=== PATIENT | male | born 1945 | race Caucasian/White ===

== ENCOUNTER 2016-04-08 11:45 | Outpatient (CLI) | payer MEDICARE ==
[~2016-04-08 11:45] MED LIST: ASCO500C14; ATEN-158 PO; CETI10CA PO; CETI10TA17; CPR500T PO; HYDR-3454 PO; HYDR1TAB PO; HYOS0.1217 PO; LISI1TAB PO; LISI1TAB10 PO; LISI20TA; MULT-608; PHEN200T27 PO; POTA8CAP9; SAWP1CAP; VITA1CAP59; VITA600C3
== END 2016-04-08 12:06 | disposition home or self-care (01) ==
LOC: SLEEP 11:45
PROVIDERS: ATTEND Nurse Practitioner
DX: G47.33 Obstructive sleep apnea (adult) (pediatric) (principal)

== ENCOUNTER → 2016-07-06 | Outpatient (CLI) | payer MEDICARE | LOC: LAB 07:20 | PROVIDERS: ATTEND Urology | DX: C67.9 Malignant neoplasm of bladder, unspecified (principal) ==

== ENCOUNTER → 2017-05-13 | Outpatient (CLI) | payer MEDICARE ==
--- NOTE | 2017-05-13 09:15 | Diagnostic Imaging Report ---
INDICATION: Nonalcoholic steatohepatitis and alcohol abuse. FINDINGS: The liver is normal in size at 16.8 cm. The liver has poor acoustic through transmission consistent with fatty infiltration. No discrete liver mass is identified. The portal vein is patent and demonstrates normal direction of flow. The gallbladder is without stones or sludge. No gallbladder wall thickening is seen. There is no pericholecystic fluid or biliary duct dilatation. The right kidney is unremarkable. The pancreas is somewhat obscured by bowel gas. There is no ascites. IMPRESSION: 1. Hepatic steatosis. No discrete liver mass is identified. 2. No evidence of cholelithiasis or acute cholecystitis. Dictated by: Dictated on workstation # [id number]
== END ==
LOC: RAD 07:06
PROVIDERS: ATTEND Family Medicine
DX: K76.0 Fatty (change of) liver, not elsewhere classified (principal); R10.10 Upper abdominal pain, unspecified
CPT/HCPCS: 76705

== ENCOUNTER → 2018-05-18 | Outpatient (CLI) | payer MEDICARE ==
--- NOTE | 2018-05-18 12:10 | Diagnostic Imaging Report ---
PROCEDURE: US Hepatic (Liver). TECHNIQUE: Multiple real-time grayscale images were obtained over the right upper quadrant in various projections. INDICATION: GARCIA versus cirrhosis. FINDINGS: Liver is enlarged at 19.1 cm. Liver does show increased echogenicity consistent with hepatic steatosis. No discrete liver mass is identified. Portal vein appears to be patent and shows normal direction of flow. Gallbladder is without stones or sludge. No definite wall thickening or biliary ductal dilatation is seen. Pancreas is obscured by bowel gas. The right kidney is unremarkable. There is no ascites. IMPRESSION: 1. Hepatomegaly and hepatic steatosis. No discrete liver mass is detected. 2. No evidence of cholelithiasis or acute cholecystitis. Dictated by: Dictated on workstation # [id number]
== END ==
LOC: RAD 07:30
PROVIDERS: ATTEND Family Medicine
DX: K76.0 Fatty (change of) liver, not elsewhere classified (principal)
CPT/HCPCS: 76705

== ENCOUNTER → 2018-07-15 | Outpatient (CLI) | payer MEDICARE ==
--- NOTE | 2018-07-15 10:53 | Diagnostic Imaging Report ---
PROCEDURE: US Renal Bilateral. TECHNIQUE: Multiple real-time grayscale images were obtained over the kidneys in various projections bilaterally. INDICATION: Renal failure Right kidney measures 9.8 x 6.0 x 5.7 cm, left kidney measures 10.5 x 5.9 x 4.5 cm. There is no mass, calculus or hydronephrosis in either kidney. Urinary bladder appears grossly normal. Left ureteral jet was seen but the right ureteral jet was never demonstrated. IMPRESSION: Mild thinning of the renal cortex with increased renal cortical echogenicity suggesting medical renal disease. There is no evidence for obstructive uropathy. Dictated by: Dictated on workstation # [id number]
== END ==
LOC: RAD 08:49
PROVIDERS: ATTEND Internal Medicine Nephrology
DX: N19 Unspecified kidney failure (principal)
CPT/HCPCS: 76770

== ENCOUNTER → 2020-12-31 | Outpatient (CLI) | payer MEDICARE, OTHER ==
--- NOTE | 2020-12-31 09:00 | Diagnostic Imaging Report ---
EXAM: CT abdomen and pelvis without intravenous contrast. All CT scans use one or more of the following dose optimizing techniques: automated exposure control, MA and/or KvP adjustment based on patient size and exam type or iterative reconstruction. INDICATION: Microscopic hematuria. History of bladder cancer COMPARISON: 07/05/2013. FINDINGS: There is a dense infiltrate or mass in the right lung base noted along the very uppermost cut of the images. This needs to be further evaluated. Left lung base is clear. The kidneys show no evidence of calculi. There is no hydronephrosis. Renal outlines are smooth. There does appear to be a round hypodense area in the upper pole left kidney with a mean Hounsfield unit of 4 measuring approximately 2 cm. The ureters are not dilated. Bladder shows a mild thickening of the wall in a rather uniform fashion. There is a very small amount of air in the bladder. There is hepatic steatosis. The gallbladder and bile duct are normal. The pancreas and spleen are normal. The adrenal glands are not enlarged. Bowel gas pattern is normal. The appendix is not dilated. No evidence of diverticulitis. There is no free air or free fluid. No intra-abdominal adenopathy of pathologic size. There is an old Schmorl's node along superior endplate of L4 which is unchanged. No free air or free fluid. Dense atherosclerosis of the aorta without aneurysm. IMPRESSION: 1. No evidence of renal calculi or hydronephrosis. There is a cystic lesion in the upper pole left kidney measuring approximately 2 cm. 2. There is thickening of the bladder with a small amount of free air within the bladder. This is unchanged in appearance from previous exam. Dictated by: Dictated on workstation # [id number]
== END ==
LOC: RAD 08:45
PROVIDERS: ATTEND Urology
DX: N28.1 Cyst of kidney, acquired (principal); N32.89 Other specified disorders of bladder
CPT/HCPCS: 74176

== ENCOUNTER → 2021-02-20 | Outpatient (CLI) | payer MEDICARE, OTHER ==
--- NOTE | 2021-02-20 09:33 | Diagnostic Imaging Report ---
PROCEDURE: US Renal Bilateral. TECHNIQUE: Multiple real-time grayscale images were obtained over the kidneys in various projections bilaterally. INDICATION: Chronic kidney disease and left kidney lesion noted on CT. Correlation is made with CT study from 12/31/2020. Right kidney measures 9.1 x 6.1 x 4.8 cm and left kidney measures 11.3 x 5.7 x 4.4 cm. The cortical thickness and echogenicity is normal. No calculi are seen. There does appear to be a cyst in the upper pole of the left kidney measuring 19 mm x 21 mm x 18 mm, corresponding with the CT abnormality. No other renal masses are identified. Bladder volume is 137 mL. Postvoid volume is 48 mL. The right ureteral jet was not visualized. Left ureteral jet was visualized. There does appear to be some bladder wall thickening. IMPRESSION: 1. A left renal cyst. 2. No evidence of calculi or hydronephrosis. 3. Mild bladder wall thickening. Dictated by: Dictated on workstation # [id number]
== END ==
LOC: RAD 09:00
PROVIDERS: ATTEND Internal Medicine
DX: N28.1 Cyst of kidney, acquired (principal); N18.31 Chronic kidney disease, stage 3a; D63.1 Anemia in chronic kidney disease
CPT/HCPCS: 76770

== ENCOUNTER 2021-02-25 16:54 | Inpatient (IN) | payer MEDICARE, OTHER ==
[~2021-02-25] VITALS: Ht 175.3 cm; Wt 83.8 kg
[2021-02-25] VITALS (10 sets, daily range): BP systolic 180–230; BP diastolic 72–91
[2021-02-25] MEDS ORDERED: FOLIC ACID 1 MG TAB PO ONE (17:45)
[2021-02-25] MEDS ORDERED: THIAMINE 100 MG (VITAMIN B-1) TAB PO ONE (17:45)
[2021-02-25] MEDS ORDERED: NS IV 1000 ML 1,000 ML IV SCH (17:45)
--- NOTE | 2021-02-25 17:50 | ED Neurological Problem ---
General Chief Complaint: Altered Mental Status Stated Complaint: AMS Nursing Triage Note: PT TO RM 6 BY WHEELCHAIR WITH COMPLAINT OF ALTERED MENTAL STATUS. PER , STATES PT IS HAVING INCREASED WEAKENSS AND CONFUSION. STATES PT IS A DAILY DRINKER Source: patient, spouse Exam Limitations: no limitations (CARTER LINDSAY) History of Present Illness Date Seen by Provider: Feb 25, 2021 Time Seen by Provider: 17:24 Initial Comments Patient to the ER by private conveyance with and chief complaint of acute altered mental status over the past 3 days. Normally he drives around goes to the [employer] [facility] [employer] and the [employer] and has a couple beers at each. He drinks whiskey at home. He is typically conversational, ambulatory and highly functioning at home. His says she works all day and she has noticed in the past 3 days has been very confused, 1 day she came home from work early and he was sitting on the back porch with their brand-new puppy off the leash running around and said he was waiting to go to work with her. She had the keys 3 days ago because she was concerned about his safety. She took him to his doctor at [facility] and saw nurse practitioner who did some labs and urinalysis but she does not have the results yet. She was told to take him home and not let him drive. He does not have a history of stroke. He does take a lot of herbal supplements and a lot of medications but she does not have a list. Allopurinol, Lasix, hydralazine, atenolol. (CARTER LINDSAY) Allergies and Home Medications Allergies Coded Allergies: Sulfa (Sulfonamide Antibiotics) (Verified Allergy, Mild, 07/22/09) Patient Home Medication List Home Medication List Reviewed: Yes (CARTER LINDSAY) Home Medication List Reviewed: Yes (IRMA WALL DO) Atenolol (Tenormin Tablet) 50 Mg Tab, 50 MG PO DAILY, (Reported) Entered as Reported by: SHERYL FOSTER on 09/20/13 1313 Hctz/Lisinopril (Lisinopril-Hctz 20-25MG Tab) 1 Tab Tablet, 1 EACH PO DAILY, (Reported) Entered as Reported by: SHERYL FOSTER on 09/20/13 1313 Hydrocodone Bit/Acetaminophen (Vicodin 5-300 Mg Tablet) 1 Each Tablet, 1-2 TAB PO PRN PRN for PAIN Prescribed by: MERT MARTE on 09/27/13 0928 Review of Systems Review of Systems Constitutional: No chills, No diaphoresis Eyes: Denies Blindness, Denies Drainage Ears, Nose, Mouth, Throat: denies ear pain, denies ear discharge Respiratory: cough; No short of breath Cardiovascular: No chest pain, No palpitations, No syncope Gastrointestinal: No abdominal pain, No constipation, No diarrhea, No nausea Genitourinary: No discharge, No dysuria, No frequency, No hematuria Musculoskeletal: No back pain, No joint pain Psychiatric/Neurological: Denies Anxiety, Denies Depressed (CARTER LINDSAY) All Other Systems Reviewed Negative Unless Noted: Yes (CARTER LINDSAY) Past Vbcknwc-Kzzhsx-Rececy Hx Patient Social History Tobacco Use?: No Smoking Status: Former Smoker Use of E-Cig and/or Vaping dev: No Substance use?: No Alcohol Use?: Yes Alcohol type: Beer, Hard Liquor Alcohol Frequency: Daily Pt feels they are or have been: No (CARTER LINDSAY) Immunizations Up To Date Influenza Vaccine Up-to-Date: Yes; Up-to-Date (CARTER LINDSAY) Past Medical History Reproductive Disorders: No (CARTER LINDSAY) Physical Exam Vital Signs Vital Signs - First Documented 02/25/21 17:11 Pulse 61 Resp 17 B/P (MAP) 180/79 (112) Pulse Ox 94 O2 Delivery Room Air (BELINDA,IRMA K DO) Vital Signs Capillary Refill : Less Than 3 Seconds (CARTER LINDSAY) Height, Weight, BMI Height: 5'8.00" Weight: 189lbs. oz. 85.097339rt; 28.00 BMI Method: General Appearance: WD/WN, no apparent distress HEENT: PERRL/EOMI (3 mm reactive bilateral, symmetric), normal ENT inspection, TMs normal, pharynx normal Neck: full range of motion, supple, normal inspection Respiratory: lungs clear, normal breath sounds, no respiratory distress, no accessory muscle use Cardiovascular: normal peripheral pulses, regular rate, rhythm, no edema Peripheral Pulses: 2+ Dorsalis Pedis (R), 2+ Left Dors-Pedis (L) Gastrointestinal: normal bowel sounds, non tender, soft Extremities: normal range of motion, non-tender, normal capillary refill Neurologic/Psychiatric: 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 He is oriented to month.) Coordination/Gait: other (Slow, shuffling gait) Motor/Sensory: no motor deficit, no sensory deficit, no pronator drift, other (NIH 1 for disorientation) Skin: normal color, warm/dry (ANGÉLICA,CARTER J) Progress/Results/Core Measures Results/Orders Lab Results Laboratory Tests Test 02/25/21 17:58 02/25/21 18:00 02/25/21 18:08 Range/Units Urine Color YELLOW Urine Clarity CLEAR Urine pH 6.0 5-9 Urine Specific [place] 1.020 1.016-1.022 Urine Protein TRACE H NEGATIVE Urine Glucose (UA) NEGATIVE NEGATIVE Urine Ketones NEGATIVE NEGATIVE Urine Nitrite NEGATIVE NEGATIVE Urine Bilirubin NEGATIVE NEGATIVE Urine Urobilinogen 0.2 < = 1.0 MG/DL Urine Leukocyte Esterase NEGATIVE NEGATIVE Urine RBC (Auto) 3+ H NEGATIVE Urine RBC 25-50 H /HPF Urine WBC 0-2 /HPF Urine Squamous Epithelial Cells 0-2 /HPF Urine Crystals NONE /LPF Urine Bacteria TRACE /HPF Urine Casts PRESENT /LPF Urine Hyaline Casts 5-10 H /LPF Urine Mucus SMALL H /LPF Urine Culture Indicated NO Urine Opiates Screen NEGATIVE NEGATIVE Urine Oxycodone Screen NEGATIVE NEGATIVE Urine Methadone Screen NEGATIVE NEGATIVE Urine Propoxyphene Screen NEGATIVE NEGATIVE Urine Barbiturates Screen NEGATIVE NEGATIVE Ur Tricyclic Antidepressants Screen NEGATIVE NEGATIVE Urine Phencyclidine Screen NEGATIVE NEGATIVE Urine Amphetamines Screen NEGATIVE NEGATIVE Urine Methamphetamines Screen NEGATIVE NEGATIVE Urine Benzodiazepines Screen NEGATIVE NEGATIVE Urine Cocaine Screen NEGATIVE NEGATIVE Urine Cannabinoids Screen NEGATIVE NEGATIVE Influenza Type A (RT-PCR) Not Detected Not Detecte Influenza Type B (RT-PCR) Not Detected Not Detecte SARS-CoV-2 RNA (RT-PCR) Not Detected Not Detecte White Blood Count 8.6 4.3-11.0 10^3/uL Red Blood Count 3.55 L 4.30-5.52 10^6/uL Hemoglobin 12.9 L 13.3-17.7 g/dL Hematocrit 38 L 40-54 % Mean Corpuscular Volume 107 H 80-99 fL Mean Corpuscular Hemoglobin 36 H 25-34 pg Mean Corpuscular Hemoglobin Concent 34 32-36 g/dL Red Cell Distribution Width 13.2 10.0-14.5 % Platelet Count 159 130-400 10^3/uL Mean Platelet Volume 11.3 9.0-12.2 fL Immature Granulocyte % (Auto) 0 % Neutrophils (%) (Auto) 73 42-75 % Lymphocytes (%) (Auto) 13 12-44 % Monocytes (%) (Auto) 10 0-12 % Eosinophils (%) (Auto) 3 0-10 % Basophils (%) (Auto) 1 0-10 % Neutrophils # (Auto) 6.3 1.8-7.8 10^3/uL Lymphocytes # (Auto) 1.1 1.0-4.0 10^3/uL Monocytes # (Auto) 0.9 0.0-1.0 10^3/uL Eosinophils # (Auto) 0.2 0.0-0.3 10^3/uL Basophils # (Auto) 0.1 0.0-0.1 10^3/uL Immature Granulocyte # (Auto) 0.0 0.0-0.1 10^3/uL Sodium Level 145 135-145 MMOL/L Potassium Level 4.0 3.6-5.0 MMOL/L Chloride Level 110 H 98-107 MMOL/L Carbon Dioxide Level 21 21-32 MMOL/L Anion Gap 14 5-14 MMOL/L Blood Urea Nitrogen 35 H 7-18 MG/DL Creatinine 3.15 H 0.60-1.30 MG/DL Estimat Glomerular Filtration Rate 19 BUN/Creatinine Ratio 11 Glucose Level 113 H 70-105 MG/DL Calcium Level 10.7 H 8.5-10.1 MG/DL Corrected Calcium 11.2 H 8.5-10.1 MG/DL Total Bilirubin 2.2 H 0.1-1.0 MG/DL Aspartate Amino Transf (AST/SGOT) 32 5-34 U/L Alanine Aminotransferase (ALT/SGPT) 22 0-55 U/L Alkaline Phosphatase 73 40-136 U/L Ammonia 58 H 11-32 UMOL/L C-Reactive Protein High Sensitivity 0.93 H 0.00-0.50 MG/DL Total Protein 8.8 H 6.4-8.2 GM/DL Albumin 3.4 3.2-4.5 GM/DL Amylase Level 60 25-125 U/L Lipase 19 8-78 U/L Serum Alcohol < 10 <10 MG/DL (IRMA WALL DO) My Orders (IRMA WALL DO) Medications Given in ED Current Medications Medications Dose Ordered Sig/Nolan Route Start Time Stop Time Status Last Admin Dose Admin Folic Acid 1 mg ONCE ONCE PO 02/25/21 17:45 02/25/21 17:46 DC 02/25/21 17:59 1 MG Thiamine HCl 100 mg ONCE ONCE PO 02/25/21 17:45 02/25/21 17:46 DC 02/25/21 18:09 100 MG (BELINDADOMINIQUEA Perla DO) Vital Signs/I&O 02/25/21 17:11 Pulse 61 Resp 17 B/P (MAP) 180/79 (112) Pulse Ox 94 O2 Delivery Room Air (IRMA WALL DO) Blood Pressure Mean: 112 Progress Progress Note : Time: 17:51 Progress Note Last known well time of 3 days ago with what seems to be a waxing and waning appearance of delirium and NIH of only one-point for disorientation. EKG is unrevealing. Plan to get Covid and influenza swabs, chest x-ray, labs, CT of the head and urinalysis. The medications he is on are probably not contributory however his history of drinking and withdrawal from alcohol over the past couple days could be contributory. (CARTER LINDSAY) Progress Note : Progress Note 1800-ASSUMED CARE FROM DR. LINDSAY, LAB AND CT PENDING. HAS LEFT THE ROOM 1845--PT HAS RIPPED OUT IV AND ALL MONITORING DEVICES. PT CONTINUES TO TRY TO REMOVE IV, ETC. PT CONTINUES TO HAVE VERY FLAT AFFECT, AND APPEARS CONFUSED, ALTHOUGH HE DOES NOT TALK AT ANY TIME FOR ME, BUT HE DOES FOLLOW SIMPLE COMMANDS. 2014-- IS NOW BACK IN ROOM, UPDATED HER ON ALL TEST RESULTS, AND NEED FOR ADMIT. DOES STATE THAT SHE HAS A HOME VIDEO MONITOR, SO SHE CAN WATCH HIM WHILE SHE IS AT WORK. NO DETERIORATION IN PT'S CONDITION DURING ER STAY (IRMA WALL ) Initial ECG Impression Date: Feb 25, 2021 (CARTER LINDSAY) Diagnostic Imaging Diagonstic Imaging: Xray Plain Films/CT/US/NM/MRI: chest Reviewed: Reviewed by Me Diagonstic Imaging: CT Plain Films/CT/US/NM/MRI: head Reviewed: Reviewed by Me (CARTER LINDSAY) Comments PER RADIOLOGIST REPORTS AT 1915 CXR-- FINDINGS: The heart size is normal. The pulmonary vascularity is unremarkable. The lungs are clear. No infiltrate, effusion or pneumothorax is detected. IMPRESSION: No acute cardiopulmonary process is detected. CT HEAD- -There are mild atrophic changes. There are minimal low-density changes in the deep white matter compatible with chronic ischemic change. There is no acute hemorrhage or mass effect or midline shift. The ventricles are normal in size and position. There are no acute appearing parenchymal abnormalities in the brain. Calvarial windows show no overt bony abnormality. Note is made of complete opacification of the left maxillary sinus and left sphenoid sinus. There is opacification of mastoid air cells on the right side. IMPRESSION: Mild atrophic changes and mild chronic changes in deep white matter with no acute intracranial abnormality. Opacification of the left maxillary sinus and left sphenoid sinus is incidentally noted. There is also opacification of the right mastoid air cells. Reviewed: Reviewed by Me (IRMA WALL DO) Transfer of Care Time: 18:01 Care transferred to: Dr. Wall (CARTER LINDSAY) Departure Communication (Admissions) 1916--SPOKE WITH DR. JOHN, ACCEPTS PT FOR ADMIT. SHE WILL DO ADMIT ORDERS (IRMA WALL DO) Impression Primary Impression: Altered mental status Additional Impressions: Alcoholism Acute renal failure ELEVATED AMMONIA LEVEL Disposition: ADMITTED INPATIENT Condition: Stable Admissions Decision to Admit Reason: Admit from ER (General) Decision to Admit/Date: Feb 25, 2021 Time/Decision to Admit Time: 19:20 (IRMA WALL DO) Departure-Patient Inst. Referrals: DOREEN MERA MD (PCP/Family) Primary Care Physician CARTER LINDSAY Feb 25, 2021 17:50 IRMA WALL DO Feb 25, 2021 18:59
[2021-02-25 18:08] LABS: BILIRUBIN,URINE NEGATIVE (NEGATIVE); CLARITY,URINE CLEAR; COLOR,URINE YELLOW; GLUCOSE, URINE (UA) NEGATIVE (NEGATIVE); KETONES,URINE NEGATIVE (NEGATIVE); LEUKOCYTE ESTERASE ,URINE NEGATIVE (NEGATIVE); NITRITE,URINE NEGATIVE (NEGATIVE); PROTEIN,URINE TRACE (NEGATIVE)
[2021-02-25 18:16] LABS: BASOPHILS # (AUTO) 0.1 10^3/uL (0.0-0.1); BASOPHILS % (AUTO) 1 % (0-10); EOSINOPHILS # (AUTO) 0.2 10^3/uL (0.0-0.3); EOSINOPHILS % (AUTO) 3 % (0-10); HEMATOCRIT 38 % (40-54); HEMOGLOBIN 12.9 g/dL (13.3-17.7); LYMPHOCYTES # (AUTO) 1.1 10^3/uL (1.0-4.0); LYMPHOCYTES % (AUTO) 13 % (12-44); MEAN CORPUSCULAR HEMOGLOBIN 36 pg (25-34); MEAN CORPUSCULAR HGB CONC 34 g/dL (32-36); MEAN CORPUSCULAR VOLUME 107 fL (80-99); MEAN PLATELET VOLUME 11.3 fL (9.0-12.2); MONOCYTES # (AUTO) 0.9 10^3/uL (0.0-1.0); MONOCYTES % (AUTO) 10 % (0-12); NEUTROPHILS # (AUTO) 6.3 10^3/uL (1.8-7.8); NEUTROPHILS % (AUTO) 73 % (42-75); PLATELET COUNT 159 10^3/uL (130-400); WHITE BLOOD COUNT 8.6 10^3/uL (4.3-11.0)
[2021-02-25 18:18] LABS: RBC,URINE 25-50 /HPF; WBC,URINE 0-2 /HPF
[2021-02-25 18:19] LABS: BACTERIA,URINE TRACE /HPF; SQUAMOUS EPITHELIAL CELL,UR 0-2 /HPF
[2021-02-25 18:22] LABS: AMPHETAMINE SCREEN, URINE NEGATIVE (NEGATIVE); BARBITURATE SCREEN URINE NEGATIVE (NEGATIVE); BENZODIAZEPINES SCREEN URINE NEGATIVE (NEGATIVE); CANNABINOID SCREEN, URINE NEGATIVE (NEGATIVE); COCAINE SCREEN URINE NEGATIVE (NEGATIVE); METHADONE STAT NEGATIVE (NEGATIVE); METHAMPHETAMINE SCREEN URINE S NEGATIVE (NEGATIVE); OPIATE SCREEN URINE NEGATIVE (NEGATIVE); OXYCODONE STAT NEGATIVE (NEGATIVE); PROPOXYPHENE STAT NEGATIVE (NEGATIVE); TRICYCLIC ANTIDEPRESSANTS SCRE NEGATIVE (NEGATIVE)
[2021-02-25 18:28] LABS: ALBUMIN 3.4 GM/DL (3.2-4.5); CHLORIDE 110 MMOL/L (98-107); SODIUM 145 MMOL/L (135-145)
[2021-02-25 18:29] LABS: CALCIUM 10.7 MG/DL (8.5-10.1)
[2021-02-25 18:30] LABS: GLUCOSE 113 MG/DL (70-105)
[2021-02-25 18:31] LABS: TOTAL PROTEIN 8.8 GM/DL (6.4-8.2)
[2021-02-25 18:32] LABS: BILIRUBIN,TOTAL 2.2 MG/DL (0.1-1.0); CARBON DIOXIDE 21 MMOL/L (21-32)
[2021-02-25 18:34] LABS: ALKALINE PHOSPHATASE 73 U/L (40-136); CREATININE SERUM 3.15 MG/DL (0.60-1.30); GFR ESTIMATED 19
[2021-02-25 18:35] LABS: BUN/CREATININE RATIO 11
[2021-02-25 18:37] LABS: ALANINE AMINOTRANSFERASE 22 U/L (0-55)
[2021-02-25 18:41] LABS: AMYLASE 60 U/L (25-125)
[2021-02-25 18:42] LABS: AMMONIA 58 UMOL/L (11-32)
[2021-02-25 18:50] LABS: LIPASE 19 U/L (8-78)
[2021-02-25] MEDS ORDERED: LACTATED RINGERS 1,000 ML IV ONE (19:00)
--- NOTE | 2021-02-25 19:09 | Diagnostic Imaging Report ---
INDICATION: Altered mental status and weakness. TIME OF EXAM: 6:52 PM COMPARISON is made with prior chest 10/03/2010. FINDINGS: The heart size is normal. The pulmonary vascularity is unremarkable. The lungs are clear. No infiltrate, effusion or pneumothorax is detected. IMPRESSION: No acute cardiopulmonary process is detected. Dictated by: Dictated on workstation # [id number]
--- NOTE | 2021-02-25 19:12 | Diagnostic Imaging Report ---
INDICATION: Altered mental status. TECHNIQUE: Multiple contiguous axial images were obtained through the brain without the use of intravenous contrast. Auto Exposure Controls were utilized during the CT exam to meet ALARA standards for radiation dose reduction. There is no prior study for comparison. There are mild atrophic changes. There are minimal low-density changes in the deep white matter compatible with chronic ischemic change. There is no acute hemorrhage or mass effect or midline shift. The ventricles are normal in size and position. There are no acute appearing parenchymal abnormalities in the brain. Calvarial windows show no overt bony abnormality. Note is made of complete opacification of the left maxillary sinus and left sphenoid sinus. There is opacification of mastoid air cells on the right side. IMPRESSION: Mild atrophic changes and mild chronic changes in deep white matter with no acute intracranial abnormality. Opacification of the left maxillary sinus and left sphenoid sinus is incidentally noted. There is also opacification of the right mastoid air cells. Dictated by: Dictated on workstation # [id number]
[2021-02-25] MEDS ORDERED: ONDANSETRON 4 MG (ZOFRAN) ORAL DISSOLVE TAB SL PRN (20:45)
[2021-02-25] MEDS ORDERED: DOCUSATE SODIUM 100 MG (COLACE) CAP PO PRN (20:45)
[2021-02-25] MEDS ORDERED: SENNA W/DOCUSATE (SENOKOT S) TABLET PO PRN (20:45)
[2021-02-25] MEDS ORDERED: D5 1/2 NS 1000 ML IV SOLUTION 1,000 ML IV PRN (20:45)
[2021-02-25] MEDS ORDERED: CALCIUM CARBONATE 500 MG (TUMS) TAB.CHEW PO PRN (20:45)
[2021-02-25] MEDS ORDERED: diphenhydrAMINE 25 MG TAB (BENADRYL) PO PRN (20:45)
[2021-02-25] MEDS ORDERED: LORazepam INJ 2 MG/ML (ATIVAN) VIAL IM/IV PRN (20:45)
[2021-02-25] MEDS ORDERED: LOPERAMIDE 2 MG (IMODIUM) TABLET PO PRN (20:45)
[2021-02-25] MEDS ORDERED: ONDANSETRON 4 MG/2 ML (SDV) Z0FRAN IV PRN (20:45)
[2021-02-25] MEDS ORDERED: HYDROcodone/APAP 5 MG/325 MG (LORTAB) TAB PO PRN (20:45)
[2021-02-25] MEDS ORDERED: ANTACID SUSP 30 ML UDC (MYLANTA) PO PRN (20:45)
[2021-02-25] MEDS ORDERED: RT-ALBUTEROL SULF 2.5 MG/3 ML PRE-MIX VIAL INH PRN (21:45)
[2021-02-25] MEDS: cloNIDine 0.1 MG (CATAPRES) TAB PO PRN (22:04)
[2021-02-25] MEDS: SENNA W/DOCUSATE (SENOKOT S) TABLET PO SCH (22:04)
[2021-02-25] MEDS: polyethylene glycoL POWDER 17 GM (MIRALAX) PACK PO SCH (22:05)
[2021-02-25] MEDS: ENOXAPARIN 30 MG/0.3 ML (LOVENOX) SYR SC SCH (22:05)
[2021-02-25] MEDS: LACTULOSE SYRUP 10GM/15ML (ENULOSE) 30ML UDC PO SCH (22:05)
[2021-02-25] MEDS: NS IV 1000 ML 1,000 ML IV SCH (22:06)
[2021-02-26] VITALS (8 sets, daily range): BP systolic 133–216; BP diastolic 63–88
[2021-02-26] MEDS: cloNIDine 0.1 MG (CATAPRES) TAB PO PRN ×2 (01:47→11:39)
[2021-02-26] MEDS ORDERED: cloNIDine 0.1 MG (CATAPRES) TAB PO ONE (04:00)
[2021-02-26] MEDS ORDERED: amLODIPine 10 MG (NORVASC) TAB PO ONE ×2 (04:00→21:15)
[2021-02-26] MEDS: MULTIVIT W/MINERALS TAB (THERAGRAN M) PO SCH (05:23)
[2021-02-26] MEDS: THIAMINE 100 MG (VITAMIN B-1) TAB PO SCH (05:23)
[2021-02-26 06:11] LABS: BASOPHILS # (AUTO) 0.1 10^3/uL (0.0-0.1); BASOPHILS % (AUTO) 1 % (0-10); LYMPHOCYTES # (AUTO) 1.3 10^3/uL (1.0-4.0); MEAN CORPUSCULAR VOLUME 105 fL (80-99); NEUTROPHILS % (AUTO) 58 % (42-75)
[2021-02-26 06:13] LABS: EOSINOPHILS # (AUTO) 0.2 10^3/uL (0.0-0.3); EOSINOPHILS % (AUTO) 5 % (0-10); HEMATOCRIT 33 % (40-54); HEMOGLOBIN 11.5 g/dL (13.3-17.7); LYMPHOCYTES % (AUTO) 24 % (12-44); MEAN CORPUSCULAR HEMOGLOBIN 37 pg (25-34); MEAN CORPUSCULAR HGB CONC 35 g/dL (32-36); MEAN PLATELET VOLUME 10.7 fL (9.0-12.2); MONOCYTES # (AUTO) 0.6 10^3/uL (0.0-1.0); MONOCYTES % (AUTO) 12 % (0-12); PLATELET COUNT 118 10^3/uL (130-400); WHITE BLOOD COUNT 5.2 10^3/uL (4.3-11.0)
[2021-02-26 06:21] LABS: ALBUMIN 2.9 GM/DL (3.2-4.5); POTASSIUM 3.6 MMOL/L (3.6-5.0)
[2021-02-26 06:22] LABS: CALCIUM 9.5 MG/DL (8.5-10.1)
[2021-02-26 06:23] LABS: INR 1.3 (0.8-1.4)
[2021-02-26 06:24] LABS: TOTAL PROTEIN 7.5 GM/DL (6.4-8.2)
[2021-02-26 06:25] LABS: BILIRUBIN,TOTAL 2.4 MG/DL (0.1-1.0)
[2021-02-26 06:27] LABS: CREATININE SERUM 2.49 MG/DL (0.60-1.30)
[2021-02-26 06:39] LABS: SMEAR SCAN COMMENT YES
[2021-02-26] MEDS ORDERED: CETI10TA17 PO (09:40)
[2021-02-26] MEDS ORDERED: CIME200T14 PO (09:40)
[2021-02-26] MEDS ORDERED: ASPI-1238 PO (09:40)
[2021-02-26] MEDS ORDERED: TRAM50TA3 PO (09:40)
[2021-02-26] MEDS ORDERED: ASCO100024 PO (09:40)
[2021-02-26] MEDS ORDERED: DIPH25TA65 PO (09:40)
[2021-02-26] MEDS ORDERED: VITA100033 PO (09:40)
[2021-02-26] MEDS ORDERED: ATEN100T PO (09:40)
[2021-02-26] MEDS ORDERED: GABA300C PO (09:40)
[2021-02-26] MEDS ORDERED: FURO20TA4 PO (09:40)
[2021-02-26] MEDS ORDERED: ALLO100T PO (09:40)
[2021-02-26] MEDS ORDERED: SAW450CA7 PO (09:40)
[2021-02-26] MEDS ORDERED: KRIL1CAP4 PO (09:40)
[2021-02-26] MEDS ORDERED: VITA-189 PO (09:40)
[2021-02-26] MEDS: LORazepam INJ 2 MG/ML (ATIVAN) VIAL IV PRN (10:37)
[2021-02-26] MEDS: FOLIC ACID 1 MG TAB PO SCH (10:41)
[2021-02-26] MEDS: LACTULOSE SYRUP 10GM/15ML (ENULOSE) 30ML UDC PO SCH ×2 (10:41→19:36)
[2021-02-26] MEDS: SENNA W/DOCUSATE (SENOKOT S) TABLET PO SCH ×2 (10:41→19:36)
[2021-02-26] MEDS: polyethylene glycoL POWDER 17 GM (MIRALAX) PACK PO SCH ×2 (10:42→19:36)
[2021-02-26] MEDS: 1/2 NS IV SOLUTION 1,000 ML IV PRN (10:43)
[2021-02-26] MEDS: NS IV 1000 ML 1,000 ML IV SCH ×2 (11:43→21:00)
--- NOTE | 2021-02-26 12:03 | History & Physical-Hospitalist ---
MELANIE DURBIN 02/26/21 1203: History of Present Illness HPI/Chief Complaint Patient is a 76 year old male who presented to [facility] ER by private vehicle. Pattie ent was brought in by his for altered mental status. Patient has a history of alcohol dependence and has not had a drink in 3-4 days. states that he began acting confused yesterday morning, and she was concerned, so she took his keys away before going to work. When she got home her was outside, confused, and thinking he was going with her to work. She called the [facility] and they told her to come in to the ER. In the ER, patient was also found to have elevated ammonia levels and acute kidney injury. Patient is hard to get information from due to his altered mental status and his hearing impairment. His is worried about him breaking his hearing aids, which is why she hasn't brought them in yet. Source: RN/MD, spouse Exam Limitations: physical impairment (Uses hearing aids and does not have with him) Date Seen 02/26/21 Time Seen by a Provider: 10:00 Attending Physician Maria Elena John DO PCP Latanya Rothman MD Referring Physician Date of Admission Feb 25, 2021 at 18:26 Home Medications & Allergies Home Medications Reviewed patient Home Medication Reconciliation performed by pharmacy medication reconciliations security technician and/or nursing. Patients Allergies have been reviewed. Allergies Allergies Coded Allergies Sulfa (Sulfonamide Antibiotics) (Verified Allergy, Mild, 07/22/09) Past Erconhx-Bauzyn-Eqfuqo Hx Patient Social History Marrital Status: Tobacco Use?: No Smoking Status: Former Smoker Use of E-Cig and/or Vaping dev: No Substance use?: No Alcohol Use?: Yes Alcohol type: Beer, Hard Liquor Alcohol Frequency: Daily Pt feels they are or have been: No Immunizations Up To Date Date of Influenza Vaccine: Jan 26, 2021 Tetanus Booster (TDap): Unknown Current Status Advance Directives: Unable to obtain Communicates: Verbally Primary Language: Grenadian Preferred Spoken Language: Grenadian Is interpretation needed?: No Sensory deficits: Hearing impairment Implanted or Applied Medical D: CPAP Review of Systems ROS-Unable to Obtain: Patient unable to hear, still confused, unable to answer ROS questions. Physical Exam Physical Exam Vital Signs Vital Signs - First Documented 02/25/21 02/25/21 02/25/21 17:11 21:27 21:28 Temp 36.1 Pulse 61 Resp 17 B/P (MAP) 180/79 (112) Pulse Ox 94 O2 Delivery Room Air FiO2 21 Capillary Refill : Less Than 3 Seconds Height, Weight, BMI Height: 5'8.00" Weight: 189lbs. oz. 85.146323hz; 28.53 BMI Method: General Appearance: WD/WN, Anxious Respiratory: Lungs Clear, Normal Breath Sounds, No Accessory Muscle Use, No Respiratory Distress Cardiovascular: Regular Rate, Rhythm, Normal Peripheral Pulses Rectal: Deferred Neurologic/Psychiatric: Alert, Disoriented Skin: Pallor Results Results/Procedures Labs Laboratory Tests 02/25/21 18:08 02/26/21 06:03 Patient resulted labs reviewed. Imaging: Reviewed Imaging Films, Reviewed Imaging Report Imaging [facility], [place], [place] NAME: MINGO NAIR [facility] REC#: [id number] PT STATUS: REG ER : 1945 PHYSICIAN: CARTER LINDSAY MD ADMIT DATE: 02/25/21/ER Signed Date of Exam:02/25/21 CHEST 1 VIEW, AP/PA ONLY [place], [place] NAME: MINGO NAIR [facility] REC#: [id number] PT STATUS: ADM IN : 1945 PHYSICIAN: CARTER LINDSAY MD ADMIT DATE: 02/25/21/[facility] Signed Date of Exam:02/25/21 CT HEAD WO INDICATION: Altered mental status. TECHNIQUE: Multiple contiguous axial images were obtained through the brain without the use of intravenous contrast. Auto Exposure Controls were utilized during the CT exam to meet ALARA standards for radiation dose reduction. There is no prior study for comparison. There are mild atrophic changes. There are minimal low-density changes in the deep white matter compatible with chronic ischemic change. There is no acute hemorrhage or mass effect or midline shift. The ventricles are normal in size and position. There are no acute appearing parenchymal abnormalities in the brain. Calvarial windows show no overt bony abnormality. Note is made of complete opacification of the left maxillary sinus and left sphenoid sinus. There is opacification of mastoid air cells on the right side. IMPRESSION: Mild atrophic changes and mild chronic changes in deep white matter with no acute intracranial abnormality. Opacification of the left maxillary sinus and left sphenoid sinus is incidentally noted. There is also opacification of the right mastoid air cells. Dictated by: Dictated on workstation # [id number] Dict: 02/25/211904 Trans: 02/25/212319 [facility] [id number] Interpreted by: MINGO WALDEN MD Electronically signed by: MINGO WALDEN MD 02/25/212319 INDICATION: Altered mental status and weakness. TIME OF EXAM: 6:52 PM COMPARISON is made with prior chest 10/03/2010. FINDINGS: The heart size is normal. The pulmonary vascularity is unremarkable. The lungs are clear. No infiltrate, effusion or pneumothorax is detected. IMPRESSION: No acute cardiopulmonary process is detected. Dictated by: Dictated on workstation # [id number] Dict: 02/25/211906 Trans: 02/25/211912 [facility] [id number] Interpreted by: ISAMAR JOSHI MD Electronically signed by: ISAMAR JOSHI MD 02/25/211912 Meds Current Medications Medications Dose Ordered Sig/Nolan Route Start Time Stop Time Status Last Admin Dose Admin Amlodipine Besylate 10 mg ONCE ONCE PO 02/26/21 04:00 02/26/21 04:14 DC 02/26/21 04:21 10 MG Clonidine HCl 0.1 mg ONCE ONCE PO 02/26/21 04:00 02/26/21 04:14 DC 02/26/21 04:22 0.1 MG Assessment/Plan Admission Diagnosis Acute alcohol withdrawal, EDWARD Admission Status: Inpatient Order (span 2 midnights) Reason for Inpatient Admission: Acute alcohol withdrawal with chronic alcohol dependence, EDWARD Assessment and Plan Assessment Acute alcohol withdrawal Alcohol dependence EDWARD HTN Hematuria Macrocytosis Plan IV Fluids Ativan Thiamine Folate MV Lovenox Clonidine Pain management PRN GERD prophylaxis MARIA ELENA JOHN DO 02/27/21 0526: History of Present Illness HPI/Chief Complaint CC: Altered mental status with alcohol withdrawal HPI: This is a 76yoWM who has a hx of alcoholism who presented to the [facility] ER found to have altered mental status and findings consistent with alcohol withdrawal. His creatinine was 3.1 consistent with dehydration so he was admitted for IV fluids and alcohol withdrawal treatment and today his creatinine is much better at 2.49. Elevated BP requiring aggressive BP medications. He does not have his hearing aids so it is very difficult to communicate. His is at the bedside and speaks broken Grenadian since she is apparently Slovak. I tried to update her with everything that she needs to know and she needs him to stay here as long as possible because she has to work. Source: patient, family, RN/MD, old records, spouse Exam Limitations: physical impairment (Uses hearing aids and does not have with him) Past Ayhrnwk-Noyuqp-Blraoi Hx Patient Social History Marrital Status: Employed/Student: retired Tobacco Use?: Yes Alcohol Use?: Yes Past Medical History High Cholesterol, Hypertension Review of Systems Constitutional: see HPI Physical Exam Physical Exam General Appearance: No Apparent Distress, Anxious, Chronically ill Eyes: Right Eye Normal Inspection, Right Eye PERRL HEENT: PERRL/EOMI, Normal ENT Inspection, Pharynx Normal, Moist Mucous Membranes Neck: Full Range of Motion, Normal Inspection, Non Tender Respiratory: Chest Non Tender, Lungs Clear, Normal Breath Sounds, No Accessory Muscle Use, No Respiratory Distress Cardiovascular: Regular Rate, Rhythm, No Edema, No Gallop, No JVD, No Murmur, Normal Peripheral Pulses Gastrointestinal: Normal Bowel Sounds, No Organomegaly, No Pulsatile Mass, Non Tender, Soft Back: Normal Inspection, No CVA Tenderness, No Vertebral Tenderness Extremity: Normal Capillary Refill, Normal Inspection, Normal Range of Motion, Non Tender, No Calf Tenderness, No Pedal Edema Neurologic/Psychiatric: Alert, No Motor/Sensory Deficits, Normal Mood/Affect, Disoriented Skin: Normal Color, Warm/Dry Lymphatic: No Adenopathy Assessment/Plan Admission Diagnosis Assessment: Acute alcohol withdrawal Acute kidney injury Alcoholism Malignant hypertension Plan: Alcohol withdrawal protocol IV fluids Hypertension management Diagnosis/Problems Diagnosis/Problems (1) Altered mental status Status: Acute (2) Alcoholism Status: Acute (3) Acute renal failure Status: Acute Supervisory-Addendum Brief Verification & Attestation Participated in pt care: history, MDM, physical Personally performed: exam, history, MDM, supervision of care Care discussed with: Medical Student Procedures: n/a Results interpretation: Verified all documentation Verification and Attestation of Medical Student E/M Service A medical student performed and documented this service in my presence. I reviewed and verified all information documented by the medical student and made modifications to such information, when appropriate. I personally performed the physical exam and medical decision making. Maria Elena John, Feb 27, 2021,05:26 MELANIE DURBIN Feb 26, 2021 12:03 MARIA ELENA JOHN DO Feb 27, 2021 05:26
--- NOTE | 2021-02-26 16:09 | Consultation-Cardiology ---
HPI-Cardiology Cardiology Consultation: Date of Consultation 02/26/21 Time Seen by a Provider: 15:45 Date of Admission 02-25-21 Attending Physician Maria Elena Landry DO Admitting Physician Latanya Rothman MD Consulting Physician Ludwin Joel MD HPI: Chief Complaint: Uncontrolled HTN Mr. Marin is a 76 yr old male who has been admitted to [facility] from the ED by his with c/o increasing weakness and confusion over the course of the last several days. He is currently confused and very [place]ALIS[place]L. His spouse is at the bedside. She reports he is a long standing heavy ETOH drinker. She reports he drinks 5 or more beers a night along with 2-3 whiskey drinks. She reports he has been driving himself to the bar up until this week. She does not report that he has c/o any CP or SOB. She reports he has never seen a crankshaft grinder before. She states he has CKD 4 for which he was previously following with Dr. Mejia of [place] [facility]. She reports he has high blood pressure and sleep apnea. She states he has had confusion with taking his medications at home over the last week. She states he takes gabapentin and tramadol at home for chronic leg pain for which he follows at [facility]. She reports he has gout. He is unable to answer any questions on his own. I have written questions on a piece of paper, but he just sets the paper down and does not answer. Review of Systems-Cardiology Review of Systems Other comments HPI to the extent it could be obtained from his is as per the HPI All Other Systems Reviewed Negative Unless Noted: Yes BIV-Vuboxh-Fskqjn Hx Patient Social History Marrital Status: Smoking Status: Former Smoker Have you traveled recently?: Unable to obtain Alcohol Use?: Yes Pt feels they are or have been: No Immunizations Up To Date Date of Influenza Vaccine: Jan 26, 2021 Past Medical History PMH As described under Assessment. Family Medical History Family Medical History: Unalble to provide any information Allergies and Home Medications Allergies Coded Allergies: Sulfa (Sulfonamide Antibiotics) (Verified Allergy, Mild, 07/22/09) Patient Home Medication List Allopurinol (Allopurinol) 100 Mg Tablet, 100 MG PO DAILY, (Reported) Entered as Reported by: TIM VALLADARES on 02/26/21 0903 Last Action: Reviewed Ascorbic Acid (Vitamin C) 1,000 Mg Tablet, 1,000 MG PO DAILY, (Reported) Entered as Reported by: TIM VALLADARES on 02/26/21939 Last Action: Reviewed Aspirin (Aspirin EC) 81 Mg Tablet.dr, 81 MG PO DAILY, (Reported) Entered as Reported by: TIM VALLADARES on 02/26/21939 Last Action: Reviewed Atenolol (Atenolol) 100 Mg Tablet, 100 MG PO DAILY, (Reported) Entered as Reported by: TIM VALLADARES on 02/26/21939 Last Action: Reviewed Cetirizine HCl (Cetirizine HCl) 10 Mg Tablet, 10 MG PO DAILY, (Reported) Entered as Reported by: TIM VALLADARES on 02/26/21939 Last Action: Reviewed Cimetidine (Acid Nut Tapper (CIMETIDINE)) 200 Mg Tablet, 200 MG PO DAILY, (Reported) Entered as Reported by: TIM VALLADARES on 02/26/21939 Last Action: Reviewed Diphenhydramine HCl (Benadryl Allergy) 25 Mg Tablet, 25 MG PO DAILY, (Reported) Entered as Reported by: TIM VALLADARES on 02/26/21939 Last Action: Reviewed Furosemide (Furosemide) 20 Mg Tablet, 20 MG PO DAILY, (Reported) Entered as Reported by: TIM VALLADARES on 02/26/21939 Last Action: Reviewed Gabapentin (Neurontin) 300 Mg Capsule, 600 MG PO DAILY, (Reported) Entered as Reported by: TIM VALLADARES on 02/26/21939 Last Action: Reviewed Krill Oil/[place]-3/Dha/Epa ([place]-3 Krill Oil Softgel) 1 Each Capsule, 1 EACH PO DAILY, (Reported) Entered as Reported by: TIM VALLADARES on 02/26/21939 Last Action: Reviewed Saw [place] Fruit (Saw [place]) 450 Mg Capsule, 450 MG PO DAILY, (Reported) Entered as Reported by: TIM VALLADARES on 02/26/21939 Last Action: Reviewed Tramadol HCl (Tramadol HCl) 50 Mg Tablet, 50 MG PO DAILY, (Reported) Entered as Reported by: TIM VALLADARES on 02/26/21939 Last Action: Reviewed Vitamin B Complex (B Complex) 1 Each Tablet, 1 EACH PO DAILY, (Reported) Entered as Reported by: TIM VALLADARES on 02/26/21939 Last Action: Reviewed Vitamin E Mixed (Vitamin E) 1,000 Unit Capsule, 1,000 UNIT PO DAILY, (Reported) Entered as Reported by: TIM VALLADARES on 02/26/21939 Last Action: Reviewed Discontinued Medications Atenolol (Tenormin Tablet) 50 Mg Tab, 50 MG PO DAILY, (Reported) Discontinued Reason: No Longer Taking Entered as Reported by: SHERYL FOSTER on 09/20/131312 Last Action: Discontinued Hctz/Lisinopril (Lisinopril-Hctz 20-25MG Tab) 1 Tab Tablet, 1 EACH PO DAILY, (Reported) Discontinued Reason: No Longer Taking Entered as Reported by: SHERYL FOSTER on 09/20/131312 Last Action: Discontinued Hydrocodone Bit/Acetaminophen (Vicodin 5-300 Mg Tablet) 1 Each Tablet, 1-2 TAB PO PRN PRN for PAIN Discontinued Reason: No Longer Taking Prescribed by: MERT MARTE on 09/27/13927 Last Action: Discontinued Physical Exam-Cardiology Physical Exam Vital Signs/I&O 02/26/21 02/26/21 02/26/21 02/27/21 20:50 21:58 23:10 00:23 Temp 36.5 Pulse 71 75 Resp 20 B/P (MAP) 210/80 (123) 180/79 (112) 187/86 (119) Pulse Ox 95 96 O2 Delivery Room Air Room Air 02/27/21 02/27/21 02/27/21 02/27/21 00:50 01:04 03:43 07:00 Temp 36.5 Pulse 76 96 70 Resp 20 B/P (MAP) 146/82 (103) 139/82 (101) Pulse Ox 94 O2 Delivery NIV CPAP 02/27/21 08:00 Temp 36.8 Pulse 75 Resp 16 B/P (MAP) 150/98 (115) Pulse Ox 96 O2 Delivery NIV CPAP 02/27/21 00:00 Intake Total 1145 ml Output Total 1550 ml Balance -405 ml Capillary Refill : Less Than 3 Seconds Constitutional: other (Very [place]; awake, alert; oriented to self) HEENT: hard of hearing, oral hygience is good Neck: No carotid bruit; carotid pulses are 2 + bilaterally Respiratory: No accessory muscle use, No respiratory distress; chest expansion is symmetric, chest is bilaterally symmetric Cardiovascular: regular rate-rhythm; No JVD; S1 and S2 Gastrointestinal: No tender; soft, round, audible bowel sounds Extremities: no lower extremity edema bilateral Neurologic/Psychiatric: other (moves all extremities) Skin: No rash on exposed areas, No ulcerations on exposed areas Data Review Labs Laboratory Tests 02/26/21 11:31: Glucometer 115H 02/26/21 17:43: Glucometer 143H 02/26/21 23:43: Glucometer 95 02/27/21 05:12: Glucometer 98 02/27/21 06:24: White Blood Count 5.9, Red Blood Count 3.23L, Hemoglobin 11.9L, Hematocrit 34L, Mean Corpuscular Volume 105H, Mean Corpuscular Hemoglobin 37H, Mean Corpuscular Hemoglobin Concent 35, Red Cell Distribution Width 12.7, Platelet Count 117L, Mean Platelet Volume 11.0, Immature Granulocyte % (Auto) 0, Neutrophils (%) (Auto) 68, Lymphocytes (%) (Auto) 14, Monocytes (%) (Auto) 15H, Eosinophils (%) (Auto) 3, Basophils (%) (Auto) 1, Neutrophils # (Auto) 4.0, Lymphocytes # (Auto) 0.8L, Monocytes # (Auto) 0.9, Eosinophils # (Auto) 0.2, Basophils # (Auto) 0.0, Immature Granulocyte # (Auto) 0.0, Percent Immature Platelet Fraction 4.0, Prothrombin Time 16.4H, INR Comment 1.3, Sodium Level 143, Potassium Level 3.8, Chloride Level 111H, Carbon Dioxide Level 20L, Anion Gap 12, Blood Urea Nitrogen 29H, Creatinine 2.04H, Estimat Glomerular Filtration Rate 32, BUN/Creatinine Ratio 14, Glucose Level 102, Calcium Level 9.3, Magnesium Level 1.5L, Total Bilirubin 2.8H, Direct Bilirubin 1.1H, Indirect Bilirubin 1.7, Aspartate Amino Transf (AST/SGOT) 29, Alanine Aminotransferase (ALT/SGPT) 17, Alkaline Phosphat ase 67, Total Protein 7.8, Albumin 3.1L, Thyroid Stimulating Hormone (TSH) 1.70 Radiology NAME: MINGO MARIN [facility] REC#: [id number] PT STATUS: ADM IN : 1945 PHYSICIAN: CARTER LINDSAY MD ADMIT DATE: 02/25/21 Signed Date of Exam:02/25/21 CT HEAD WO INDICATION: Altered mental status. TECHNIQUE: Multiple contiguous axial images were obtained through the brain without the use of intravenous contrast. Auto Exposure Controls were utilized during the CT exam to meet ALARA standards for radiation dose reduction. There is no prior study for comparison. There are mild atrophic changes. There are minimal low-density changes in the deep white matter compatible with chronic ischemic change. There is no acute hemorrhage or mass effect or midline shift. The ventricles are normal in size and position. There are no acute appearing parenchymal abnormalities in the brain. Calvarial windows show no overt bony abnormality. Note is made of complete opacification of the left maxillary sinus and left sphenoid sinus. There is opacification of mastoid air cells on the right side. IMPRESSION: Mild atrophic changes and mild chronic changes in deep white matter with no acute intracranial abnormality. Opacification of the left maxillary sinus and left sphenoid sinus is incidentally noted. There is also opacification of the right mastoid air cells. Dictated by: Dictated on workstation # [id number] Dict: 02/25/211904 Trans: 02/25/[address] [place] [address] [id number] Interpreted by: MINGO WALDEN MD Electronically signed by: MINGO WALDEN MD 02/25/212319 NAME: MINGO MARIN [facility] REC#: [id number] PT STATUS: REG ER : 1945 PHYSICIAN: CARTER LINDSAY MD ADMIT DATE: 02/25/21/ER Signed Date of Exam:02/25/21 CHEST 1 VIEW, AP/PA ONLY INDICATION: Altered mental status and weakness. TIME OF EXAM: 6:52 PM COMPARISON is made with prior chest 10/03/2010. FINDINGS: The heart size is normal. The pulmonary vascularity is unremarkable. The lungs are clear. No infiltrate, effusion or pneumothorax is detected. IMPRESSION: No acute cardiopulmonary process is detected. Dictated by: Dictated on workstation # [id number] Dict: 02/25/211906 Trans: 02/25/211912 [facility] [id number] Interpreted by: ISAMAR JOSHI MD Electronically signed by: ISAMAR JOSHI MD 02/25/211912 A/P-Cardiology Assessment/Admission Diagnosis Uncontrolled HTN - h/o HTN (previously taking atenolol at home) Reported sinus bradycardia Confusion of undetermined etiology - management per medical services Heavy ETOH abuse with withdrawal - management per medical services CKD 4 (per spouse report) - follows with [facility] Sleep apnea - CPAP tx H/O bladder cancer - followed by Dr. Young Gout Chronic leg pain - undetermined etiology Mild thrombocytopenia - undetermined etiology Discussion and Recomendations Uncontrolled HTN with reported episodes of bradycardia - stop Atenolol - stop clonidine - start Cardura Start Norvasc EKG Echocardiogram to eval structure and function CKD 4 - this prevents us from adding STAN or ARB Monitor lab closely Replace electrolytes as indicated Mild thrombocytopenia of undetermined etiology - management per medical services We would like to thank medical services for this consult Further recs will be based on his hospital course MORIS BYNUM Feb 26, 2021 16:09
[2021-02-26] MEDS ORDERED: doxAzosin 4 MG (CARDURA) TAB PO ONE (16:15)
--- NOTE | 2021-02-26 17:24 | Consultation-Cardiology ---
HPI-Cardiology Cardiology Consultation: Date of Consultation 02/26/21 Time Seen by a Provider: 17:00 Date of Admission Attending Physician Maria Elena Landry DO Admitting Physician Latanya Rothman MD Consulting Physician TOSHIA CRUZ MD, MA, FACP, FACC, FSCAI, CCDS HPI: Chief Complaint: Uncontrolled HTN Mr. Marin is a 76 yr old male who has been admitted to [facility] from the ED by his with c/o increasing weakness and confusion over the course of the last several days. He is currently confused and very [place]. His spouse is at the bedside. She reports he is a long standing heavy ETOH drinker. She reports he drinks 5 or more beers a night along with 2-3 whiskey drinks. She reports he has been driving himself to the bar up until this week. She does not report that he has c/o any CP or SOB. She reports he has never seen a conservation coordinator before. She states he has CKD 4 for which he was previously following with Dr. Mejia of [facility]. She reports he has high blood pressure and sleep apnea. She states he has had confusion with taking his medications at home over the last week. She states he takes gabapentin and tramadol at home for chronic leg pain for which he follows at [facility]. She reports he has gout. He is unable to answer any questions on his own. I have written questions on a piece of paper, but he just sets the paper down and does not answer. Review of Systems-Cardiology Review of Systems Constitutional: other (Pt unable to provide a review of systems) All Other Systems Reviewed Negative Unless Noted: Yes [id number] Hx Patient Social History Marrital Status: Smoking Status: Former Smoker Have you traveled recently?: Unable to obtain Alcohol Use?: Yes Pt feels they are or have been: No Immunizations Up To Date Date of Influenza Vaccine: Jan 26, 2021 Past Medical History PMH As described under Assessment. Family Medical History Family Medical History: Unable to provide any information Allergies and Home Medications Allergies Coded Allergies: Sulfa (Sulfonamide Antibiotics) (Verified Allergy, Mild, 07/22/09) Patient Home Medication List Home Medication List Reviewed: Yes Allopurinol (Allopurinol) 100 Mg Tablet, 100 MG PO DAILY, (Reported) Entered as Reported by: TIM VALLADARES on 12/15/21 0940 Last Action: Reviewed Ascorbic Acid (Vitamin C) 1,000 Mg Tablet, 1,000 MG PO DAILY, (Reported) Entered as Reported by: TIM VALLADARES on 02/26/21939 Last Action: Reviewed Aspirin (Aspirin EC) 81 Mg Tablet.dr, 81 MG PO DAILY, (Reported) Entered as Reported by: TIM VALLADARES on 02/26/21939 Last Action: Reviewed Atenolol (Atenolol) 100 Mg Tablet, 100 MG PO DAILY, (Reported) Entered as Reported by: TIM VALLADARES on 02/26/21939 Last Action: Reviewed Cetirizine HCl (Cetirizine HCl) 10 Mg Tablet, 10 MG PO DAILY, (Reported) Entered as Reported by: TIM VALLADARES on 02/26/21939 Last Action: Reviewed Cimetidine (Acid Dist[place] (CIMETIDINE)) 200 Mg Tablet, 200 MG PO DAILY, (Reported) Entered as Reported by: TIM VALLADARES on 02/26/21939 Last Action: Reviewed Diphenhydramine HCl (Benadryl Allergy) 25 Mg Tablet, 25 MG PO DAILY, (Reported) Entered as Reported by: TIM VALLADARES on 02/26/21939 Last Action: Reviewed Furosemide (Furosemide) 20 Mg Tablet, 20 MG PO DAILY, (Reported) Entered as Reported by: TIM VALLADARES on 02/26/21939 Last Action: Reviewed Gabapentin (Neurontin) 300 Mg Capsule, 600 MG PO DAILY, (Reported) Entered as Reported by: TIM VALLADARES on 02/26/21939 Last Action: Reviewed Krill Oil/Fajardo-3/Dha/Epa (Fajardo-3 Krill Oil Softgel) 1 Each Capsule, 1 EACH PO DAILY, (Reported) Entered as Reported by: TIM VALLADARES on 02/26/21939 Last Action: Reviewed Saw [place] Fruit (Saw [place]) 450 Mg Capsule, 450 MG PO DAILY, (Reported) Entered as Reported by: TIM VALLADARES on 02/26/21939 Last Action: Reviewed Tramadol HCl (Tramadol HCl) 50 Mg Tablet, 50 MG PO DAILY, (Reported) Entered as Reported by: TIM VALLADARES on 02/26/21939 Last Action: Reviewed Vitamin B Complex (B Complex) 1 Each Tablet, 1 EACH PO DAILY, (Reported) Entered as Reported by: TIM VALLADARES on 02/26/21939 Last Action: Reviewed Vitamin E Mixed (Vitamin E) 1,000 Unit Capsule, 1,000 UNIT PO DAILY, (Reported) Entered as Reported by: TIM VALLADARES on 02/26/21939 Last Action: Reviewed Discontinued Medications Atenolol (Tenormin Tablet) 50 Mg Tab, 50 MG PO DAILY, (Reported) Discontinued Reason: No Longer Taking Entered as Reported by: SHERYL FOSTER on 09/20/131312 Last Action: Discontinued Hctz/Lisinopril (Lisinopril-Hctz 20-25MG Tab) 1 Tab Tablet, 1 EACH PO DAILY, (Reported) Discontinued Reason: No Longer Taking Entered as Reported by: SHERYL FOSTER on 09/20/131312 Last Action: Discontinued Hydrocodone Bit/Acetaminophen (Vicodin 5-300 Mg Tablet) 1 Each Tablet, 1-2 TAB PO PRN PRN for PAIN Discontinued Reason: No Longer Taking Prescribed by: MERT MARTE on 09/27/13927 Last Action: Discontinued Physical Exam-Cardiology Physical Exam Vital Signs/I&O 02/26/21 02/26/21 02/26/21 02/26/21 07:00 08:00 08:00 11:00 Temp 35.7 Pulse 60 60 Resp 20 B/P (MAP) 160/74 (102) 177/79 (111) Pulse Ox 94 O2 Delivery Room Air Room Air 02/26/21 02/26/21 14:41 16:14 Temp 35.8 Pulse 54 Resp 22 B/P (MAP) 197/72 (113) Pulse Ox 95 95 O2 Delivery Room Air Room Air 02/26/21 00:00 Intake Total 1200 ml Balance 1200 ml Capillary Refill : Less Than 3 Seconds Constitutional: other (Very [place]; awake, alert; oriented to self) HEENT: hard of hearing, oral hygience is good Neck: No carotid bruit; carotid pulses are 2 + bilaterally Respiratory: No accessory muscle use, No respiratory distress; chest expansion is symmetric, chest is bilaterally symmetric Cardiovascular: regular rate-rhythm; No JVD; S1 and S2 Gastrointestinal: No tender; soft, round, audible bowel sounds Extremities: no lower extremity edema bilateral Neurologic/Psychiatric: other (moves all extremities) Skin: No rash on exposed areas, No ulcerations on exposed areas Data Review Labs Laboratory Tests 02/25/21 17:58: Urine Color YELLOW, Urine Clarity CLEAR, Urine pH 6.0, Urine Specific Allen 1.020, Urine Protein TRACEH, Urine Glucose (UA) NEGATIVE, Urine Ketones NEGATIVE, Urine Nitrite NEGATIVE, Urine Bilirubin NEGATIVE, Urine Urobilinogen 0.2, Urine Leukocyte Esterase NEGATIVE, Urine RBC (Auto) 3+H, Urine RBC 25-50H, Urine WBC 0-2, Urine Squamous Epithelial Cells 0-2, Urine Crystals NONE, Urine Bacteria TRACE, Urine Casts PRESENT, Urine Hyaline Casts 5-10H, Urine Mucus SMALLH, Urine Culture Indicated NO, Urine Opiates Screen NEGATIVE, Urine Oxycodone Screen NEGATIVE, Urine Methadone Screen NEGATIVE, Urine Propoxyphene Screen NEGATIVE, Urine Barbiturates Screen NEGATIVE, Ur Tricyclic Antidepressants Screen NEGATIVE, Urine Phencyclidine Screen NEGATIVE, Urine Amp hetamines Screen NEGATIVE, Urine Methamphetamines Screen NEGATIVE, Urine Benzodiazepines Screen NEGATIVE, Urine Cocaine Screen NEGATIVE, Urine Cannabinoids Screen NEGATIVE 02/25/21 18:00: Influenza Type A (RT-PCR) Not Detected, Influenza Type B (RT-PCR) Not Detected, SARS-CoV-2 RNA (RT-PCR) Not Detected 02/25/21 18:08: White Blood Count 8.6, Red Blood Count 3.55L, Hemoglobin 12.9L, Hematocrit 38L, Mean Corpuscular Volume 107H, Mean Corpuscular Hemoglobin 36H, Mean Corpuscular Hemoglobin Concent 34, Red Cell Distribution Width 13.2, Platelet Count 159, Mean Platelet Volume 11.3, Immature Granulocyte % (Auto) 0, Neutrophils (%) (Auto) 73, Lymphocytes (%) (Auto) 13, Monocytes (%) (Auto) 10, Eosinophils (%) (Auto) 3, Basophils (%) (Auto) 1, Neutrophils # (Auto) 6.3, Lymphocytes # (Auto) 1.1, Monocytes # (Auto) 0.9, Eosinophils # (Auto) 0.2, Basophils # (Auto) 0.1, Immature Granulocyte # (Auto) 0.0, Sodium Level 145, Potassium Level 4.0, Chloride Level 110H, Carbon Dioxide Level 21, Anion Gap 14, Blood Urea Nitrogen 35H, Creatinine 3.15H, Estimat Glomerular Filtration Rate 19, BUN/Creatinine Ratio 11, Glucose Level 113H, Calcium Level 10.7H, Corrected Calcium 11.2H, Total Bilirubin 2.2H, Aspartate Amino Transf (AST/SGOT) 32, Alanine Aminotransferase (ALT/SGPT) 22, Alkaline Phosphatase 73, Ammonia 58H, C-Reactive Protein High Sensitivity 0.93H, Total Protein 8.8H, Albumin 3.4, Amylase Level 60, Lipase 19, Serum Alcohol < 10 02/25/21 19:19: Ammonia 44H 02/26/21 05:22: Glucometer 83 02/26/21 06:03: White Blood Count 5.2, Red Blood Count 3.15L, Hemoglobin 11.5L, Hematocrit 33L, Mean Corpuscular Volume 105H, Mean Corpuscular Hemoglobin 37H, Mean Corpuscular Hemoglobin Concent 35, Red Cell Distribution Width 12.9, Platelet Count 118L, Mean Platelet Volume 10.7, Immature Granulocyte % (Auto) 0, Neutrophils (%) (Auto) 58, Lymphocytes (%) (Auto) 24, Monocytes (%) (Auto) 12, Eosinophils (%) (Auto) 5, Basophils (%) (Auto) 1, Neutrophils # (Auto) 3.0, Lymphocytes # (Auto) 1.3, Monocytes # (Auto) 0.6, Eosinophils # (Auto) 0.2, Basophils # (Auto) 0.1, Immature Granulocyte # (Auto) 0.0, Percent Immature Platelet Fraction 3.7, Proth rombin Time 17.0H, INR Comment 1.3, Sodium Level 143, Potassium Level 3.6, Chloride Level 111H, Carbon Dioxide Level 22, Anion Gap 10, Blood Urea Nitrogen 33H, Creatinine 2.49H, Estimat Glomerular Filtration Rate 25, BUN/Creatinine Ratio 13, Glucose Level 89, Calcium Level 9.5, Corrected Calcium 10.4H, Total Bilirubin 2.4H, Aspartate Amino Transf (AST/SGOT) 28, Alanine Aminotransferase (ALT/SGPT) 16, Alkaline Phosphatase 69, Total Protein 7.5, Albumin 2.9L, Smear Scan YES 02/26/21 11:31: Glucometer 115H A/P-Cardiology Assessment/Admission Diagnosis Uncontrolled HTN - h/o HTN (previously taking atenolol at home) Reported sinus bradycardia Confusion of undetermined etiology - management per medical services Heavy ETOH abuse with withdrawal - management per medical services CKD 4 (per spouse report) - follows with [facility] Sleep apnea - CPAP tx H/O bladder cancer - followed by Dr. Young Gout Chronic leg pain - undetermined etiology Mild thrombocytopenia - undetermined etiology Discussion and Recomendations Uncontrolled HTN with reported episodes of bradycardia - stop Atenolol - stop clonidine - start Cardura Start Norvasc EKG Echocardiogram to eval structure and function CKD 4 - this prevents us from adding STAN or ARB Monitor lab closely Replace electrolytes as indicated Mild thrombocytopenia of undetermined etiology - management per medical services We would like to thank medical services for this consult Further recs will be based on his hospital course TOSHIA CRUZ MD FACP FACC CCDS Feb 26, 2021 17:24
[2021-02-26] MEDS: ENOXAPARIN 30 MG/0.3 ML (LOVENOX) SYR SC SCH (19:35)
[2021-02-26] MEDS: HALOPERIDOL 5 MG/ML (HALDOL) VIAL IM PRN (19:35)
[2021-02-26] MEDS: doxAzosin 4 MG (CARDURA) TAB PO SCH (21:00)
[2021-02-26] MEDS ORDERED: NITROGLYCERIN 2% OINT 1 GM UNIT DOSE PACKET TOP PRN (21:45)
[2021-02-26] MEDS: hydrALAZINE (APESOLINE) 20 MG/ML VIAL IV PRN (23:53)
[2021-02-27] VITALS (8 sets, daily range): BP systolic 139–187; BP diastolic 64–98
[2021-02-27] MEDS: NS IV 1000 ML 1,000 ML IV SCH ×2 (04:22→10:22)
[2021-02-27] MEDS: MULTIVIT W/MINERALS TAB (THERAGRAN M) PO SCH (05:26)
[2021-02-27] MEDS: THIAMINE 100 MG (VITAMIN B-1) TAB PO SCH (05:26)
[2021-02-27] MEDS: doxAzosin 4 MG (CARDURA) TAB PO SCH ×3 (05:26→22:05)
[2021-02-27 06:39] LABS: BASOPHILS % (AUTO) 1 % (0-10)
[2021-02-27 06:41] LABS: EOSINOPHILS # (AUTO) 0.2 10^3/uL (0.0-0.3); EOSINOPHILS % (AUTO) 3 % (0-10); HEMATOCRIT 34 % (40-54); HEMOGLOBIN 11.9 g/dL (13.3-17.7); LYMPHOCYTES # (AUTO) 0.8 10^3/uL (1.0-4.0); LYMPHOCYTES % (AUTO) 14 % (12-44); MEAN CORPUSCULAR HEMOGLOBIN 37 pg (25-34); MEAN CORPUSCULAR HGB CONC 35 g/dL (32-36); MEAN CORPUSCULAR VOLUME 105 fL (80-99); MONOCYTES # (AUTO) 0.9 10^3/uL (0.0-1.0); MONOCYTES % (AUTO) 15 % (0-12); NEUTROPHILS % (AUTO) 68 % (42-75); PLATELET COUNT 117 10^3/uL (130-400); WHITE BLOOD COUNT 5.9 10^3/uL (4.3-11.0)
[2021-02-27 06:51] LABS: INR 1.3 (0.8-1.4); PROTHROMBIN TIME PATIENT 16.4 SEC (12.2-14.7)
[2021-02-27 07:18] LABS: ALBUMIN 3.1 GM/DL (3.2-4.5); BILIRUBIN,DIRECT 1.1 MG/DL (0.0-0.3); BILIRUBIN,INDIRECT 1.7 MG/DL; BILIRUBIN,TOTAL 2.8 MG/DL (0.1-1.0); CALCIUM 9.3 MG/DL (8.5-10.1); CREATININE SERUM 2.04 MG/DL (0.60-1.30); MAGNESIUM 1.5 MG/DL (1.6-2.4); POTASSIUM 3.8 MMOL/L (3.6-5.0); TOTAL PROTEIN 7.8 GM/DL (6.4-8.2)
[2021-02-27] MEDS: amLODIPine 5 MG (NORVASC) TAB PO SCH (08:22)
[2021-02-27] MEDS: FOLIC ACID 1 MG TAB PO SCH (08:22)
[2021-02-27] MEDS: LACTULOSE SYRUP 10GM/15ML (ENULOSE) 30ML UDC PO SCH ×2 (08:22→19:47)
[2021-02-27] MEDS: polyethylene glycoL POWDER 17 GM (MIRALAX) PACK PO SCH ×2 (08:22→19:47)
[2021-02-27] MEDS: SENNA W/DOCUSATE (SENOKOT S) TABLET PO SCH ×2 (08:22→19:48)
--- NOTE | 2021-02-27 09:08 | Progress Note - Cardiology ---
Cardiology SOAP Progress Note Subjective: Lethargic this morning - difficult to arouse Objective: I&O/Vital Signs 02/27/21 02/28/21 02/28/21 02/28/21 23:40 01:00 04:50 07:00 Temp 37.0 36.9 Pulse 86 83 88 87 Resp 22 22 B/P (MAP) 169/79 (109) 173/80 (111) Pulse Ox 96 95 O2 Delivery Room Air Room Air 02/28/21 02/28/21 07:55 08:53 Temp 37.1 Pulse 89 Resp 22 B/P (MAP) 180/71 (107) Pulse Ox 95 96 O2 Delivery Room Air Room Air 02/27/21 23:59 Intake Total 2750 ml Output Total 800 ml Balance 1950 ml Weight (Pounds): 189 Weight (Calculated Kilograms): 85.824458 Constitutional: other (somonlent) Respiratory: No accessory muscle use, No respiratory distress; chest expansion is symmetric, chest is bilaterally symmetric Cardiovascular: regular rate-rhythm; No JVD; S1 and S2 Gastrointestional: No tender; soft, round, audible bowel sounds Extremities: no lower extremity edema bilateral Neurologic/Psychiatric: other (moves all extremities) Skin: jaundice; No rash on exposed areas, No ulcerations on exposed areas Results/Procedures: Labs Laboratory Tests 02/27/21 12:33: Glucometer 186H 02/27/21 17:21: Glucometer 146H 02/27/21 23:34: Glucometer 100 02/28/21 04:44: Glucometer 102 A/P: Assessment: Somnolence - possible secondary to hyperammonia levels Uncontrolled HTN - h/o HTN (previously taking atenolol at home) Reported sinus bradycardia - during sleep - no documentation Confusion of undetermined etiology - management per medical services Hyperammonia - likely secondary to liver and renal dz - management per medical services Heavy ETOH abuse with withdrawal - management per medical services CKD 4 (per spouse report) - follows with [facility] Sleep apnea - CPAP tx H/O bladder cancer - followed by Dr. Young Gout Chronic leg pain - undetermined etiology Mild thrombocytopenia - undetermined etiology Plan: Somnolence this morning - possibly secondary to hyperammonemia levels - management per medical services Uncontrolled HTN with reported episodes of bradycardia (no documentation of bradycardia) - continue doxazosin and amlodipine along with PRN Hydralazine ETOH WD - management per medical services Echocardiogram to eval structure and function - pending CKD 4 - this prevents us from adding STAN or ARB - gradually improving Monitor lab closely Replace electrolytes as indicated - replace Mag today Mild thrombocytopenia of undetermined etiology - management per medical services MORIS BYNUM Feb 27, 2021 09:08
--- NOTE | 2021-02-27 09:57 | Progress Note - Cardiology ---
Cardiology SOAP Progress Note Subjective: Not able to provide any history. Noncommunicative Objective: I&O/Vital Signs 02/26/21 02/26/21 02/27/21 02/27/21 21:58 23:10 00:23 00:50 Temp 36.5 Pulse 71 75 Resp 20 B/P (MAP) 180/79 (112) 187/86 (119) 146/82 (103) Pulse Ox 95 96 O2 Delivery Room Air Room Air 02/27/21 02/27/21 02/27/21 02/27/21 01:04 03:43 07:00 08:00 Temp 36.5 36.8 Pulse 76 96 70 75 Resp 20 16 B/P (MAP) 139/82 (101) 150/98 (115) Pulse Ox 94 96 O2 Delivery NIV CPAP NIV CPAP 02/27/21 00:00 Intake Total 1145 ml Output Total 1550 ml Balance -405 ml Weight (Pounds): 189 Weight (Calculated Kilograms): 85.603291 Constitutional: other (somonlent) Respiratory: No accessory muscle use, No respiratory distress; chest expansion is symmetric, chest is bilaterally symmetric Cardiovascular: regular rate-rhythm; No JVD; S1 and S2 Gastrointestional: No tender; soft, round, audible bowel sounds Extremities: no lower extremity edema bilateral Neurologic/Psychiatric: other (moves all extremities) Skin: jaundice; No rash on exposed areas, No ulcerations on exposed areas Results/Procedures: Labs Laboratory Tests 02/26/21 11:31: Glucometer 115H 02/26/21 17:43: Glucometer 143H 02/26/21 23:43: Glucometer 95 02/27/21 05:12: Glucometer 98 02/27/21 06:24: White Blood Count 5.9, Red Blood Count 3.23L, Hemoglobin 11.9L, Hematocrit 34L, Mean Corpuscular Volume 105H, Mean Corpuscular Hemoglobin 37H, Mean Corpuscular Hemoglobin Concent 35, Red Cell Distribution Width 12.7, Platelet Count 117L, Mean Platelet Volume 11.0, Immature Granulocyte % (Auto) 0, Neutrophils (%) (Auto) 68, Lymphocytes (%) (Auto) 14, Monocytes (%) (Auto) 15H, Eosinophils (%) (Auto) 3, Basophils (%) (Auto) 1, Neutrophils # (Auto) 4.0, Lymphocytes # (Auto) 0.8L, Monocytes # (Auto) 0.9, Eosinophils # (Auto) 0.2, Basophils # (Auto) 0.0, Immature Granulocyte # (Auto) 0.0, Percent Immature Platelet Fraction 4.0, Prothrombin Time 16.4H, INR Comment 1.3, Sodium Level 143, Potassium Level 3.8, Chloride Level 111H, Carbon Dioxide Level 20L, Anion Gap 12, Blood Urea Nitrogen 29H, Creatinine 2.04H, Estimat Glomerular Filtration Rate 32, BUN/Creatinine Ratio 14, Glucose Level 102, Calcium Level 9.3, Magnesium Level 1.5L, Total Bilirubin 2.8H, Direct Bilirubin 1.1H, Indirect Bilirubin 1.7, Aspartate Amino Transf (AST/SGOT) 29, Alanine Aminotransferase (ALT/SGPT) 17, Alkaline Phosphatase 67, Total Protein 7.8, Albumin 3.1L, Thyroid Stimulating Hormone (TSH) 1.70 A/P: Assessment: Mental status change, acute renal failure, and hyperbilirubinemia of undetermined etiology - Dr Landry managing Uncontrolled HTN - h/o HTN (previously taking atenolol at home) Reported sinus bradycardia - during sleep - no documentation Confusion of undetermined etiology - management per medical services Hyperammonia - likely secondary to liver and renal dz - management per medical services Heavy ETOH abuse with withdrawal - management per medical services CKD 4 (per spouse report) - follows with [facility] Sleep apnea - CPAP tx H/O bladder cancer - followed by Dr. Young Gout Chronic leg pain - undetermined etiology Mild thrombocytopenia - undetermined etiology Plan: Somnolence this morning - possibly secondary to hyperammonemia levels, management per medical services Uncontrolled HTN with reported episodes of bradycardia (no documentation of bradycardia) - continue doxazosin and amlodipine along with PRN Hydralazine ETOH WD - management per medical services Echocardiogram to eval structure and function - pending Renal failure of unknown chronicity - this prevents us from adding STAN- inhib or ARB Monitor lab closely Replace electrolytes as indicated - replace Mag today Mild thrombocytopenia of undetermined etiology - management per Medical services TOSHIA CRUZ MD FACP [facility] CCDS Feb 27, 2021 09:57
[2021-02-27] MEDS: MAGNESIUM 1 GM/100 ML IVPB 100 ML IV SCH ×2 (10:23→11:44)
--- NOTE | 2021-02-27 12:39 | Progress Note - Hospitalist ---
MELANIE DURBIN 02/27/21 1238: Subjective HPI/CC On Admission Date Seen by Provider: Feb 27, 2021 Time Seen by Provider: 08:20 CC: Altered mental status with alcohol withdrawal HPI: This is a 76yoWM who has a hx of alcoholism who presented to the [facility] found to have altered mental status and findings consistent with alcohol withdrawal. His creatinine was 3.1 consistent with dehydration so he was adm itted for IV fluids and alcohol withdrawal treatment and today his creatinine is much better at 2.49. Elevated BP requiring aggressive BP medications. He does not have his hearing aids so it is very difficult to communicate. His is at the bedside and speaks broken K[place]z since she is apparently [place]. I tried to update her with everything that she needs to know and she needs him to stay here as long as possible because she has to work. Subjective/Events-last exam Patient was having episodes of treatment resistant hypertension last night. Able to get it under control with doxazosin, amlodipine, nitroglycerin ointment, and hydrazaline. [place] that patient has CKD, will D/C fluids and encourage oral intake. Patient was sleeping when I went to see him. Creatinine is down from yesterday. Son states his mental status seems to be doing better. Patient does still have some intention tremors. Patient still does not have hearing aids and is unable to provide a ROS. Patient may be good candidate for inpatient rehab, will put in a consult. Objective Exam Vital Signs Vital Signs Date Time Temp Pulse Resp B/P (MAP) Pulse Ox O2 Delivery O2 Flow Rate FiO2 02/27/21 08:00 36.8 75 16 150/98 (115) 96 NIV CPAP 02/25/21 21:27 21 Capillary Refill : Less Than 3 Seconds General Appearance: No Apparent Distress, WD/WN Respiratory: Normal Breath Sounds, No Accessory Muscle Use, No Respiratory Distress Cardiovascular: Regular Rate, Rhythm, Normal Peripheral Pulses Rectal: Deferred Results/Procedures Lab Laboratory Tests 02/27/21 06:24 Patient resulted labs reviewed. Imaging: Reviewed Imaging Films, Reviewed Imaging Report Assessment/Plan Assessment and Plan Assess & Plan/Chief Complaint Assessment Acute alcohol withdrawal Alcohol dependence EDWARD on CKD HTN Hematuria Macrocytosis Plan CIWA protocol D/C fluids, encourage oral intake Doxazosin Amlodipine Hydrazaline Nitro ointment PRN SBP >170 Pain management PRN GERD prophylaxis Monitor labs MARIA ELENA JOHN DO 02/28/21 0513: Subjective Subjective/Events-last exam Pt doing pretty well Gong chronic kidney disease stage IV and bladder cancer managed by Dr. Young He also has gout Cardera, Hydralazine, Nitroglycerin ointment and Clonidine required along with Norvasc of 10 for his BP Creatinine 2.0 Inpatient rehab PT and OT put in Review of Systems General: Fatigue, Malaise Objective Exam General Appearance: No Apparent Distress, WD/WN, Chronically ill Respiratory: Lungs Clear, Normal Breath Sounds Cardiovascular: Regular Rate, Rhythm Neurologic/Psychiatric: Alert, No Motor/Sensory Deficits, Normal Mood/Affect, Disoriented Assessment/Plan Assessment and Plan Assess & Plan/Chief Complaint Blood pressure management Presbycusis makes it difficult to communicate Supervisory-Addendum Brief Verification & Attestation Participated in pt care: history, MDM, physical Personally performed: exam, history, MDM, supervision of care Care discussed with: Medical Student Procedures: n/a Results interpretation: Verified all documentation Verification and Attestation of Medical Student E/M Service A medical student performed and documented this service in my presence. I reviewed and verified all information documented by the medical student and made modifications to such information, when appropriate. I personally performed the physical exam and medical decision making. Maria Elena John, Feb 28, 2021,05:12 MELANIE DURBIN Feb 27, 2021 12:38 MARIA ELENA JOHN DO Feb 28, 2021 05:13
--- NOTE | 2021-02-27 14:32 | Occupational Therapy Eval ---
OT Evaluation-General/PLF Medical Diagnosis Admission Date Feb 25, 2021 at 18:26 Medical Diagnosis: AMS due to ETOH withdraw Onset Date: Feb 25, 2021 Therapy Diagnosis Therapy Diagnosis: decreased ADL Status. Impaired Cognition Height/Weight Height (Feet): 5 Height (Inches): 8.00 Weight (Pounds): 189 Precautions Precautions/Isolations: Fall Prevention, Standard Precautions Referral Physician: Frantz Referral Reason: Evaluation/Treatment Medical History Pertinent Medical History: Renal Insufficiency Additional Medical History Alcohol dependence (5 or more beers a night and 2-3 Whiskey drinks), CKD 4, gout Current History Pt brought to ED by due to AMS Social History Current Living Status: Spouse ADL-Prior Level of Function SCALE: Activities may be completed with or without assistive devices. 7-Fmoqkcemry-tnhtblx completes the activity by him/herself with no assistance from a helper. 5-Set-up or Clean-up Assistance-helper sets up or cleans up; patient completes activity. [place] assists only prior to or following the activity. 4-Supervision or Touching Assistance-helper provides verbal cues and/or touching/steadying and/or contact guard assistance as patient completes activity. Assistance may be provided throughout the activity or intermittently. 3-Partial/Moderate Assistance-helper does LESS THAN HALF the effort. [place] lifts, holds or supports trunk or limbs, but provides less than half the effort. 2-Substantial/Maximal Assistance-helper does MORE THAN HALF the effort. [place] lifts or holds trunk or limbs and provides more than half the effort. 1-Scrfedadz-jrtgak does ALL the effort. Patient does none of the effort to complete the activity. Or, the assistance of 2 or more helpers is required for the patient to complete the activity. If activity was not attempted, code reason: 7-Patient Refused. 9-Not Applicable-not attempted and the patient did not perform the activity before the current illness, exacerbation or injury. 10-Not Attempted due to Environmental Limitations-(lack of equipment, weather restraints, etc.). 88-Not Attempted due to Medical Conditions or Safety Concerns. ADL PLOF Comments Pt unable to provide information about PLOF. Per chart review, pt was still dr caputo. Based on clinical judgment, pt was most likely independent with ADLs or needed little assistance. Self Care: Unknown Functional Cognition: Unknown Drive Self: Yes OT Current Status Subjective Pt laying in bed, visitor at bedside. Pt mainly nonverbal throughout the session, speaking very few words. He is very [place] Mental Status/Objective Patient Orientation: Person, Confused, Non-Verbal/Aphasic Attachments: IV, Oxygen (CPAP) Current Upper Extremity ROM BUE shoulder flexion to approx 90 degrees AAROM. Pt unable to follow instructions for active ROM testing. Upper Extremity Coordination unable to assess, pt unable to follow instruction. Upper Extremity Strength unable to assess due to difficulty following instruction. ADL-Treatment Eating (QC): 2 (Per visitor report, pt required assistance bringing food to mouth.) Other Treatments Pt laying in bed, very [place] making communication difficult, thus PLOF and home set up unknown at this time. Pt transferred supine to sit EOB, CGA for guiding pt with instruction. UE ROM assessed, pt did not follow instruction/demonstration for AROM, thus AAROM performed. AAROM performed in order to increase BUE strength and activity tolerance, BUE shoulder flexion x10 reps, front punch x10 reps, and elbow flexion/extension x5 reps. Pt then began to lay himself back in bed without warning or instruction. Transfer sit to supine with SBA. OT assisted pt with positioning to comfort. Post tx, pt laying in bed, call light in reach and all needs met, bed alarm activated. Education OT Patient Education: Correct positioning, Modified ADL techniques, Progress toward Goal/Update tx plan, Purpose of tx/functional activities, Rehab process Teaching Recipient: Patient Teaching Methods: Discussion Response to Teaching: Unable to Comprehend OT Retail Beauty Specialist Goals Retail Beauty Specialist Goals Time Frame: Mar 14, 2021 Eating (QC): 5 Oral Hygiene (QC): 5 Toileting Hygiene (QC): 4 Shower/Bathe Self (QC): 4 Upper Body Dressing (QC): 5 Lower Body Dressing (QC): 4 On/Off Footwear (QC): 4 Additional Goals: 1-Demonstrate ADL Tasks, 2-Verbalize Understanding, 3- ImproveStrength/Anthony 1=Demonstrate adherence to instructed precautions during ADL tasks. 2=Patient will verbalize/demonstrate understanding of assistive devices/modifications for ADL. 3=Patient will improve strength/tolerance for activity to enable patient to perform ADL's. OT Education/Plan Problem List/Assessment Assessment: Decreased Activ Tolerance, Decreased Safety Aware, Decreased UE Strength, Impaired Cognition, Impaired Coordination, Impaired Funct Balance, Impaired I ADL's, Impaired Self-Care Skills, Restricted Funct UE ROM Pt would benefit from OT services in order to increase safety and independence with ADLs and functional mobility in order to maximize LOF for return home with spouse. Discharge Recommendations Plan/Recommendations: Continue POC Therapy Discharge Recommendati: 24 Hour Supervision, Home & Family, Post Acute OT Barriers to Progress difficulty following instruction Treatment Plan/Plan of Care Patient would benefit from OT for education, treatment and training to promote independence in ADL's, mobility, safety and/or upper extremity function for ADL's. Plan of Care: ADL Retraining, Functional Mobility, UE Funct Exercise/Act Treatment Duration: Mar 14, 2021 Frequency: 3 times per week (3-5 times per week.) Estimated Hrs Per Day: .25 hour per day Rehab Potential: Guarded Time/GCodes Start Time: 13:30 Stop Time: 13:40 Total Time Billed (hr/min): 10 Billed Treatment Time 1, IRIS GUARDADO OT Feb 27, 2021 14:31
--- NOTE | 2021-02-27 15:42 | Physical Therapy Evaluation ---
PT Evaluation-General Medical Diagnosis Admission Date Feb 25, 2021 at 18:26 Medical Diagnosis: AMS due to ETOH withdraw Onset Date: Feb 25, 2021 Therapy Diagnosis Therapy Diagnosis: Gait Deficit, strength deficit Height/Weight Height (Feet): 5 Height (Inches): 8.00 Weight (Pounds): 189 Precautions Precautions/Isolations: Fall Prevention, Standard Precautions Referral Physician: Frantz Reason for Referral: Evaluation/Treatment Medical History Pertinent Medical History: Alcoholism, Renal Insufficiency Social History Home: Single Level Current Living Status: Spouse Entry Into Home: Stairs With Railing PT Steps Into Home: 6 Prior Prior Level of Function SCALE: Activities may be completed with or without assistive devices. 7-Uezmelqbxc-fwdfisj completes the activity by him/herself with no assistance from a helper. 5-Set-up or Clean-up Assistance-helper sets up or cleans up; patient completes activity. [place] assists only prior to or following the activity. 4-Supervision or Touching Assistance-helper provides verbal cues and/or touching/steadying and/or contact guard assistance as patient completes activity. Assistance may be provided throughout the activity or intermittently. 3-Partial/Moderate Assistance-helper does LESS THAN HALF the effort. [place] lifts, holds or supports trunk or limbs, but provides less than half the effort. 2-Substantial/Maximal Assistance-helper does MORE THAN HALF the effort. [place] lifts or holds trunk or limbs and provides more than half the effort. 8-Smpiybnns-yktsxu does ALL the effort. Patient does none of the effort to complete the activity. Or, the assistance of 2 or more helpers is required for the patient to complete the activity. If activity was not attempted, code reason: 7-Patient Refused. 9-Not Applicable-not attempted and the patient did not perform the activity before the current illness, exacerbation or injury. 10-Not Attempted due to Environmental Limitations-(lack of equipment, weather restraints, etc.). 88-Not Attempted due to Medical Conditions or Safety Concerns. Bed Mobility: 6 Transfers (B,C,W/C): 6 Gait: 6 Stairs: 6 Indoor Mobility (Ambulation): Independent Stairs: Independent Prior Devices Use: None PT Evaluation-Current Subjective Patient very [place], however reports his neck is sore but does not give a rating. Patient reports he feels tired and sore all over and has been laying in bed for 3-4 days. Patients and son are present as well. Objective Patient Orientation: Person ROM/Strength ROM Lower Extremities WFLs bilaterally all planes with AROM Strength Lower Extremities 4/5 bilaterally all hip, knee and ankle Planes Sensory Vision: Functional Hearing: Impaired Sensation Right Lower Extremit: Impaired Sensation Left Lower Extremity: Impaired Sensation Lower Extremities Patient closed eyes and could not identify any dermatomes from L3-S2, however this may also be due to patients current cognitive levels. Transfers Roll Left to Right (QC): 5 Sit to Lying (QC): 5 Lying to Sitting/Side of Bed(Q: 5 Sit to Stand (QC): 4 Chair/Wmx-hs-Fxinn Xfer(QC): 4 Gait Does the Patient Walk?: Yes Mode of Locomotion: Walk Anticipated Mode of Locomotion: Walk Walk 10 feet (QC): 4 Walk 50 ft with 2 Turns(QC): 4 Walk 150 ft (QC): 4 Distance: 150 feet Gait Assistive Device: FWW Assessment/Needs Patient tolerated treatment well. he is very [place] and therapist must yell so that he can respond, but appears to respond appropriately. Patient performs all observed bed mobility with Setup and all transfers with CGA. Patient ambulates 150 feet with FWW, with CGA and verbal cues for safety, progression, posture and turning. When he gets to a point where he has to turn around, he stops for a few seconds, then is able to maneuver the turns with minimal verbal cues. Patients balance during gait is fair, however his reports he does not use a FWW at home. Patient in bed post treatment with all needs met, nursing notified, call light in reach. Rehab Potential: Good Equipment Needs Unsure at this time but may benefit from FWW PT Half-Way Goals Jitney Driver Goals PT Jitney Driver Goals Time Frame: Mar 13, 2021 Roll Left & Right (QC): 6 Sit to Lying (QC): 6 Lying-Sitting on Side/Bed(QC): 6 Sit to Stand (QC): 6 Chair/Jfy-lo-Cvokt Xfer(QC): 6 Toilet Transfer (QC): 6 Car Transfer (QC): 6 Does the Patient Walk: Yes Walk 10 feet (QC): 6 Walk 50ft with 2 Turns (QC): 6 Walk 150 ft (QC): 6 1 Step (curb) (QC): 5 4 Steps (QC): 5 12 Steps (QC): 5 PT Plan Problem List Problem List: Activity Tolerance, Functional Strength, Safety, Balance, Gait, Transfer, Bed Mobility, ROM Treatment/Plan Treatment Plan: Continue Plan of Care Treatment Plan: Bed Mobility, Education, Functional Activity Anthony, Functional Strength, Group Therapy, Gait, Safety, Therapeutic Exercise, Transfers Treatment Duration: Apr 12, 2021 Frequency: 6 times per week Estimated Hrs Per Day: .25 hour per day Safety Risks/Education Patient Education: Gait Training, Transfer Techniques, Safety Issues Teaching Recipient: Patient, Family Teaching Methods: Demonstration, Discussion Response to Teaching: Verbalize Understanding, Reinforcement Needed Discharge Recommendations Target Placement Home with assistance prn Time/GCodes Time In: 1449 Time Out: 1515 Total Billed Treatment Time: 26 Total Billed Treatment Visit, Geremias Fontaine JOHN A PT Feb 27, 2021 15:42
[2021-02-27] MEDS: LORazepam 1 MG (ATIVAN) TAB PO PRN (16:28)
[2021-02-27] MEDS: LORazepam INJ 2 MG/ML (ATIVAN) VIAL IV PRN (19:48)
[2021-02-27] MEDS: ENOXAPARIN 30 MG/0.3 ML (LOVENOX) SYR SC SCH (19:48)
[2021-02-27] MEDS ORDERED: cloNIDine 0.1 MG (CATAPRES) TAB PO PRN (21:00)
[2021-02-28 04:50] VITALS: BP 173/80
[2021-02-28] MEDS: doxAzosin 4 MG (CARDURA) TAB PO SCH ×3 (05:34→21:47)
[2021-02-28] MEDS: MULTIVIT W/MINERALS TAB (THERAGRAN M) PO SCH ×2 (05:34→10:17)
[2021-02-28] MEDS: THIAMINE 100 MG (VITAMIN B-1) TAB PO SCH (05:35)
[2021-02-28] MEDS: HALOPERIDOL 5 MG/ML (HALDOL) VIAL IM PRN (05:45)
[2021-02-28] MEDS: LORazepam INJ 2 MG/ML (ATIVAN) VIAL IV PRN ×4 (06:11→21:54)
[2021-02-28 07:55] VITALS: BP 180/71
--- NOTE | 2021-02-28 10:07 | Progress Note - Cardiology ---
Cardiology SOAP Progress Note Objective: I&O/Vital Signs 02/28/21 02/28/21 02/28/21 02/28/21 04:50 07:00 07:55 08:00 Temp 36.9 37.1 Pulse 88 87 89 Resp 22 22 B/P (MAP) 173/80 (111) 180/71 (107) Pulse Ox 95 95 O2 Delivery Room Air Room Air Room Air 02/28/21 02/28/21 02/28/21 08:53 11:38 12:38 Temp 36.8 Pulse 96 90 Resp 20 B/P (MAP) 158/93 (114) Pulse Ox 96 96 O2 Delivery Room Air Room Air 02/28/21 00:00 Intake Total 2750 ml Output Total 800 ml Balance 1950 ml Weight (Pounds): 189 Weight (Calculated Kilograms): 85.365362 Constitutional: other (somonlent) Respiratory: No accessory muscle use, No respiratory distress; chest expansion is symmetric, chest is bilaterally symmetric Cardiovascular: regular rate-rhythm; No JVD; S1 and S2 Gastrointestional: No tender; soft, round, audible bowel sounds Extremities: no lower extremity edema bilateral Neurologic/Psychiatric: other (moves all extremities) Skin: jaundice; No rash on exposed areas, No ulcerations on exposed areas Results/Procedures: Labs Laboratory Tests 02/27/21 17:21: Glucometer 146H 02/27/21 23:34: Glucometer 100 02/28/21 04:44: Glucometer 102 02/28/21 10:30: White Blood Count 6.1, Red Blood Count 3.17L, Hemoglobin 11.6L, Hematocrit 33L, Mean Corpuscular Volume 104H, Mean Corpuscular Hemoglobin 37H, Mean Corpuscular Hemoglobin Concent 35, Red Cell Distribution Width 12.7, Platelet Count 104L, Mean Platelet Volume 11.4, Immature Granulocyte % (Auto) 1, Neutrophils (%) (Auto) 70, Lymphocytes (%) (Auto) 14, Monocytes (%) (Auto) 13H, Eosinophils (%) (Auto) 1, Basophils (%) (Auto) 1, Neutrophils # (Auto) 4.3, Lymphocytes # (Auto) 0.9L, Monocytes # (Auto) 0.8, Eosinophils # (Auto) 0.1, Basophils # (Auto) 0.0, Immature Granulocyte # (Auto) 0.0, Percent Immature Platelet Fraction 5.2, Prothrombin Time 16.1H, INR Comment 1.2, Sodium Level 142, Potassium Level 3.7, Chloride Level 111H, Carbon Dioxide Level 19L, Anion Gap 12, Blood Urea Nitrogen 24H, Creatinine 1.79H, Estimat Glomerular Filtration Rate 37, BUN/Creatinine Ratio 13, Glucose Level 109H, Calcium Level 8.9, Corrected Calcium 9.7, Magnesium Level 1.8, Total Bilirubin 3.1H, Aspartate Amino Transf (AST/SGOT) 29, Alanine Aminotransferase (ALT/SGPT) 18, Alkaline Phosphatase 67, Total Protein 7.8, Albumin 3.0L 02/28/21 11:37: Glucometer 102 02/28/21 12:15: Ammonia 24 A/P: Assessment: Mental status change, acute renal failure, and hyperbilirubinemia of undetermined etiology - Dr Landry managing Uncontrolled HTN - h/o HTN (previously taking atenolol at home) Reported sinus bradycardia - during sleep - no documentation Confusion of undetermined etiology - management per medical services Hyperammonia - likely secondary to liver and renal dz - management per medical services Heavy ETOH abuse with withdrawal - management per medical services CKD 4 (per spouse report) - follows with [facility] neph[facility] Sleep apnea - CPAP tx H/O bladder cancer - followed by Dr. Young Gout Chronic leg pain - undetermined etiology Mild thrombocytopenia - undetermined etiology Plan: Somnolence this morning - possibly secondary to hyperammonemia levels, management per medical services Uncontrolled HTN with reported episodes of bradycardia (no documentation of bradycardia) - continue doxazosin and amlodipine along with PRN Hydralazine ETOH WD - management per medical services Echocardiogram to eval structure and function - pending Renal failure of unknown chronicity - this prevents us from adding STAN- inhib or ARB Monitor lab closely Replace electrolytes as indicated - replace Mag today Mild thrombocytopenia of undetermined etiology - management per Medical services MORIS BYNUM Feb 28, 2021 10:07
[2021-02-28] MEDS: hydrALAZINE (APESOLINE) 20 MG/ML VIAL IV PRN (10:11)
[2021-02-28] MEDS: amLODIPine 5 MG (NORVASC) TAB PO SCH (10:17)
[2021-02-28] MEDS: SENNA W/DOCUSATE (SENOKOT S) TABLET PO SCH ×2 (10:18→20:54)
[2021-02-28] MEDS: polyethylene glycoL POWDER 17 GM (MIRALAX) PACK PO SCH ×2 (10:18→20:54)
[2021-02-28] MEDS: FOLIC ACID 1 MG TAB PO SCH (10:18)
[2021-02-28] MEDS: LACTULOSE SYRUP 10GM/15ML (ENULOSE) 30ML UDC PO SCH ×2 (10:18→20:54)
[2021-02-28 10:52] LABS: HEMOGLOBIN 11.6 g/dL (13.3-17.7)
[2021-02-28 10:54] LABS: BASOPHILS % (AUTO) 1 % (0-10); EOSINOPHILS # (AUTO) 0.1 10^3/uL (0.0-0.3); EOSINOPHILS % (AUTO) 1 % (0-10); HEMATOCRIT 33 % (40-54); LYMPHOCYTES # (AUTO) 0.9 10^3/uL (1.0-4.0); LYMPHOCYTES % (AUTO) 14 % (12-44); MEAN CORPUSCULAR HEMOGLOBIN 37 pg (25-34); MEAN CORPUSCULAR HGB CONC 35 g/dL (32-36); MEAN CORPUSCULAR VOLUME 104 fL (80-99); MEAN PLATELET VOLUME 11.4 fL (9.0-12.2); MONOCYTES # (AUTO) 0.8 10^3/uL (0.0-1.0); MONOCYTES % (AUTO) 13 % (0-12); NEUTROPHILS # (AUTO) 4.3 10^3/uL (1.8-7.8); NEUTROPHILS % (AUTO) 70 % (42-75); PLATELET COUNT 104 10^3/uL (130-400); WHITE BLOOD COUNT 6.1 10^3/uL (4.3-11.0)
[2021-02-28 10:58] LABS: INR 1.2 (0.8-1.4); PROTHROMBIN TIME PATIENT 16.1 SEC (12.2-14.7)
[2021-02-28 11:08] LABS: BILIRUBIN,TOTAL 3.1 MG/DL (0.1-1.0); CALCIUM 8.9 MG/DL (8.5-10.1); CREATININE SERUM 1.81 MG/DL (0.60-1.30); POTASSIUM 3.7 MMOL/L (3.6-5.0); TOTAL PROTEIN 7.8 GM/DL (6.4-8.2)
[2021-02-28 11:09] LABS: CALCIUM 8.9 MG/DL (8.5-10.1); CREATININE SERUM 1.79 MG/DL (0.60-1.30); MAGNESIUM 1.8 MG/DL (1.6-2.4); POTASSIUM 3.7 MMOL/L (3.6-5.0)
--- NOTE | 2021-02-28 11:11 | Occupational Ther Daily Note ---
OT Current Status-Daily Note Subjective Pt in bed, very [place]. Pt communicated minimally with therapist throughout session. Mental Status/Objective Patient Orientation: Confused, Non-Verbal/Aphasic ADL-Treatment Therapy Code Descriptions/Definitions Functional [place] Measure: 0=Not Assessed/NA 4=Minimal Assistance 1=Total Assistance 5=Supervision or Setup 2=Maximal Assistance 6=Modified [place] 3=Moderate Assistance 7=Complete IndependenceSCALE: Activities may be completed with or without assistive devices. 1-Jjnxtmrzej-iyudzyw completes the activity by him/herself with no assistance from a helper. 5-Set-up or Clean-up Assistance-helper sets up or cleans up; patient completes activity. [place] assists only prior to or following the activity. 4-Supervision or Touching Assistance-helper provides verbal cues and/or touchin g/steadying and/or contact guard assistance as patient completes activity. Assistance may be provided throughout the activity or intermittently. 3-Partial/Moderate Assistance-helper does LESS THAN HALF the effort. [place] lifts, holds or supports trunk or limbs, but provides less than half the effort. 2-Substantial/Maximal Assistance-helper does MORE THAN HALF the effort. [place] lifts or holds trunk or limbs and provides more than half the effort. 7-Ibojtvlww-cydbws does ALL the effort. Patient does none of the effort to complete the activity. Or, the assistance of 2 or more helpers is required for the patient to complete the activity. If activity was not attempted, code reason: 7-Patient Refused. 9-Not Applicable-not attempted and the patient did not perform the activity before the current illness, exacerbation or injury. 10-Not Attempted due to Environmental Limitations-(lack of equipment, weather restraints, etc.). 88-Not Attempted due to Medical Conditions or Safety Concerns. Shower/Bathe Self (QC): 1 On/Off Footwear: 1 Other Treatment Pt in bed, agreeable to OT Tx. Partial sponge bath performed, OT handed pt washcloth, instructing him to wash his hands. Pt held washcloth, but didn't make a scrubbing motion. OT provided hand over hand assistance in order to wash pt's hands. OT removed washcloth, pt attempted to hold on, requiring several cues to let go. OT placed clean wash cloth in pt's hands, instructing him to wash his face, pt did not initiate movement. OT attempted hand over hand guidance, pt resistive to movement. OT took washcloth from pt's hand, again required several cues to let go. OT dependently washed pt's face, BUEs, armpits, BLEs, and feet. Post tx, pt in bed, call light in reach and all needs met, bed alarm activated. Education OT Patient Education: Correct positioning, Energy conservation, Modified ADL techniques, Progress toward Goal/Update tx plan, Purpose of tx/functional activities, Rehab process Teaching Recipient: Patient Teaching Methods: Discussion Response to Teaching: Unable to Comprehend OT Care Home Goals Telecommunications Line Mechanic Goals Time Frame: Mar 14, 2021 Eating (QC): 5 Oral Hygiene (QC): 5 Toileting Hygiene (QC): 4 Shower/Bathe Self (QC): 4 Upper Body Dressing (QC): 5 Lower Body Dressing (QC): 4 On/Off Footwear (QC): 4 Additional Goals: 1-Demonstrate ADL Tasks, 2-Verbalize Understanding, 3- ImproveStrength/Anthony 1=Demonstrate adherence to instructed precautions during ADL tasks. 2=Patient will verbalize/demonstrate understanding of assistive devices/modifications for ADL. 3=Patient will improve strength/tolerance for activity to enable patient to perform ADL's. OT Education/Plan Problem List/Assessment Assessment: Decreased Activ Tolerance, Decreased Safety Aware, Decreased UE Strength, Impaired Cognition, Impaired Coordination, Impaired Funct Balance, Impaired I ADL's, Impaired Self-Care Skills Pt would benefit from OT services in order to increase safety and independence with ADLs and functional mobility in order to maximize LOF for return home with spouse. Discharge Recommendations Plan/Recommendations: Continue POC Treatment Plan/Plan of Care Patient would benefit from OT for education, treatment and training to promote independence in ADL's, mobility, safety and/or upper extremity function for ADL's. Plan of Care: ADL Retraining, Functional Mobility, UE Funct Exercise/Act Treatment Duration: Mar 14, 2021 Frequency: 3 times per week (3-5 times per week.) Estimated Hrs Per Day: .25 hour per day Rehab Potential: Guarded Time/GCodes Start Time: 10:29 Stop Time: 10:38 Total Time Billed (hr/min): 9 Billed Treatment Time 1, ADL IRIS MCCARTY OT Feb 28, 2021 11:11
--- NOTE | 2021-02-28 11:19 | Progress Note - Cardiology ---
Cardiology SOAP Progress Note Subjective: Unresponsive Objective: I&O/Vital Signs 02/27/21 02/28/21 02/28/21 02/28/21 23:40 01:00 04:50 07:00 Temp 37.0 36.9 Pulse 86 83 88 87 Resp 22 22 B/P (MAP) 169/79 (109) 173/80 (111) Pulse Ox 96 95 O2 Delivery Room Air Room Air 02/28/21 02/28/21 07:55 08:53 Temp 37.1 Pulse 89 Resp 22 B/P (MAP) 180/71 (107) Pulse Ox 95 96 O2 Delivery Room Air Room Air 02/28/21 00:00 Intake Total 2750 ml Output Total 800 ml Balance 1950 ml Weight (Pounds): 189 Weight (Calculated Kilograms): 85.987641 Constitutional: other (somonlent) Respiratory: No accessory muscle use, No respiratory distress; chest expansion is symmetric, chest is bilaterally symmetric Cardiovascular: regular rate-rhythm; No JVD; S1 and S2 Gastrointestional: No tender; soft, round, audible bowel sounds Extremities: no lower extremity edema bilateral Neurologic/Psychiatric: other (moves all extremities) Skin: jaundice; No rash on exposed areas, No ulcerations on exposed areas Results/Procedures: Labs Laboratory Tests 02/27/21 12:33: Glucometer 186H 02/27/21 17:21: Glucometer 146H 02/27/21 23:34: Glucometer 100 02/28/21 04:44: Glucometer 102 02/28/21 10:30: White Blood Count 6.1, Red Blood Count 3.17L, Hemoglobin 11.6L, Hematocrit 33L, Mean Corpuscular Volume 104H, Mean Corpuscular Hemoglobin 37H, Mean Corpuscular Hemoglobin Concent 35, Red Cell Distribution Width 12.7, Platelet Count 104L, Mean Platelet Volume 11.4, Immature Granulocyte % (Auto) 1, Neutrophils (%) (Auto) 70, Lymphocytes (%) (Auto) 14, Monocytes (%) (Auto) 13H, Eosinophils (%) (Auto) 1, Basophils (%) (Auto) 1, Neutrophils # (Auto) 4.3, Lymphocytes # (Auto) 0.9L, Monocytes # (Auto) 0.8, Eosinophils # (Auto) 0.1, Basophils # (Auto) 0.0, Immature Granulocyte # (Auto) 0.0, Percent Immature Platelet Fraction 5.2, Pr othrombin Time 16.1H, INR Comment 1.2, Sodium Level 142, Potassium Level 3.7, C hloride Level 111H, Carbon Dioxide Level 19L, Anion Gap 12, Blood Urea Nitrogen 24H, Creatinine 1.79H, Estimat Glomerular Filtration Rate 37, BUN/Creatinine Ratio 13, Glucose Level 109H, Calcium Level 8.9, Corrected Calcium 9.7, Magnesium Level 1.8, Total Bilirubin 3.1H, Aspartate Amino Transf (AST/SGOT) 29, Alanine Aminotransferase (ALT/SGPT) 18, Alkaline Phosphatase 67, Total Protein 7.8, Albumin 3.0L Laboratory Tests 02/27/21 06:24 02/28/21 10:30 A/P: Assessment: Mental status change, acute renal failure, and hyperbilirubinemia and elevated ammonia of undetermined etiology - Dr Landry managing Uncontrolled HTN - h/o HTN (previously taking atenolol at home) Reported sinus bradycardia - during sleep - no documentation Confusion of undetermined etiology - management per medical services Heavy ETOH abuse with withdrawal - management per medical services CKD 4 (per spouse report) - follows with [facility] Sleep apnea - CPAP tx H/O bladder cancer - followed by Dr. Young Gout Chronic leg pain - undetermined etiology Mild thrombocytopenia - undetermined etiology Plan: Multiple medical issues (noted above), management per Medical services Continue anti-htn therapy Renal failure of unknown prevents us from adding STAN- inhib or ARB Monitor lab closely TOSHIA CRUZ MD FACP FAC CCDS Feb 28, 2021 11:19
--- NOTE | 2021-02-28 11:27 | Physical Therapy Daily Note ---
PT Daily Note-Current Subjective Nursing reports that pt has declined over night and will not be able to walk today or hardly do anything. Pt is on video monitoring. Nursing says he was trying to pull his gown off last night and climb out of bed. Pt unable to understand white board today. Pt also unable to comprehend verbal and tactile cues to perform bed exercises. Mental Status Patient Orientation: Confused, Non-Verbal/Aphasic Transfers SCALE: Activities may be completed with or without assistive devices. 1-Bjykcgplpo-uyupofs completes the activity by him/herself with no assistance from a helper. 5-Set-up or Clean-up Assistance-helper sets up or cleans up; patient completes activity. [place] assists only prior to or following the activity. 4-Supervision or Touching Assistance-helper provides verbal cues and/or touching/steadying and/or contact guard assistance as patient completes activity. Assistance may be provided throughout the activity or intermittently. 3-Partial/Moderate Assistance-helper does LESS THAN HALF the effort. [place] lifts, holds or supports trunk or limbs, but provides less than half the effort. 2-Substantial/Maximal Assistance-helper does MORE THAN HALF the effort. [place] lifts or holds trunk or limbs and provides more than half the effort. 9-Mbfqupvmd-cqxfhf does ALL the effort. Patient does none of the effort to complete the activity. Or, the assistance of 2 or more helpers is required for the patient to complete the activity. If activity was not attempted, code reason: 7-Patient Refused. 9-Not Applicable-not attempted and the patient did not perform the activity before the current illness, exacerbation or injury. 10-Not Attempted due to Environmental Limitations-(lack of equipment, weather restraints, etc.). 88-Not Attempted due to Medical Conditions or Safety Concerns. Gait Training Does the Patient Walk?: No and Walking Goal IS indicated Assessment Current Status: No Treatment/Other Tests Attempted to perform supine exercises but unable to comprehend. Attempted to help pt w/ PROM so pt could follow but still unable to understand and follow commands. Will attempt at therapy again tomorrow. 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 Prison Goals PT Prison Goals Time Frame: Mar 13, 2021 Roll Left & Right (QC): 6 Sit to Lying (QC): 6 Lying-Sitting on Side/Bed(QC): 6 Sit to Stand (QC): 6 Chair/Blb-jp-Ietku Xfer(QC): 6 Toilet Transfer (QC): 6 Car Transfer (QC): 6 Does the Patient Walk: Yes Walk 10 feet (QC): 6 Walk 50ft with 2 Turns (QC): 6 Walk 150 ft (QC): 6 1 Step (curb) (QC): 5 4 Steps (QC): 5 12 Steps (QC): 5 PT Plan Problem List Problem List: Activity Tolerance, Functional Strength, Safety, Bed Mobility, ROM Treatment/Plan Treatment Plan: Continue Plan of Care Treatment Plan: Bed Mobility, Education, Functional Activity Anthony, Functional Strength, Group Therapy, Gait, Safety, Therapeutic Exercise, Transfers Treatment Duration: Apr 12, 2021 Frequency: 6 times per week Estimated Hrs Per Day: .25 hour per day Time/GCodes Time In: 1104 Time Out: 1110 Total Billed Treatment Time: 6 Total Billed Treatment 1 visit no treatment MURPHY TONG SOIL TESTER Feb 28, 2021 11:27
[2021-02-28 11:38] VITALS: BP 158/93
--- NOTE | 2021-02-28 13:20 | Progress Note - Hospitalist ---
MELANIE DURBIN 02/28/21 1320: Subjective HPI/CC On Admission Date Seen by Provider: Feb 28, 2021 Time Seen by Provider: 08:20 CC: Altered mental status with alcohol withdrawal HPI: This is a 76yoWM who has a hx of alcoholism who presented to the [facility] found to have altered mental status and findings consistent with alcohol withdrawal. His creatinine was 3.1 consistent with dehydration so he was adm itted for IV fluids and alcohol withdrawal treatment and today his creatinine is much better at 2.49. Elevated BP requiring aggressive BP medications. He does not have his hearing aids so it is very difficult to communicate. His is at the bedside and speaks broken Macedonian since she is apparently Japanese. I tried to update her with everything that she needs to know and she needs him to stay here as long as possible because she has to work. Subjective/Events-last exam Patient has declined overnight. Patient now has incontinence, agitation, worsening tremors, and slight perspiration on his brow. Patient seems to be in more acute withdraw again. BP still resistant to treatment 173/80. Patient unable to give ROS. Objective Exam Vital Signs Vital Signs Date Time Temp Pulse Resp B/P (MAP) Pulse Ox O2 Delivery O2 Flow Rate FiO2 02/28/21 12:38 90 02/28/21 11:38 36.8 20 158/93 (114) 96 Room Air 02/25/21 21:27 21 Capillary Refill : Less Than 3 Seconds General Appearance: Moderate Distress Respiratory: Normal Breath Sounds, No Accessory Muscle Use, No Respiratory Distress Cardiovascular: Regular Rate, Rhythm, Normal Peripheral Pulses Rectal: Deferred Neurologic/Psychiatric: Disoriented, Other (Delirum tremens ) Results/Procedures Lab Laboratory Tests 02/28/21 10:30 Patient resulted labs reviewed. Imaging: Reviewed Imaging Films, Reviewed Imaging Report Assessment/Plan Assessment and Plan Assess & Plan/Chief Complaint Assessment Acute alcohol withdrawal Alcohol dependence EDWARD on CKD HTN Hematuria Macrocytosis Plan [facility] protocol - consider upping ativan dose - Will check ammonia levels 2/2 withdraw and CKD Restart IV Fluids Doxazosin Amlodipine Hydrazaline Nitro ointment PRN SBP >170 Pain management PRN GERD prophylaxis Monitor labs MARIA ELENA JOHN DO 03/01/21 0622: Subjective Subjective/Events-last exam Pt still in florid alcohol withdrawal Pt receiving vitamin supplementation to prevent Wernicke's encephalopathy and Korsakoff's Very restless given Ativan Will continue supportive care Review of Systems General: Fatigue, Malaise Objective Exam General Appearance: WD/WN, Anxious, Chronically ill, Mild Distress Respiratory: Lungs Clear, Normal Breath Sounds Cardiovascular: Regular Rate, Rhythm Assessment/Plan Assessment and Plan Assess & Plan/Chief Complaint Complex alcohol withdrawal Supervisory-Addendum Brief Verification & Attestation Participated in pt care: history, MDM, physical Personally performed: exam, history, MDM, supervision of care Care discussed with: Medical Student Procedures: n/a Results interpretation: Verified all documentation Verification and Attestation of Medical Student E/M Service A medical student performed and documented this service in my presence. I reviewed and verified all information documented by the medical student and made modifications to such information, when appropriate. I personally performed the physical exam and medical decision making. Maria Elena John, Mar 01, 2021,06:21 MELANIE DURBIN Feb 28, 2021 13:20 MARAI ELENA JOHN DO Mar 01, 2021 06:22
[2021-02-28 16:00] VITALS: BP 150/67
[2021-02-28 16:07] VITALS: BP 158/93
[2021-02-28 19:35] VITALS: BP 151/81
[2021-02-28] MEDS: ENOXAPARIN 30 MG/0.3 ML (LOVENOX) SYR SC SCH (21:49)
[2021-03-01] VITALS (7 sets, daily range): BP systolic 126–173; BP diastolic 63–89
[2021-03-01] MEDS: LORazepam INJ 2 MG/ML (ATIVAN) VIAL IV PRN ×6 (00:53→20:09)
[2021-03-01] MEDS: doxAzosin 4 MG (CARDURA) TAB PO SCH ×3 (05:01→22:49)
[2021-03-01] MEDS: HALOPERIDOL 5 MG/ML (HALDOL) VIAL IM PRN ×2 (05:44→16:30)
[2021-03-01 06:45] LABS: EOSINOPHILS # (AUTO) 0.1 10^3/uL (0.0-0.3); EOSINOPHILS % (AUTO) 3 % (0-10); HEMOGLOBIN 11.3 g/dL (13.3-17.7)
[2021-03-01 06:47] LABS: BASOPHILS # (AUTO) 0.1 10^3/uL (0.0-0.1); BASOPHILS % (AUTO) 1 % (0-10); HEMATOCRIT 33 % (40-54); LYMPHOCYTES # (AUTO) 0.9 10^3/uL (1.0-4.0); LYMPHOCYTES % (AUTO) 16 % (12-44); MEAN CORPUSCULAR HEMOGLOBIN 36 pg (25-34); MEAN CORPUSCULAR HGB CONC 35 g/dL (32-36); MEAN CORPUSCULAR VOLUME 105 fL (80-99); MEAN PLATELET VOLUME 11.6 fL (9.0-12.2); MONOCYTES # (AUTO) 0.7 10^3/uL (0.0-1.0); MONOCYTES % (AUTO) 12 % (0-12); NEUTROPHILS # (AUTO) 3.7 10^3/uL (1.8-7.8); NEUTROPHILS % (AUTO) 68 % (42-75); PLATELET COUNT 101 10^3/uL (130-400); WHITE BLOOD COUNT 5.5 10^3/uL (4.3-11.0)
[2021-03-01 07:00] LABS: INR 1.2 (0.8-1.4); PROTHROMBIN TIME PATIENT 15.9 SEC (12.2-14.7)
[2021-03-01 07:10] LABS: BILIRUBIN,TOTAL 2.6 MG/DL (0.1-1.0); CALCIUM 9.2 MG/DL (8.5-10.1); CREATININE SERUM 2.11 MG/DL (0.60-1.30); POTASSIUM 3.6 MMOL/L (3.6-5.0); TOTAL PROTEIN 7.9 GM/DL (6.4-8.2)
[2021-03-01] MEDS: LACTULOSE SYRUP 10GM/15ML (ENULOSE) 30ML UDC PO SCH ×2 (08:27→22:07)
[2021-03-01] MEDS: FOLIC ACID 1 MG TAB PO SCH (08:27)
[2021-03-01] MEDS: polyethylene glycoL POWDER 17 GM (MIRALAX) PACK PO SCH ×2 (08:27→22:08)
[2021-03-01] MEDS: amLODIPine 5 MG (NORVASC) TAB PO SCH (08:28)
[2021-03-01] MEDS: SENNA W/DOCUSATE (SENOKOT S) TABLET PO SCH ×2 (08:28→22:08)
--- NOTE | 2021-03-01 12:04 | Physical Therapy Daily Note ---
PT Daily Note-Current Subjective Pt. in bed position on side. at bedside and expresses concern. States she wishes her could participate in therapies but he seems to have gotten worse. shares his long history of alchoholism etc. Pt. does not open eyes or communicate when touched gently and spoken to several trial. Pt. appears to be halucinating , occasionally muttering and moving quickly Pain Location: No Pain Reported Mental Status Patient Orientation: Unresponsive, Mumbles Transfers SCALE: Activities may be completed with or without assistive devices. 6-Pygrcneegl-elevdox completes the activity by him/herself with no assistance from a helper. 5-Set-up or Clean-up Assistance-helper sets up or cleans up; patient completes activity. [place] assists only prior to or following the activity. 4-Supervision or Touching Assistance-helper provides verbal cues and/or touching/steadying and/or contact guard assistance as patient completes activity. Assistance may be provided throughout the activity or intermittently. 3-Partial/Moderate Assistance-helper does LESS THAN HALF the effort. [place] lifts, holds or supports trunk or limbs, but provides less than half the effort. 2-Substantial/Maximal Assistance-helper does MORE THAN HALF the effort. [place] lifts or holds trunk or limbs and provides more than half the effort. 1-Sxgglcclh-fzqsdy does ALL the effort. Patient does none of the effort to complete the activity. Or, the assistance of 2 or more helpers is required for the patient to complete the activity. If activity was not attempted, code reason: 7-Patient Refused. 9-Not Applicable-not attempted and the patient did not perform the activity before the current illness, exacerbation or injury. 10-Not Attempted due to Environmental Limitations-(lack of equipment, weather restraints, etc.). 88-Not Attempted due to Medical Conditions or Safety Concerns. Assessment Current Status: No Treatment/Other Tests unable to arouse pt. or communicate PT Viticulturist Goals Intermediate Goals PT Intermediate Goals Time Frame: Mar 13, 2021 Roll Left & Right (QC): 6 Sit to Lying (QC): 6 Lying-Sitting on Side/Bed(QC): 6 Sit to Stand (QC): 6 Chair/Qed-kf-Rrlpb Xfer(QC): 6 Toilet Transfer (QC): 6 Car Transfer (QC): 6 Does the Patient Walk: Yes Walk 10 feet (QC): 6 Walk 50ft with 2 Turns (QC): 6 Walk 150 ft (QC): 6 1 Step (curb) (QC): 5 4 Steps (QC): 5 12 Steps (QC): 5 PT Plan Treatment/Plan Treatment Plan: Continue Plan of Care (if tolerated) Treatment Plan: Bed Mobility, Education, Functional Activity Anthony, Functional Strength, Group Therapy, Gait, Safety, Therapeutic Exercise, Transfers Treatment Duration: Apr 12, 2021 Frequency: 6 times per week Estimated Hrs Per Day: .25 hour per day Time/GCodes Time In: 1120 Time Out: 1130 Total Billed Treatment Time: 0 Total Billed Treatment 1, no Rx, no chg CAR NEELY PTA Mar 01, 2021 12:04
--- NOTE | 2021-03-01 13:00 | Progress Note - Hospitalist ---
Subjective HPI/CC On Admission Date Seen by Provider: Mar 01, 2021 Time Seen by Provider: 12:00 CC: Altered mental status with alcohol withdrawal HPI: This is a 76yoWM who has a hx of alcoholism who presented to the [facility] ER found to have altered mental status and findings consistent with alcohol withdrawal. His creatinine was 3.1 consistent with dehydration so he was admitted for IV fluids and alcohol withdrawal treatment and today his creatinine is much better at 2.49. Elevated BP requiring aggressive BP medications. He does not have his hearing aids so it is very difficult to communicate. His is at the bedside and speaks broken Bulgarian since she is apparently [place]. I tried to update her with everything that she needs to know and she needs him to stay here as long as possible because she has to work. Subjective/Events-last exam Patient continues to be very agitated and confused is choking on his food somewhat. Does have a cough. No seizure activity. Objective Exam Vital Signs Vital Signs Date Time Temp Pulse Resp B/P (MAP) Pulse Ox O2 Delivery O2 Flow Rate FiO2 03/01/21 12:54 99 03/01/21 12:00 35.7 22 149/89 (109) 96 Room Air 02/28/21 16:07 21 Capillary Refill : Less Than 3 Seconds General Appearance: Chronically ill Neck: Normal Inspection, Non Tender Respiratory: Lungs Clear, Normal Breath Sounds, No Accessory Muscle Use, No Respiratory Distress Cardiovascular: Regular Rate, Rhythm, No Gallop, No Murmur Gastrointestinal: Normal Bowel Sounds, Non Tender, Soft Neurologic/Psychiatric: Disoriented, Other (Diffuse tremors and cogwheeling) Results/Procedures Lab Laboratory Tests 03/01/21 06:17 Patient resulted labs reviewed. Imaging: Reviewed Imaging Films, Reviewed Imaging Report Assessment/Plan Assessment and Plan Assess & Plan/Chief Complaint Alcohol withdrawal-no need to change diet and will check an ABG and chest x- ray. Change thiamine to IV since he has not been able to take things p.o. We will change his diet to dysphagia diet We will restart IV fluids since he is taking inadequate oral intake and his BUN and creatinine are increasing. was at bedside during my visit and all questions were answered BRYCE KESSLER MD Mar 01, 2021 13:00
[2021-03-01] MEDS: 1/2 NS IV SOLUTION 1,000 ML IV SCH ×2 (13:51→23:37)
[2021-03-01 14:17] LABS: ABG BASE EXCESS -4.1 MMOL/L (-2.5-2.5); ABG OXYGEN SATURATION 97 % (94-100); ABG PCO2 30 MMHG (35-45); ABG PH 7.43 (7.37-7.43); ABG PO2 88 MMHG (79-93); ABG TCO2 20.8 MMOL/L (21.0-31.0)
[2021-03-01 14:20] LABS: ALLENS TEST POSITIVE
[2021-03-01 14:21] LABS: PATIENT TEMP 35.5; VENTILATOR NO
--- NOTE | 2021-03-01 14:27 | Diagnostic Imaging Report ---
Indication: Cough and dyspnea. Comparison: 02/25/2021. Discussion: Single portable upright view of the chest was obtained. Stable normal heart size. Mild patchy infiltrates noted within the right midlung, atelectasis versus early pneumonia. No pleural fluid or pneumothorax. No osseous abnormality. Impression: 1. Patchy infiltrates within the right midlung, likely atelectasis or pneumonia. Dictated by: Dictated on workstation # [id number]
[2021-03-01] MEDS: THIAMINE INJECTION 100 MG in NS (IVPB) 50 ML IV SCH (15:11)
--- NOTE | 2021-03-01 15:21 | Progress Note - Cardiology ---
Cardiology SOAP Progress Note Subjective: Mildly agitated, disoriented, unable to communicate Objective: I&O/Vital Signs 03/01/21 03/01/21 03/01/21 03/01/21 04:00 07:00 08:00 08:00 Temp 36.0 Pulse 101 90 99 Resp 22 21 B/P (MAP) 147/63 (91) 167/82 (110) Pulse Ox 94 97 O2 Delivery Room Air Room Air Room Air 03/01/21 03/01/21 03/01/21 10:28 12:00 12:54 Temp 35.7 Pulse 99 99 Resp 22 B/P (MAP) 149/89 (109) Pulse Ox 96 O2 Delivery Room Air Room Air 03/01/21 00:00 Intake Total 200 ml Output Total 0 ml Balance 200 ml Weight (Pounds): 189 Weight (Calculated Kilograms): 85.782063 Constitutional: other (somonlent) Respiratory: No accessory muscle use, No respiratory distress; chest expansion is symmetric, chest is bilaterally symmetric Cardiovascular: regular rate-rhythm; No JVD; S1 and S2 Gastrointestional: No tender; soft, round, audible bowel sounds Extremities: no lower extremity edema bilateral Neurologic/Psychiatric: other (moves all extremities) Skin: jaundice; No rash on exposed areas, No ulcerations on exposed areas Results/Procedures: Labs Laboratory Tests 02/28/21 18:15: Glucometer 96 02/28/21 23:45: Glucometer 88 03/01/21 04:56: Glucometer 92 03/01/21 06:17: White Blood Count 5.5, Red Blood Count 3.11L, Hemoglobin 11.3L, Hematocrit 33L, Mean Corpuscular Volume 105H, Mean Corpuscular Hemoglobin 36H, Mean Corpuscular Hemoglobin Concent 35, Red Cell Distribution Width 12.8, Platelet Count 101L, Mean Platelet Volume 11.6, Immature Granulocyte % (Auto) 0, Neutrophils (%) (Auto) 68, Lymphocytes (%) (Auto) 16, Monocytes (%) (Auto) 12, Eosinophils (%) (Auto) 3, Basophils (%) (Auto) 1, Neutrophils # (Auto) 3.7, Lymphocytes # (Auto) 0.9L, Monocytes # (Auto) 0.7, Eosinophils # (Auto) 0.1, Basophils # (Auto) 0.1, Immature Granulocyte # (Auto) 0.0, Percent Immature Platelet Fraction 5.6, Prothrombin Time 15.9H, INR Comment 1.2, Sodium Level 146H, Potassium Level 3.6, Chloride Level 114H, Carbon Dioxide Level 20L, Anion Gap 12, Blood Urea Nitrogen 31H, Creatinine 2.11H, Estimat Glomerular Filtration Rate 31, BUN/Creatinine Ratio 15, Glucose Level 112H, Calcium Level 9.2, Corrected Calcium 10.0, Total Bilirubin 2.6H, Aspartate Amino Transf (AST/SGOT) 29, Alanine Aminotransferase (ALT/SGPT) 18, Alkaline Phosphatase 70, Total Protein 7.9, Albumin 3.0L 03/01/21 11:15: Glucometer 108 03/01/21 14:10: Blood Gas Puncture Site LEFT BRACHIAL, Blood Gas Patient Temperature 35.5, Arterial Blood pH 7.43, Arterial Blood Partial Pressure CO2 30L, Arterial Blood Partial Pressure O2 88, Arterial Blood HCO3 20L, Arterial Blood Total CO2 20.8L, Arterial Blood Oxygen Saturation 97, Arterial Blood Base Excess -4.1L, Natalio Test POSITIVE, Blood Gas Ventilator Setting NO, Blood Gas Inspired Oxygen N/A Laboratory Tests 02/28/21 10:30 03/01/21 06:17 A/P: Assessment: Mental status change, acute renal failure, and hyperbilirubinemia and elevated ammonia of undetermined etiology - Hosp service managing Uncontrolled HTN - better Reported sinus bradycardia - during sleep - no documentation - beta-blockers d/c'd Heavy ETOH abuse - withdrawal management per Hosp Svce CKD 4 (per spouse report) - follows with [facility] Sleep apnea - CPAP tx H/O bladder cancer - followed by Dr. Young Gout Chronic leg pain - undetermined etiology Mild thrombocytopenia - undetermined etiology Plan: Multiple medical issues (noted above), management per Medical services Continue anti-htn therapy Renal failure of unknown prevents us from adding STAN- inhib or ARB Monitor lab closely I spoke with his today and answered CV-related questions TOSHIA CRUZ MD FACP [facility] Mar 01, 2021 15:21
[2021-03-01] MEDS ORDERED: RT-ALBUTEROL SULF 2.5 MG/3 ML PRE-MIX VIAL INH PRN (15:45)
[2021-03-01] MEDS: cefTRIAXone 1 GM PRE-MIX 50 ML IV SCH (16:30)
[2021-03-01] MEDS: ENOXAPARIN 30 MG/0.3 ML (LOVENOX) SYR SC SCH (22:12)
[2021-03-02] VITALS (44 sets, daily range): BP systolic 83–184; BP diastolic 44–91
[2021-03-02] MEDS: LORazepam INJ 2 MG/ML (ATIVAN) VIAL IV PRN ×3 (00:18→06:16)
[2021-03-02 05:56] LABS: ABG BASE EXCESS -3.5 MMOL/L (-2.5-2.5); ABG OXYGEN SATURATION 99 % (94-100); ABG PCO2 36 MMHG (35-45); ABG PH 7.38 (7.37-7.43); ABG PO2 120 MMHG (79-93); ABG TCO2 21.9 MMOL/L (21.0-31.0)
[2021-03-02 06:02] LABS: ALLENS TEST YES-POS; INSPIRED O2 5L; PATIENT TEMP 36.9; VENTILATOR YES
[2021-03-02] MEDS: HALOPERIDOL 5 MG/ML (HALDOL) VIAL IM PRN (06:30)
[2021-03-02 06:45] LABS: BASOPHILS # (AUTO) 0.1 10^3/uL (0.0-0.1); BASOPHILS % (AUTO) 1 % (0-10); EOSINOPHILS # (AUTO) 0.2 10^3/uL (0.0-0.3); EOSINOPHILS % (AUTO) 3 % (0-10); MEAN CORPUSCULAR HEMOGLOBIN 36 pg (25-34); MEAN PLATELET VOLUME 11.5 fL (9.0-12.2); MONOCYTES # (AUTO) 0.7 10^3/uL (0.0-1.0)
[2021-03-02 06:47] LABS: HEMATOCRIT 32 % (40-54); HEMOGLOBIN 10.9 g/dL (13.3-17.7); LYMPHOCYTES # (AUTO) 0.9 10^3/uL (1.0-4.0); LYMPHOCYTES % (AUTO) 14 % (12-44); MEAN CORPUSCULAR HGB CONC 34 g/dL (32-36); MEAN CORPUSCULAR VOLUME 107 fL (80-99); MONOCYTES % (AUTO) 11 % (0-12); NEUTROPHILS # (AUTO) 4.9 10^3/uL (1.8-7.8); NEUTROPHILS % (AUTO) 72 % (42-75); PLATELET COUNT 110 10^3/uL (130-400); WHITE BLOOD COUNT 6.8 10^3/uL (4.3-11.0)
--- NOTE | 2021-03-02 06:50 | Tele-ICU Consult ---
History of Present Illness History of Present Illness Date Seen by Provider: Mar 02, 2021 Time Seen by Provider: 06:47 Date of Admission per HPI Patient is a 76 year old male who presented to [facility] ER by private cipriano greenberg. Patient was brought in by his for altered mental status. Patient has a history of alcohol dependence and has not had a drink in 3-4 days. states that he began acting confused yesterday morning, and she was concerned, so she took his keys away before going to work. When she got home her was outside, confused, and thinking he was going with her to work. She called the [facility] and they told her to come in to the ER. In the ER, patient was also found to have elevated ammonia levels and acute kidney injury. Patient is hard to get information from due to his altered mental status and his hearing impairment. His is worried about him breaking his hearing aids, which is why she hasn't brought them in yet. pt was brought to ICU for Currently he is on bipap and appears hypodermically stable Allergies and Home Medications Allergies Coded Allergies: Sulfa (Sulfonamide Antibiotics) (Verified Allergy, Mild, 07/22/09) Home Medications Allopurinol 100 Mg Tablet, 100 MG PO DAILY, (Reported) Ascorbic Acid 1,000 Mg Tablet, 1,000 MG PO DAILY, (Reported) Aspirin 81 Mg Tablet.dr, 81 MG PO DAILY, (Reported) Atenolol 100 Mg Tablet, 100 MG PO DAILY, (Reported) Cetirizine HCl 10 Mg Tablet, 10 MG PO DAILY, (Reported) Cimetidine 200 Mg Tablet, 200 MG PO DAILY, (Reported) Diphenhydramine HCl 25 Mg Tablet, 25 MG PO DAILY, (Reported) Furosemide 20 Mg Tablet, 20 MG PO DAILY, (Reported) Gabapentin 300 Mg Capsule, 600 MG PO DAILY, (Reported) TAKES 2 (300MG) CAPS Krill Oil/Thousandsticks-3/Dha/Epa 1 Each Capsule, 1 EACH PO DAILY, (Reported) Saw Mangum Fruit 450 Mg Capsule, 450 MG PO DAILY, (Reported) Tramadol HCl 50 Mg Tablet, 50 MG PO DAILY, (Reported) Vitamin B Complex 1 Each Tablet, 1 EACH PO DAILY, (Reported) Vitamin E Mixed 1,000 Unit Capsule, 1,000 UNIT PO DAILY, (Reported) Past Medical/Social/Family Hx Patient Social History Marrital Status: Employed/Student: retired Tobacco Use?: Yes Smoking Status: Former Smoker Use of E-Cig and/or Vaping dev: No Substance use?: No Alcohol Use?: Yes Alcohol type: Beer, Hard Liquor Alcohol Frequency: Daily Pt stated abuse/neglect: No Immunizations Up To Date Influenza Vaccine Up-to-Date: Yes; Up-to-Date Tetanus Booster (TDap): Unknown Current Status Advance Directives: Unable to obtain Communicates: Verbally Primary Language: Belarusian Preferred Spoken Language: Belarusian Is interpretation needed?: No Sensory deficits: Hearing impairment Implanted or Applied Medical D: CPAP Past Medical History ETOH abuse Review of Systems Constitutional: see HPI Focused Exam Height, Weight, BMI Height: 5'8.00" Weight: 189lbs. oz. 85.084045fn; 28.53 BMI Method: Exam Exam Patient acknowledged, consented, and participated in this virtual visit which was conducted using real time audio/video Vital Signs Date Time Temp Pulse Resp B/P (MAP) Pulse Ox O2 Delivery O2 Flow Rate FiO2 03/02/21 06:36 NIV Bilevel 40.00 03/02/21 06:05 NIV Bilevel 60.00 03/02/21 04:40 37.1 107 24 140/69 (92) 94 NIV CPAP 03/02/21 01:00 100 03/02/21 00:58 36.4 112 24 184/68 (106) 95 NIV CPAP 03/01/21 20:00 Room Air 03/01/21 19:20 36.5 105 24 126/76 (93) 96 Room Air 03/01/21 19:00 100 03/01/21 15:26 36.8 99 22 173/79 (110) 96 Room Air 03/01/21 15:21 35.5 100 96 21 03/01/21 12:54 99 03/01/21 12:00 35.7 99 22 149/89 (109) 96 Room Air 03/01/21 10:28 Room Air 03/01/21 08:00 36.0 99 21 167/82 (110) 97 Room Air 03/01/21 08:00 Room Air 03/01/21 07:00 90 I & O 03/02/21 07:00 Intake Total 605 ml Output Total 200 ml Balance 405 ml Height & Weight Height: 5'8.00" Weight: 189lbs. oz. 85.203339an; 28.53 BMI Method: General Appearance: No Apparent Distress, Chronically ill HEENT: PERRL/EOMI, Normal ENT Inspection, Pharynx Normal, Moist Mucous Membranes Neck: Normal Inspection, Non Tender Respiratory: Lungs Clear, Normal Breath Sounds, No Accessory Muscle Use, No Respiratory Distress Cardiovascular: Regular Rate, Rhythm, No Gallop, No Murmur Capillary Refill: Less Than 3 Seconds Peripheral Pulses: 2+ Dorsalis Pedis (R), 2+ Left Dors-Pedis (L) Gastrointestinal: normal bowel sounds, non tender, soft Extremity: Normal Capillary Refill, Normal Inspection, Normal Range of Motion, Non Tender, No Calf Tenderness, No Pedal Edema Neurologic/Psychiatric: Disoriented, Other (Diffuse tremors and cogwheeling) Skin: Normal Color, Warm/Dry Lymphatic: No Adenopathy Results Lab Laboratory Tests 02/28/21 10:30 03/01/21 06:17 Assessment/Plan Assessment/Plan AMS -in the contet xof etoh abise -on bipap -may need neuro work up -labs are pending ddx cva/ etoh abuse/ sepsis -tsh/ folic aicd/ b12 levels we will continue to asses the patient once the rn is available basic work up initiated. TUAN STOVALL MD Mar 02, 2021 06:50
[2021-03-02 06:52] LABS: ALBUMIN 3.1 GM/DL (3.2-4.5)
[2021-03-02 06:53] LABS: POTASSIUM 3.7 MMOL/L (3.6-5.0)
[2021-03-02 06:54] LABS: CALCIUM 8.7 MG/DL (8.5-10.1)
[2021-03-02 06:55] LABS: INR 1.2 (0.8-1.4); TOTAL PROTEIN 7.9 GM/DL (6.4-8.2)
[2021-03-02 06:57] LABS: BILIRUBIN,TOTAL 1.7 MG/DL (0.1-1.0)
--- NOTE | 2021-03-02 06:57 | Diagnostic Imaging Report ---
Indication: Shortness of air and cough. TIME OF EXAM: 6:08 AM Correlation is made with prior chest from one day earlier. FINDINGS: The heart size is normal. The pulmonary vascularity is unremarkable. The lungs are clear. No infiltrate, effusion or pneumothorax is detected. IMPRESSION: No acute cardiopulmonary process is detected. Dictated by: Dictated on workstation # [id number]
[2021-03-02 06:59] LABS: CREATININE SERUM 1.99 MG/DL (0.60-1.30)
[2021-03-02 07:26] LABS: BILIRUBIN,URINE NEGATIVE (NEGATIVE); CLARITY,URINE CLEAR; COLOR,URINE YELLOW; GLUCOSE, URINE (UA) NEGATIVE (NEGATIVE); KETONES,URINE NEGATIVE (NEGATIVE); LEUKOCYTE ESTERASE ,URINE NEGATIVE (NEGATIVE); NITRITE,URINE NEGATIVE (NEGATIVE); PROTEIN,URINE TRACE (NEGATIVE)
[2021-03-02] MEDS: polyethylene glycoL POWDER 17 GM (MIRALAX) PACK PO SCH ×2 (07:42→21:38)
[2021-03-02] MEDS: FOLIC ACID 1 MG TAB PO SCH (07:42)
[2021-03-02] MEDS: amLODIPine 5 MG (NORVASC) TAB PO SCH (07:42)
[2021-03-02] MEDS: MULTIVIT W/MINERALS TAB (THERAGRAN M) PO SCH (07:42)
[2021-03-02] MEDS: doxAzosin 4 MG (CARDURA) TAB PO SCH ×3 (07:42→21:40)
[2021-03-02] MEDS: LACTULOSE SYRUP 10GM/15ML (ENULOSE) 30ML UDC PO SCH ×2 (07:42→21:38)
[2021-03-02] MEDS: SENNA W/DOCUSATE (SENOKOT S) TABLET PO SCH ×2 (07:43→21:38)
[2021-03-02 07:46] LABS: BACTERIA,URINE FEW /HPF; RBC,URINE 50-100 /HPF; WBC,URINE 0-2 /HPF
[2021-03-02] MEDS ORDERED: DexMEDEtomidine 250 ML DRIP 250 ML IV ONE (08:34)
[2021-03-02] MEDS ORDERED: PROPOFOL DRIP (ICU) 100 ML IV ONE (08:34)
--- NOTE | 2021-03-02 08:41 | Progress Note - Hospitalist ---
Subjective HPI/CC On Admission Date Seen by Provider: Mar 02, 2021 Time Seen by Provider: 08:00 CC: Altered mental status with alcohol withdrawal HPI: This is a 76yoWM who has a hx of alcoholism who presented to the [facility] ER found to have altered mental status and findings consistent with alcohol withdrawal. His creatinine was 3.1 consistent with dehydration so he was admitted for IV fluids and alcohol withdrawal treatment and today his creatinine is much better at 2.49. Elevated BP requiring aggressive BP medications. He does not have his hearing aids so it is very difficult to communicate. His is at the bedside and speaks broken Ukrainian since she is apparently [place]. I tried to update her with everything that she needs to know and she needs him to stay here as long as possible because she has to work. Subjective/Events-last exam Pt has decompensated overnight with increased agitation requiring increased sedation, and was transferred to the ICU this am when I was called. Condition is c/w refractory DT's but will need to obtain CT head again to r/o acute process. Respiratory rate has been up to 40 to maintain saturations - CXR yesterday had shown increased infiltrates and as such was started on Rocephin. Labs this am show kidney function at baseline and elevated TB but normal ammonia. Condition is discussed with at bedside - if CT head is not revealing will likely proceed with intubation to protect airway. Focused Exam Lactate Level 03/02/21 07:10: Lactic Acid Level 0.64 Lactic Acid Level Laboratory Tests Test 03/02/21 07:10 Lactic Acid Level 0.64 MMOL/L (0.50-2.00) Objective Exam Vital Signs Vital Signs Date Time Temp Pulse Resp B/P (MAP) Pulse Ox O2 Delivery O2 Flow Rate FiO2 03/02/21 11:00 80 16 99/56 (70) 100 Mechanical Ventilator 40.00 03/02/21 04:40 37.1 03/01/21 15:21 21 Capillary Refill : Less Than 3 Seconds General Appearance: Moderate Distress HEENT: Other (pupils constricted but reactive) Neck: Limited Range of Motion Respiratory: Accessory Muscle Use, Rhonci Cardiovascular: Tachycardia Gastrointestinal: Normal Bowel Sounds, Soft Extremity: No Pedal Edema Neurologic/Psychiatric: Disoriented, Other (babinski not revealing ) Results/Procedures Lab Laboratory Tests 03/02/21 06:23 Patient resulted labs reviewed. Imaging: Reviewed Imaging Films, Reviewed Imaging Report Assessment/Plan Assessment and Plan Assess & Plan/Chief Complaint Alcohol withdrawal-refractory DT's- r/o acute process- CT head w/o Change thiamine to IV since he has not been able to take things p.o. respiratory distress- impending failure was at bedside during my visit and all questions were answered 1000: Ct head unchanged - will proceed with intubation for airway protection 1100: Patient was intubated without difficulty. Large amount of thickened mucus was removed from the posterior pharynx. Patient's heart rate and vital signs are much more stable now. He remains sedated and comfortable. I discussed the patient's status with the at length and reviewed again his past history. It does have a longstanding history of very very heavy alcohol use and probably underlying dementia with increased forgetfulness. I discussed with her that most likely he will be intubated for at least 48 hours his prognosis remains guarded but indeed the amount of time on a ventilator may be longer than that. All of her questions were answered and she understands the severity of his disease Critical Care Critically Ill Patient CC TIME : Critical Care Start Date: Mar 02, 2021 Critical Care Start Time: 08:00 Stop date: Mar 02, 2021 Stop Time: 09:00 BRYCE KESSLER MD Mar 02, 2021 08:41
[2021-03-02 09:17] LABS: AMYLASE 52 U/L (25-125)
[2021-03-02 09:25] LABS: CREATINE KINASE 172 U/L (30-200)
[2021-03-02] MEDS: cefTRIAXone 1 GM PRE-MIX 50 ML IV SCH (09:33)
[2021-03-02] MEDS: 1/2 NS IV SOLUTION 1,000 ML IV SCH ×2 (09:33→19:24)
[2021-03-02] MEDS: THIAMINE INJECTION 100 MG in NS (IVPB) 50 ML IV SCH (09:34)
--- NOTE | 2021-03-02 09:43 | Diagnostic Imaging Report ---
PROCEDURE: CT head without contrast. TECHNIQUE: Multiple contiguous axial images were obtained through the brain without the use of intravenous contrast. Auto Exposure Controls were utilized during the CT exam to meet ALARA standards for radiation dose reduction. Indication: Altered mental status. Comparison: 02/25/2021. Discussion: No adverse interval change. No acute intracranial hemorrhage, mass, midline shift, or hydrocephalus. The ventricles and sulci are normal size configuration for age. Mild white matter hypoattenuation is nonspecific, greater than expected for age related chronic small vessel ischemic disease, stable. Opacification of the left maxillary sinus and a few ethmoid air cells is stable. The orbits and calvarium are unremarkable. Opacification of the right mastoid air cells is stable. Impression: 1. Stable negative head CT. Dictated by: Dictated on workstation # [id number]
--- NOTE | 2021-03-02 10:24 | Progress Note - Cardiology ---
Cardiology SOAP Progress Note Subjective: Marked agitation and intermittently low oxygen sat led to transfer to ICU Unable to communicate by bedside Objective: I&O/Vital Signs 03/02/21 03/02/21 03/02/21 03/02/21 00:58 01:00 04:40 06:00 Temp 36.4 37.1 Pulse 112 100 107 121 Resp 24 24 25 B/P (MAP) 184/68 (106) 140/69 (92) Pulse Ox 95 94 95 O2 Delivery NIV CPAP NIV CPAP O2 Flow Rate 60.00 03/02/21 03/02/21 03/02/21 03/02/21 06:05 06:36 07:00 07:00 Pulse 117 115 Resp 38 B/P (MAP) 161/66 (97) Pulse Ox 99 O2 Delivery NIV Bilevel NIV Bilevel NIV Bilevel O2 Flow Rate 60.00 40.00 40.00 03/02/21 03/02/21 03/02/21 03/02/21 07:50 08:00 09:30 09:45 Pulse 114 105 113 Resp 31 25 B/P (MAP) 155/73 (100) 171/75 (107) 169/69 (93) Pulse Ox 100 100 89 O2 Delivery Room Air NIV Bilevel NIV Bilevel NIV Bilevel O2 Flow Rate 40.00 30.00 30.00 03/02/21 10:00 Pulse 113 Resp 32 B/P (MAP) 155/91 (117) Pulse Ox 88 O2 Delivery NIV Bilevel O2 Flow Rate 30.00 03/02/21 00:00 Intake Total 605 ml Output Total 100 ml Balance 505 ml Weight (Pounds): 189 Weight (Calculated Kilograms): 85.216844 Constitutional: No AAO x 3; other (agitated) Respiratory: No accessory muscle use, No respiratory distress; chest expansion is symmetric, chest is bilaterally symmetric Cardiovascular: regular rate-rhythm; No JVD; S1 and S2 Gastrointestional: No tender; soft, round, audible bowel sounds Extremities: no lower extremity edema bilateral Neurologic/Psychiatric: other (moves all extremities) Skin: jaundice; No rash on exposed areas, No ulcerations on exposed areas Results/Procedures: Labs Laboratory Tests 03/01/21 11:15: Glucometer 108 03/01/21 14:10: Blood Gas Puncture Site LEFT BRACHIAL, Blood Gas Patient Temperature 35.5, Arterial Blood pH 7.43, Arterial Blood Partial Pressure CO2 30L, Arterial Blood Partial Pressure O2 88, Arterial Blood HCO3 20L, Arterial Blood Total CO2 20.8L, Arterial Blood Oxygen Saturation 97, Arterial Blood Base Excess -4.1L, Natalio Test POSITIVE, Blood Gas Ventilator Setting NO, Blood Gas Inspired Oxygen N/A 03/01/21 17:46: Glucometer 102 03/02/21 00:19: Glucometer 83 03/02/21 05:50: Blood Gas Puncture Site LR, Blood Gas Patient Temperature 36.9, Arterial Blood pH 7.38, Arterial Blood Partial Pressure CO2 36, Arterial Blood Partial Pressure O2 120H, Arterial Blood HCO3 21L, Arterial Blood Total CO2 21.9, Arterial Blood Oxygen Saturation 99, Arterial Blood Base Excess -3.5L, Natalio Test YES-POS, Blood Gas Ventilator Setting YES, Blood Gas Inspired Oxygen 5L 03/02/21 06:23: White Blood Count 6.8, Red Blood Count 3.01L, Hemoglobin 10.9L, Hematocrit 32L, Mean Corpuscular Volume 107H, Mean Corpuscular Hemoglobin 36H, Mean Corpuscular Hemoglobin Concent 34, Red Cell Distribution Width 12.8, Platelet Count 110L, Mean Platelet Volume 11.5, Immature Granulocyte % (Auto) 0, Neutrophils (%) (Auto) 72, Lymphocytes (%) (Auto) 14, Monocytes (%) (Auto) 11, Eosinophils (%) (Auto) 3, Basophils (%) (Auto) 1, Neutrophils # (Auto) 4.9, Lymphocytes # (Auto) 0.9L, Monocytes # (Auto) 0.7, Eosinophils # (Auto) 0.2, Basophils # (Auto) 0.1, Immature Granulocyte # (Auto) 0.0, Percent Immature Platelet Fraction 5.9, Prothrombin Time 16.0H, INR Comment 1.2, Sodium Level 143, Potassium Level 3.7, Chloride Level 112H, Carbon Dioxide Level 19L, Anion Gap 12, Blood Urea Nitrogen 31H, Creatinine 1.99H, Estimat Glomerular Filtration Rate 33, BUN/Creatinine Ratio 16, Glucose Level 111H, Calcium Level 8.7, Corrected Calcium 9.4, Total Bilirubin 1.7H, Aspartate Amino Transf (AST/SGOT) 31, Alanine Aminotransferase (ALT/SGPT) 14, Alkaline Phosphatase 69, Total Protein 7.9, Albumin 3.1L 03/02/21 06:35: Urine Color YELLOW, Urine Clarity CLEAR, Urine pH 6.0, Urine Specific [place] 1.020, Urine Protein TRACEH, Urine Glucose (UA) NEGATIVE, Urine Ketones NEGATIVE, Urine Nitrite NEGATIVE, Urine Bilirubin NEGATIVE, Urine Urobilinogen 0.2, Urine Leukocyte Esterase NEGATIVE, Urine RBC (Auto) 3+H, Urine RBC 50-100H, Urine WBC 0-2, Urine Squamous Epithelial Cells 5-10, Urine Crystals NONE, Urine Bacteria FEWH, Urine Casts NONE, Urine Mucus NEGATIVE, Urine Culture Indicated YES 03/02/21 07:10: Lactic Acid Level 0.64, Magnesium Level 1.8, Ammonia 29, Total Creatine Kinase 172, Triglycerides Level 75, Amylase Level 52 Laboratory Tests 02/28/21 10:30 03/01/21 06:17 03/02/21 06:23 A/P: Assessment: Mental status change, acute renal failure, and hyperbilirubinemia and elevated ammonia of undetermined etiology - Hosp service managing Uncontrolled HTN - better Reported sinus bradycardia - during sleep - no documentation - beta-blockers d/c'd Heavy ETOH abuse - withdrawal management per Hosp Svce CKD 4 (per spouse report) - follows with [facility] Sleep apnea - CPAP tx H/O bladder cancer - followed by Dr. Young Gout Chronic leg pain - undetermined etiology Mild thrombocytopenia - undetermined etiology Plan: Multiple medical issues (noted above), management per Medical services Progressively downhill clinical course. Prognosis guared Continue anti-htn therapy Renal failure of unknown prevents us from adding STAN- inhib or ARB Monitor lab closely I again spoke with his today and answered CV-related questions TOSHIA CRUZ MD FACP FAC CCDS Mar 02, 2021 10:24
[2021-03-02] MEDS: PROPOFOL DRIP (ICU) 100 ML IV SCH ×2 (10:35→18:48)
--- NOTE | 2021-03-02 10:56 | Anesthesia-Procedure Note ---
Procedures/Interventions Procedure Start/Stop/Diagnosis Date of Procedure: Mar 02, 2021 Start Time: 10:18 Preprocedural Diagnosis: Respiratory Failure Brief History Called to ICU to intubate. Patient not alert or oriented, but thrashing about in bed with BiPap mask in place. Report received from RN, RT @ bedside. Propofol 100mg & Succinylcholine 80mg IV given to facilitate intubation. DLx1 with Garg 2. Pts oral cavity extremely dry, with thick, dried secretions. Tongue completely adhered to hard palate. Difficult view due to this state. Glidescope x 1 attempt, with grade 1 view and easy pass of ETT. Atraumatic with Sp02 remaining 100% throughout. Stop Time: 10:28 Intubation RSI: Yes 100% pre-Ox, [id number]: Yes Intubation Method: orotracheal (8.0) Videoscope used: Yes Grade View: 1 Medications: Propofol, Succinylcholine Mask Ventilation: positive Positive End Tide CO2: Yes Breath Sounds after Intubation: bilateral-equal ETT Securred @ (cm): 21 Intubated with ease: Yes Intubation Complications: no complications Post Intubation Xray-done: Yes (ordered) SAHARA QUINN CRNA Mar 02, 2021 10:56
--- NOTE | 2021-03-02 10:57 | Diagnostic Imaging Report ---
Indication: ET tube placement. TIME OF EXAM: 10:38 AM Correlation is made with prior chest earlier same day. ET tube has been placed with tip at level of clavicular heads, well above the emerald. NG tube passes below the diaphragm with tip in region of gastric body. Heart size is stable. Lungs are clear. No effusion or pneumothorax. IMPRESSION: ET tube and nasogastric tube placement, as described. Dictated by: Dictated on workstation # [id number]
[2021-03-02 11:55] LABS: ABG OXYGEN SATURATION 97 % (94-100); ABG PCO2 36 MMHG (35-45); ABG PH 7.36 (7.37-7.43); ABG PO2 97 MMHG (79-93); ABG TCO2 22.1 MMOL/L (21.0-31.0); ALLENS TEST YES-POS; INSPIRED O2 40%; PATIENT TEMP 34.9; VENTILATOR YES
--- NOTE | 2021-03-02 12:09 | Diagnostic Imaging Report ---
Indication: Dyspnea, follow-up endotracheal tube placement. Comparison: Earlier same day. Discussion: Single view of the chest was obtained. Endotracheal tube in good position within the mid trachea. Normal heart size. Low lung volumes. No consolidation, pleural fluid, or pneumothorax. No osseous abnormality. Enteric tube tip in the gastric body. Impression: 1. Endotracheal tube in good position. Dictated by: Dictated on workstation # [id number]
[2021-03-02] MEDS: DexMEDEtomidine 250 ML DRIP 250 ML IV SCH (15:38)
[2021-03-02] MEDS ORDERED: SUCCINYLCHOLINE INJ 100 MG/5 ML SYR/VIAL INJ ONE (15:42)
[2021-03-02] MEDS: ENOXAPARIN 30 MG/0.3 ML (LOVENOX) SYR SC SCH (21:38)
[2021-03-02] MEDS: PANTOPRAZOLE 40 MG (PROTONIX) VIAL IV SCH (21:40)
[2021-03-03] VITALS (65 sets, daily range): BP systolic 89–158; BP diastolic 50–77
[2021-03-03] MEDS: LORazepam INJ 2 MG/ML (ATIVAN) VIAL IV PRN ×2 (00:43→18:00)
[2021-03-03] MEDS: PROPOFOL DRIP (ICU) 100 ML IV SCH ×3 (00:43→20:27)
[2021-03-03] MEDS: 1/2 NS IV SOLUTION 1,000 ML IV SCH ×2 (04:21→15:20)
[2021-03-03 04:55] LABS: BASOPHILS # (AUTO) 0.1 10^3/uL (0.0-0.1); BASOPHILS % (AUTO) 1 % (0-10); EOSINOPHILS # (AUTO) 0.3 10^3/uL (0.0-0.3); EOSINOPHILS % (AUTO) 4 % (0-10); HEMATOCRIT 31 % (40-54); HEMOGLOBIN 10.6 g/dL (13.3-17.7); LYMPHOCYTES % (AUTO) 15 % (12-44); MEAN CORPUSCULAR HEMOGLOBIN 36 pg (25-34); MEAN CORPUSCULAR HGB CONC 34 g/dL (32-36); MEAN CORPUSCULAR VOLUME 106 fL (80-99); MEAN PLATELET VOLUME 11.7 fL (9.0-12.2); MONOCYTES # (AUTO) 0.8 10^3/uL (0.0-1.0); MONOCYTES % (AUTO) 11 % (0-12); NEUTROPHILS # (AUTO) 4.6 10^3/uL (1.8-7.8); NEUTROPHILS % (AUTO) 68 % (42-75); PLATELET COUNT 103 10^3/uL (130-400); WHITE BLOOD COUNT 6.8 10^3/uL (4.3-11.0)
[2021-03-03 05:08] LABS: ALBUMIN 2.8 GM/DL (3.2-4.5)
[2021-03-03 05:09] LABS: POTASSIUM 3.5 MMOL/L (3.6-5.0)
[2021-03-03 05:10] LABS: CALCIUM 8.5 MG/DL (8.5-10.1); INR 1.2 (0.8-1.4); PROTHROMBIN TIME PATIENT 16.1 SEC (12.2-14.7)
[2021-03-03 05:11] LABS: TOTAL PROTEIN 7.3 GM/DL (6.4-8.2)
[2021-03-03 05:13] LABS: BILIRUBIN,TOTAL 1.1 MG/DL (0.1-1.0)
[2021-03-03 05:14] LABS: PHOSPHORUS 3.1 MG/DL (2.3-4.7)
[2021-03-03 05:15] LABS: CREATININE SERUM 1.91 MG/DL (0.60-1.30)
[2021-03-03 05:17] LABS: MAGNESIUM 1.9 MG/DL (1.6-2.4)
[2021-03-03] MEDS: doxAzosin 4 MG (CARDURA) TAB PO SCH ×3 (05:45→20:26)
[2021-03-03] MEDS: MULTIVIT W/MINERALS TAB (THERAGRAN M) PO SCH (05:45)
[2021-03-03] MEDS ORDERED: POTASSIUM CL 10MEQ/50ML IVPB 100 ML IV ONE (06:15)
[2021-03-03] MEDS: POTASSIUM CL 10MEQ/50ML IVPB 50 ML IV SCH ×2 (06:17→07:33)
[2021-03-03 06:29] LABS: ABG BASE EXCESS -3.6 MMOL/L (-2.5-2.5); ABG OXYGEN SATURATION 97 % (94-100); ABG PCO2 33 MMHG (35-45); ABG PO2 93 MMHG (79-93); ABG TCO2 21.5 MMOL/L (21.0-31.0)
[2021-03-03 06:31] LABS: ALLENS TEST YES-POS; INSPIRED O2 30%; PATIENT TEMP 36.6; VENTILATOR YES
--- NOTE | 2021-03-03 06:46 | Occ Therapy Progress Note ---
Therapy Progress Note Due to change in medical status, pt is discharged from OT services. New orders will be needed to initiate treatment when pt is medically stable to actively participate in skilled therapy. JACKIE LEWIS Mar 03, 2021 06:46
--- NOTE | 2021-03-03 08:36 | Progress Note - Cardiology ---
Cardiology SOAP Progress Note Subjective: Intubated and sedated Objective: I&O/Vital Signs 03/03/21 03/03/21 03/04/21 03/04/21 23:20 23:25 00:00 00:26 Temp 36.9 Pulse 49 55 58 Resp 16 16 B/P (MAP) 138/58 (84) 146/62 (102) 146/62 Pulse Ox 97 97 97 O2 Delivery Mechanical Ventilator Mechanical Ventilator Mechanical Ventilator O2 Flow Rate 30.00 30.00 FiO2 30 03/04/21 03/04/21 03/04/21 03/04/21 01:00 01:00 02:00 02:08 Pulse 52 53 50 58 Resp 16 16 19 B/P (MAP) 135/53 (78) 139/59 (97) Pulse Ox 96 97 97 O2 Delivery Mechanical Ventilator Mechanical Ventilator O2 Flow Rate 30.00 30.00 FiO2 30 03/04/21 03/04/21 03/04/21 03/04/21 03:00 03:00 04:00 04:00 Temp 37.2 Pulse 58 53 Resp 17 16 B/P (MAP) 137/59 (95) 128/57 (80) Pulse Ox 97 97 97 O2 Delivery Mechanical Ventilator Mechanical Ventilator Mechanical Ventilator O2 Flow Rate 30.00 30.00 FiO2 30 30 03/04/21 03/04/21 03/04/21 03/04/21 04:36 05:00 05:05 06:00 Pulse 59 63 77 77 Resp 16 25 24 B/P (MAP) 138/58 141/58 (93) 148/60 (89) Pulse Ox 97 97 97 O2 Delivery Mechanical Ventilator Mechanical Ventilator O2 Flow Rate 30.00 30.00 03/04/21 03/04/21 03/04/21 03/04/21 06:36 06:41 07:00 07:49 Pulse 63 61 Resp 16 Pulse Ox 98 96 O2 Delivery Mechanical Ventilator FiO2 30 30 30 03/04/21 03/04/21 08:00 10:33 Temp 37.5 Pulse 92 Resp 25 Pulse Ox 95 FiO2 30 03/03/21 23:59 Intake Total 565 ml Output Total 900 ml Balance -335 ml Weight (Pounds): 189 Weight (Calculated Kilograms): 85.025333 Constitutional: No AAO x 3; other (intubated and sedated) Respiratory: No accessory muscle use, No respiratory distress; chest expansion is symmetric, chest is bilaterally symmetric Cardiovascular: regular rate-rhythm; No JVD; bradycardia, S1 and S2 Gastrointestional: No tender; soft, round, audible bowel sounds Extremities: no lower extremity edema bilateral Neurologic/Psychiatric: other (sedated; unable to cooperate with neuro exam) Skin: jaundice; No rash on exposed areas, No ulcerations on exposed areas Results/Procedures: Labs Laboratory Tests 03/03/21 11:31: Glucometer 93 03/03/21 17:31: Glucometer 82 03/03/21 23:30: Glucometer 82 03/04/21 03:50: White Blood Count 6.3, Red Blood Count 2.99L, Hemoglobin 10.8L, Hematocrit 31L, Mean Corpuscular Volume 104H, Mean Corpuscular Hemoglobin 36H, Mean Corpuscular Hemoglobin Concent 35, Red Cell Distribution Width 12.2, Platelet Count 105L, Mean Platelet Volume 11.9, Immature Granulocyte % (Auto) 0, Neutrophils (%) (Auto) 67, Lymphocytes (%) (Auto) 16, Monocytes (%) (Auto) 12, Eosinophils (%) (Auto) 4, Basophils (%) (Auto) 1, Neutrophils # (Auto) 4.2, Lymphocytes # (Auto) 1.0, Monocytes # (Auto) 0.7, Eosinophils # (Auto) 0.3, Basophils # (Auto) 0.1, Immature Granulocyte # (Auto) 0.0, Percent Immature Platelet Fraction 6.6, Prothrombin Time 16.7H, INR Comment 1.3, Sodium Level 141, Potassium Level 3.6, Chloride Level 113H, Carbon Dioxide Level 17L, Anion Gap 11, Blood Urea Nitrogen 29H, Creatinine 1.95H, Estimat Glomerular Filtration Rate 34, BUN/Creatinine Ratio 15, Glucose Level 88, Calcium Level 8.6, Corrected Calcium 9.6, Phosphorus Level 3.5, Magnesium Level 1.9, Total Bilirubin 1.0, Aspartate Amino Transf (AST/SGOT) 24, Alanine Aminotransferase (ALT/SGPT) 12, Alkaline Phosphatase 72, Total Protein 7.2, Albumin 2.7L, Triglycerides Level 81 03/04/21 04:40: Blood Gas Puncture Site LEFT RAD, Blood Gas Patient Temperature 37.2, Arterial Blood pH 7.38, Arterial Blood Partial Pressure CO2 32L, Arterial Blood Partial Pressure O2 96H, Arterial Blood HCO3 19L, Arterial Blood Total CO2 19.7L, Arterial Blood Oxygen Saturation 99, Arterial Blood Base Excess -5.5L, Natalio Test YES-POS, Blood Gas Ventilator Setting YES, Blood Gas Inspired Oxygen 30% Microbiology 03/02/21 Gram Stain - Final, Resulted 03/02/21 Sputum Culture - Preliminary, Resulted Usual upper respiratory jeannine Gram Negative Jamar Yeast species See Comments 03/02/21 Urine Culture - Final, Complete NO GROWTH Procedures NAME: MINGO NAIR [facility] REC#: [id number] PT STATUS: ADM IN : 1945 PHYSICIAN: CORI HERMOSILLO MD ADMIT DATE: 02/25/21/ICU Signed Date of Exam:03/02/21 CHEST 1 VIEW, AP/PA ONLY Indication: Dyspnea, follow-up endotracheal tube placement. Comparison: Earlier same day. Discussion: Single view of the chest was obtained. Endotracheal tube in good position within the mid trachea. Normal heart size. Low lung volumes. No consolidation, pleural fluid, or pneumothorax. No osseous abnormality. Enteric tube tip in the gastric body. Impression: 1. Endotracheal tube in good position. Dictated by: Dictated on workstation # [id number] Dict: 03/02/21 1207 Trans: 03/02/21 1537 [facility] [id number] Interpreted by: TRACY LAND MD Electronically signed by: TRACY LAND MD 03/02/21 1537 A/P: Assessment: Respiratory failure requiring intubation Mental status change, acute renal failure, and hyperbilirubinemia and elevated ammonia of undetermined etiology - Hosp service managing Uncontrolled HTN - better Reported sinus bradycardia - during sleep - no documentation - beta-blockers d/c'd Heavy ETOH abuse - withdrawal management per Hosp Svce CKD 4 (per spouse report) - follows with [facility] Sleep apnea - CPAP tx H/O bladder cancer - followed by Dr. Young Gout Chronic leg pain - undetermined etiology Mild thrombocytopenia - undetermined etiology Plan: Sinus bradycardia while on intubation Multiple medical issues (noted above), management per Medical services Progressively downhill clinical course. Prognosis guarded Continue anti-htn therapy Renal failure of unknown prevents us from adding STAN- inhib or ARB Monitor lab closely I again spoke with his today and answered CV-related questions MORIS BYNUM Mar 03, 2021 08:36
[2021-03-03] MEDS: PANTOPRAZOLE 40 MG (PROTONIX) VIAL IV SCH (09:12)
[2021-03-03] MEDS: cefTRIAXone 1 GM PRE-MIX 50 ML IV SCH (09:13)
[2021-03-03] MEDS: LACTULOSE SYRUP 10GM/15ML (ENULOSE) 30ML UDC PO SCH ×2 (09:13→20:26)
[2021-03-03] MEDS: THIAMINE INJECTION 100 MG in NS (IVPB) 50 ML IV SCH (09:13)
[2021-03-03] MEDS: amLODIPine 5 MG (NORVASC) TAB PO SCH (09:14)
[2021-03-03] MEDS: polyethylene glycoL POWDER 17 GM (MIRALAX) PACK PO SCH ×2 (09:14→20:26)
[2021-03-03] MEDS: SENNA W/DOCUSATE (SENOKOT S) TABLET PO SCH ×2 (09:14→20:26)
[2021-03-03] MEDS: FOLIC ACID 1 MG TAB PO SCH (09:14)
--- NOTE | 2021-03-03 09:19 | Progress Note - Cardiology ---
Cardiology SOAP Progress Note Subjective: Intubated, sedated, on mech vent, unable to communicate Objective: I&O/Vital Signs 03/02/21 03/02/21 03/02/21 03/02/21 22:00 22:30 23:00 23:00 Temp 36.7 Pulse 45 45 45 Resp 16 16 16 B/P (MAP) 134/56 (108) 131/50 (87) Pulse Ox 95 95 95 O2 Delivery Mechanical Ventilator Mechanical Ventilator Mechanical Ventilator O2 Flow Rate 30.00 30.00 30.00 FiO2 30 03/02/21 03/03/21 03/03/21 03/03/21 23:25 00:00 00:43 01:00 Pulse 45 53 46 Resp 16 16 B/P (MAP) 131/50 (90) 120/51 (74) Pulse Ox 95 95 94 O2 Delivery Mechanical Ventilator Mechanical Ventilator Mechanical Ventilator O2 Flow Rate 30.00 30.00 FiO2 30 03/03/21 03/03/21 03/03/21 03/03/21 01:00 02:00 03:00 03:04 Pulse 46 42 43 42 Resp 16 16 16 B/P (MAP) 150/57 (88) 145/59 (87) Pulse Ox 96 96 96 O2 Delivery Mechanical Ventilator Mechanical Ventilator O2 Flow Rate 30.00 30.00 FiO2 30 03/03/21 03/03/21 03/03/21 03/03/21 03:35 03:35 04:00 05:00 Temp 36.6 Pulse 43 41 Resp 16 16 B/P (MAP) 146/56 (86) 140/61 (87) Pulse Ox 96 96 96 O2 Delivery Mechanical Ventilator Mechanical Ventilator Mechanical Ventilator Mechanical Ventilator O2 Flow Rate 30.00 30.00 30.00 FiO2 30 03/03/21 03/03/21 03/03/21 03/03/21 06:16 06:30 06:41 06:43 Pulse 43 43 42 Resp 16 16 16 B/P (MAP) 133/59 (83) 137/58 (104) Pulse Ox 94 94 94 O2 Delivery Mechanical Ventilator Mechanical Ventilator O2 Flow Rate 30.00 30.00 FiO2 30 30 03/03/21 03/03/21 03/03/21 03/03/21 06:45 07:00 07:00 07:15 Pulse 42 41 42 40 Resp 16 16 16 B/P (MAP) 138/55 (91) 140/58 (92) 138/56 (100) Pulse Ox 95 95 95 O2 Delivery Mechanical Ventilator Mechanical Ventilator Mechanical Ventilator O2 Flow Rate 30.00 30.00 30.00 03/03/21 03/03/21 03/03/21 03/03/21 07:30 07:45 08:00 08:14 Temp 36.6 Pulse 39 41 42 Resp 16 16 16 B/P (MAP) 144/57 (95) 143/57 (97) 141/56 (84) Pulse Ox 95 95 95 O2 Delivery Mechanical Ventilator Mechanical Ventilator Mechanical Ventilator O2 Flow Rate 30.00 30.00 30.00 03/03/21 03/03/21 03/03/21 03/03/21 08:15 08:30 08:45 09:00 Pulse 43 42 42 40 Resp 16 16 16 16 B/P (MAP) 140/59 (95) 139/58 (97) 137/59 (98) 142/59 (92) Pulse Ox 95 95 95 95 O2 Delivery Mechanical Ventilator Mechanical Ventilator Mechanical Ventilator Mechanical Ventilator O2 Flow Rate 30.00 30.00 30.00 30.00 03/02/21 23:59 Intake Total 1150 ml Output Total 500 ml Balance 650 ml Weight (Pounds): 189 Weight (Calculated Kilograms): 85.033844 Constitutional: No AAO x 3; other (intubated and sedated) Respiratory: No accessory muscle use, No respiratory distress; chest expansion is symmetric, chest is bilaterally symmetric Cardiovascular: regular rate-rhythm; No JVD; bradycardia, S1 and S2 Gastrointestional: No tender; soft, round, audible bowel sounds Extremities: no lower extremity edema bilateral Neurologic/Psychiatric: other (sedated; unable to cooperate with neuro exam) Skin: jaundice; No rash on exposed areas, No ulcerations on exposed areas Results/Procedures: Labs Laboratory Tests 03/02/21 11:38: Glucometer 105 03/02/21 11:48: Blood Gas Puncture Site L BRACH, Blood Gas Patient Temperature 34.9, Arterial Blood pH 7.36L, Arterial Blood Partial Pressure CO2 36, Arterial Blood Partial Pressure O2 97H, Arterial Blood HCO3 21L, Arterial Blood Total CO2 22.1, Arterial Blood Oxygen Saturation 97, Arterial Blood Base Excess -4.0L, Natalio Test YES-POS, Blood Gas Ventilator Setting YES, Blood Gas Inspired Oxygen 40% 03/02/21 17:55: Glucometer 93 03/02/21 23:24: Glucometer 83 03/03/21 04:36: White Blood Count 6.8, Red Blood Count 2.91L, Hemoglobin 10.6L, Hematocrit 31L, Mean Corpuscular Volume 106H, Mean Corpuscular Hemoglobin 36H, Mean Corpuscular Hemoglobin Concent 34, Red Cell Distribution Width 12.5, Platelet Count 103L, Mean Platelet Volume 11.7, Immature Granulocyte % (Auto) 0, Neutrophils (%) (Auto) 68, Lymphocytes (%) (Auto) 15, Monocytes (%) (Auto) 11, Eosinophils (%) (Auto) 4, Basophils (%) (Auto) 1, Neutrophils # (Auto) 4.6, Lymphocytes # (Auto) 1.0, Monocytes # (Auto) 0.8, Eosinophils # (Auto) 0.3, Basophils # (Auto) 0.1, Immature Granulocyte # (Auto) 0.0, Percent Immature Platelet Fraction 5.9, Prothrombin Time 16.1H, INR Comment 1.2, Sodium Level 142, Potassium Level 3.5L, Chloride Level 112H, Carbon Dioxide Level 18L, Anion Gap 12, Blood Urea Nitrogen 31H, Creatinine 1.91H, Estimat Glomerular Filtration Rate 34, BUN/Creatinine Ratio 16, Glucose Level 87, Calcium Level 8.5, Corrected Calcium 9.5, Phosphorus Level 3.1, Magnesium Level 1.9, Total Bilirubin 1.1H, Aspartate Amino Transf (AST/SGOT) 26, Alanine Aminotransferase (ALT/SGPT) 13, Alkaline Phosphatase 62, Total Protein 7.3, Albumin 2.8L 03/03/21 06:24: Blood Gas Puncture Site LT RAD, Blood Gas Patient Temperature 36.6, Arterial Blood pH 7.40, Arterial Blood Partial Pressure CO2 33L, Arterial Blood Partial Pressure O2 93, Arterial Blood HCO3 21L, Arterial Blood Total CO2 21.5, Arterial Blood Oxygen Saturation 97, Arterial Blood Base Excess -3.6L, Natalio Test YES- POS, Blood Gas Ventilator Setting YES, Blood Gas Inspired Oxygen 30% Laboratory Tests 03/02/21 06:23 03/03/21 04:36 A/P: Assessment: Respiratory failure requiring intubation Mental status change, acute renal failure, and hyperbilirubinemia and elevated ammonia of undetermined etiology - Hosp service managing Uncontrolled HTN - better Sinus bradycardia w/o any hemodynamic compromise Heavy ETOH abuse - withdrawal management per Hosp Svce CKD 4 (per spouse report) - follows with [facility] Sleep apnea - CPAP tx H/O bladder cancer - followed by Dr. Young Gout Chronic leg pain - undetermined etiology Mild thrombocytopenia - undetermined etiology Plan: Multiple medical issues (noted above), management per Medical services Progressively downhill clinical course. Prognosis guarded Continue anti-htn therapy Renal failure of unknown prevents us from adding STAN- inhib or ARB Monitor lab closely I again spoke with his today and answered CV-related questions TOSHIA CRUZ MD FACP FACC CCDS Mar 03, 2021 09:19
--- NOTE | 2021-03-03 10:08 | Physical Therapy Progress Note ---
Therapy Progress Note Patient was being seen by PT on Acute floor. With his transfer to ICU patient will be D/C from skilled PT treatment. Updated Order for PT evaluation received. Patient is currently intubated and sedated, will monitor patient and start when appropriate. ABDIAZIZ WOOD PT Mar 03, 2021 10:08
--- NOTE | 2021-03-03 11:43 | Tele-ICU Progress Note ---
Subjective Date Seen by a Provider: Mar 03, 2021 Time Seen by a Provider: 11:42 Sepsis Event Evaluation Height, Weight, BMI Height: 5'8.00" Weight: 189lbs. oz. 85.654387tg; 28.53 BMI Method: Focused Exam Lactate Level 03/02/21 07:10: Lactic Acid Level 0.64 Exam Exam Patient acknowledged, consented, and participated in this virtual visit which was conducted using real time audio/video Vital Signs Date Time Temp Pulse Resp B/P (MAP) Pulse Ox O2 Delivery O2 Flow Rate FiO2 03/03/21 11:00 48 16 135/57 (90) 95 Mechanical Ventilator 30.00 03/03/21 10:47 45 16 95 30 03/03/21 10:45 42 16 127/54 (87) 96 Mechanical Ventilator 30.00 03/03/21 10:39 43 134/57 03/03/21 10:30 43 16 118/52 (83) 95 Mechanical Ventilator 30.00 03/03/21 10:15 43 16 125/55 (84) 94 Mechanical Ventilator 30.00 03/03/21 10:00 43 16 134/57 (82) 94 Mechanical Ventilator 30.00 03/03/21 09:45 47 16 141/61 (96) 94 Mechanical Ventilator 30.00 03/03/21 09:30 49 16 142/59 (96) 94 Mechanical Ventilator 30.00 03/03/21 09:15 46 16 154/63 (101) 95 Mechanical Ventilator 30.00 03/03/21 09:00 40 16 142/59 (92) 95 Mechanical Ventilator 30.00 03/03/21 08:45 42 16 137/59 (98) 95 Mechanical Ventilator 30.00 03/03/21 08:30 42 16 139/58 (97) 95 Mechanical Ventilator 30.00 03/03/21 08:15 43 16 140/59 (95) 95 Mechanical Ventilator 30.00 03/03/21 08:14 36.6 03/03/21 08:00 42 16 141/56 (84) 95 Mechanical Ventilator 30.00 03/03/21 07:45 41 16 143/57 (97) 95 Mechanical Ventilator 30.00 03/03/21 07:30 39 16 144/57 (95) 95 Mechanical Ventilator 30.00 03/03/21 07:15 40 16 138/56 (100) 95 Mechanical Ventilator 30.00 03/03/21 07:00 42 16 140/58 (92) 95 Mechanical Ventilator 30.00 03/03/21 07:00 41 03/03/21 06:45 42 16 138/55 (91) 95 Mechanical Ventilator 30.00 03/03/21 06:43 30 03/03/21 06:41 42 16 94 30 03/03/21 06:30 43 16 137/58 (104) 94 Mechanical Ventilator 30.00 03/03/21 06:16 43 16 133/59 (83) 94 Mechanical Ventilator 30.00 03/03/21 05:00 41 16 140/61 (87) 96 Mechanical Ventilator 30.00 03/03/21 04:00 43 16 146/56 (86) 96 Mechanical Ventilator 30.00 03/03/21 03:35 96 Mechanical Ventilator 30 03/03/21 03:35 36.6 Mechanical Ventilator 30.00 03/03/21 03:04 42 16 96 30 03/03/21 03:00 43 16 145/59 (87) 96 Mechanical Ventilator 30.00 03/03/21 02:00 42 16 150/57 (88) 96 Mechanical Ventilator 30.00 03/03/21 01:00 46 03/03/21 01:00 46 16 120/51 (74) 94 Mechanical Ventilator 30.00 03/03/21 00:43 53 03/03/21 00:00 45 16 131/50 (90) 95 Mechanical Ventilator 30.00 03/02/21 23:25 95 Mechanical Ventilator 30 03/02/21 23:00 36.7 Mechanical Ventilator 30.00 03/02/21 23:00 45 16 131/50 (87) 95 Mechanical Ventilator 30.00 03/02/21 22:30 45 16 95 30 03/02/21 22:00 45 16 134/56 (108) 95 Mechanical Ventilator 30.00 03/02/21 21:00 46 16 149/65 (103) 96 Mechanical Ventilator 30.00 03/02/21 20:00 48 16 155/65 (104) 97 Mechanical Ventilator 30.00 03/02/21 19:49 36.5 03/02/21 19:30 97 Mechanical Ventilator 30 03/02/21 19:20 Mechanical Ventilator 30.00 03/02/21 19:00 46 03/02/21 19:00 36.5 45 16 168/66 (100) 97 Mechanical Ventilator 30.00 03/02/21 18:48 166/66 03/02/21 18:47 46 16 97 30 03/02/21 18:00 48 16 166/68 (113) 98 Mechanical Ventilator 30.00 03/02/21 17:45 49 16 166/66 (107) 98 Mechanical Ventilator 30.00 03/02/21 17:30 50 16 166/66 (109) 98 Mechanical Ventilator 30.00 03/02/21 17:15 51 16 156/63 (103) 97 Mechanical Ventilator 30.00 03/02/21 17:00 53 16 153/63 (100) 97 Mechanical Ventilator 30.00 03/02/21 16:45 51 16 153/66 (104) 97 Mechanical Ventilator 30.00 03/02/21 16:30 52 16 153/67 (104) 97 Mechanical Ventilator 30.00 03/02/21 16:15 53 16 153/66 (102) 98 Mechanical Ventilator 30.00 03/02/21 16:00 53 16 154/67 (104) 98 Mechanical Ventilator 30.00 03/02/21 15:52 36.8 03/02/21 15:45 53 16 151/67 (103) 98 Mechanical Ventilator 30.00 03/02/21 15:38 137/79 03/02/21 15:33 Mechanical Ventilator 30 03/02/21 15:30 54 16 148/66 (100) 98 Mechanical Ventilator 30.00 03/02/21 15:15 54 16 148/65 (99) 98 Mechanical Ventilator 30.00 03/02/21 15:00 55 16 146/65 (98) 98 Mechanical Ventilator 30.00 03/02/21 14:45 55 16 145/64 (98) 98 Mechanical Ventilator 30.00 03/02/21 14:30 55 16 142/64 (97) 98 Mechanical Ventilator 30.00 03/02/21 14:15 55 16 139/64 (96) 98 Mechanical Ventilator 30.00 03/02/21 14:11 Mechanical Ventilator 30.00 03/02/21 14:04 54 16 100 40 03/02/21 14:00 54 16 144/64 (98) 100 Mechanical Ventilator 40.00 03/02/21 13:45 54 16 140/67 (99) 99 Mechanical Ventilator 40.00 03/02/21 13:30 54 16 137/63 (92) 99 Mechanical Ventilator 40.00 03/02/21 13:15 53 16 135/62 (91) 99 Mechanical Ventilator 40.00 03/02/21 13:00 53 16 129/62 (89) 99 Mechanical Ventilator 40.00 03/02/21 12:45 53 16 123/59 (85) 99 Mechanical Ventilator 40.00 03/02/21 12:45 53 03/02/21 12:30 53 16 114/58 (81) 98 Mechanical Ventilator 40.00 03/02/21 12:15 52 16 104/51 (73) 97 Mechanical Ventilator 40.00 03/02/21 12:00 Mechanical Ventilator 40 03/02/21 12:00 53 16 92/49 (68) 94 Mechanical Ventilator 40.00 03/02/21 11:45 56 16 100/50 (69) 99 Mechanical Ventilator 40.00 I & O 03/03/21 07:00 Intake Total 2310 ml Output Total 1010 ml Balance 1300 ml Height & Weight Height: 5'8.00" Weight: 189lbs. oz. 85.274968qd; 28.53 BMI Method: General Appearance: Moderate Distress HEENT: Other (pupils constricted but reactive) Neck: Limited Range of Motion Respiratory: Accessory Muscle Use, Rhonci Cardiovascular: Tachycardia Capillary Refill: Less Than 3 Seconds Peripheral Pulses: 2+ Dorsalis Pedis (R), 2+ Left Dors-Pedis (L) Gastrointestinal: normal bowel sounds, non tender, soft Extremity: No Pedal Edema Neurologic/Psychiatric: Disoriented, Other (babinski not revealing ) Skin: Normal Color, Warm/Dry Lymphatic: No Adenopathy Results Lab Laboratory Tests 03/02/21 06:23 03/03/21 04:36 Assessment/Plan Assessment/Plan (Tele-ICU Physician , Progress Note ) Available chart/ vitals / labs / Images reviewed Video assessment done using teleICU camera, rest of exam as per RN Discussed with RN , EXAM PER RN Events overnight : Afebrile FiO2 - I/O = Drips: Pressors: , hemodynamically stable Consultants: Hospital course: 03/02 - intubated for AMS A/P ARF - intubated for AMS - try to decrease sedation , cont CIWA Mental status change, acute renal failure, and hyperbilirubinemia and elevated ammonia of undetermined etiology EDWARD - cont gentle hydration Heavy ETOH abuse - vitamins HTN - as per cards + blood in mouth by RN - no sourse - monitor Lines : (Central Line Necessity Reviewed) Iglesias: OG: Nutrition: start TF today Analgesia: Anxiety/ delirium ciwa VTE Prophylaxis: glenn 30 Stress Ulcer Prophylaxis: tf Glycemic Control: Plans in collaboration with bedside consultants and IM MDs. Discussed with RN to reach out if any questions or concerns A total of 34 minutes of critical care time was devoted to this patient today, required to treat and/or prevent further deterioration of critical care condition ( as above) . CORI HERMOSILLO MD Mar 03, 2021 11:43
--- NOTE | 2021-03-03 13:19 | Progress Note - Hospitalist ---
Subjective HPI/CC On Admission Date Seen by Provider: Mar 03, 2021 Time Seen by Provider: 09:05 CC: Altered mental status with alcohol withdrawal HPI: This is a 76yoWM who has a hx of alcoholism who presented to the [facility] ER found to have altered mental status and findings consistent with alcohol withdrawal. His creatinine was 3.1 consistent with dehydration so he was admitted for IV fluids and alcohol withdrawal treatment and today his creatinine is much better at 2.49. Elevated BP requiring aggressive BP medications. He does not have his hearing aids so it is very difficult to communicate. His is at the bedside and speaks broken Persian since she is apparently Urdu. I tried to update her with everything that she needs to know and she needs him to stay here as long as possible because she has to work. Subjective/Events-last exam He is intubated and sedated. His is at the bedside. Focused Exam Lactate Level 03/02/21 07:10: Lactic Acid Level 0.64 Objective Exam Vital Signs Vital Signs Date Time Temp Pulse Resp B/P (MAP) Pulse Ox O2 Delivery O2 Flow Rate FiO2 03/03/21 13:00 51 27 89/77 (81) 92 Mechanical Ventilator 30.00 03/03/21 12:23 36.6 03/03/21 10:47 30 Capillary Refill : Less Than 3 Seconds General Appearance: No Apparent Distress, WD/WN, Other (intubated and sedated) Respiratory: Lungs Clear, Normal Breath Sounds, No Respiratory Distress, Other (intubated and mechanically ventilated) Cardiovascular: No Edema, No Murmur, Bradycardia Gastrointestinal: Normal Bowel Sounds, Non Tender, Soft Extremity: Normal Inspection, Non Tender Neurologic/Psychiatric: Other (sedated) Skin: Normal Color, Warm/Dry Results/Procedures Lab Laboratory Tests 03/03/21 04:36 Patient resulted labs reviewed. Imaging: Reviewed Imaging Films, Reviewed Imaging Report Assessment/Plan Assessment and Plan Assess & Plan/Chief Complaint Alchohol withdrawal with perceptual disturbance Alcohol dependence Endotracheally intubated Electrolyte abnormalities [facility] protocol IV fluids Vitamin replacement Ativan as needed Propofol and Precedex TeleICU following Monitor and replace electrolytes as needed HTN GERD Gout CKD DVT prophylaxis: Lovenox Critical Care Critically Ill Patient Diagnosis/Problems Diagnosis/Problems (1) Alcohol withdrawal syndrome with perceptual disturbance Status: Acute (2) Alcohol dependence Status: Acute Qualifiers: Substance use status: in withdrawal Complication of substance-induced condition: with perceptual disturbance Qualified Codes: F10.232 - Alcohol dependence with withdrawal with perceptual disturbance (3) Electrolyte abnormality Status: Acute (4) Endotracheally intubated Status: Acute (5) Hypokalemia Status: Acute (6) CKD (chronic kidney disease) Status: Chronic Qualifiers: Chronic kidney disease stage: stage 3 (moderate) Chronic kidney disease stage 3 subtype: stage 3b (GFR 30-44) Qualified Codes: N18.32 - Chronic kidney disease, stage 3b (7) HTN (hypertension) Status: Chronic (8) GERD (gastroesophageal reflux disease) Status: Chronic (9) Gout Status: Chronic GORDON MARIE MD Mar 03, 2021 13:19
[2021-03-03] MEDS: ENOXAPARIN 30 MG/0.3 ML (LOVENOX) SYR SC SCH (20:26)
[2021-03-04] VITALS (26 sets, daily range): BP systolic 110–148; BP diastolic 44–65
[2021-03-04] MEDS: DexMEDEtomidine 250 ML DRIP 250 ML IV SCH (00:26)
[2021-03-04 04:24] LABS: BASOPHILS # (AUTO) 0.1 10^3/uL (0.0-0.1); BASOPHILS % (AUTO) 1 % (0-10); MEAN CORPUSCULAR VOLUME 104 fL (80-99)
[2021-03-04 04:26] LABS: EOSINOPHILS # (AUTO) 0.3 10^3/uL (0.0-0.3); EOSINOPHILS % (AUTO) 4 % (0-10); HEMATOCRIT 31 % (40-54); HEMOGLOBIN 10.8 g/dL (13.3-17.7); LYMPHOCYTES % (AUTO) 16 % (12-44); MEAN CORPUSCULAR HEMOGLOBIN 36 pg (25-34); MEAN CORPUSCULAR HGB CONC 35 g/dL (32-36); MEAN PLATELET VOLUME 11.9 fL (9.0-12.2); MONOCYTES # (AUTO) 0.7 10^3/uL (0.0-1.0); MONOCYTES % (AUTO) 12 % (0-12); NEUTROPHILS # (AUTO) 4.2 10^3/uL (1.8-7.8); NEUTROPHILS % (AUTO) 67 % (42-75); PLATELET COUNT 105 10^3/uL (130-400); WHITE BLOOD COUNT 6.3 10^3/uL (4.3-11.0)
[2021-03-04 04:35] LABS: INR 1.3 (0.8-1.4); PROTHROMBIN TIME PATIENT 16.7 SEC (12.2-14.7)
[2021-03-04] MEDS: PROPOFOL DRIP (ICU) 100 ML IV SCH ×3 (04:36→22:21)
[2021-03-04 04:38] LABS: ALBUMIN 2.7 GM/DL (3.2-4.5); POTASSIUM 3.6 MMOL/L (3.6-5.0)
[2021-03-04 04:39] LABS: CALCIUM 8.6 MG/DL (8.5-10.1)
[2021-03-04 04:41] LABS: TOTAL PROTEIN 7.2 GM/DL (6.4-8.2)
[2021-03-04 04:44] LABS: CREATININE SERUM 1.95 MG/DL (0.60-1.30); PHOSPHORUS 3.5 MG/DL (2.3-4.7)
[2021-03-04 04:47] LABS: MAGNESIUM 1.9 MG/DL (1.6-2.4)
[2021-03-04] MEDS: POTASSIUM CL 10MEQ/50ML IVPB 50 ML IV SCH ×3 (04:49→04:57)
[2021-03-04] MEDS: MAGNESIUM 1 GM/100 ML IVPB 100 ML IV SCH (04:49)
[2021-03-04] MEDS: KCL 20 MEQ TAB (K-DUR) PO SCH (04:49)
[2021-03-04] MEDS ORDERED: POTASSIUM CL 10MEQ/50ML IVPB 100 ML IV ONE (04:50)
[2021-03-04] MEDS: MULTIVIT W/MINERALS TAB (THERAGRAN M) PO SCH (04:58)
[2021-03-04] MEDS: doxAzosin 4 MG (CARDURA) TAB PO SCH ×3 (04:58→21:58)
[2021-03-04 05:15] LABS: ABG BASE EXCESS -5.5 MMOL/L (-2.5-2.5); ABG OXYGEN SATURATION 99 % (94-100); ABG PCO2 32 MMHG (35-45); ABG PH 7.38 (7.37-7.43); ABG PO2 96 MMHG (79-93); ABG TCO2 19.7 MMOL/L (21.0-31.0)
[2021-03-04 05:16] LABS: ALLENS TEST YES-POS; INSPIRED O2 30%; PATIENT TEMP 37.2; VENTILATOR YES
--- NOTE | 2021-03-04 07:00 | Diagnostic Imaging Report ---
INDICATION: Shortness of breath, intubated COMPARISON: 03/02/2021 FINDINGS: Single view of the chest demonstrates stable support devices. There is unchanged basilar atelectasis. The heart remains prominent without pulmonary edema. There is no pneumothorax or large effusion. IMPRESSION: 1. Stable support devices without pneumothorax 2. Bibasilar atelectasis. Dictated by: Dictated on workstation # [id number]
[2021-03-04] MEDS: THIAMINE INJECTION 100 MG in NS (IVPB) 50 ML IV SCH (08:00)
[2021-03-04] MEDS: amLODIPine 5 MG (NORVASC) TAB PO SCH (08:01)
[2021-03-04] MEDS: LACTULOSE SYRUP 10GM/15ML (ENULOSE) 30ML UDC PO SCH ×2 (08:01→21:57)
[2021-03-04] MEDS: polyethylene glycoL POWDER 17 GM (MIRALAX) PACK PO SCH ×2 (08:01→21:57)
[2021-03-04] MEDS: PANTOPRAZOLE 40 MG (PROTONIX) VIAL IV SCH (08:01)
[2021-03-04] MEDS: SENNA W/DOCUSATE (SENOKOT S) TABLET PO SCH ×2 (08:01→21:58)
[2021-03-04] MEDS: FOLIC ACID 1 MG TAB PO SCH (08:01)
[2021-03-04] MEDS: cefTRIAXone 1 GM PRE-MIX 50 ML IV SCH (08:02)
--- NOTE | 2021-03-04 08:45 | Physical Therapy Progress Note ---
Therapy Progress Note Order for PT evaluation received. Patient is currently intubated and sedated, will monitor patient and start when appropriate. ABDIAZIZ WOOD PT Mar 04, 2021 08:45
--- NOTE | 2021-03-04 10:09 | Tele-ICU Progress Note ---
Subjective Date Seen by a Provider: Mar 04, 2021 Time Seen by a Provider: 10:08 Sepsis Event Evaluation Height, Weight, BMI Height: 5'8.00" Weight: 189lbs. oz. 85.448719yd; 28.53 BMI Method: Focused Exam Lactate Level 03/02/21 07:10: Lactic Acid Level 0.64 Exam Exam Patient acknowledged, consented, and participated in this virtual visit which was conducted using real time audio/video Vital Signs Date Time Temp Pulse Resp B/P (MAP) Pulse Ox O2 Delivery O2 Flow Rate FiO2 03/04/21 08:00 37.5 03/04/21 07:49 96 Mechanical Ventilator 30 03/04/21 06:41 63 16 98 30 03/04/21 06:36 30 03/04/21 06:00 77 24 148/60 (89) 97 Mechanical Ventilator 30.00 03/04/21 05:05 77 25 97 03/04/21 05:00 63 16 141/58 (93) 97 Mechanical Ventilator 30.00 03/04/21 04:36 59 138/58 03/04/21 04:00 97 Mechanical Ventilator 30 03/04/21 04:00 37.2 53 16 128/57 (80) 97 Mechanical Ventilator 30.00 03/04/21 03:00 30 03/04/21 03:00 58 17 137/59 (95) 97 Mechanical Ventilator 30.00 03/04/21 02:08 58 19 97 30 03/04/21 02:00 50 16 139/59 (97) 97 Mechanical Ventilator 30.00 03/04/21 01:00 53 16 135/53 (78) 96 Mechanical Ventilator 30.00 03/04/21 01:00 52 03/04/21 00:26 58 146/62 03/04/21 00:00 55 16 146/62 (102) 97 Mechanical Ventilator 30.00 03/03/21 23:25 97 Mechanical Ventilator 30 03/03/21 23:20 36.9 49 16 138/58 (84) 97 Mechanical Ventilator 30.00 03/03/21 22:30 30 03/03/21 22:00 48 16 137/58 (96) 97 Mechanical Ventilator 30.00 03/03/21 21:17 57 19 97 30 03/03/21 21:00 62 22 137/55 (89) 97 Mechanical Ventilator 30.00 03/03/21 20:27 57 158/66 03/03/21 20:00 50 16 158/66 (108) 96 Mechanical Ventilator 30.00 03/03/21 19:10 97 Mechanical Ventilator 30 03/03/21 19:00 47 03/03/21 19:00 36.6 53 16 146/62 (90) 97 Mechanical Ventilator 30.00 03/03/21 18:10 55 16 97 30 03/03/21 18:00 58 18 109/63 (83) 96 Mechanical Ventilator 30.00 03/03/21 17:45 57 16 147/66 (97) 96 Mechanical Ventilator 30.00 03/03/21 17:30 56 22 151/73 (108) 96 Mechanical Ventilator 30.00 03/03/21 17:15 47 16 154/61 (104) 96 Mechanical Ventilator 30.00 03/03/21 17:00 49 16 155/62 (103) 96 Mechanical Ventilator 30.00 03/03/21 16:45 46 16 157/60 (104) 96 Mechanical Ventilator 30.00 03/03/21 16:30 44 16 145/59 (98) 96 Mechanical Ventilator 30.00 03/03/21 16:15 43 16 147/59 (99) 96 Mechanical Ventilator 30.00 03/03/21 16:15 95 Mechanical Ventilator 30 03/03/21 16:14 36.5 03/03/21 16:00 44 16 142/58 (97) 96 Mechanical Ventilator 30.00 03/03/21 15:45 45 16 140/59 (96) 95 Mechanical Ventilator 30.00 03/03/21 15:30 45 16 142/57 (99) 96 Mechanical Ventilator 30.00 03/03/21 15:15 47 16 145/59 (97) 97 Mechanical Ventilator 30.00 03/03/21 15:00 47 16 153/59 (102) 96 Mechanical Ventilator 30.00 03/03/21 14:45 50 16 142/60 (98) 97 Mechanical Ventilator 30.00 03/03/21 14:39 49 16 97 30 03/03/21 14:30 52 16 135/59 (89) 96 Mechanical Ventilator 30.00 03/03/21 14:15 46 16 152/59 (99) 96 Mechanical Ventilator 30.00 03/03/21 14:00 54 20 132/61 (86) 95 Mechanical Ventilator 30.00 03/03/21 13:45 50 16 147/63 (100) 98 Mechanical Ventilator 30.00 03/03/21 13:30 51 16 133/59 (94) 97 Mechanical Ventilator 30.00 03/03/21 13:15 53 25 125/54 (87) 97 Mechanical Ventilator 30.00 03/03/21 13:00 51 27 89/77 (81) 92 Mechanical Ventilator 30.00 03/03/21 12:45 46 16 127/59 (88) 92 Mechanical Ventilator 30.00 03/03/21 12:45 97 Mechanical Ventilator 30 03/03/21 12:39 45 03/03/21 12:30 44 16 127/54 (87) 92 Mechanical Ventilator 30.00 03/03/21 12:23 36.6 03/03/21 12:15 45 16 128/55 (88) 91 Mechanical Ventilator 30.00 03/03/21 12:00 45 16 132/54 (89) 92 Mechanical Ventilator 30.00 03/03/21 11:45 45 16 140/57 (96) 95 Mechanical Ventilator 30.00 03/03/21 11:30 45 16 136/58 (90) 93 Mechanical Ventilator 30.00 03/03/21 11:15 45 16 139/56 (90) 96 Mechanical Ventilator 30.00 03/03/21 11:00 48 16 135/57 (90) 95 Mechanical Ventilator 30.00 03/03/21 10:47 45 16 95 30 03/03/21 10:45 42 16 127/54 (87) 96 Mechanical Ventilator 30.00 03/03/21 10:39 43 134/57 03/03/21 10:30 43 16 118/52 (83) 95 Mechanical Ventilator 30.00 03/03/21 10:15 43 16 125/55 (84) 94 Mechanical Ventilator 30.00 I & O 03/04/21 07:00 Intake Total 1465 ml Output Total 1500 ml Balance -35 ml Height & Weight Height: 5'8.00" Weight: 189lbs. oz. 85.931776kw; 28.53 BMI Method: General Appearance: No Apparent Distress, WD/WN, Other (intubated and sedated) HEENT: Other (pupils constricted but reactive) Neck: Limited Range of Motion Respiratory: Lungs Clear, Normal Breath Sounds, No Respiratory Distress, Other (intubated and mechanically ventilated) Cardiovascular: No Edema, No Murmur, Bradycardia Capillary Refill: Less Than 3 Seconds Peripheral Pulses: 2+ Dorsalis Pedis (R), 2+ Left Dors-Pedis (L) Gastrointestinal: normal bowel sounds, non tender, soft Extremity: Normal Inspection, Non Tender Neurologic/Psychiatric: Other (sedated) Skin: Normal Color, Warm/Dry Lymphatic: No Adenopathy Results Lab Laboratory Tests 03/03/21 04:36 03/04/21 03:50 Assessment/Plan Assessment/Plan (Tele-ICU Physician , Progress Note ) Available chart/ vitals / labs / Images reviewed Video assessment done using teleICU camera, rest of exam as per RN Discussed with RN , EXAM PER RN Events overnight : Afebrile FiO2 - 35% I/O = even Drips: Pressors: , hemodynamically stable Sedation gtt: propofol ( RASS -1 ) VENT SETTINGS and ABG reviewed candidate for SBT today REVIEWED Cardiovascular Stability / Sedation Score / FI02/PEEP / ABG / CXR Consultants: Hospital course: 03/02 - intubated for AMS A/P ARF - intubated for AMS - try to decrease sedation , TRY SBT TODAY - cont CIWA Mental status change, -acute renal failure, and hyperbilirubinemia and elevated ammonia of undetermined etiology EDWARD - cont gentle hydration - stable Heavy ETOH abuse - vitamins HTN - as per cards + blood in mouth by RN 03/03 - lip - monitor Lines : (Central Line Necessity Reviewed) Iglesias: OG: Nutrition: start TF today Analgesia: Anxiety/ delirium ciwa VTE Prophylaxis: glenn 30 Stress Ulcer Prophylaxis: tf Glycemic Control: Plans in collaboration with bedside consultants and IM MDs. Discussed with RN to reach out if any questions or concerns A total of 34 minutes of critical care time was devoted to this patient today, required to treat and/or prevent further deterioration of critical care condition ( as above) . CORI HERMOSILLO MD Mar 04, 2021 10:09
--- NOTE | 2021-03-04 11:00 | Progress Note - Cardiology ---
Cardiology SOAP Progress Note Subjective: Intubated and sedated Objective: I&O/Vital Signs 03/04/21 03/04/21 03/04/21 03/04/21 20:30 21:00 22:00 22:21 Pulse 49 50 Resp 16 24 B/P (MAP) 119/50 (82) 123/47 Pulse Ox 97 100 100 O2 Delivery Mechanical Ventilator Mechanical Ventilator Mechanical Ventilator O2 Flow Rate 30.00 30.00 FiO2 30 03/04/21 03/04/21 03/04/21 03/04/21 22:32 22:43 23:00 23:56 Temp 36.3 Pulse 50 49 Resp 16 16 B/P (MAP) 110/45 (74) Pulse Ox 100 96 O2 Delivery Mechanical Ventilator O2 Flow Rate 30.00 FiO2 30 30 03/05/21 03/05/21 03/05/21 03/05/21 00:00 00:00 01:00 01:00 Pulse 47 50 48 Resp 16 16 B/P (MAP) 120/52 (80) 101/46 (64) Pulse Ox 94 97 98 O2 Delivery Mechanical Ventilator Mechanical Ventilator Mechanical Ventilator O2 Flow Rate 30.00 30.00 FiO2 30 03/05/21 03/05/21 03/05/21 03/05/21 02:00 02:32 02:53 03:00 Pulse 48 46 48 Resp 16 16 16 B/P (MAP) 97/47 (64) 124/56 (78) Pulse Ox 97 96 96 O2 Delivery Mechanical Ventilator Mechanical Ventilator O2 Flow Rate 30.00 30.00 FiO2 30 30 03/05/21 03/05/21 03/05/21 03/05/21 03:24 03:25 04:00 05:00 Temp 36.3 Pulse 46 46 Resp 16 16 B/P (MAP) 129/55 (79) 128/56 (80) Pulse Ox 97 99 98 O2 Delivery Mechanical Ventilator Mechanical Ventilator Mechanical Ventilator O2 Flow Rate 30.00 30.00 FiO2 30 03/05/21 03/05/21 03/05/21 03/05/21 05:02 05:03 05:24 05:37 Pulse 56 Resp 15 B/P (MAP) 131/58 131/58 Pulse Ox 97 FiO2 30 03/05/21 03/05/21 03/05/21 03/05/21 06:00 06:24 08:00 08:06 Temp 36.6 Pulse 54 Resp 16 B/P (MAP) 136/59 (84) Pulse Ox 98 97 O2 Delivery Mechanical Ventilator Mechanical Ventilator O2 Flow Rate 30.00 FiO2 30 30 03/05/21 00:00 Intake Total 1170 ml Output Total 740 ml Balance 430 ml Weight (Pounds): 189 Weight (Calculated Kilograms): 85.896019 Constitutional: No AAO x 3; other (intubated and sedated) Respiratory: No accessory muscle use, No respiratory distress; chest expansion is symmetric, chest is bilaterally symmetric Cardiovascular: regular rate-rhythm; No JVD; bradycardia, S1 and S2 Gastrointestional: No tender; soft, round, audible bowel sounds Extremities: no lower extremity edema bilateral Neurologic/Psychiatric: other (sedated; unable to cooperate with neuro exam) Skin: jaundice; No rash on exposed areas, No ulcerations on exposed areas Results/Procedures: Labs Laboratory Tests 03/04/21 11:49: Glucometer 97 03/04/21 18:00: Glucometer 90 03/04/21 23:30: Glucometer 95 03/05/21 03:17: Blood Gas Puncture Site l radial, Blood Gas Patient Temperature 36.3, Arterial Blood pH 7.40, Arterial Blood Partial Pressure CO2 31L, Arterial Blood Partial Pressure O2 69L, Arterial Blood HCO3 19L, Arterial Blood Total CO2 19.8L, Arterial Blood Oxygen Saturation 95, Arterial Blood Base Excess -5.3L, Natalio Test YES-POS, Blood Gas Ventilator Setting YES, Blood Gas Inspired Oxygen 30% 03/05/21 05:27: White Blood Count 9.9, Red Blood Count 3.09L, Hemoglobin 11.1L, Hematocrit 33L, Mean Corpuscular Volume 106H, Mean Corpuscular Hemoglobin 36H, Mean Corpuscular Hemoglobin Concent 34, Red Cell Distribution Width 12.4, Platelet Count 100L, Mean Platelet Volume 12.2, Immature Granulocyte % (Auto) 0, Neutrophils (%) (Auto) 76H, Lymphocytes (%) (Auto) 10L, Monocytes (%) (Auto) 11, Eosinophils (%) (Auto) 3, Basophils (%) (Auto) 1, Neutrophils # (Auto) 7.5, Lymphocytes # (Auto) 1.0, Monocytes # (Auto) 1.1H, Eosinophils # (Auto) 0.3, Basophils # (Auto) 0.1, Immature Granulocyte # (Auto) 0.0, Percent Immature Platelet Fraction 6.9, Prothrombin Time 16.2H, INR Comment 1.3, Sodium Level 138, Potassium Level 4.0, Chloride Level 112H, Carbon Dioxide Level 17L, Anion Gap 9, Blood Urea Nitrogen 29H, Creatinine 2.13H, Estimat Glomerular Filtration Rate 30, BUN/Creatinine Ratio 14, Glucose Level 97, Calcium Level 8.5, Corrected Calcium 9.5, Phosphorus Level 4.2, Magnesium Level 2.1, Total Bilirubin 0.8, Aspartate Amino Transf (AST/SGOT) 24, Alanine Aminotransferase (ALT/SGPT) 12, Alkaline Phosphatase 77, Total Protein 7.4, Albumin 2.8L Microbiology 03/02/21 Gram Stain - Final, Resulted 03/02/21 Sputum Culture - Preliminary, Resulted Usual upper respiratory jeannine Gram Negative Jamar Yeast species See Comments 03/02/21 Urine Culture - Final, Complete NO GROWTH A/P: Assessment: Respiratory failure requiring intubation Mental status change, acute renal failure, and hyperbilirubinemia and elevated ammonia of undetermined etiology - Hosp service managing Uncontrolled HTN - better Sinus bradycardia w/o any hemodynamic compromise Heavy ETOH abuse - withdrawal management per Hosp Svce CKD 4 (per spouse report) - follows with [facility] nephrology Sleep apnea - CPAP tx H/O bladder cancer - followed by Dr. Young Gout Chronic leg pain - undetermined etiology Mild thrombocytopenia - undetermined etiology Plan: Multiple medical issues (noted above), management per Medical services Progressively downhill clinical course. Prognosis guarded Continue anti-htn therapy Renal failure of unknown prevents us from adding STAN- inhib or ARB Monitor lab closely I again spoke with his today and answered CV-related questions Attempting to wean off the vent today MORIS BYNUM Mar 04, 2021 11:00
[2021-03-04] MEDS ORDERED: APAP 325 MG/10.15 ML LIQ (TYLENOL) UDC NG NR (12:01)
--- NOTE | 2021-03-04 17:43 | Progress Note - Hospitalist ---
Subjective HPI/CC On Admission Date Seen by Provider: Mar 04, 2021 Time Seen by Provider: 09:30 CC: Altered mental status with alcohol withdrawal HPI: This is a 76yoWM who has a hx of alcoholism who presented to the [facility] ER found to have altered mental status and findings consistent with alcohol withdrawal. His creatinine was 3.1 consistent with dehydration so he was admitted for IV fluids and alcohol withdrawal treatment and today his creatinine is much better at 2.49. Elevated BP requiring aggressive BP medications. He does not have his hearing aids so it is very difficult to communicate. His is at the bedside and speaks broken Luxembourgish since she is apparently Amharic. I tried to update her with everything that she needs to know and she needs him to stay here as long as possible because she has to work. Subjective/Events-last exam He remains intubated and sedated. His is at the bedside and was updated regarding his condition and plan. Focused Exam Lactate Level 03/02/21 07:10: Lactic Acid Level 0.64 Objective Exam Vital Signs Vital Signs Date Time Temp Pulse Resp B/P (MAP) Pulse Ox O2 Delivery O2 Flow Rate FiO2 03/04/21 16:59 58 123/47 03/04/21 16:15 96 Mechanical Ventilator 30 03/04/21 15:39 37.6 03/04/21 15:00 16 30.00 Capillary Refill : Less Than 3 Seconds General Appearance: No Apparent Distress, Obese, Other (intubated and sedated) Respiratory: Lungs Clear, Normal Breath Sounds, No Respiratory Distress, Other Cardiovascular: Regular Rate, Rhythm, No Edema, No Murmur Gastrointestinal: Normal Bowel Sounds, Soft Extremity: Normal Inspection, No Pedal Edema Neurologic/Psychiatric: Other (sedated) Skin: Normal Color, Warm/Dry Results/Procedures Lab Laboratory Tests 03/04/21 03:50 Patient resulted labs reviewed. Imaging: Reviewed Imaging Films, Reviewed Imaging Report Assessment/Plan Assessment and Plan Assess & Plan/Chief Complaint Alchohol withdrawal with perceptual disturbance Alcohol dependence Endotracheally intubated Electrolyte abnormalities [facility] protocol IV fluids Vitamin replacement Ativan as needed Propofol and Precedex TeleICU following Monitor and replace electrolytes as needed Planning for sedation vacation today, possible extubation if responds well HTN GERD Gout CKD DVT prophylaxis: Lovenox Critical Care Critically Ill Patient Diagnosis/Problems Diagnosis/Problems (1) Alcohol withdrawal syndrome with perceptual disturbance Status: Acute (2) Alcohol dependence Status: Acute Qualifiers: Substance use status: in withdrawal Complication of substance-induced condition: with perceptual disturbance Qualified Codes: F10.232 - Alcohol d ependence with withdrawal with perceptual disturbance (3) Electrolyte abnormality Status: Acute (4) Endotracheally intubated Status: Acute (5) Hypokalemia Status: Acute (6) CKD (chronic kidney disease) Status: Chronic Qualifiers: Chronic kidney disease stage: stage 3 (moderate) Chronic kidney disease stage 3 subtype: stage 3b (GFR 30-44) Qualified Codes: N18.32 - Chronic kidney disease, stage 3b (7) HTN (hypertension) Status: Chronic (8) GERD (gastroesophageal reflux disease) Status: Chronic (9) Gout Status: Chronic GORDON MARIE MD Mar 04, 2021 17:43
--- NOTE | 2021-03-04 18:32 | Progress Note - Cardiology ---
Cardiology SOAP Progress Note [facility] Unable to provide any history Objective: I&O/Vital Signs 03/04/21 03/04/21 03/04/21 03/04/21 06:36 06:41 07:00 07:00 Pulse 63 61 71 Resp 16 22 B/P (MAP) 146/65 (92) Pulse Ox 98 94 O2 Delivery Mechanical Ventilator O2 Flow Rate 30.00 FiO2 30 30 03/04/21 03/04/21 03/04/21 03/04/21 07:49 08:00 08:00 09:00 Temp 37.5 Pulse 73 73 Resp 19 B/P (MAP) 118/50 (72) Pulse Ox 96 96 96 O2 Delivery Mechanical Ventilator Mechanical Ventilator Mechanical Ventilator O2 Flow Rate 30.00 30.00 FiO2 30 03/04/21 03/04/21 03/04/21 03/04/21 10:00 10:33 11:00 11:56 Temp 37.5 Pulse 80 92 98 Resp B/P (MAP) 126/54 (78) 123/49 (73) Pulse Ox 96 95 95 O2 Delivery Mechanical Ventilator Mechanical Ventilator O2 Flow Rate 30.00 30.00 FiO2 30 03/04/21 03/04/21 03/04/21 03/04/21 12:00 12:14 13:00 13:00 Pulse 118 102 105 Resp 23 B/P (MAP) 130/44 (72) 125/50 (75) Pulse Ox 100 96 99 O2 Delivery Mechanical Ventilator Mechanical Ventilator Mechanical Ventilator O2 Flow Rate 30.00 30.00 FiO2 30 03/04/21 03/04/21 03/04/21 03/04/21 14:00 14:27 15:00 15:39 Temp 37.6 Pulse 107 99 70 Resp 26 23 16 B/P (MAP) 118/52 (74) 112/47 (68) Pulse Ox 100 100 99 O2 Delivery Mechanical Ventilator Mechanical Ventilator O2 Flow Rate 30.00 30.00 FiO2 30 03/04/21 03/04/21 03/04/21 03/04/21 16:00 16:15 16:59 17:00 Pulse 60 58 57 Resp 16 16 B/P (MAP) 123/47 (72) 123/47 Pulse Ox 100 96 100 O2 Delivery Mechanical Ventilator Mechanical Ventilator Mechanical Ventilator O2 Flow Rate 30.00 30.00 FiO2 30 03/04/21 00:00 Intake Total 565 ml Output Total 900 ml Balance -335 ml Weight (Pounds): 189 Weight (Calculated Kilograms): 85.130533 Constitutional: No AAO x 3; other (intubated and sedated) Respiratory: No accessory muscle use, No respiratory distress; chest expansion is symmetric, chest is bilaterally symmetric Cardiovascular: regular rate-rhythm; No JVD; bradycardia, S1 and S2 Gastrointestional: No tender; soft, round, audible bowel sounds Extremities: no lower extremity edema bilateral Neurologic/Psychiatric: other (sedated; unable to cooperate with neuro exam) Skin: jaundice; No rash on exposed areas, No ulcerations on exposed areas Results/Procedures: Labs Laboratory Tests 03/03/21 23:30: Glucometer 82 03/04/21 03:50: White Blood Count 6.3, Red Blood Count 2.99L, Hemoglobin 10.8L, Hematocrit 31L, Mean Corpuscular Volume 104H, Mean Corpuscular Hemoglobin 36H, Mean Corpuscular Hemoglobin Concent 35, Red Cell Distribution Width 12.2, Platelet Count 105L, Mean Platelet Volume 11.9, Immature Granulocyte % (Auto) 0, Neutrophils (%) (Auto) 67, Lymphocytes (%) (Auto) 16, Monocytes (%) (Auto) 12, Eosinophils (%) (Auto) 4, Basophils (%) (Auto) 1, Neutrophils # (Auto) 4.2, Lymphocytes # (Auto) 1.0, Monocytes # (Auto) 0.7, Eosinophils # (Auto) 0.3, Basophils # (Auto) 0.1, Immature Granulocyte # (Auto) 0.0, Percent Immature Platelet Fraction 6.6, Prothrombin Time 16.7H, INR Comment 1.3, Sodium Level 141, Potassium Level 3.6, Chloride Level 113H, Carbon Dioxide Level 17L, Anion Gap 11, Blood Urea Nitrogen 29H, Creatinine 1.95H, Estimat Glomerular Filtration Rate 34, BUN/Creatinine Ratio 15, Glucose Level 88, Calcium Level 8.6, Corrected Calcium 9.6, Phosphorus Level 3.5, Magnesium Level 1.9, Total Bilirubin 1.0, Aspartate Amino Transf (AST/SGOT) 24, Alanine Aminotransferase (ALT/SGPT) 12, Alkaline Phosphatase 72, Total Protein 7.2, Albumin 2.7L, Triglycerides Level 81 03/04/21 04:40: Blood Gas Puncture Site LEFT RAD, Blood Gas Patient Temperature 37.2, Arterial Blood pH 7.38, Arterial Blood Partial Pressure CO2 32L, Arterial Blood Partial Pressure O2 96H, Arterial Blood HCO3 19L, Arterial Blood Total CO2 19.7L, Arterial Blood Oxygen Saturation 99, Arterial Blood Base Excess -5.5L, Natalio Test YES-POS, Blood Gas Ventilator Setting YES, Blood Gas Inspired Oxygen 30% 03/04/21 11:49: Glucometer 97 03/04/21 18:00: Glucometer 90 Microbiology 03/02/21 Gram Stain - Final, Resulted 03/02/21 Sputum Culture - Preliminary, Resulted Usual upper respiratory jeannine Gram Negative Jamar Yeast species See Comments 03/02/21 Urine Culture - Final, Complete NO GROWTH Procedures Laboratory Tests 03/03/21 04:36 03/04/21 03:50 A/P: Assessment: Ac respiratory failure requiring intubation Mental status change, acute renal failure, and hyperbilirubinemia and elevated ammonia of undetermined etiology - Hosp service managing Uncontrolled HTN - better Sinus bradycardia w/o any hemodynamic compromise Heavy ETOH abuse - withdrawal management per Hosp Svce CKD 4 (per spouse report) - follows with [facility] nephrology Sleep apnea - CPAP tx H/O bladder cancer - followed by Dr. Young Gout Chronic leg pain - undetermined etiology Mild thrombocytopenia - undetermined etiology Plan: Multiple medical issues (noted above), management per Medical services Progressively downhill clinical course. Prognosis guarded Continue anti-htn therapy Renal failure of unknown prevents us from adding STAN- inhib or ARB Monitor lab closely TOSHIA CRUZ MD FACP FAC CCDS Mar 04, 2021 18:32
[2021-03-04] MEDS: ENOXAPARIN 30 MG/0.3 ML (LOVENOX) SYR SC SCH (21:58)
[2021-03-05] VITALS (27 sets, daily range): BP systolic 97–168; BP diastolic 46–111
[2021-03-05 03:31] LABS: ABG BASE EXCESS -5.3 MMOL/L (-2.5-2.5); ABG OXYGEN SATURATION 95 % (94-100); ABG PCO2 31 MMHG (35-45); ABG PO2 69 MMHG (79-93); ABG TCO2 19.8 MMOL/L (21.0-31.0); ALLENS TEST YES-POS
[2021-03-05 03:32] LABS: INSPIRED O2 30%; PATIENT TEMP 36.3; VENTILATOR YES
[2021-03-05] MEDS: PROPOFOL DRIP (ICU) 100 ML IV SCH (05:02)
[2021-03-05 05:41] LABS: BASOPHILS # (AUTO) 0.1 10^3/uL (0.0-0.1); BASOPHILS % (AUTO) 1 % (0-10); EOSINOPHILS # (AUTO) 0.3 10^3/uL (0.0-0.3)
[2021-03-05 05:43] LABS: EOSINOPHILS % (AUTO) 3 % (0-10); HEMATOCRIT 33 % (40-54); HEMOGLOBIN 11.1 g/dL (13.3-17.7); LYMPHOCYTES % (AUTO) 10 % (12-44); MEAN CORPUSCULAR HEMOGLOBIN 36 pg (25-34); MEAN CORPUSCULAR HGB CONC 34 g/dL (32-36); MEAN CORPUSCULAR VOLUME 106 fL (80-99); MEAN PLATELET VOLUME 12.2 fL (9.0-12.2); MONOCYTES # (AUTO) 1.1 10^3/uL (0.0-1.0); MONOCYTES % (AUTO) 11 % (0-12); NEUTROPHILS # (AUTO) 7.5 10^3/uL (1.8-7.8); NEUTROPHILS % (AUTO) 76 % (42-75); PLATELET COUNT 100 10^3/uL (130-400); WHITE BLOOD COUNT 9.9 10^3/uL (4.3-11.0)
[2021-03-05] MEDS: doxAzosin 4 MG (CARDURA) TAB PO SCH ×3 (05:52→20:49)
[2021-03-05 05:56] LABS: ALBUMIN 2.8 GM/DL (3.2-4.5)
[2021-03-05 05:57] LABS: CALCIUM 8.5 MG/DL (8.5-10.1)
[2021-03-05 05:59] LABS: TOTAL PROTEIN 7.4 GM/DL (6.4-8.2)
[2021-03-05 06:00] LABS: BILIRUBIN,TOTAL 0.8 MG/DL (0.1-1.0)
[2021-03-05 06:02] LABS: CREATININE SERUM 2.13 MG/DL (0.60-1.30); PHOSPHORUS 4.2 MG/DL (2.3-4.7)
[2021-03-05 06:05] LABS: MAGNESIUM 2.1 MG/DL (1.6-2.4)
[2021-03-05 06:07] LABS: INR 1.3 (0.8-1.4); PROTHROMBIN TIME PATIENT 16.2 SEC (12.2-14.7)
[2021-03-05] MEDS: POTASSIUM CL 10MEQ/50ML IVPB 50 ML IV SCH (06:24)
[2021-03-05] MEDS: KCL 20 MEQ TAB (K-DUR) PO SCH (06:24)
[2021-03-05] MEDS: MAGNESIUM 1 GM/100 ML IVPB 100 ML IV SCH (06:24)
[2021-03-05] MEDS: MULTIVIT W/MINERALS TAB (THERAGRAN M) PO SCH (06:26)
[2021-03-05] MEDS: LACTULOSE SYRUP 10GM/15ML (ENULOSE) 30ML UDC PO SCH ×2 (08:01→20:49)
[2021-03-05] MEDS: SENNA W/DOCUSATE (SENOKOT S) TABLET PO SCH ×2 (08:01→20:49)
[2021-03-05] MEDS: polyethylene glycoL POWDER 17 GM (MIRALAX) PACK PO SCH ×2 (08:01→20:49)
--- NOTE | 2021-03-05 08:16 | Physical Therapy Progress Note ---
Therapy Progress Note Order for PT evaluation received. Patient is currently intubated and sedated, will monitor patient and start when appropriate. ABDIAZIZ WOOD PT Mar 05, 2021 08:16
[2021-03-05] MEDS: SODIUM BICARBONATE 650 MG TABLET (NON-FORMULARY) PO SCH ×3 (08:21→20:49)
[2021-03-05] MEDS: cefTRIAXone 1 GM PRE-MIX 50 ML IV SCH (08:21)
[2021-03-05] MEDS: FOLIC ACID 1 MG TAB PO SCH (08:21)
[2021-03-05] MEDS: THIAMINE INJECTION 100 MG in NS (IVPB) 50 ML IV SCH (08:22)
[2021-03-05] MEDS: PANTOPRAZOLE 40 MG (PROTONIX) VIAL IV SCH (08:22)
[2021-03-05] MEDS: amLODIPine 5 MG (NORVASC) TAB PO SCH (09:00)
[2021-03-05] MEDS ORDERED: CEFEPIME INJECTION 1,000 MG in NS (IVPB) 50 ML IV SCH (10:30)
--- NOTE | 2021-03-05 11:19 | Tele-ICU Progress Note ---
Subjective Date Seen by a Provider: Mar 05, 2021 Time Seen by a Provider: 11:19 Subjective/Events-last exam TODAY TRIED ON CPAP TRIAL AND SUBSEQUENTLY EXTUBATED. POST EXTUBATION HE IS RESTING COMFORTABLY AND DENIES ANY DYSPNEA. Sepsis Event Evaluation Height, Weight, BMI Height: 5'8.00" Weight: 189lbs. oz. 85.177067qy; 28.53 BMI Method: Exam Exam Patient acknowledged, consented, and participated in this virtual visit which was conducted using real time audio/video Vital Signs Date Time Temp Pulse Resp B/P (MAP) Pulse Ox O2 Delivery O2 Flow Rate FiO2 03/05/21 08:06 97 Mechanical Ventilator 30 03/05/21 08:00 36.6 03/05/21 06:24 30 03/05/21 06:00 54 16 136/59 (84) 98 Mechanical Ventilator 30.00 03/05/21 05:37 56 15 97 03/05/21 05:24 30 03/05/21 05:03 131/58 03/05/21 05:02 131/58 03/05/21 05:00 46 16 128/56 (80) 98 Mechanical Ventilator 30.00 03/05/21 04:00 46 16 129/55 (79) 99 Mechanical Ventilator 30.00 03/05/21 03:25 97 Mechanical Ventilator 30 03/05/21 03:24 36.3 03/05/21 03:00 48 16 124/56 (78) 96 Mechanical Ventilator 30.00 03/05/21 02:53 46 16 96 30 03/05/21 02:32 30 03/05/21 02:00 48 16 97/47 (64) 97 Mechanical Ventilator 30.00 03/05/21 01:00 48 16 101/46 (64) 98 Mechanical Ventilator 30.00 03/05/21 01:00 50 03/05/21 00:00 97 Mechanical Ventilator 30 03/05/21 00:00 47 16 120/52 (80) 94 Mechanical Ventilator 30.00 03/04/21 23:56 36.3 03/04/21 23:00 49 16 110/45 (74) 96 Mechanical Ventilator 30.00 03/04/21 22:43 30 03/04/21 22:32 50 16 100 30 03/04/21 22:21 123/47 03/04/21 22:00 50 24 119/50 (82) 100 Mechanical Ventilator 30.00 03/04/21 21:00 49 16 100 Mechanical Ventilator 30.00 03/04/21 20:30 97 Mechanical Ventilator 30 03/04/21 20:00 36.7 03/04/21 20:00 97 Mechanical Ventilator 30 03/04/21 20:00 52 16 129/50 (76) 100 Mechanical Ventilator 30.00 03/04/21 19:45 51 16 100 30 03/04/21 19:00 30 03/04/21 19:00 54 03/04/21 19:00 53 16 125/53 (77) 100 Mechanical Ventilator 30.00 03/04/21 18:00 55 16 100 Mechanical Ventilator 30.00 03/04/21 17:00 57 16 100 Mechanical Ventilator 30.00 03/04/21 16:59 58 123/47 03/04/21 16:15 96 Mechanical Ventilator 30 03/04/21 16:00 60 16 123/47 (72) 100 Mechanical Ventilator 30.00 03/04/21 15:39 37.6 03/04/21 15:00 70 16 112/47 (68) 99 Mechanical Ventilator 30.00 03/04/21 14:27 99 23 100 30 03/04/21 14:00 107 26 118/52 (74) 100 Mechanical Ventilator 30.00 03/04/21 13:00 105 23 125/50 (75) 99 Mechanical Ventilator 30.00 03/04/21 13:00 102 03/04/21 12:14 96 Mechanical Ventilator 30 03/04/21 12:00 118 130/44 (72) 100 Mechanical Ventilator 30.00 03/04/21 11:56 37.5 I & O 03/05/21 06:59 Intake Total 1931 ml Output Total 1635 ml Balance 296 ml Height & Weight Height: 5'8.00" Weight: 189lbs. oz. 85.848054es; 28.53 BMI Method: General Appearance: No Apparent Distress, Obese, Other (intubated and sedated) HEENT: Other (pupils constricted but reactive) Neck: Limited Range of Motion Respiratory: Lungs Clear, Normal Breath Sounds, No Respiratory Distress, Other Cardiovascular: Regular Rate, Rhythm, No Edema, No Murmur Capillary Refill: Less Than 3 Seconds Peripheral Pulses: 2+ Dorsalis Pedis (R), 2+ Left Dors-Pedis (L) Gastrointestinal: normal bowel sounds, non tender, soft Extremity: Normal Inspection, No Pedal Edema Neurologic/Psychiatric: Other (sedated) Skin: Normal Color, Warm/Dry Lymphatic: No Adenopathy Results Lab Laboratory Tests 03/04/21 03:50 03/05/21 05:27 Assessment/Plan Assessment/Plan (Tele-ICU Physician , Progress Note ) Available chart/ vitals / labs / Images reviewed Video assessment done using teleICU camera, rest of exam as per RN Discussed with RN , EXAM PER RN Events overnight : Afebrile FiO2 - 25% I/O = even Drips: Pressors: , hemodynamically stable Sedation gtt: propofol ( RASS -1 ) VENT SETTINGS and ABG reviewed SBT DONE AND EXTUBATED TODAY IE 03/05/21 REVIEWED Cardiovascular Stability / Sedation Score / FI02/PEEP / ABG / CXR Consultants: Hospital course: 03/02 - intubated for AMS 03/05/21 EXTUBATED AFTER SBT. TOLERATED WELL A/P ARF - intubated for AMS - EXTUBATED TODAY - cont CIWA Mental status change, -acute renal failure, and hyperbilirubinemia and elevated ammonia probably related to alcohol abuse EDWARD - cont gentle hydration - stable continue monitor bun/cr and bili Heavy ETOH abuse - vitamins HTN - as per cards + blood in mouth by RN 03/03 - lip - monitor Lines : (Central Line Necessity Reviewed) Iglesias: OG: Nutrition: start clear liquids today Analgesia: Anxiety/ delirium ciwa VTE Prophylaxis: glenn 30 Stress Ulcer Prophylaxis: tf Glycemic Control: Plans in collaboration with bedside consultants and IM MDs. Discussed with RN to reach out if any questions or concerns A total of 25 minutes of critical care time was devoted to this patient today, required to treat and/or prevent further deterioration of critical care condition ( as above) . Critical Care: Critically Ill Patient Time spent with patient (mins): 25 TRENA BOURGEOIS MD Mar 05, 2021 11:19
[2021-03-05 11:40] LABS: ABG BASE EXCESS -5.2 MMOL/L (-2.5-2.5); ABG OXYGEN SATURATION 97 % (94-100); ABG PCO2 32 MMHG (35-45); ABG PH 7.39 (7.37-7.43); ABG PO2 85 MMHG (79-93); ABG TCO2 19.7 MMOL/L (21.0-31.0); ALLENS TEST YES-POS; INSPIRED O2 30%; PATIENT TEMP 36.5; VENTILATOR YES
--- NOTE | 2021-03-05 12:24 | Progress Note - Hospitalist ---
Subjective HPI/CC On Admission Date Seen by Provider: Mar 05, 2021 Time Seen by Provider: 09:30 CC: Altered mental status with alcohol withdrawal HPI: This is a 76yoWM who has a hx of alcoholism who presented to the [facility] ER found to have altered mental status and findings consistent with alcohol withdrawal. His creatinine was 3.1 consistent with dehydration so he was admitted for IV fluids and alcohol withdrawal treatment and today his creatinine is much better at 2.49. Elevated BP requiring aggressive BP medications. He does not have his hearing aids so it is very difficult to communicate. His is at the bedside and speaks broken Albanian since she is apparently Hebrew. I tried to update her with everything that she needs to know and she needs him to stay here as long as possible because she has to work. Subjective/Events-last exam He remains intubated. His sedation is being weaned. He is following commands. Objective Exam Vital Signs Vital Signs Date Time Temp Pulse Resp B/P (MAP) Pulse Ox O2 Delivery O2 Flow Rate FiO2 03/05/21 11:55 36.9 03/05/21 08:06 97 Mechanical Ventilator 30 03/05/21 07:00 52 03/05/21 06:00 16 136/59 (84) 30.00 Capillary Refill : Less Than 3 Seconds General Appearance: No Apparent Distress, Obese Respiratory: Lungs Clear, Normal Breath Sounds, No Respiratory Distress, Other (intubated and mechanically ventilated) Gastrointestinal: Normal Bowel Sounds, Non Tender, Soft Extremity: Normal Inspection, No Pedal Edema Neurologic/Psychiatric: Alert, No Motor/Sensory Deficits Skin: Normal Color, Warm/Dry Results/Procedures Lab Laboratory Tests 03/05/21 05:27 Patient resulted labs reviewed. Imaging: Reviewed Imaging Report Assessment/Plan Assessment and Plan Assess & Plan/Chief Complaint Alchohol withdrawal with perceptual disturbance Alcohol dependence Endotracheally intubated Electrolyte abnormalities [facility] protocol IV fluids Vitamin replacement Ativan as needed Propofol and Precedex TeleICU following Monitor and replace electrolytes as needed Attempting SBT today, possible extubation Ventilator associated pneumonia Culture with Pseudomonas Begin Cefepime HTN GERD Gout CKD DVT prophylaxis: Lovenox Critical Care Critically Ill Patient Diagnosis/Problems Diagnosis/Problems (1) Alcohol withdrawal syndrome with perceptual disturbance Status: Acute (2) Alcohol dependence Status: Acute Qualifiers: Substance use status: in withdrawal Complication of substance-induced condition: with perceptual disturbance Qualified Codes: F10.232 - Alcohol dependence with withdrawal with perceptual disturbance (3) Electrolyte abnormality Status: Acute (4) Endotracheally intubated Status: Acute (5) Hypokalemia Status: Acute (6) CKD (chronic kidney disease) Status: Chronic Qualifiers: Chronic kidney disease stage: stage 3 (moderate) Chronic kidney disease stage 3 subtype: stage 3b (GFR 30-44) Qualified Codes: N18.32 - Chronic kidney disease, stage 3b (7) HTN (hypertension) Status: Chronic (8) GERD (gastroesophageal reflux disease) Status: Chronic (9) Gout Status: Chronic (10) VAP (ventilator-associated pneumonia) Status: Acute GORDON MARIE MD Mar 05, 2021 12:24
[2021-03-05] MEDS: CEFEPIME INJECTION 1,000 MG in NS (IVPB) 50 ML IV SCH ×2 (13:55→20:48)
--- NOTE | 2021-03-05 18:12 | Cardiology Progress Note ---
Progress Note-Cardiology Events since last exam Date Seen by Provider: Mar 05, 2021 Time Seen by Provider: 18:06 Events since last exam We have been following him for hypertension. He remains in the ICU. He was extubated earlier today. His daughter is at the bedside. He is still fairly confused. He states he wants to go home but does not seem to know where he is. He denies chest discomfort, dyspnea, palpitations, syncope, or ankle edema. However, due to his altered mental status, his answers may not be reliable. Certain portions of this document may have been dictated utilizing voice recognition technology. Inherent to this technology, typographical and grammatical errors may exist. As much as I am diligent to identify and correct these mistakes, some errors may remain in the document. Vitals Last set of Vitals Signs Vital Signs 03/05/21 03/05/21 03/05/21 03/05/21 12:00 16:00 16:10 16:15 Temp 36.3 Pulse 91 Resp 26 B/P (MAP) 156/64 (94) Pulse Ox 98 O2 Delivery Room Air O2 Flow Rate 30.00 FiO2 30 Labs Labs Laboratory Tests 03/05/21 05:27 Exam Vital Signs Vital Signs Date Time Temp Pulse Resp B/P (MAP) Pulse Ox O2 Delivery O2 Flow Rate FiO2 03/05/21 16:15 36.3 03/05/21 16:10 Room Air 03/05/21 16:00 91 26 156/64 (94) 98 03/05/21 12:00 30.00 03/05/21 12:00 30 Physical Exam General: Alert. No acute distress. He is confused. Eye: No xanthelasma. HENT: Normocephalic. Neck: Jugular venous pressure does not appear elevated. Respiratory: Lungs are clear to auscultation. Respirations are non-labored. Breath sounds are equal. Symmetrical chest wall expansion. Cardiovascular: Normal rate. Regular rhythm. No murmur. No gallop. No edema. Gastrointestinal: Soft. Normal bowel sounds. Skin: Warm. Dry. Neurologic: Groggy and only oriented to person.. Cranial nerves 3-11 grossly intact. Psychiatric: Cooperative. Somewhat slow to answer questions. Labs Laboratory Tests Test 03/04/21 23:30 03/05/21 03:17 03/05/21 05:27 03/05/21 11:05 Range/Units Glucometer 95 70-110 MG/DL Blood Gas Puncture Site l radial RT RADIAL Blood Gas Patient Temperature 36.3 36.5 Arterial Blood pH 7.40 7.39 7.37-7.43 Arterial Blood Partial Pressure CO2 31 L 32 L 35-45 MMHG Arterial Blood Partial Pressure O2 69 L 85 79-93 MMHG Arterial Blood HCO3 19 L 19 L 23-27 MMOL/L Arterial Blood Total CO2 19.8 L 19.7 L 21.0-31.0 MMOL/L Arterial Blood Oxygen Saturation 95 97 94-100 % Arterial Blood Base Excess -5.3 L -5.2 L -2.5-2.5 MMOL/L Natalio Test YES-POS YES-POS Blood Gas Ventilator Setting YES YES Blood Gas Inspired Oxygen 30% 30% White Blood Count 9.9 4.3-11.0 10^3/uL Red Blood Count 3.09 L 4.30-5.52 10^6/uL Hemoglobin 11.1 L 13.3-17.7 g/dL Hematocrit 33 L 40-54 % Mean Corpuscular Volume 106 H 80-99 fL Mean Corpuscular Hemoglobin 36 H 25-34 pg Mean Corpuscular Hemoglobin Concent 34 32-36 g/dL Red Cell Distribution Width 12.4 10.0-14.5 % Platelet Count 100 L 130-400 10^3/uL Mean Platelet Volume 12.2 9.0-12.2 fL Immature Granulocyte % (Auto) 0 % Neutrophils (%) (Auto) 76 H 42-75 % Lymphocytes (%) (Auto) 10 L 12-44 % Monocytes (%) (Auto) 11 0-12 % Eosinophils (%) (Auto) 3 0-10 % Basophils (%) (Auto) 1 0-10 % Neutrophils # (Auto) 7.5 1.8-7.8 10^3/uL Lymphocytes # (Auto) 1.0 1.0-4.0 10^3/uL Monocytes # (Auto) 1.1 H 0.0-1.0 10^3/uL Eosinophils # (Auto) 0.3 0.0-0.3 10^3/uL Basophils # (Auto) 0.1 0.0-0.1 10^3/uL Immature Granulocyte # (Auto) 0.0 0.0-0.1 10^3/uL Percent Immature Platelet Fraction 6.9 0.0-7.6 % Prothrombin Time 16.2 H 12.2-14.7 SEC INR Comment 1.3 0.8-1.4 Sodium Level 138 135-145 MMOL/L Potassium Level 4.0 3.6-5.0 MMOL/L Chloride Level 112 H 98-107 MMOL/L Carbon Dioxide Level 17 L 21-32 MMOL/L Anion Gap 9 5-14 MMOL/L Blood Urea Nitrogen 29 H 7-18 MG/DL Creatinine 2.13 H 0.60-1.30 MG/DL Estimat Glomerular Filtration Rate 30 BUN/Creatinine Ratio 14 Glucose Level 97 70-105 MG/DL Calcium Level 8.5 8.5-10.1 MG/DL Corrected Calcium 9.5 8.5-10.1 MG/DL Phosphorus Level 4.2 2.3-4.7 MG/DL Magnesium Level 2.1 1.6-2.4 MG/DL Total Bilirubin 0.8 0.1-1.0 MG/DL Aspartate Amino Transf (AST/SGOT) 24 5-34 U/L Alanine Aminotransferase (ALT/SGPT) 12 0-55 U/L Alkaline Phosphatase 77 40-136 U/L Total Protein 7.4 6.4-8.2 GM/DL Albumin 2.8 L 3.2-4.5 GM/DL Test 03/05/21 11:34 03/05/21 17:28 Range/Units Glucometer 96 84 70-110 MG/DL Diagnosis/Problems Diagnosis/Problems (1) Primary hypertension Assessment & Plan: Blood pressures have improved with the present treatment. As he further recovers from alcohol withdrawal, his blood pressure may start to drop on its own. We will continue to adjust his medication as needed. He will likely need to be on some different antihypertensive medication than what he was taking at home at the time of discharge. (2) Chronic renal disease, stage IV Assessment & Plan: We do not have any recent lab work prior to this admission. His current GFR looks as though he will be chronically at stage III-IV kidney disease. This will need to be followed longitudinally. (3) Alcohol dependence Status: Acute Assessment & Plan: He seemed to have suffered severe alcohol withdrawal with respiratory failure. He has now been extubated. The alcohol withdrawal was likely contributing to his severe hypertension. Fortunately, his ejection fraction is normal. Problem Qualifiers (1) Alcohol dependence: Substance use status: in withdrawal Complication of substance-induced condition: with perceptual disturbance Qualified Codes: F10.232 - Alcohol dependence with withdrawal with perceptual disturbance TRACY MÁRQUEZ JR, MD Mar 05, 2021 18:12
[2021-03-05] MEDS: ENOXAPARIN 30 MG/0.3 ML (LOVENOX) SYR SC SCH (20:49)
[2021-03-05] MEDS ORDERED: RT-ALBUTEROL SULF 2.5 MG/3 ML PRE-MIX VIAL INH SCH (21:00)
[2021-03-06] VITALS (13 sets, daily range): BP systolic 81–186; BP diastolic 52–80
[2021-03-06] MEDS: PROPOFOL DRIP (ICU) 100 ML IV SCH (01:37)
[2021-03-06] MEDS: CEFEPIME INJECTION 1,000 MG in NS (IVPB) 50 ML IV SCH ×3 (05:23→23:01)
[2021-03-06] MEDS: doxAzosin 4 MG (CARDURA) TAB PO SCH ×3 (05:23→23:01)
[2021-03-06] MEDS: MULTIVIT W/MINERALS TAB (THERAGRAN M) PO SCH (05:24)
[2021-03-06] MEDS: ACETAMINOPHEN 500 MG TAB (TYLENOL) PO PRN (05:25)
[2021-03-06 06:08] LABS: BASOPHILS % (AUTO) 1 % (0-10); EOSINOPHILS # (AUTO) 0.2 10^3/uL (0.0-0.3); EOSINOPHILS % (AUTO) 3 % (0-10); HEMATOCRIT 29 % (40-54); HEMOGLOBIN 10.3 g/dL (13.3-17.7); LYMPHOCYTES # (AUTO) 0.9 10^3/uL (1.0-4.0); LYMPHOCYTES % (AUTO) 14 % (12-44); MEAN CORPUSCULAR HEMOGLOBIN 37 pg (25-34); MEAN CORPUSCULAR HGB CONC 35 g/dL (32-36); MEAN CORPUSCULAR VOLUME 104 fL (80-99); MEAN PLATELET VOLUME 11.9 fL (9.0-12.2); MONOCYTES # (AUTO) 0.6 10^3/uL (0.0-1.0); MONOCYTES % (AUTO) 10 % (0-12); NEUTROPHILS # (AUTO) 4.7 10^3/uL (1.8-7.8); NEUTROPHILS % (AUTO) 72 % (42-75); PLATELET COUNT 104 10^3/uL (130-400); WHITE BLOOD COUNT 6.5 10^3/uL (4.3-11.0)
[2021-03-06 06:20] LABS: INR 1.3 (0.8-1.4); PROTHROMBIN TIME PATIENT 16.3 SEC (12.2-14.7)
[2021-03-06 06:30] LABS: ALBUMIN 2.8 GM/DL (3.2-4.5); BILIRUBIN,TOTAL 0.9 MG/DL (0.1-1.0); CREATININE SERUM 2.01 MG/DL (0.60-1.30); MAGNESIUM 2.1 MG/DL (1.6-2.4); PHOSPHORUS 3.7 MG/DL (2.3-4.7); POTASSIUM 3.6 MMOL/L (3.6-5.0); TOTAL PROTEIN 7.5 GM/DL (6.4-8.2)
[2021-03-06] MEDS: POTASSIUM CL 10MEQ/50ML IVPB 50 ML IV SCH (06:39)
[2021-03-06] MEDS: KCL 20 MEQ TAB (K-DUR) PO SCH (06:40)
[2021-03-06] MEDS: MAGNESIUM 1 GM/100 ML IVPB 100 ML IV SCH (06:40)
[2021-03-06] MEDS: LACTULOSE SYRUP 10GM/15ML (ENULOSE) 30ML UDC PO SCH ×2 (07:50→22:59)
[2021-03-06] MEDS: polyethylene glycoL POWDER 17 GM (MIRALAX) PACK PO SCH ×2 (07:50→23:00)
[2021-03-06] MEDS: SENNA W/DOCUSATE (SENOKOT S) TABLET PO SCH ×2 (07:51→23:01)
[2021-03-06] MEDS: PANTOPRAZOLE 40 MG (PROTONIX) VIAL IV SCH (10:07)
[2021-03-06] MEDS: THIAMINE INJECTION 100 MG in NS (IVPB) 50 ML IV SCH (10:08)
[2021-03-06] MEDS: amLODIPine 5 MG (NORVASC) TAB PO SCH (10:09)
[2021-03-06] MEDS: FOLIC ACID 1 MG TAB PO SCH (10:09)
--- NOTE | 2021-03-06 10:24 | Physical Therapy Evaluation ---
PT Evaluation-General Medical Diagnosis Admission Date Feb 25, 2021 at 18:26 Medical Diagnosis: AMS due to ETOH withdraw Onset Date: Feb 25, 2021 Therapy Diagnosis Therapy Diagnosis: generalized weakness/debility Height/Weight Height (Feet): 5 Height (Inches): 8.00 Weight (Pounds): 189 Precautions Precautions/Isolations: Seizure, Fall Prevention, Standard Precautions Referral Physician: Frantz Reason for Referral: Evaluation/Treatment Medical History Pertinent Medical History: Alcoholism, Renal Insufficiency Current History Patient transferred to ICU and intubated. Currently extubated and on RA. Reviewed History: Yes Social History Home: Single Level Current Living Status: Spouse Entry Into Home: Stairs With Railing PT Steps Into Home: 6 Prior Prior Level of Function SCALE: Activities may be completed with or without assistive devices. 1-Puzxibhjru-gsegfaz completes the activity by him/herself with no assistance from a helper. 5-Set-up or Clean-up Assistance-helper sets up or cleans up; patient completes activity. Fletcher assists only prior to or following the activity. 4-Supervision or Touching Assistance-helper provides verbal cues and/or touching/steadying and/or contact guard assistance as patient completes activity. Assistance may be provided throughout the activity or intermittently. 3-Partial/Moderate Assistance-helper does LESS THAN HALF the effort. Fletcher lifts, holds or supports trunk or limbs, but provides less than half the effort. 2-Substantial/Maximal Assistance-helper does MORE THAN HALF the effort. Fletcher lifts or holds trunk or limbs and provides more than half the effort. 2-Pwetblvca-btnafb does ALL the effort. Patient does none of the effort to complete the activity. Or, the assistance of 2 or more helpers is required for the patient to complete the activity. If activity was not attempted, code reason: 7-Patient Refused. 9-Not Applicable-not attempted and the patient did not perform the activity before the current illness, exacerbation or injury. 10-Not Attempted due to Environmental Limitations-(lack of equipment, weather restraints, etc.). 88-Not Attempted due to Medical Conditions or Safety Concerns. Bed Mobility: 6 Transfers (B,C,W/C): 6 Gait: 6 Stairs: 6 Indoor Mobility (Ambulation): Independent Stairs: Independent Prior Devices Use: None PT Evaluation-Current Subjective Patient agrees to PT. Objective Patient Orientation: Person Attachments: Iglesias Catheter ROM/Strength ROM Lower Extremities bilateral LE WFL Strength Lower Extremities 3+/5 grossly bilateral LE Integumentary/Posture Integumentary refer to nursing notes Bowel Incontinence: Yes Bladder Incontinence: Iglesias Cath Posture WFL Neuromuscular (Tone, Coordination, Reflexes) slightly diminished coordination due to weakness Sensory Vision: Functional Hearing: Impaired Sensation Right Lower Extremit: Impaired Sensation Left Lower Extremity: Impaired Transfers Roll Left to Right (QC): 3 Lying to Sitting/Side of Bed(Q: 4 Sit to Stand (QC): 4 Chair/Nnd-yo-Mnqbs Xfer(QC): 4 CGA for mobility Gait Does the Patient Walk?: Yes Mode of Locomotion: Walk Anticipated Mode of Locomotion: Walk Walk 10 feet (QC): 4 Walk 50 ft with 2 Turns(QC): 4 Walk 150 ft (QC): 4 Distance: 225' Gait Assistive Device: FWW Comments/Gait Description slightly unsteady with PT correct Balance Sitting Static: Normal Sitting Dynamic: Normal Standing Static: Fair Standing Dynamic: Fair Assessment/Needs 76 y.o. male, will benefit from skilled PT to address functional strength and mobility to improve current LOF to safely return to home at maximum LOF. Rehab Potential: Fair PT Fdc Goals Fdc Goals PT Automatic Coil Machine Operator Goals Time Frame: Mar 13, 2021 Roll Left & Right (QC): 6 Sit to Lying (QC): 6 Lying-Sitting on Side/Bed(QC): 6 Sit to Stand (QC): 6 Chair/Cnn-oj-Obqpg Xfer(QC): 6 Toilet Transfer (QC): 6 Car Transfer (QC): 6 Does the Patient Walk: Yes Walk 10 feet (QC): 6 Walk 50ft with 2 Turns (QC): 6 Walk 150 ft (QC): 6 1 Step (curb) (QC): 5 4 Steps (QC): 5 12 Steps (QC): 5 PT Plan Problem List Problem List: Activity Tolerance, Functional Strength, Safety, Balance, Gait, Transfer, Bed Mobility Treatment/Plan Treatment Plan: Continue Plan of Care Treatment Plan: Bed Mobility, Education, Functional Activity Anthony, Functional Strength, Group Therapy, Gait, Safety, Therapeutic Exercise, Transfers Treatment Duration: Mar 13, 2021 Frequency: 6 times per week Estimated Hrs Per Day: .25 hour per day Time/GCodes Time In: 805 Time Out: 831 Total Billed Treatment Time: 26 Total Billed Treatment 1 visit EVMod 26 min BALAJI DICKINSON PT Mar 06, 2021 10:24
[2021-03-06] MEDS: SODIUM BICARBONATE 650 MG TABLET (NON-FORMULARY) PO SCH ×3 (10:48→23:01)
[2021-03-06] MEDS ORDERED: ARTIFICAL TEARS 0.4 ML UNIT DOSE (REFRESH PLUS) OU PRN (16:45)
--- NOTE | 2021-03-06 17:53 | Progress Note - Hospitalist ---
Subjective HPI/CC On Admission Date Seen by Provider: Mar 06, 2021 Time Seen by Provider: 08:55 CC: Altered mental status with alcohol withdrawal HPI: This is a 76yoWM who has a hx of alcoholism who presented to the [facility] ER found to have altered mental status and findings consistent with alcohol withdrawal. His creatinine was 3.1 consistent with dehydration so he was admitted for IV fluids and alcohol withdrawal treatment and today his creatinine is much better at 2.49. Elevated BP requiring aggressive BP medications. He does not have his hearing aids so it is very difficult to communicate. His is at the bedside and speaks broken Swedish since she is apparently Maltese. I tried to update her with everything that she needs to know and she needs him to stay here as long as possible because she has to work. Subjective/Events-last exam He is awake and in his bedside chair. He is alert and oriented. He denies pain. He is not short of breath. Objective Exam Vital Signs Vital Signs Date Time Temp Pulse Resp B/P (MAP) Pulse Ox O2 Delivery O2 Flow Rate FiO2 03/06/21 16:00 36.6 96 18 171/74 (106) 96 Room Air 03/06/21 10:36 21 03/05/21 12:00 30.00 Capillary Refill : Less Than 3 Seconds General Appearance: No Apparent Distress, Chronically ill Respiratory: Lungs Clear, Normal Breath Sounds, No Respiratory Distress Cardiovascular: Regular Rate, Rhythm, No Edema, No Murmur Gastrointestinal: Normal Bowel Sounds, Non Tender, Soft Extremity: Normal Inspection, Non Tender, No Pedal Edema Neurologic/Psychiatric: Alert, Oriented x3, Depressed Affect Skin: Normal Color, Warm/Dry Results/Procedures Lab Laboratory Tests 03/06/21 05:50 Patient resulted labs reviewed. Imaging: Reviewed Imaging Report Assessment/Plan Assessment and Plan Assess & Plan/Chief Complaint Alchohol withdrawal with perceptual disturbance Alcohol dependence Electrolyte abnormalities [facility] protocol IV fluids Vitamin replacement Ativan as needed Monitor and replace electrolytes as needed Extubated 03/05 Transfer to medical floor Ventilator associated pneumonia Culture with Pseudomonas Continue Cefepime HTN GERD Gout CKD DVT prophylaxis: Lovenox Endotracheally intubated, resolved Diagnosis/Problems Diagnosis/Problems (1) Alcohol withdrawal syndrome with perceptual disturbance Status: Acute (2) Alcohol dependence Status: Acute Qualifiers: Substance use status: in withdrawal Complication of substance-induced condition: with perceptual disturbance Qualified Codes: F10.232 - Alcohol dependence with withdrawal with perceptual disturbance (3) Electrolyte abnormality Status: Acute (4) Endotracheally intubated Status: Resolved Resolution Date/Time: 03/06/21 @ 17:54 (5) Hypokalemia Status: Acute (6) CKD (chronic kidney disease) Status: Chronic Qualifiers: Chronic kidney disease stage: stage 3 (moderate) Chronic kidney disease stage 3 subtype: stage 3b (GFR 30-44) Qualified Codes: N18.32 - Chronic kidney disease, stage 3b (7) HTN (hypertension) Status: Chronic (8) GERD (gastroesophageal reflux disease) Status: Chronic (9) Gout Status: Chronic (10) VAP (ventilator-associated pneumonia) Status: Acute GORDON MARIE MD Mar 06, 2021 17:53
[2021-03-06] MEDS: ENOXAPARIN 30 MG/0.3 ML (LOVENOX) SYR SC SCH (23:00)
[2021-03-06] MEDS: 1/2 NS IV SOLUTION 1,000 ML IV PRN (23:15)
[2021-03-07] VITALS: BP 175/77
[2021-03-07 04:35] VITALS: BP 165/74
[2021-03-07 05:56] LABS: MONOCYTES # (AUTO) 0.6 10^3/uL (0.0-1.0)
[2021-03-07 05:59] LABS: BASOPHILS % (AUTO) 1 % (0-10); EOSINOPHILS # (AUTO) 0.3 10^3/uL (0.0-0.3); EOSINOPHILS % (AUTO) 4 % (0-10); HEMATOCRIT 31 % (40-54); HEMOGLOBIN 10.5 g/dL (13.3-17.7); LYMPHOCYTES # (AUTO) 0.9 10^3/uL (1.0-4.0); LYMPHOCYTES % (AUTO) 14 % (12-44); MEAN CORPUSCULAR HEMOGLOBIN 36 pg (25-34); MEAN CORPUSCULAR HGB CONC 34 g/dL (32-36); MEAN CORPUSCULAR VOLUME 106 fL (80-99); MEAN PLATELET VOLUME 12.2 fL (9.0-12.2); MONOCYTES % (AUTO) 9 % (0-12); NEUTROPHILS # (AUTO) 4.6 10^3/uL (1.8-7.8); NEUTROPHILS % (AUTO) 72 % (42-75); PLATELET COUNT 106 10^3/uL (130-400); WHITE BLOOD COUNT 6.3 10^3/uL (4.3-11.0)
[2021-03-07 06:20] LABS: INR 1.2 (0.8-1.4); PROTHROMBIN TIME PATIENT 15.7 SEC (12.2-14.7)
[2021-03-07 06:28] LABS: ALBUMIN 2.9 GM/DL (3.2-4.5); BILIRUBIN,TOTAL 0.9 MG/DL (0.1-1.0); CREATININE SERUM 2.04 MG/DL (0.60-1.30); PHOSPHORUS 3.6 MG/DL (2.3-4.7); POTASSIUM 3.5 MMOL/L (3.6-5.0); TOTAL PROTEIN 7.7 GM/DL (6.4-8.2)
[2021-03-07] MEDS: MAGNESIUM 1 GM/100 ML IVPB 100 ML IV SCH (06:33)
[2021-03-07] MEDS: POTASSIUM CL 10MEQ/50ML IVPB 50 ML IV SCH (06:41)
[2021-03-07] MEDS: KCL 20 MEQ TAB (K-DUR) PO SCH (06:42)
[2021-03-07] MEDS: CEFEPIME INJECTION 1,000 MG in NS (IVPB) 50 ML IV SCH ×3 (07:03→20:51)
[2021-03-07] MEDS: doxAzosin 4 MG (CARDURA) TAB PO SCH ×3 (07:03→20:52)
[2021-03-07] MEDS: MULTIVIT W/MINERALS TAB (THERAGRAN M) PO SCH (07:03)
[2021-03-07 07:56] VITALS: BP 161/74
--- NOTE | 2021-03-07 09:36 | Physical Therapy Daily Note ---
PT Daily Note-Current Subjective Patient agrees to PT. Mental Status Attachments: Iglesias Catheter Transfers SCALE: Activities may be completed with or without assistive devices. 2-Bqtfatpmkp-kfanzmb completes the activity by him/herself with no assistance from a helper. 5-Set-up or Clean-up Assistance-helper sets up or cleans up; patient completes activity. Dixon assists only prior to or following the activity. 4-Supervision or Touching Assistance-helper provides verbal cues and/or touching/steadying and/or contact guard assistance as patient completes activity. Assistance may be provided throughout the activity or intermittently. 3-Partial/Moderate Assistance-helper does LESS THAN HALF the effort. Dixon lifts, holds or supports trunk or limbs, but provides less than half the effort. 2-Substantial/Maximal Assistance-helper does MORE THAN HALF the effort. Dixon lifts or holds trunk or limbs and provides more than half the effort. 8-Hohqwtopx-tsbogn does ALL the effort. Patient does none of the effort to complete the activity. Or, the assistance of 2 or more helpers is required for the patient to complete the activity. If activity was not attempted, code reason: 7-Patient Refused. 9-Not Applicable-not attempted and the patient did not perform the activity before the current illness, exacerbation or injury. 10-Not Attempted due to Environmental Limitations-(lack of equipment, weather restraints, etc.). 88-Not Attempted due to Medical Conditions or Safety Concerns. Lying to Sitting/Side of Bed(Q: 4 Sit to Stand (QC): 4 Chair/Eca-is-Ayedh Xfer(QC): 4 Gait Training Distance: 400' Walk 10 feet (QC): 4 Walk 50 ft with 2 Turns(QC): 4 Walk 150 ft (QC): 4 Gait Assistive Device: FWW CGA for safety/functional gait sequence Assessment Current Status: Good Progress PT Slasher Sawyer Goals Shelter Goals PT Slasher Sawyer Goals Time Frame: Mar 13, 2021 Roll Left & Right (QC): 6 Sit to Lying (QC): 6 Lying-Sitting on Side/Bed(QC): 6 Sit to Stand (QC): 6 Chair/Foi-cj-Mkouu Xfer(QC): 6 Toilet Transfer (QC): 6 Car Transfer (QC): 6 Does the Patient Walk: Yes Walk 10 feet (QC): 6 Walk 50ft with 2 Turns (QC): 6 Walk 150 ft (QC): 6 1 Step (curb) (QC): 5 4 Steps (QC): 5 12 Steps (QC): 5 PT Plan Treatment/Plan Treatment Plan: Continue Plan of Care Treatment Plan: Bed Mobility, Education, Functional Activity Anthony, Functional Strength, Group Therapy, Gait, Safety, Therapeutic Exercise, Transfers Treatment Duration: Mar 13, 2021 Frequency: 6 times per week Estimated Hrs Per Day: .25 hour per day Time/GCodes Time In: 812 Time Out: 829 Total Billed Treatment Time: 17 Total Billed Treatment 1 visit FA 17 min BALAJI DICKINSON PT Mar 07, 2021 09:36
[2021-03-07] MEDS: LACTULOSE SYRUP 10GM/15ML (ENULOSE) 30ML UDC PO SCH ×2 (09:55→20:51)
[2021-03-07] MEDS: polyethylene glycoL POWDER 17 GM (MIRALAX) PACK PO SCH ×2 (09:55→20:51)
[2021-03-07] MEDS: SODIUM BICARBONATE 650 MG TABLET (NON-FORMULARY) PO SCH ×3 (09:55→20:51)
[2021-03-07] MEDS: PANTOPRAZOLE 40 MG (PROTONIX) VIAL IV SCH (09:55)
[2021-03-07] MEDS: FOLIC ACID 1 MG TAB PO SCH (09:55)
[2021-03-07] MEDS: amLODIPine 5 MG (NORVASC) TAB PO SCH (09:55)
[2021-03-07] MEDS: LORATADINE (CLARITIN) 10 MG TAB PO SCH (09:55)
[2021-03-07] MEDS: SENNA W/DOCUSATE (SENOKOT S) TABLET PO SCH ×2 (09:55→20:52)
[2021-03-07 11:32] VITALS: BP 152/65
[2021-03-07] MEDS: LORazepam 1 MG (ATIVAN) TAB PO PRN ×3 (11:46→20:52)
[2021-03-07] MEDS: THIAMINE INJECTION 100 MG in NS (IVPB) 50 ML IV SCH (11:47)
[2021-03-07] MEDS: LORazepam INJ 2 MG/ML (ATIVAN) VIAL IV PRN (12:59)
[2021-03-07 16:06] VITALS: BP 158/70
--- NOTE | 2021-03-07 16:50 | Progress Note - Hospitalist ---
Subjective HPI/CC On Admission Date Seen by Provider: Mar 07, 2021 Time Seen by Provider: 11:15 CC: Altered mental status with alcohol withdrawal HPI: This is a 76yoWM who has a hx of alcoholism who presented to the [facility] ER found to have altered mental status and findings consistent with alcohol withdrawal. His creatinine was 3.1 consistent with dehydration so he was admitted for IV fluids and alcohol withdrawal treatment and today his creatinine is much better at 2.49. Elevated BP requiring aggressive BP medications. He does not have his hearing aids so it is very difficult to communicate. His is at the bedside and speaks broken Bulgarian since she is apparently Greenlandic. I tried to update her with everything that she needs to know and she needs him to stay here as long as possible because she has to work. Subjective/Events-last exam He is feeling shaky. He is not confused. He is not nauseous or vomiting. He denies headache. He is not short of breath. Objective Exam Vital Signs Vital Signs Date Time Temp Pulse Resp B/P (MAP) Pulse Ox O2 Delivery O2 Flow Rate FiO2 03/07/21 16:06 37.8 105 18 158/70 (99) 96 Room Air 03/06/21 10:36 21 03/05/21 12:00 30.00 Capillary Refill : Less Than 3 Seconds General Appearance: No Apparent Distress, WD/WN Respiratory: Lungs Clear, Normal Breath Sounds, No Respiratory Distress Cardiovascular: Regular Rate, Rhythm, No Edema, No Murmur Gastrointestinal: Normal Bowel Sounds, Non Tender, Soft Extremity: Normal Inspection, Non Tender, No Pedal Edema Neurologic/Psychiatric: Alert, Oriented x3, Other (hearing impaired, tremulous) Skin: Normal Color, Warm/Dry Results/Procedures Lab Laboratory Tests 03/07/21 05:22 Patient resulted labs reviewed. Imaging: Reviewed Imaging Report Assessment/Plan Assessment and Plan Assess & Plan/Chief Complaint Alchohol withdrawal with perceptual disturbance Alcohol dependence Electrolyte abnormalities [facility] protocol IV fluids Vitamin replacement Ativan as needed Monitor and replace electrolytes as needed Extubated 03/05 Ventilator associated pneumonia Carbapenem resistant Pseudomonas infection Culture with Pseudomonas Continue Cefepime HTN GERD Gout CKD DVT prophylaxis: Lovenox Endotracheally intubated, resolved Diagnosis/Problems Diagnosis/Problems (1) Alcohol withdrawal syndrome with perceptual disturbance Status: Acute (2) Alcohol dependence Status: Acute Qualifiers: Substance use status: in withdrawal Complication of substance-induced condition: with perceptual disturbance Qualified Codes: F10.232 - Alcohol dependence with withdrawal with perceptual disturbance (3) Electrolyte abnormality Status: Acute (4) Endotracheally intubated Status: Resolved Resolution Date/Time: 03/06/21 @ 17:54 (5) Hypokalemia Status: Acute (6) CKD (chronic kidney disease) Status: Chronic Qualifiers: Chronic kidney disease stage: stage 3 (moderate) Chronic kidney disease stage 3 subtype: stage 3b (GFR 30-44) Qualified Codes: N18.32 - Chronic kidney disease, stage 3b (7) HTN (hypertension) Status: Chronic (8) GERD (gastroesophageal reflux disease) Status: Chronic (9) Gout Status: Chronic (10) VAP (ventilator-associated pneumonia) Status: Acute (11) 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
[2021-03-07] MEDS: ACETAMINOPHEN 500 MG TAB (TYLENOL) PO PRN (17:47)
[2021-03-07 19:39] VITALS: BP 146/67
[2021-03-07] MEDS: ENOXAPARIN 30 MG/0.3 ML (LOVENOX) SYR SC SCH (20:51)
[2021-03-07] MEDS: MELATONIN 3 MG TABLET PO PRN (20:51)
[2021-03-07] MEDS: HALOPERIDOL 5 MG/ML (HALDOL) VIAL IM PRN (21:48)
[2021-03-08 00:50] VITALS: BP 175/55
[2021-03-08] MEDS: LORazepam INJ 2 MG/ML (ATIVAN) VIAL IV PRN ×3 (04:22→22:06)
[2021-03-08 04:24] VITALS: BP 137/64
[2021-03-08 05:46] LABS: EOSINOPHILS # (AUTO) 0.3 10^3/uL (0.0-0.3); HEMOGLOBIN 9.7 g/dL (13.3-17.7); MEAN CORPUSCULAR VOLUME 105 fL (80-99)
[2021-03-08 05:48] LABS: BASOPHILS # (AUTO) 0.1 10^3/uL (0.0-0.1); BASOPHILS % (AUTO) 1 % (0-10); EOSINOPHILS % (AUTO) 4 % (0-10); HEMATOCRIT 28 % (40-54); LYMPHOCYTES # (AUTO) 1.1 10^3/uL (1.0-4.0); LYMPHOCYTES % (AUTO) 15 % (12-44); MEAN CORPUSCULAR HEMOGLOBIN 36 pg (25-34); MEAN CORPUSCULAR HGB CONC 34 g/dL (32-36); MEAN PLATELET VOLUME 11.9 fL (9.0-12.2); MONOCYTES # (AUTO) 0.7 10^3/uL (0.0-1.0); MONOCYTES % (AUTO) 9 % (0-12); NEUTROPHILS # (AUTO) 5.3 10^3/uL (1.8-7.8); NEUTROPHILS % (AUTO) 71 % (42-75); PLATELET COUNT 110 10^3/uL (130-400); WHITE BLOOD COUNT 7.5 10^3/uL (4.3-11.0)
[2021-03-08 06:14] LABS: ALBUMIN 2.7 GM/DL (3.2-4.5); POTASSIUM 3.6 MMOL/L (3.6-5.0)
[2021-03-08 06:15] LABS: CALCIUM 8.6 MG/DL (8.5-10.1)
[2021-03-08 06:16] LABS: TOTAL PROTEIN 7.1 GM/DL (6.4-8.2)
[2021-03-08 06:18] LABS: BILIRUBIN,TOTAL 1.2 MG/DL (0.1-1.0)
[2021-03-08 06:20] LABS: CREATININE SERUM 2.26 MG/DL (0.60-1.30)
[2021-03-08] MEDS: POTASSIUM CL 10MEQ/50ML IVPB 50 ML IV SCH (06:34)
[2021-03-08] MEDS: MAGNESIUM 1 GM/100 ML IVPB 100 ML IV SCH (06:35)
[2021-03-08] MEDS: KCL 20 MEQ TAB (K-DUR) PO SCH (06:35)
[2021-03-08] MEDS: CEFEPIME INJECTION 1,000 MG in NS (IVPB) 50 ML IV SCH ×2 (06:54→15:36)
[2021-03-08] MEDS: doxAzosin 4 MG (CARDURA) TAB PO SCH ×3 (06:55→22:30)
[2021-03-08] MEDS: MULTIVIT W/MINERALS TAB (THERAGRAN M) PO SCH (06:57)
[2021-03-08 08:00] VITALS: BP 147/65
[2021-03-08] MEDS: polyethylene glycoL POWDER 17 GM (MIRALAX) PACK PO SCH ×2 (09:00→22:32)
[2021-03-08] MEDS: THIAMINE INJECTION 100 MG in NS (IVPB) 50 ML IV SCH (10:28)
[2021-03-08] MEDS: PANTOPRAZOLE 40 MG (PROTONIX) VIAL IV SCH (10:29)
[2021-03-08] MEDS: FOLIC ACID 1 MG TAB PO SCH (10:30)
[2021-03-08] MEDS: SENNA W/DOCUSATE (SENOKOT S) TABLET PO SCH ×2 (10:30→22:31)
[2021-03-08] MEDS: LACTULOSE SYRUP 10GM/15ML (ENULOSE) 30ML UDC PO SCH ×2 (10:30→22:32)
[2021-03-08] MEDS: SODIUM BICARBONATE 650 MG TABLET (NON-FORMULARY) PO SCH ×3 (10:30→22:31)
[2021-03-08] MEDS: LORATADINE (CLARITIN) 10 MG TAB PO SCH (10:30)
[2021-03-08] MEDS: amLODIPine 5 MG (NORVASC) TAB PO SCH (10:31)
[2021-03-08 12:00] VITALS: BP 158/70
[2021-03-08] MEDS: LORazepam 1 MG (ATIVAN) TAB PO PRN (12:51)
[2021-03-08 15:44] VITALS: BP 168/69
--- NOTE | 2021-03-08 17:45 | Progress Note - Hospitalist ---
Subjective HPI/CC On Admission Date Seen by Provider: Mar 08, 2021 Time Seen by Provider: 10:20 CC: Altered mental status with alcohol withdrawal HPI: This is a 76yoWM who has a hx of alcoholism who presented to the [facility] ER found to have altered mental status and findings consistent with alcohol withdrawal. His creatinine was 3.1 consistent with dehydration so he was admitted for IV fluids and alcohol withdrawal treatment and today his creatinine is much better at 2.49. Elevated BP requiring aggressive BP medications. He does not have his hearing aids so it is very difficult to communicate. His is at the bedside and speaks broken Vietnamese since she is apparently Turkish. I tried to update her with everything that she needs to know and she needs him to stay here as long as possible because she has to work. Subjective/Events-last exam He is not as shaky today. He has a cough. He is not short of breath. Objective Exam Vital Signs Vital Signs Date Time Temp Pulse Resp B/P (MAP) Pulse Ox O2 Delivery O2 Flow Rate FiO2 03/08/21 15:44 35.6 90 18 168/69 (102) 97 2.00 03/08/21 08:01 Room Air 03/06/21 10:36 21 Capillary Refill : Less Than 3 Seconds General Appearance: No Apparent Distress, Chronically ill Respiratory: Lungs Clear, Normal Breath Sounds, No Respiratory Distress Cardiovascular: Regular Rate, Rhythm, No Edema, No Murmur Gastrointestinal: Normal Bowel Sounds, Non Tender, Soft Extremity: Normal Inspection, Non Tender, No Pedal Edema Neurologic/Psychiatric: Alert, Oriented x3 Skin: Normal Color, Warm/Dry Results/Procedures Lab Laboratory Tests 03/08/21 05:15 Patient resulted labs reviewed. Imaging: Reviewed Imaging Report Assessment/Plan Assessment and Plan Assess & Plan/Chief Complaint Alchohol withdrawal with perceptual disturbance Alcohol dependence Electrolyte abnormalities [facility] protocol IV fluids Vitamin replacement Ativan as needed Monitor and replace electrolytes as needed Extubated 03/05 Ventilator associated pneumonia Carbapenem resistant Pseudomonas infection Culture with Pseudomonas Continue Cefepime HTN GERD Gout CKD DVT prophylaxis: Lovenox Endotracheally intubated, resolved Diagnosis/Problems Diagnosis/Problems (1) Alcohol withdrawal syndrome with perceptual disturbance Status: Acute (2) Alcohol dependence Status: Acute Qualifiers: Substance use status: in withdrawal Complication of substance-induced condition: with perceptual disturbance Qualified Codes: F10.232 - Alcohol dependence with withdrawal with perceptual disturbance (3) Electrolyte abnormality Status: Acute (4) Endotracheally intubated Status: Resolved Resolution Date/Time: 03/06/21 @ 17:54 (5) Hypokalemia Status: Acute (6) CKD (chronic kidney disease) Status: Chronic Qualifiers: Chronic kidney disease stage: stage 3 (moderate) Chronic kidney disease stage 3 subtype: stage 3b (GFR 30-44) Qualified Codes: N18.32 - Chronic kidney disease, stage 3b (7) HTN (hypertension) Status: Chronic (8) GERD (gastroesophageal reflux disease) Status: Chronic (9) Gout Status: Chronic (10) VAP (ventilator-associated pneumonia) Status: Acute (11) 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
[2021-03-08] MEDS ORDERED: MINERAL OIL CONCENTRATE 99.9% 15 ML UDC ONE (19:16)
[2021-03-08] MEDS ORDERED: morphine INJ 10 MG/ML 1ML (SYR OR VIAL) IVP STA (19:50)
[2021-03-08] MEDS ORDERED: morphine INJ 4 MG/ML 1 ML (VIAL/SYRINGE) ONE ×2 (20:04→22:40)
[2021-03-08] MEDS ORDERED: morphine INJ 4 MG/ML 1 ML (VIAL/SYRINGE) IVP ONE (20:15)
--- NOTE | 2021-03-08 20:33 | Procedure/Intervention Note ---
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 The Balbuena catheter could not be advanced or removed. They were unable to deflate the balloon with syringe. I arrived and was also unable to deflate the balloon with syringe. We then used a pair of scissors to cut the balloon inflation port. This failed to resolve any obstruction. I then used a central line guidewire with the firm tip first in an attempt to puncture the balloon. The balloon of the Balbuena catheter was palpable within the urethra at about the location of the superior/posterior aspect of the scrotum. Attempted puncture with guidewire was unsuccessful. We then instilled about 2 mL of mineral oil through the balloon lumen and about 10 to 15 minutes thereafter the balloon ruptured on its own and was removed. Conversation was had with Dr. Young from urology and Dr. Smith from surgery on-call here at various points during this for further guidance. Our next step would have been ultrasound- guided percutaneous drainage but that was not necessary. BRIAN PETE APRN Mar 08, 2021 20:33
[2021-03-08 20:38] VITALS: BP 170/76
[2021-03-08] MEDS: HALOPERIDOL 5 MG/ML (HALDOL) VIAL IM PRN (22:12)
[2021-03-08] MEDS: ENOXAPARIN 30 MG/0.3 ML (LOVENOX) SYR SC SCH (22:31)
[2021-03-08] MEDS ORDERED: LORazepam INJ 2 MG/ML (ATIVAN) VIAL IVP ONE (22:45)
[2021-03-09] VITALS (21 sets, daily range): BP systolic 69–186; BP diastolic 20–77
[2021-03-09] MEDS: CEFEPIME INJECTION 1,000 MG in NS (IVPB) 50 ML IV SCH ×2 (03:39→15:25)
[2021-03-09] MEDS: morphine INJ 4 MG/ML 1 ML (VIAL/SYRINGE) IVP PRN (03:40)
[2021-03-09] MEDS: MAGNESIUM 1 GM/100 ML IVPB 100 ML IV SCH (05:33)
[2021-03-09] MEDS: POTASSIUM CL 10MEQ/50ML IVPB 50 ML IV SCH (05:33)
[2021-03-09] MEDS: doxAzosin 4 MG (CARDURA) TAB PO SCH ×3 (05:34→21:34)
[2021-03-09] MEDS: KCL 20 MEQ TAB (K-DUR) PO SCH (05:34)
[2021-03-09] MEDS: MULTIVIT W/MINERALS TAB (THERAGRAN M) PO SCH (05:35)
[2021-03-09 06:18] LABS: BASOPHILS # (AUTO) 0.1 10^3/uL (0.0-0.1); BASOPHILS % (AUTO) 1 % (0-10); EOSINOPHILS # (AUTO) 0.3 10^3/uL (0.0-0.3); EOSINOPHILS % (AUTO) 3 % (0-10); HEMATOCRIT 30 % (40-54); HEMOGLOBIN 10.3 g/dL (13.3-17.7); LYMPHOCYTES # (AUTO) 0.9 10^3/uL (1.0-4.0); LYMPHOCYTES % (AUTO) 9 % (12-44); MEAN CORPUSCULAR HEMOGLOBIN 36 pg (25-34); MEAN CORPUSCULAR HGB CONC 34 g/dL (32-36); MEAN CORPUSCULAR VOLUME 105 fL (80-99); MEAN PLATELET VOLUME 12.2 fL (9.0-12.2); MONOCYTES # (AUTO) 0.8 10^3/uL (0.0-1.0); MONOCYTES % (AUTO) 9 % (0-12); NEUTROPHILS # (AUTO) 7.3 10^3/uL (1.8-7.8); NEUTROPHILS % (AUTO) 78 % (42-75); PLATELET COUNT 118 10^3/uL (130-400); WHITE BLOOD COUNT 9.3 10^3/uL (4.3-11.0)
[2021-03-09 06:22] LABS: POTASSIUM 3.7 MMOL/L (3.6-5.0)
[2021-03-09 06:23] LABS: CALCIUM 8.9 MG/DL (8.5-10.1)
[2021-03-09 06:25] LABS: TOTAL PROTEIN 7.7 GM/DL (6.4-8.2)
[2021-03-09 06:27] LABS: BILIRUBIN,TOTAL 1.3 MG/DL (0.1-1.0)
[2021-03-09 06:28] LABS: CREATININE SERUM 2.17 MG/DL (0.60-1.30)
[2021-03-09] MEDS: THIAMINE INJECTION 100 MG in NS (IVPB) 50 ML IV SCH (09:38)
[2021-03-09] MEDS: PANTOPRAZOLE 40 MG (PROTONIX) VIAL IV SCH (09:38)
[2021-03-09] MEDS: SODIUM BICARBONATE 650 MG TABLET (NON-FORMULARY) PO SCH ×4 (09:39→21:29)
[2021-03-09] MEDS: LORATADINE (CLARITIN) 10 MG TAB PO SCH (09:39)
[2021-03-09] MEDS: amLODIPine 5 MG (NORVASC) TAB PO SCH (09:39)
[2021-03-09] MEDS: LORazepam INJ 2 MG/ML (ATIVAN) VIAL IV PRN (09:39)
[2021-03-09] MEDS: FOLIC ACID 1 MG TAB PO SCH (09:39)
[2021-03-09] MEDS: SENNA W/DOCUSATE (SENOKOT S) TABLET PO SCH ×2 (09:39→20:37)
[2021-03-09] MEDS: LACTULOSE SYRUP 10GM/15ML (ENULOSE) 30ML UDC PO SCH ×2 (09:46→20:37)
[2021-03-09] MEDS: polyethylene glycoL POWDER 17 GM (MIRALAX) PACK PO SCH ×2 (09:46→20:37)
[2021-03-09 11:38] LABS: ABG OXYGEN SATURATION 94 % (94-100); ABG PCO2 34 MMHG (35-45); ABG PH 7.39 (7.37-7.43); ABG PO2 67 MMHG (79-93); ABG TCO2 21.1 MMOL/L (21.0-31.0)
[2021-03-09 11:39] LABS: ALLENS TEST YES-POS; INSPIRED O2 30.00%; PATIENT TEMP 37.2; VENTILATOR NO
--- NOTE | 2021-03-09 12:00 | Diagnostic Imaging Report ---
Indication: Tachypnea. Compared with study 03/04/2021 Findings: Lungs are clear. No effusion, pneumothorax or failure pattern. Impression: No acute-appearing abnormality Dictated by: Dictated on workstation # [id number]
[2021-03-09 12:49] LABS: ABG BASE EXCESS -6.2 MMOL/L (-2.5-2.5); ABG OXYGEN SATURATION 81 % (94-100); ABG PO2 74 MMHG (79-93); ABG TCO2 26.4 MMOL/L (21.0-31.0)
[2021-03-09] MEDS ORDERED: MIDAZOLAM 2 MG/2 ML (VERSED) VIAL ONE (12:54)
[2021-03-09] MEDS ORDERED: PROPOFOL DRIP (ICU) 100 ML IV ONE (12:54)
[2021-03-09 12:56] LABS: ABG PCO2 95 MMHG (35-45); ABG PH 7.03 (7.37-7.43)
[2021-03-09 12:57] LABS: INSPIRED O2 15L; VENTILATOR NO
[2021-03-09 12:58] LABS: PATIENT TEMP 37.3
[2021-03-09] MEDS ORDERED: RT-ALBUTEROL SULF 2.5 MG/3 ML PRE-MIX VIAL INH PRN (13:15)
[2021-03-09 13:20] LABS: BASOPHILS % (AUTO) 0 % (0-10)
[2021-03-09 13:22] LABS: EOSINOPHILS # (AUTO) 0.2 10^3/uL (0.0-0.3); EOSINOPHILS % (AUTO) 2 % (0-10); HEMATOCRIT 26 % (40-54); HEMOGLOBIN 8.7 g/dL (13.3-17.7); LYMPHOCYTES # (AUTO) 0.5 10^3/uL (1.0-4.0); LYMPHOCYTES % (AUTO) 6 % (12-44); MEAN CORPUSCULAR HEMOGLOBIN 37 pg (25-34); MEAN CORPUSCULAR HGB CONC 34 g/dL (32-36); MEAN CORPUSCULAR VOLUME 109 fL (80-99); MEAN PLATELET VOLUME 11.6 fL (9.0-12.2); MONOCYTES # (AUTO) 0.7 10^3/uL (0.0-1.0); MONOCYTES % (AUTO) 7 % (0-12); NEUTROPHILS # (AUTO) 8.4 10^3/uL (1.8-7.8); NEUTROPHILS % (AUTO) 85 % (42-75); PLATELET COUNT 121 10^3/uL (130-400); WHITE BLOOD COUNT 9.9 10^3/uL (4.3-11.0)
[2021-03-09 13:29] LABS: INR 1.4 (0.8-1.4); PROTHROMBIN TIME PATIENT 17.8 SEC (12.2-14.7)
[2021-03-09 13:30] LABS: ALBUMIN 2.7 GM/DL (3.2-4.5); POTASSIUM 4.1 MMOL/L (3.6-5.0)
[2021-03-09 13:31] LABS: CALCIUM 8.4 MG/DL (8.5-10.1)
[2021-03-09 13:32] LABS: TOTAL PROTEIN 6.9 GM/DL (6.4-8.2)
[2021-03-09 13:36] LABS: CREATININE SERUM 2.29 MG/DL (0.60-1.30)
--- NOTE | 2021-03-09 13:37 | Diagnostic Imaging Report ---
EXAMINATION: Chest 1 view HISTORY: Intubation COMPARISON: 03/09/2021 FINDINGS: Heart size and pulmonary vasculature are normal. Mildly improved aeration of the lung bases with persistent mild interstitial opacities. An endotracheal tube is present at approximately 3.8 cm above the emerald. No pleural effusion or pneumothorax. The osseous structures are intact. IMPRESSION: 1. Mildly improved aeration of the lung bases with mild persistent bibasilar atelectasis or edema. 2. Interval placement of an endotracheal tube approximately 3.8 cm above the emerald. Dictated by: Dictated on workstation # [id number]
[2021-03-09 13:39] LABS: BAND NEUTROPHILS 4 %; NEUTROPHILS % (MANUAL) 84 %
[2021-03-09 13:40] LABS: BASOPHILS % (MANUAL) 0 %; EOSINOPHILS % (MANUAL) 2 %; LYMPHOCYTES % (MANUAL) 6 %; MONOCYTES % (MANUAL) 4 %
[2021-03-09] MEDS ORDERED: NS IV 1000 ML 1,000 ML ONE ×3 (13:51→14:48)
[2021-03-09 13:58] LABS: ABG BASE EXCESS -5.7 MMOL/L (-2.5-2.5); ABG OXYGEN SATURATION 97 % (94-100); ABG PCO2 37 MMHG (35-45); ABG PO2 84 MMHG (79-93); ABG TCO2 20.5 MMOL/L (21.0-31.0)
[2021-03-09 14:15] LABS: ABG PH 7.33 (7.37-7.43); ALLENS TEST YES-POS
[2021-03-09 14:16] LABS: INSPIRED O2 30%; PATIENT TEMP 36.2; VENTILATOR YES
[2021-03-09] MEDS: RT-ALBUTEROL SULF 2.5 MG/3 ML PRE-MIX VIAL INH SCH ×3 (14:36→22:31)
[2021-03-09] MEDS: PROPOFOL DRIP (ICU) 100 ML IV SCH ×3 (15:35→23:29)
--- NOTE | 2021-03-09 17:02 | Diagnostic Imaging Report ---
EXAMINATION: CT abdomen and pelvis without contrast. TECHNIQUE: Multiple contiguous axial images were obtained through the abdomen and pelvis without the use of intravenous contrast. All CT scans use one or more of the following dose optimizing techniques: automated exposure control, MA and/or KvP adjustment based on patient size and exam type or iterative reconstruction. HISTORY: Bladder and urethra trauma. COMPARISON: 12/31/2020. FINDINGS: Lung bases: Trace bilateral pleural effusions with bibasilar atelectasis. Solid organs: The liver is normal. The gallbladder is normal. There is no biliary ductal dilation. Pancreas is normal. Spleen is normal. Adrenal glands are normal. The kidneys are normal without visualized calculus or hydronephrosis. Bowel: Enteric catheter is present within the stomach. No bowel obstruction. Findings of acute appendicitis. Peritoneum: There is no intraperitoneal free fluid or free air. No suspicious lymphadenopathy. Vasculature: Calcification of the aorta without aneurysm. Musculoskeletal: Compression deformity of the L4 vertebral body which is unchanged. No other suspicious osseous lesion or compression fracture. Pelvis: The prostate gland is normal. A Iglesias catheter bulb is present within the prostatic urethra. There is hyperdensity seen layering within the urinary bladder. Scattered foci of air seen along the perineum. A suprapubic catheter is present within the urinary bladder. IMPRESSION: 1. Hyperdense material within the urinary bladder concerning for blood products or debris. 2. Foci of air seen along the perineum likely secondary to reported trauma. Dictated by: Dictated on workstation # [id number]
[2021-03-09] MEDS: hydrALAZINE (APESOLINE) 20 MG/ML VIAL IV PRN (17:07)
--- NOTE | 2021-03-09 17:09 | Diagnostic Imaging Report ---
PROCEDURE: CT head without contrast. TECHNIQUE: Multiple contiguous axial images were obtained through the brain without the use of intravenous contrast. Auto Exposure Controls were utilized during the CT exam to meet ALARA standards for radiation dose reduction. INDICATION: Confusion and delirium. COMPARISON: Study of 03/02/2021. FINDINGS: There is no intracranial hemorrhage, hydrocephalus, edema, mass, mass effect or evidence for elevated pressures. There has been no change from the prior. The left maxillary sinus remains occluded. There is membrane thickening of left greater than right ethmoid air cells and occlusion of the sphenoid sinus, unchanged. Intracranial atherosclerotic calcifications, chronic. No findings of edema. IMPRESSION: Stable unremarkable brain. No hemorrhage or edema. There is chronic paranasal sinus disease, unchanged. Dictated by: Dictated on workstation # [id number]
[2021-03-09] MEDS: NS IV 1000 ML 1,000 ML IV SCH (17:12)
--- NOTE | 2021-03-09 19:36 | Consultation - Surgery ---
History of Present Illness History of Present Illness Patient Consulted On(latonya/time) 03/09/21 19:29 Date Seen by Provider: Mar 09, 2021 Time Seen by Provider: 15:00 History of Present Illness Consult requested by Dr. Jensen for suprapubic catheter and central line placement. Patient is 76-year-old male who was admitted for altered mental status with alcohol withdrawal. Yesterday patient was ambulating in the room and partially pulled out his Iglesias catheter. Patient was having some bleeding from the penis. The catheter was tried to be removed however the balloon would not deflate. Which multiple attempts and techniques were used to try to remove it before it is finally able to be removed. Patient unable to urinate and was found to have a palpable bladder and a new Iglesias has not been able to be inserted therefore I was asked to evaluate the patient. In doing so patient is a presented needed to be intubated due to acute respiratory failure. Patient also needing central line placement. Allergies and Home Medications Allergies Coded Allergies: Sulfa (Sulfonamide Antibiotics) (Verified Allergy, Mild, 07/22/09) Patient Home Medication List Home Medication List Reviewed: Yes Allopurinol (Allopurinol) 100 Mg Tablet, 100 MG PO DAILY, (Reported) Entered as Reported by: TIM VALLADARES on 02/26/21939 Last Action: Reviewed Ascorbic Acid (Vitamin C) 1,000 Mg Tablet, 1,000 MG PO DAILY, (Reported) Entered as Reported by: TIM VALLADARES on 02/26/21939 Last Action: Reviewed Aspirin (Aspirin EC) 81 Mg Tablet.dr, 81 MG PO DAILY, (Reported) Entered as Reported by: TIM VALLADARES on 02/26/21939 Last Action: Reviewed Atenolol (Atenolol) 100 Mg Tablet, 100 MG PO DAILY, (Reported) Entered as Reported by: TIM VALLADARES on 02/26/21939 Last Action: Reviewed Cetirizine HCl (Cetirizine HCl) 10 Mg Tablet, 10 MG PO DAILY, (Reported) Entered as Reported by: TIM VALLADARES on 02/26/21939 Last Action: Converted Cimetidine (Acid Energy Manager (CIMETIDINE)) 200 Mg Tablet, 200 MG PO DAILY, (Reported) Entered as Reported by: TIM VALLADARES on 02/26/21939 Last Action: Reviewed Diphenhydramine HCl (Benadryl Allergy) 25 Mg Tablet, 25 MG PO DAILY, (Reported) Entered as Reported by: TIM VALLADARES on 02/26/21939 Last Action: Reviewed Furosemide (Furosemide) 20 Mg Tablet, 20 MG PO DAILY, (Reported) Entered as Reported by: TIM VALLADARES on 02/26/21939 Last Action: Reviewed Gabapentin (Neurontin) 300 Mg Capsule, 600 MG PO DAILY, (Reported) Entered as Reported by: TIM VALLADARES on 02/26/21939 Last Action: Reviewed Krill Oil/[place]-3/Dha/Epa ([place]-3 Krill Oil Softgel) 1 Each Capsule, 1 EACH PO DAILY, (Reported) Entered as Reported by: TIM VALLADARES on 02/26/21939 Last Action: Reviewed Saw [place] Fruit (Saw [place]) 450 Mg Capsule, 450 MG PO DAILY, (Reported) Entered as Reported by: TIM VALLADARES on 02/26/21939 Last Action: Reviewed Tramadol HCl (Tramadol HCl) 50 Mg Tablet, 50 MG PO DAILY, (Reported) Entered as Reported by: TIM VALLADARES on 02/26/21939 Last Action: Reviewed Vitamin B Complex (B Complex) 1 Each Tablet, 1 EACH PO DAILY, (Reported) Entered as Reported by: TIM VALLADARES on 02/26/21939 Last Action: Reviewed Vitamin E Mixed (Vitamin E) 1,000 Unit Capsule, 1,000 UNIT PO DAILY, (Reported) Entered as Reported by: TIM VALLADARES on 02/26/21939 Last Action: Reviewed Past Rhwuhpm-Ceintg-Opcxie Hx Patient Social History Smoking Status: Former Smoker Alcohol Use?: Yes Have you traveled recently?: Unable to obtain Immunizations Up To Date Date of Influenza Vaccine: Jan 26, 2021 Cardiovascular Cardiac Disorders: High Cholesterol, Hypertension Reproductive System Hx Reproductive Disorders: No Reviewed Nursing Assessment Reviewed/Agree w Nursing PMH: Yes Family Medical History Significant Family History: No Pertinent Family Hx Review of Systems-General ROS-Unable to Obtain: Unable to obtain due to patient condition Physical Exam-General Problems Physical Exam Vital Signs Vital Signs - First Documented 03/03/21 03/03/21 03/03/21 00:00 03:04 03:35 Temp 36.6 Pulse 45 Resp 16 B/P (MAP) 131/50 (90) Pulse Ox 95 O2 Delivery Mechanical Ventilator O2 Flow Rate 30.00 FiO2 30 Capillary Refill : Less Than 3 Seconds General Appearance: other (Unresponsive, being intubated) HEENT: PERRL/EOMI, normal ENT inspection Neck: non-tender, supple Respiratory: other (Being intubated equal chest rise) Cardiovascular: regular rate, rhythm, no JVD Gastrointestinal: soft (Lower abdomen can palpate the bladder being distended) Rectal: deferred Genital/Rectal: blood at urethral meatus Back: normal inspection Extremities: normal inspection, no pedal edema Neurologic/Psychiatric: No alert, No oriented x 3 Skin: normal color, warm/dry Lymphatic: no adenopathy Data Review Labs Laboratory Tests 03/09/21 05:30: White Blood Count 9.3, Red Blood Count 2.86L, Hemoglobin 10.3L, Hematocrit 30L, Mean Corpuscular Volume 105H, Mean Corpuscular Hemoglobin 36H, Mean Corpuscular Hemoglobin Concent 34, Red Cell Distribution Width 12.2, Platelet Count 118L, Mean Platelet Volume 12.2, Immature Granulocyte % (Auto) 1, Neutrophils (%) (Auto) 78H, Lymphocytes (%) (Auto) 9L, Monocytes (%) (Auto) 9, Eosinophils (%) (Auto) 3, Basophils (%) (Auto) 1, Neutrophils # (Auto) 7.3, Lymphocytes # (Auto) 0.9L, Monocytes # (Auto) 0.8, Eosinophils # (Auto) 0.3, Basophils # (Auto) 0.1, Immature Granulocyte # (Auto) 0.1, Percent Immature Platelet Fraction 6.8, Sodium Level 144, Potassium Level 3.7, Chloride Level 115H, Carbon Dioxide Level 17L, Anion Gap 12, Blood Urea Nitrogen 30H, Creatinine 2.17H, Estimat Glomerular Filtration Rate 30, BUN/Creatinine Ratio 14, Glucose Level 106H, Calcium Level 8.9, Corrected Calcium 9.7, Magnesium Level 2.0, Total Bilirubin 1.3H, Aspartate Amino Transf (AST/SGOT) 38H, Alanine Aminotransferase (ALT/SGPT) 22, Alkaline Phosphatase 75, Total Protein 7.7, Albumin 3.0L, Procalcitonin 6.94H 03/09/21 11:31: Blood Gas Puncture Site L RADIAL, Blood Gas Patient Temperature 37.2, Arterial Blood pH 7.39, Arterial Blood Partial Pressure CO2 34L, Arterial Blood Partial Pressure O2 67L, Arterial Blood HCO3 20L, Arterial Blood Total CO2 21.1, Arterial Blood Oxygen Saturation 94, Arterial Blood Base Excess -4.0L, Natalio Test YES-POS, Blood Gas Ventilator Setting NO, Blood Gas Inspired Oxygen 30.00% 03/09/21 12:36: Blood Gas Puncture Site LFTFEM, Blood Gas Patient Temperature 37.3, Arterial Blood pH 7.03*L, Arterial Blood Partial Pressure CO2 95*H, Arterial Blood Partial Pressure O2 74L, Arterial Blood HCO3 24, Arterial Blood Total CO2 26.4, Arterial Blood Oxygen Saturation 81L, Arterial Blood Base Excess -6.2L, Natalio Test NA, Blood Gas Ventilator Setting NO, Blood Gas Inspired Oxygen 15L 03/09/21 13:00: White Blood Count 9.9, Red Blood Count 2.35L, Hemoglobin 8.7L, Hematocrit 26L, Mean Corpuscular Volume 109H, Mean Corpuscular Hemoglobin 37H, Mean Corpuscular Hemoglobin Concent 34, Red Cell Distribution Width 12.3, Platelet Count 121L, Mean Platelet Volume 11.6, Immature Granulocyte % (Auto) 1, Neutrophils (%) (Auto) 85H, Lymphocytes (%) (Auto) 6L, Monocytes (%) (Auto) 7, Eosinophils (%) (Auto) 2, Basophils (%) (Auto) 0, Neutrophils # (Auto) 8.4H, Lymphocytes # (Auto) 0.5L, Monocytes # (Auto) 0.7, Eosinophils # (Auto) 0.2, Basophils # (Auto) 0.0, Immature Granulocyte # (Auto) 0.1, Percent Immature Platelet Fraction 5.9, Sodium Level 144, Potassium Level 4.1, Chloride Level 114H, Carbon Dioxide Level 20L, Anion Gap 10, Blood Urea Nitrogen 31H, Creatinine 2.29H, Estimat Glomerular Filtration Rate 28, BUN/Creatinine Ratio 14, Glucose Level 140H, Calcium Level 8.4L, Corrected Calcium 9.4, Total Bilirubin 1.0, Aspartate Amino Transf (AST/SGOT) 36H, Alanine Aminotransferase (ALT/SGPT) 20, Alkaline Phosphatase 67, Total Protein 6.9, Albumin 2.7L, Neutrophils % (Manual) 84, Lymphocytes % (Manual) 6, Monocytes % (Manual) 4, Eosinophils % (Manual) 2, Basophils % (Manual) 0, Band Neutrophils 4, Macrocytosis SLIGHT, Prothrombin Time 17.8H, INR Comment 1.4, Triglycerides Level 106 03/09/21 13:20: Lactic Acid Level 0.98 03/09/21 13:50: Blood Gas Puncture Site LEFT RADIAL, Blood Gas Patient Temperature 36.2, Arterial Blood pH 7.33*L, Arterial Blood Partial Pressure CO2 37, Arterial Blood Partial Pressure O2 84, Arterial Blood HCO3 19L, Arterial Blood Total CO2 20.5L, Arterial Blood Oxygen Saturation 97, Arterial Blood Base Excess -5.7L, Natalio Test YES-POS, Blood Gas Ventilator Setting YES, Blood Gas Inspired Oxygen 30% Microbiology 03/04/21 Gram Stain - Final, Complete 03/04/21 Sputum Culture - Final, Complete Pseudomonas aeruginosa Pseudomonas aeruginosa#2 Pseudomonas aeruginosa#3 03/02/21 Urine Culture - Final, Complete NO GROWTH Assessment/Plan Assessment/Plan Assessment/Plan Alchohol withdrawal with perceptual disturbance Alcohol dependence Urethral trauma secondary to Iglesias catheter being pulled Urinary retention Electrolyte abnormalities Ventilator associated pneumonia Carbapenem resistant Pseudomonas infection HTN GERD Gout CKD Intubated and sedated C[facility] protocol IV fluids Vitamin replacement Monitor and replace electrolytes as needed Extubated 03/05 Culture with Pseudomonas Continue Cefepime Patient needing central venous access placed left femoral vein central line emergently, patient with urinary retention placed a Iglesias which got some bloody urine back however the bladder would not drain I feel there is likely significant clot within the bladder from the trauma of the catheter being pulled. Will place suprapubic catheter. Patient also needing arterial blood gases and accurate blood pressure monitoring placed left radial arterial line under ultrasound guidance. We will get a CT scan of the abdomen and pelvis to further evaluate catheters and anatomy. Discussed with family the procedures and current course. CT scan performed demonstrating the bladder with debris. Demonstrated suprapubic catheter in place and a Iglesias catheter in the prostatic urethra. We will remove the prostatic urethral Iglesias. Keep suprapubic catheter to drainage. Discussed with Dr. Young who will see tomorrow morning when he is available. Procedure: Left femoral vein central line placement. Left groin was prepped draped in sterile fashion the left femoral vein was accessed dark nonpulsatile blood was withdrawn. The wire was inserted through the needle and the needle was removed. 11 blade scalpel was used to make a small skin incision the dilator was then advanced over the wire and removed. The triple-lumen catheter was advanced over the wire and the wire was removed. All ports were accessed and flushed without difficulty. The catheter was secured using 3-0 silk suture. The areas washed and dried and sterile bandage was applied. Procedure: Ultrasound-guided suprapubic catheter placement. The abdomen was inspected with ultrasound to locate the bladder. This appeared to be distended and within the midline between the pubic symphysis and the umbilicus. The areas prepped and draped in a sterile fashion approximately 2 inches above the pubic symphysis an 11 blade scalpel was used to make a small skin incision. The Iglesias that was placed within the trocar was then slowly a dvanced through the abdominal wall until the urine was returned. The stylette was placed down the catheter and then the trocar was removed and the catheter was then easily advanced into the bladder and the trocar was removed. The balloon was inflated. Bloody urine return with some clot. The Iglesias was secured. Procedure: Left radial arterial line placement ultrasound-guided. The left wrist was prepped draped sterile fashion. The left radial artery was visualized under ultrasound. The Bard arterial line and catheter was advanced under ultrasound guidance until bright-colored arterial flow was present the wire was advanced without difficulty. The catheter was then advanced over the wire and the wire and needle were removed. This was then hooked up to the arterial line set up and secured. ARGENIS QUINTANILLA DO Mar 09, 2021 19:36
[2021-03-09] MEDS: NOREPINEPHRINE 8 MG/250 ML 250 ML IV SCH (20:37)
[2021-03-09] MEDS: ENOXAPARIN 30 MG/0.3 ML (LOVENOX) SYR SC SCH (21:29)
[2021-03-09] MEDS: LACRI-LUBE OPTHALMIC OINT 3.5 GM TUBE OU SCH (21:29)
[2021-03-10] VITALS (30 sets, daily range): BP systolic 97–213; BP diastolic 30–52
--- NOTE | 2021-03-10 00:02 | Progress Note - Hospitalist ---
Subjective HPI/CC On Admission Date Seen by Provider: Mar 09, 2021 Time Seen by Provider: 10:50 CC: Altered mental status with alcohol withdrawal HPI: This is a 76yoWM who has a hx of alcoholism who presented to the [facility] ER found to have altered mental status and findings consistent with alcohol withdrawal. His creatinine was 3.1 consistent with dehydration so he was admitted for IV fluids and alcohol withdrawal treatment and today his creatinine is much better at 2.49. Elevated BP requiring aggressive BP medications. He does not have his hearing aids so it is very difficult to communicate. His is at the bedside and speaks broken Sinhala since she is apparently Bengali. I tried to update her with everything that she needs to know and she needs him to stay here as long as possible because she has to work. Subjective/Events-last exam He is delirious. He appears uncomfortable. He is tachypnic. Focused Exam Lactate Level 03/09/21 13:20: Lactic Acid Level 0.98 Objective Exam Vital Signs Vital Signs Date Time Temp Pulse Resp B/P (MAP) Pulse Ox O2 Delivery O2 Flow Rate FiO2 03/09/21 23:29 84 158/35 03/09/21 22:32 12 95 21 03/09/21 19:58 36.4 03/09/21 18:00 Mechanical Ventilator 50.00 Capillary Refill : Less Than 3 Seconds General Appearance: Chronically ill, Severe Distress (tachypnea, uncomfortable) Respiratory: Decreased Breath Sounds, Respiratory Distress (tachypnea) Cardiovascular: No Murmur, Tachycardia Gastrointestinal: Normal Bowel Sounds, Other (firm suprapubic) Extremity: Normal Inspection, No Pedal Edema Neurologic/Psychiatric: Alert, Disoriented, Other (agitated) Skin: Normal Color, Warm/Dry Results/Procedures Lab Laboratory Tests 03/09/21 05:30 03/09/21 13:00 Patient resulted labs reviewed. Imaging: Reviewed Imaging Report Assessment/Plan Assessment and Plan Assess & Plan/Chief Complaint Urethral trauma Balbuena complication Gross hematuria Acute blood loss anemia Urinary retention Suprapubic catheter Balbuena dislodged Developed hematuria Unable to replace balbuena Surgery consulted Suprapubic catheter placed emergently Consult urology Acute respiratory failure with hypoxia Mucous plugging Endotracheally intubated Reintubated 03/10 TeleICU consulted Ventilator management per eICU Alchohol withdrawal with perceptual disturbance Alcohol dependence Electrolyte abnormalities [facility] protocol IV fluids Vitamin replacement Ativan as needed Monitor and replace electrolytes as needed Ventilator associated pneumonia Carbapenem resistant Pseudomonas infection Culture with Pseudomonas Continue Cefepime HTN GERD Gout CKD DVT prophylaxis: Lovenox Critical Care Critically Ill Patient Diagnosis/Problems Diagnosis/Problems (1) Alcohol withdrawal syndrome with perceptual disturbance Status: Acute (2) Alcohol dependence Status: Acute Qualifiers: Substance use status: in withdrawal Complication of substance-induced condition: with perceptual disturbance Qualified Codes: F10.232 - Alcohol dependence with withdrawal with perceptual disturbance (3) Electrolyte abnormality Status: Acute (4) Endotracheally intubated Status: Acute (5) Hypokalemia Status: Acute (6) CKD (chronic kidney disease) Status: Chronic Qualifiers: Chronic kidney disease stage: stage 3 (moderate) Chronic kidney disease stage 3 subtype: stage 3b (GFR 30-44) Qualified Codes: N18.32 - Chronic kidney disease, stage 3b (7) HTN (hypertension) Status: Chronic (8) GERD (gastroesophageal reflux disease) Status: Chronic (9) Gout Status: Chronic (10) VAP (ventilator-associated pneumonia) Status: Acute (11) Infection due to carbapenem resistant Pseudomonas aeruginosa Status: Acute (12) Dislodged Balbuena catheter Status: Acute Qualifiers: Encounter type: initial encounter Qualified Codes: T83.021A - Displacement of indwelling urethral catheter, initial encounter (13) Urinary retention Status: Acute (14) Suprapubic catheter Status: Acute (15) Traumatic injury of urethra Status: Acute (16) Gross hematuria Status: Acute GORDON MARIE MD Mar 10, 2021 00:02
[2021-03-10] MEDS: NS IV 1000 ML 1,000 ML IV SCH ×3 (00:06→21:00)
[2021-03-10] MEDS: RT-ALBUTEROL SULF 2.5 MG/3 ML PRE-MIX VIAL INH SCH ×6 (02:39→22:51)
[2021-03-10] MEDS: CEFEPIME INJECTION 1,000 MG in NS (IVPB) 50 ML IV SCH ×2 (03:27→15:14)
[2021-03-10] MEDS: PROPOFOL DRIP (ICU) 100 ML IV SCH ×6 (03:27→23:05)
[2021-03-10 03:45] LABS: ABG BASE EXCESS -6.9 MMOL/L (-2.5-2.5); ABG OXYGEN SATURATION 93 % (94-100); ABG PCO2 27 MMHG (35-45); ABG PH 7.41 (7.37-7.43); ABG PO2 66 MMHG (79-93); ABG TCO2 17.9 MMOL/L (21.0-31.0); BASOPHILS % (AUTO) 0 % (0-10); EOSINOPHILS # (AUTO) 0.2 10^3/uL (0.0-0.3); EOSINOPHILS % (AUTO) 2 % (0-10); HEMATOCRIT 24 % (40-54); HEMOGLOBIN 8.1 g/dL (13.3-17.7); LYMPHOCYTES # (AUTO) 0.9 10^3/uL (1.0-4.0); LYMPHOCYTES % (AUTO) 10 % (12-44); MEAN CORPUSCULAR HEMOGLOBIN 36 pg (25-34); MEAN CORPUSCULAR HGB CONC 34 g/dL (32-36); MEAN CORPUSCULAR VOLUME 107 fL (80-99); MEAN PLATELET VOLUME 11.8 fL (9.0-12.2); MONOCYTES # (AUTO) 0.8 10^3/uL (0.0-1.0); MONOCYTES % (AUTO) 9 % (0-12); NEUTROPHILS % (AUTO) 79 % (42-75); PLATELET COUNT 95 10^3/uL (130-400)
[2021-03-10 03:47] LABS: ALLENS TEST ART LINE
[2021-03-10 03:48] LABS: INSPIRED O2 21%; PATIENT TEMP 36.4; VENTILATOR YES
[2021-03-10 04:11] LABS: ALBUMIN 2.5 GM/DL (3.2-4.5)
[2021-03-10 04:12] LABS: POTASSIUM 3.4 MMOL/L (3.6-5.0)
[2021-03-10 04:13] LABS: CALCIUM 8.2 MG/DL (8.5-10.1)
[2021-03-10 04:14] LABS: TOTAL PROTEIN 6.4 GM/DL (6.4-8.2)
[2021-03-10 04:16] LABS: BILIRUBIN,TOTAL 0.7 MG/DL (0.1-1.0)
[2021-03-10 04:18] LABS: CREATININE SERUM 2.04 MG/DL (0.60-1.30)
[2021-03-10] MEDS: MAGNESIUM 1 GM/100 ML IVPB 100 ML IV SCH (05:08)
[2021-03-10] MEDS: POTASSIUM CL 10MEQ/50ML IVPB 50 ML IV SCH ×3 (05:08→13:47)
[2021-03-10] MEDS: KCL 20 MEQ TAB (K-DUR) PO SCH (05:08)
[2021-03-10] MEDS: doxAzosin 4 MG (CARDURA) TAB PO SCH ×3 (05:33→21:01)
[2021-03-10] MEDS: MULTIVIT W/MINERALS TAB (THERAGRAN M) PO SCH (05:33)
--- NOTE | 2021-03-10 06:54 | Occ Therapy Progress Note ---
Therapy Progress Note OT order received. Pt is currently intubated. OT to monitor pt's status and will initiate treatment when pt is medically stable and able to participate in skilled therapy. JACKIE LEWIS Mar 10, 2021 06:54
--- NOTE | 2021-03-10 08:00 | Physical Therapy Progress Note ---
Therapy Progress Note Patient currently sedated and intubated. PT will continue to monitor patient status. BALAJI DICKINSON PT Mar 10, 2021 08:00
--- NOTE | 2021-03-10 08:08 | Progress Note - Surgery ---
[facility] 03/10/21 0808: Subjective Date Seen by a Provider: Mar 10, 2021 Time Seen by a Provider: 07:00 Subjective/Events-last exam Patient currently vented with NG tube, arterial line, femoral central line, and suprapubic cath Suprapubic cath continues to have a mix of urine and sanguineous output Focused Exam Lactate Level 03/09/21 13:20: Lactic Acid Level 0.98 Objective Exam Vital Signs Date Time Temp Pulse Resp B/P (MAP) Pulse Ox O2 Delivery O2 Flow Rate FiO2 03/10/21 07:20 36.6 03/10/21 06:42 79 17 93 21 03/10/21 06:00 80 18 126/30 (62) 93 Mechanical Ventilator 21.00 03/10/21 05:00 82 22 144/36 (72) 96 Mechanical Ventilator 21.00 03/10/21 04:00 88 19 165/37 (79) 91 Mechanical Ventilator 21.00 03/10/21 04:00 93 Mechanical Ventilator 21 03/10/21 03:31 36.4 03/10/21 03:00 65 26 150/38 (75) 94 Mechanical Ventilator 21.00 03/10/21 02:40 76 15 95 21 03/10/21 02:00 80 15 131/31 (64) 95 Mechanical Ventilator 21.00 03/10/21 01:00 85 03/10/21 01:00 85 16 137/30 (65) 95 Mechanical Ventilator 21.00 03/10/21 00:05 36.6 03/10/21 00:00 96 Mechanical Ventilator 21 03/10/21 00:00 89 16 157/34 (75) 94 Mechanical Ventilator 21.00 03/09/21 23:29 84 158/35 03/09/21 23:00 82 14 161/49 (86) 93 Mechanical Ventilator 21.00 03/09/21 22:32 78 12 95 21 03/09/21 22:00 78 14 147/40 (75) 94 Mechanical Ventilator 21.00 03/09/21 21:00 81 14 128/38 (68) 94 Mechanical Ventilator 21.00 03/09/21 20:00 88 24 153/39 (77) 94 Mechanical Ventilator 21.00 03/09/21 20:00 96 Mechanical Ventilator 21 03/09/21 19:58 36.4 03/09/21 19:56 89 159/40 03/09/21 19:00 80 03/09/21 19:00 80 20 150/40 (76) 95 Mechanical Ventilator 21.00 03/09/21 19:00 81 12 95 21 03/09/21 18:00 75 15 95/20 (45) 95 Mechanical Ventilator 50.00 03/09/21 18:00 97/44 (61) 03/09/21 17:00 36.5 03/09/21 17:00 86 13 169/49 (89) 96 Mechanical Ventilator 50.00 03/09/21 16:15 98 Mechanical Ventilator 40 03/09/21 16:00 86 13 107/25 (52) 89 Mechanical Ventilator 50.00 03/09/21 15:35 87 154/32 03/09/21 15:00 87 13 113/42 (65) 91 Mechanical Ventilator 50.00 03/09/21 14:36 83 12 94 21 03/09/21 14:00 90 11 132/60 (86) 98 Mechanical Ventilator 50.00 03/09/21 13:45 94 18 129/59 (80) 98 Mechanical Ventilator 50.00 03/09/21 13:35 95 15 130/60 (84) 97 Mechanical Ventilator 50.00 03/09/21 13:30 96 125/60 (83) 97 Mechanical Ventilator 50.00 03/09/21 13:15 100 17 102/52 (67) 99 Mechanical Ventilator 50.00 03/09/21 13:14 102 03/09/21 13:02 104 20 98 50 03/09/21 13:00 105 23 125/60 (81) 100 Mechanical Ventilator 50.00 03/09/21 11:36 37.4 118 44 186/72 (110) 90 Room Air 03/09/21 08:14 96 Room Air I & O 03/10/21 07:00 Intake Total 410 ml Output Total 3500 ml Balance -3090 ml Capillary Refill : Less Than 3 Seconds General Appearance: No Apparent Distress, Chronically ill Neck: Non Tender, Supple, Limited Range of Motion Respiratory: No Accessory Muscle Use, Other (Mechanical breath sounds) Cardiovascular: Regular Rate, Rhythm, No Murmur Peripheral Pulses: 2+ Radial Pulses (R), 2+ Radial Pulses (L) Gastrointestinal: non tender, soft Extremity: Normal Inspection, No Pedal Edema Neurologic/Psychiatric: Other (Sedated) Skin: Normal Color, Warm/Dry Lymphatic: No Adenopathy Results Lab Laboratory Tests 03/09/21 11:31: Blood Gas Puncture Site L RADIAL, Blood Gas Patient Temperature 37.2, Arterial Blood pH 7.39, Arterial Blood Partial Pressure CO2 34L, Arterial Blood Partial Pressure O2 67L, Arterial Blood HCO3 20L, Arterial Blood Total CO2 21.1, Arterial Blood Oxygen Saturation 94, Arterial Blood Base Excess -4.0L, Natalio Test YES-POS, Blood Gas Ventilator Setting NO, Blood Gas Inspired Oxygen 30.00% 03/09/21 12:36: Blood Gas Puncture Site LFTFEM, Blood Gas Patient Temperature 37.3, Arterial Blood pH 7.03*L, Arterial Blood Partial Pressure CO2 95*H, Arterial Blood Partial Pressure O2 74L, Arterial Blood HCO3 24, Arterial Blood Total CO2 26.4, Arterial Blood Oxygen Saturation 81L, Arterial Blood Base Excess -6.2L, Natalio Test NA, Blood Gas Ventilator Setting NO, Blood Gas Inspired Oxygen 15L 03/09/21 13:00: White Blood Count 9.9, Red Blood Count 2.35L, Hemoglobin 8.7L, Hematocrit 26L, Mean Corpuscular Volume 109H, Mean Corpuscular Hemoglobin 37H, Mean Corpuscular Hemoglobin Concent 34, Red Cell Distribution Width 12.3, Platelet Count 121L, Mean Platelet Volume 11.6, Immature Granulocyte % (Auto) 1, Neutrophils (%) (Auto) 85H, Lymphocytes (%) (Auto) 6L, Monocytes (%) (Auto) 7, Eosinophils (%) (Auto) 2, Basophils (%) (Auto) 0, Neutrophils # (Auto) 8.4H, Lymphocytes # (Auto) 0.5L, Monocytes # (Auto) 0.7, Eosinophils # (Auto) 0.2, Basophils # (Auto) 0.0, Immature Granulocyte # (Auto) 0.1, Neutrophils % (Manual) 84, Lymphocytes % (Manual) 6, Monocytes % (Manual) 4, Eosinophils % (Manual) 2, Basophils % (Manual) 0, Band Neutrophils 4, Percent Immature Platelet Fraction 5.9, Macrocytosis SLIGHT, Prothrombin Time 17.8H, INR Comment 1.4, Sodium Level 144, Potassium Level 4.1, Chloride Level 114H, Carbon Dioxide Level 20L, Anion Gap 10, Blood Urea Nitrogen 31H, Creatinine 2.29H, Estimat Glomerular Filtration Rate 28, BUN/Creatinine Ratio 14, Glucose Level 140H, Calcium Level 8.4L, Corrected Calcium 9.4, Total Bilirubin 1.0, Aspartate Amino Transf (AST/SGOT) 36H, Alanine Aminotransferase (ALT/SGPT) 20, Alkaline Phosphatase 67, Total Protein 6.9, Albumin 2.7L, Triglycerides Level 106 03/09/21 13:20: Lactic Acid Level 0.98 03/09/21 13:50: Blood Gas Puncture Site LEFT RADIAL, Blood Gas Patient Temperature 36.2, Arterial Blood pH 7.33*L, Arterial Blood Partial Pressure CO2 37, Arterial Blood Partial Pressure O2 84, Arterial Blood HCO3 19L, Arterial Blood Total CO2 20.5L, Arterial Blood Oxygen Saturation 97, Arterial Blood Base Excess -5.7L, Natalio Test YES-POS, Blood Gas Ventilator Setting YES, Blood Gas Inspired Oxygen 30% 03/09/21 22:46: Glucometer 104 03/10/21 03:36: Blood Gas Puncture Site LEFT ARTLINE, Blood Gas Patient Temperature 36.4, Arterial Blood pH 7.41, Arterial Blood Partial Pressure CO2 27L, Arterial Blood Partial Pressure O2 66L, Arterial Blood HCO3 17*L, Arterial Blood Total CO2 17.9L, Arterial Blood Oxygen Saturation 93L, Arterial Blood Base Excess -6.9L, Natalio Test ART LINE, Blood Gas Ventilator Setting YES, Blood Gas Inspired Oxygen 21%, White Blood Count 9.0, Red Blood Count 2.23L, Hemoglobin 8.1L, Hematocrit 24L, Mean Corpuscular Volume 107H, Mean Corpuscular Hemoglobin 36H, Mean Corpuscular Hemoglobin Concent 34, Red Cell Distribution Width 12.4, Platelet Count 95L, Mean Platelet Volume 11.8, Immature Granulocyte % (Auto) 0, Neutrophils (%) (Auto) 79H, Lymphocytes (%) (Auto) 10L, Monocytes (%) (Auto) 9, Eosinophils (%) (Auto) 2, Basophils (%) (Auto) 0, Neutrophils # (Auto) 7.0, Lymphocytes # (Auto) 0.9L, Monocytes # (Auto) 0.8, Eosinophils # (Auto) 0.2, Basophils # (Auto) 0.0, Immature Granulocyte # (Auto) 0.0, Sodium Level 142, Potassium Level 3.4L, Chloride Level 115H, Carbon Dioxide Level 15L, Anion Gap 12, Blood Urea Nitrogen 30H, Creatinine 2.04H, Estimat Glomerular Filtration Rate 32, BUN/Creatinine Ratio 15, Glucose Level 118H, Calcium Level 8.2L, Corrected Calcium 9.4, Magnesium Level 2.0, Total Bilirubin 0.7, Aspartate Amino Transf (AST/SGOT) 28, Alanine Aminotransferase (ALT/SGPT) 16, Alkaline Phosphatase 59, Total Protein 6.4, Albumin 2.5L Microbiology 03/04/21 Gram Stain - Final, Complete 03/04/21 Sputum Culture - Final, Complete Pseudomonas aeruginosa Pseudomonas aeruginosa#2 Pseudomonas aeruginosa#3 03/02/21 Urine Culture - Final, Complete NO GROWTH Assessment/Plan Assessment/Plan Assessment/Plan Alchohol withdrawal with perceptual disturbance Alcohol dependence Urethral trauma secondary to Iglesias catheter being pulled Urinary retention Electrolyte abnormalities Ventilator associated pneumonia Carbapenem resistant Pseudomonas infection HTN GERD Gout CKD Continue to monitor I&Os Intubated and sedated CIWA protocol IV fluids Vitamin replacement Monitor and replace electrolytes as needed Culture with Pseudomonas Continue Cefepime JERE SMITH DO 03/10/21 1128: Subjective Subjective/Events-last exam Intubated sedated. Family at bedside. Suprapubic catheter less drainage which is urine/sanguineous. Objective Exam General Appearance: No Apparent Distress, Other (intubated sedated) HEENT: PERRL/EOMI, Normal ENT Inspection, Other (ng/et) Neck: Normal Inspection, Supple Respiratory: No Accessory Muscle Use, No Respiratory Distress, Other (intubated) Cardiovascular: Regular Rate, Rhythm, No JVD Gastrointestinal: non tender, soft, other (suprapubic catheter present) Extremity: Normal Inspection Neurologic/Psychiatric: No Alert, No Oriented x3; Other (Sedated) Skin: Normal Color, Warm/Dry Lymphatic: No Adenopathy Assessment/Plan Assessment/Plan Assessment/Plan Alchohol withdrawal with perceptual disturbance Alcohol dependence Urethral trauma secondary to Iglesias catheter being pulled Urinary retention Electrolyte abnormalities Ventilator associated pneumonia Carbapenem resistant Pseudomonas infection HTN GERD Gout CKD Continue to monitor I&Os Intubated and sedated CIWA protocol Suprapubic catheter for drainage of bladder. IV fluids Vitamin replacement Monitor and replace electrolytes as needed Culture with Pseudomonas Continue Cefepime Urology consulted Supervisory-Addendum Brief Verification & Attestation Participated in pt care: history, MDM, physical Personally performed: exam, history, MDM, supervision of care Care discussed with: Medical Student Procedures: n/a Results interpretation: Verified all documentation Verification and Attestation of Medical Student E/M Service A medical student performed and documented this service in my presence. I reviewed and verified all information documented by the medical student and made modifications to such information, when appropriate. I personally performed the physical exam and medical decision making. Jere Smith, Mar 10, 2021,11:28 [facility] Mar 10, 2021 08:08 JERE SIMTH DO Mar 10, 2021 11:28
--- NOTE | 2021-03-10 10:41 | Tele-ICU Progress Note ---
Subjective Date Seen by a Provider: Mar 10, 2021 Time Seen by a Provider: 09:00 Subjective/Events-last exam This virtual visit was conducted using real time audio/video. Thank you for asking us to see this patient for respiratory insufficiency due to AMS w alcohol withdrawal. Recent events: Readmitted and reintubated 03/09 as patient found unresponsive. Also PSA pna. PE: VSS. O2 sat 95% on 21%/+5 HEENT: No obvious masses, adenopathy or JVD. Chest: clear to auscultation. CV: RRR S1 S2 No murmur or added sounds. Abd: Non-tender. Bowel sounds Y. : Unremarkable. Suprapubic catheter in place. [employer]/psychiatric: Sedated. Grossly intact. No obvious focal findings. Extremities: No edema. Capillary refill < 3 seconds. Skin: unremarkable. Results: Elevated BUN 30, Creat 2.04. Decreased Hb 8.1, K 3.4, Alb 2.5. B.41/27/66 on 21%/+5. CXR: ETT in good posn.. Available chart/ vitals / labs / images reviewed. Video assessment done using teleICU camera, rest of exam as per RN. A/P: Respiratory insufficiency: Continue present management with vent. SBT when mentation improved. Monitor for increasing oxygenation needs. Critical Care: critically ill patient. Cont. CIWA, Cefipime. Replace K. Discussed with RN Treasure. Asked RN to reach out to eICU if any questions or concerns later. Time spent with patient/coordination of care with other health professionals (mins) 25: Sepsis Event Evaluation Height, Weight, BMI Height: 5'8.00" Weight: 189lbs. oz. 85.240738vd; 28.53 BMI Method: Focused Exam Lactate Level 03/09/21 13:20: Lactic Acid Level 0.98 Exam Exam Patient acknowledged, consented, and participated in this virtual visit which was conducted using real time audio/video Vital Signs Date Time Temp Pulse Resp B/P (MAP) Pulse Ox O2 Delivery O2 Flow Rate FiO2 03/10/21 10:15 80 17 96 21 03/10/21 08:19 89 189/42 03/10/21 07:20 36.6 03/10/21 06:42 79 17 93 21 03/10/21 06:33 80 03/10/21 06:00 80 18 126/30 (62) 93 Mechanical Ventilator 21.00 03/10/21 05:00 82 22 144/36 (72) 96 Mechanical Ventilator 21.00 03/10/21 04:00 88 19 165/37 (79) 91 Mechanical Ventilator 21.00 03/10/21 04:00 93 Mechanical Ventilator 21 03/10/21 03:31 36.4 03/10/21 03:00 65 26 150/38 (75) 94 Mechanical Ventilator 21.00 03/10/21 02:40 76 15 95 21 03/10/21 02:00 80 15 131/31 (64) 95 Mechanical Ventilator 21.00 03/10/21 01:00 85 03/10/21 01:00 85 16 137/30 (65) 95 Mechanical Ventilator 21.00 03/10/21 00:05 36.6 03/10/21 00:00 96 Mechanical Ventilator 21 03/10/21 00:00 89 16 157/34 (75) 94 Mechanical Ventilator 21.00 03/09/21 23:29 84 158/35 03/09/21 23:00 82 14 161/49 (86) 93 Mechanical Ventilator 21.00 03/09/21 22:32 78 12 95 21 03/09/21 22:00 78 14 147/40 (75) 94 Mechanical Ventilator 21.00 03/09/21 21:00 81 14 128/38 (68) 94 Mechanical Ventilator 21.00 03/09/21 20:00 88 24 153/39 (77) 94 Mechanical Ventilator 21.00 03/09/21 20:00 96 Mechanical Ventilator 21 03/09/21 19:58 36.4 03/09/21 19:56 89 159/40 03/09/21 19:00 80 03/09/21 19:00 80 20 150/40 (76) 95 Mechanical Ventilator 21.00 03/09/21 19:00 81 12 95 21 03/09/21 18:00 75 15 95/20 (45) 95 Mechanical Ventilator 50.00 03/09/21 18:00 97/44 (61) 03/09/21 17:00 36.5 03/09/21 17:00 86 13 169/49 (89) 96 Mechanical Ventilator 50.00 03/09/21 16:15 98 Mechanical Ventilator 40 12/26/21 16:00 86 13 107/25 (52) 89 Mechanical Ventilator 50.00 03/09/21 15:35 87 154/32 03/09/21 15:00 87 13 113/42 (65) 91 Mechanical Ventilator 50.00 03/09/21 14:36 83 12 94 21 03/09/21 14:00 90 11 132/60 (86) 98 Mechanical Ventilator 50.00 03/09/21 13:45 94 18 129/59 (80) 98 Mechanical Ventilator 50.00 03/09/21 13:35 95 15 130/60 (84) 97 Mechanical Ventilator 50.00 03/09/21 13:30 96 125/60 (83) 97 Mechanical Ventilator 50.00 03/09/21 13:15 100 17 102/52 (67) 99 Mechanical Ventilator 50.00 03/09/21 13:14 102 03/09/21 13:02 104 20 98 50 03/09/21 13:00 105 23 125/60 (81) 100 Mechanical Ventilator 50.00 03/09/21 11:36 37.4 118 44 186/72 (110) 90 Room Air I & O 03/10/21 07:00 Intake Total 410 ml Output Total 3500 ml Balance -3090 ml Height & Weight Height: 5'8.00" Weight: 189lbs. oz. 85.327633qt; 28.53 BMI Method: General Appearance: No Apparent Distress, Chronically ill, Obese (See free text) Neck: Non Tender, Supple, Limited Range of Motion Respiratory: No Accessory Muscle Use, Other (Mechanical breath sounds) Cardiovascular: Regular Rate, Rhythm, No Murmur Capillary Refill: Less Than 3 Seconds Peripheral Pulses: 2+ Radial Pulses (R), 2+ Radial Pulses (L) Gastrointestinal: non tender, soft Extremity: Normal Inspection, No Pedal Edema Neurologic/Psychiatric: Other (Sedated) Skin: Normal Color, Warm/Dry Lymphatic: No Adenopathy Results Lab Laboratory Tests 03/09/21 05:30 03/09/21 13:00 03/10/21 03:36 Assessment/Plan Assessment/Plan See free text Critical Care: Ventilator Management SHERIN FERRARI MD Mar 10, 2021 10:41
[2021-03-10] MEDS: FOLIC ACID 1 MG TAB PO SCH (11:30)
[2021-03-10] MEDS: PANTOPRAZOLE 40 MG (PROTONIX) VIAL IV SCH ×2 (11:30→21:01)
[2021-03-10] MEDS: SODIUM BICARBONATE 650 MG TABLET (NON-FORMULARY) PO SCH ×3 (11:30→21:01)
[2021-03-10] MEDS: LORATADINE (CLARITIN) 10 MG TAB PO SCH (11:31)
[2021-03-10] MEDS: THIAMINE INJECTION 100 MG in NS (IVPB) 50 ML IV SCH (11:31)
[2021-03-10] MEDS: LACTULOSE SYRUP 10GM/15ML (ENULOSE) 30ML UDC PO SCH ×2 (11:32→21:01)
[2021-03-10] MEDS: polyethylene glycoL POWDER 17 GM (MIRALAX) PACK PO SCH ×2 (11:33→21:01)
[2021-03-10] MEDS: SENNA W/DOCUSATE (SENOKOT S) TABLET PO SCH ×2 (11:33→21:01)
[2021-03-10] MEDS: NOREPINEPHRINE 8 MG/250 ML 250 ML IV SCH (11:33)
[2021-03-10] MEDS: amLODIPine 5 MG (NORVASC) TAB PO SCH (11:33)
[2021-03-10] MEDS: LACRI-LUBE OPTHALMIC OINT 3.5 GM TUBE OU SCH ×2 (11:46→21:01)
[2021-03-10] MEDS: morphine INJ 4 MG/ML 1 ML (VIAL/SYRINGE) IVP PRN (18:01)
--- NOTE | 2021-03-10 18:17 | Progress Note - Hospitalist ---
Subjective HPI/CC On Admission Date Seen by Provider: Mar 10, 2021 Time Seen by Provider: 09:15 CC: Altered mental status with alcohol withdrawal HPI: This is a 76yoWM who has a hx of alcoholism who presented to the [facility] ER found to have altered mental status and findings consistent with alcohol withdrawal. His creatinine was 3.1 consistent with dehydration so he was admitted for IV fluids and alcohol withdrawal treatment and today his creatinine is much better at 2.49. Elevated BP requiring aggressive BP medications. He does not have his hearing aids so it is very difficult to communicate. His is at the bedside and speaks broken Irish since she is apparently Syriac. I tried to update her with everything that she needs to know and she needs him to stay here as long as possible because she has to work. Subjective/Events-last exam He is intubated and sedated. Family is at the bedside and all questions were answered. Focused Exam Lactate Level 03/09/21 13:20: Lactic Acid Level 0.98 Objective Exam Vital Signs Vital Signs Date Time Temp Pulse Resp B/P (MAP) Pulse Ox O2 Delivery O2 Flow Rate FiO2 03/10/21 17:00 87 20 138/39 (72) 95 Mechanical Ventilator 21.00 03/10/21 16:08 21 03/10/21 16:07 37.1 Capillary Refill : Less Than 3 Seconds General Appearance: No Apparent Distress, Other Respiratory: Lungs Clear, Other (intubated and mechanically ventilated) Cardiovascular: Regular Rate, Rhythm, No Murmur Gastrointestinal: Normal Bowel Sounds, Soft, Other (suprapubic catheter in place) Genital/Rectal: Blood at Uretheral Meatus Extremity: Normal Inspection, No Pedal Edema Neurologic/Psychiatric: Other (sedated) Skin: Normal Color, Warm/Dry Results/Procedures Lab Laboratory Tests 03/10/21 03:36 Patient resulted labs reviewed. Imaging: Reviewed Imaging Report Assessment/Plan Assessment and Plan Assess & Plan/Chief Complaint Urethral trauma Iglesias complication Gross hematuria Acute blood loss anemia Urinary retention Suprapubic catheter Surgery following Suprapubic catheter in place Consult urology Acute respiratory failure with hypoxia Mucous plugging Endotracheally intubated Reintubated 03/10 TeleICU consulted Ventilator management per eICU Minimal ventilator support required Alchohol withdrawal with perceptual disturbance Alcohol dependence Electrolyte abnormalities [facility] protocol IV fluids Vitamin replacement Ativan as needed Monitor and replace electrolytes as needed Ventilator associated pneumonia Carbapenem resistant Pseudomonas infection Culture with Pseudomonas Continue Cefepime HTN GERD Gout CKD DVT prophylaxis: Lovenox Critical Care Ventilator Management Diagnosis/Problems Diagnosis/Problems (1) Alcohol withdrawal syndrome with perceptual disturbance Status: Acute (2) Alcohol dependence Status: Acute Qualifiers: Substance use status: in withdrawal Complication of substance-induced condition: with perceptual disturbance Qualified Codes: F10.232 - Alcohol dependence with withdrawal with perceptual disturbance (3) Electrolyte abnormality Status: Acute (4) Endotracheally intubated Status: Acute (5) Hypokalemia Status: Acute (6) CKD (chronic kidney disease) Status: Chronic Qualifiers: Chronic kidney disease stage: stage 3 (moderate) Chronic kidney disease stage 3 subtype: stage 3b (GFR 30-44) Qualified Codes: N18.32 - Chronic kidney disease, stage 3b (7) HTN (hypertension) Status: Chronic (8) GERD (gastroesophageal reflux disease) Status: Chronic (9) Gout Status: Chronic (10) VAP (ventilator-associated pneumonia) Status: Acute (11) Infection due to carbapenem resistant Pseudomonas aeruginosa Status: Acute (12) Dislodged Iglesias catheter Status: Acute Qualifiers: Encounter type: initial encounter Qualified Codes: T83.021A - Displacement of indwelling urethral catheter, initial encounter (13) Urinary retention Status: Acute (14) Suprapubic catheter Status: Acute (15) Traumatic injury of urethra Status: Acute (16) Gross hematuria Status: Acute GORDON MARIE MD Mar 10, 2021 18:17
[2021-03-10] MEDS: ENOXAPARIN 30 MG/0.3 ML (LOVENOX) SYR SC SCH (21:00)
--- NOTE | 2021-03-10 21:31 | CONSULTATION REPORT ---
DATE OF SERVICE: 03/10/2021 ATTENDING PHYSICIAN: Dr. Jensen. SUMMARY: A 76-year-old man known to me with history of bladder cancer with periodic cystoscopy with no recurrence and no obstruction. Last cystoscopy was performed in December, he was admitted with neurological changes and respiratory changes and a Iglesias catheter, which got displaced, but the balloon remained inflated despite trying to deflate it and cutting the valve. Ej Calderon called me, was gone; however, I recommended what to do for it and with injection of mineral oil through the valve channel the balloon was deflated and the catheter was removed; however, a 3-way catheter was inserted because of hematuria secondary to the urethral trauma. Again, the hospital called me because the bloody urine and bloody discharge around the catheter, the output was lower than the input through the catheter. I ordered a bladder scan that showed 800 mL in his bladder. I told them that the catheter is not in the bladder and to remove it and then they rescanned him and it was 900 mL, so I recommended to consult Dr. Smith, the general surgeon to insert percutaneous cystostomy tube. He attempted himself to put catheter, was unsuccessful, but he successfully put the suprapubic tube, which has been draining, although some bloody urine. He still has some bloody discharge from the penis. Then, he went respiratory nava. He was transferred back to the unit, put on the respirator and he is still on it, but apparently has been gradually weaned off it according to the and daughter. IMPRESSION: Gross hematuria with urethral trauma, inability to insert a Iglesias catheter and history of CA of the bladder. PLAN: We will let the channel cool off for now, deal with respiratory problems and issues. Later on, we will need to perform a cystoscopy to evaluate the urethra and the urethral trauma and manage accordingly. The plan was fully explained to the patient's family, and daughter. CC: Dr. Manda Jensen - requested, unable to deliver Job ID: [id number] DocumentID: [id number] Dictated Date: 03/10/2021 17:47:27 Wildlife Conservation Officer Date: 03/10/2021 21:29:55 Dictated By: ASMITA HUYNH MD
[2021-03-11] VITALS (31 sets, daily range): BP systolic 126–200; BP diastolic 35–67
[2021-03-11] MEDS: NOREPINEPHRINE 8 MG/250 ML 250 ML IV SCH ×2 (01:30→17:35)
[2021-03-11] MEDS: RT-ALBUTEROL SULF 2.5 MG/3 ML PRE-MIX VIAL INH SCH ×6 (02:45→22:07)
[2021-03-11] MEDS: PROPOFOL DRIP (ICU) 100 ML IV SCH ×3 (03:02→20:37)
[2021-03-11] MEDS: CEFEPIME INJECTION 1,000 MG in NS (IVPB) 50 ML IV SCH ×3 (03:41→21:16)
[2021-03-11 03:58] LABS: ABG BASE EXCESS -7.9 MMOL/L (-2.5-2.5); ABG OXYGEN SATURATION 98 % (94-100); ABG PCO2 28 MMHG (35-45); ABG PH 7.38 (7.37-7.43); ABG PO2 88 MMHG (79-93); ABG TCO2 17.2 MMOL/L (21.0-31.0)
[2021-03-11 03:59] LABS: ALLENS TEST ART LINE; BASOPHILS % (AUTO) 1 % (0-10); EOSINOPHILS # (AUTO) 0.3 10^3/uL (0.0-0.3); EOSINOPHILS % (AUTO) 4 % (0-10); HEMATOCRIT 24 % (40-54); HEMOGLOBIN 8.1 g/dL (13.3-17.7); INSPIRED O2 21%; LYMPHOCYTES # (AUTO) 0.8 10^3/uL (1.0-4.0); LYMPHOCYTES % (AUTO) 12 % (12-44); MEAN CORPUSCULAR HEMOGLOBIN 37 pg (25-34); MEAN CORPUSCULAR HGB CONC 34 g/dL (32-36); MEAN CORPUSCULAR VOLUME 107 fL (80-99); MEAN PLATELET VOLUME 11.5 fL (9.0-12.2); MONOCYTES # (AUTO) 0.6 10^3/uL (0.0-1.0); MONOCYTES % (AUTO) 9 % (0-12); NEUTROPHILS # (AUTO) 4.9 10^3/uL (1.8-7.8); NEUTROPHILS % (AUTO) 74 % (42-75); PATIENT TEMP 36.4; PLATELET COUNT 102 10^3/uL (130-400); VENTILATOR YES; WHITE BLOOD COUNT 6.7 10^3/uL (4.3-11.0)
[2021-03-11 04:16] LABS: ALBUMIN 2.4 GM/DL (3.2-4.5); POTASSIUM 3.9 MMOL/L (3.6-5.0)
[2021-03-11 04:17] LABS: CALCIUM 8.1 MG/DL (8.5-10.1)
[2021-03-11 04:19] LABS: TOTAL PROTEIN 6.3 GM/DL (6.4-8.2)
[2021-03-11 04:20] LABS: BILIRUBIN,TOTAL 0.7 MG/DL (0.1-1.0)
[2021-03-11 04:22] LABS: CREATININE SERUM 1.94 MG/DL (0.60-1.30)
[2021-03-11] MEDS: MAGNESIUM 1 GM/100 ML IVPB 100 ML IV SCH (05:11)
[2021-03-11] MEDS: POTASSIUM CL 10MEQ/50ML IVPB 50 ML IV SCH (05:11)
[2021-03-11] MEDS: KCL 20 MEQ TAB (K-DUR) PO SCH (05:11)
[2021-03-11] MEDS: MULTIVIT W/MINERALS TAB (THERAGRAN M) PO SCH (06:34)
[2021-03-11] MEDS: doxAzosin 4 MG (CARDURA) TAB PO SCH ×3 (06:34→21:16)
[2021-03-11] MEDS: NS IV 1000 ML 1,000 ML IV SCH ×2 (06:34→17:35)
--- NOTE | 2021-03-11 07:05 | Occ Therapy Progress Note ---
Therapy Progress Note Pt is currently intubated. OT to monitor pt and will initiate treatment when pt is medically stable to actively participate in skilled therapy. JACKIE LEWIS Mar 11, 2021 07:05
--- NOTE | 2021-03-11 07:37 | Progress Note - Surgery ---
[facility] 03/11/21 0737: Subjective Date Seen by a Provider: Mar 11, 2021 Time Seen by a Provider: 07:00 Subjective/Events-last exam No acute events overnight, Afebrile Patient intubated and sedated. Femoral central line was discontinued. Still contains Suprapubic catheter and arterial line Suprapubic cath contains less sanguineous output and more urine colored output Focused Exam Lactate Level 03/09/21 13:20: Lactic Acid Level 0.98 Objective Exam Vital Signs Date Time Temp Pulse Resp B/P (MAP) Pulse Ox O2 Delivery O2 Flow Rate FiO2 03/11/21 06:26 85 20 93 21 03/11/21 06:00 78 18 136/38 (70) 95 Mechanical Ventilator 21.00 03/11/21 05:00 79 23 133/35 (67) 95 Mechanical Ventilator 21.00 03/11/21 04:17 37.1 03/11/21 04:00 91 22 183/44 (90) 95 Mechanical Ventilator 21.00 03/11/21 04:00 96 Mechanical Ventilator 21 03/11/21 03:00 87 28 132/37 (68) 95 Mechanical Ventilator 21.00 03/11/21 02:46 98 18 96 21 03/11/21 02:00 93 35 179/58 (98) 95 Mechanical Ventilator 21.00 03/11/21 01:00 95 25 178/46 (90) 95 Mechanical Ventilator 21.00 03/11/21 00:58 95 03/11/21 00:00 96 Mechanical Ventilator 21 03/11/21 00:00 96 21 175/45 (88) 95 Mechanical Ventilator 21.00 03/10/21 23:20 37.3 03/10/21 23:00 96 28 181/46 (91) 95 Mechanical Ventilator 21.00 03/10/21 22:51 98 18 96 21 03/10/21 22:00 93 28 171/43 (85) 95 Mechanical Ventilator 21.00 03/10/21 21:00 93 35 186/45 (92) 95 Mechanical Ventilator 21.00 03/10/21 20:01 37.2 03/10/21 20:00 95 28 194/45 (94) 94 Mechanical Ventilator 21.00 03/10/21 20:00 96 Mechanical Ventilator 21 03/10/21 19:08 90 160/40 03/10/21 19:00 93 25 168/43 (84) 96 Mechanical Ventilator 21.00 03/10/21 19:00 91 03/10/21 18:45 90 16 96 21 03/10/21 18:00 90 32 203/51 (101) 96 Mechanical Ventilator 21.00 03/10/21 17:00 87 20 138/39 (72) 95 Mechanical Ventilator 21.00 03/10/21 16:08 95 Mechanical Ventilator 21 03/10/21 16:07 37.1 03/10/21 16:00 93 17 204/48 (99) 96 Mechanical Ventilator 21.00 03/10/21 15:21 93 199/48 03/10/21 15:00 89 17 165/42 (83) 96 Mechanical Ventilator 21.00 03/10/21 14:41 87 17 96 21 03/10/21 14:00 89 16 195/45 (95) 96 Mechanical Ventilator 21.00 03/10/21 13:00 89 14 196/45 (95) 96 Mechanical Ventilator 21.00 03/10/21 13:00 91 03/10/21 12:15 96 Mechanical Ventilator 21 03/10/21 12:00 90 24 213/51 (104) 97 Mechanical Ventilator 21.00 03/10/21 11:46 37.0 03/10/21 11:44 84 180/43 03/10/21 11:00 84 17 166/39 (81) 94 Mechanical Ventilator 21.00 03/10/21 10:15 80 17 96 21 03/10/21 10:00 81 15 140/36 (70) 96 Mechanical Ventilator 21.00 03/10/21 09:00 85 17 150/36 (74) 92 Mechanical Ventilator 21.00 03/10/21 08:19 89 189/42 03/10/21 08:00 91 20 202/47 (98) 97 Mechanical Ventilator 21.00 03/10/21 08:00 95 Mechanical Ventilator 21 I & O 03/11/21 07:00 Intake Total 2710 ml Output Total 1610 ml Balance 1100 ml Capillary Refill : Less Than 3 Seconds General Appearance: No Apparent Distress, WD/WN, Other (Intubated and sedated) HEENT: PERRL/EOMI, Normal ENT Inspection, Other (ng/et) Neck: Normal Inspection (no gross deformities), Supple Respiratory: Lungs Clear (Mechanical breath sounds), Other (intubated and mechanically ventilated) Cardiovascular: Regular Rate, Rhythm, No Murmur Peripheral Pulses: 2+ Radial Pulses (R), 2+ Radial Pulses (L) Gastrointestinal: non tender, soft, other (suprapubic catheter present) Extremity: Normal Inspection, No Pedal Edema Neurologic/Psychiatric: Other (sedated) Skin: Normal Color, Warm/Dry Lymphatic: No Adenopathy Results Lab Laboratory Tests 03/10/21 11:31: Glucometer 102 03/10/21 17:23: Glucometer 92 03/10/21 23:21: Glucometer 81 03/11/21 03:43: White Blood Count 6.7, Red Blood Count 2.21L, Hemoglobin 8.1L, Hematocrit 24L, Mean Corpuscular Volume 107H, Mean Corpuscular Hemoglobin 37H, Mean Corpuscular Hemoglobin Concent 34, Red Cell Distribution Width 12.7, Platelet Count 102L, Mean Platelet Volume 11.5, Immature Granulocyte % (Auto) 1, Neutrophils (%) (Auto) 74, Lymphocytes (%) (Auto) 12, Monocytes (%) (Auto) 9, Eosinophils (%) (Auto) 4, Basophils (%) (Auto) 1, Neutrophils # (Auto) 4.9, Lymphocytes # (Auto) 0.8L, Monocytes # (Auto) 0.6, Eosinophils # (Auto) 0.3, Basophils # (Auto) 0.0, Immature Granulocyte # (Auto) 0.0, Blood Gas Puncture Site LEFT ART LINE, Blood Gas Patient Temperature 36.4, Arterial Blood pH 7.38, Arterial Blood Partial Pressure CO2 28L, Arterial Blood Partial Pressure O2 88, Arterial Blood HCO3 16*L, Arterial Blood Total CO2 17.2L, Arterial Blood Oxygen Saturation 98, Ar terial Blood Base Excess -7.9L, Natalio Test ART LINE, Blood Gas Ventilator Setting YES, Blood Gas Inspired Oxygen 21%, Sodium Level 142, Potassium Level 3.9, Chloride Level 118H, Carbon Dioxide Level 15L, Anion Gap 9, Blood Urea Nitrogen 27H, Creatinine 1.94H, Estimat Glomerular Filtration Rate 34, BUN/Creatinine Ratio 14, Glucose Level 87, Calcium Level 8.1L, Corrected Calcium 9.4, Magnesium Level 2.0, Total Bilirubin 0.7, Aspartate Amino Transf (AST/SGOT) 32, Alanine Aminotransferase (ALT/SGPT) 13, Alkaline Phosphatase 60, Total Protein 6.3L, Albumin 2.4L, Triglycerides Level 73 Microbiology 03/04/21 Gram Stain - Final, Complete 03/04/21 Sputum Culture - Final, Complete Pseudomonas aeruginosa Pseudomonas aeruginosa#2 Pseudomonas aeruginosa#3 03/02/21 Urine Culture - Final, Complete NO GROWTH Assessment/Plan Assessment/Plan Assessment/Plan Alchohol withdrawal with perceptual disturbance Alcohol dependence Urethral trauma secondary to Iglesias catheter being pulled Urinary retention Electrolyte abnormalities Ventilator associated pneumonia Carbapenem resistant Pseudomonas infection HTN GERD Gout CKD Continue to monitor I&Os Intubated and sedated CIWA protocol Suprapubic catheter for drainage of bladder. IV fluids Vitamin replacement Monitor and replace electrolytes as needed Culture with Pseudomonas Continue Cefepime Urology consulted, recommended a cystoscopy at a later date due to trauma and swelling JERE SMITH DO 03/12/21 0825: Subjective Subjective/Events-last exam Intubated and sedated. Suprapubic catheter minimal sanguineous appearance. Family at bedside. Objective Exam General Appearance: No Apparent Distress, Other (Intubated and sedated) HEENT: Normal ENT Inspection Neck: Normal Inspection (no gross deformities), Supple Respiratory: Other (intubated and mechanically ventilated) Cardiovascular: Regular Rate, Rhythm, No JVD Gastrointestinal: non tender, soft, other (suprapubic catheter present) Extremity: Normal Inspection Neurologic/Psychiatric: No Alert, No Oriented x3; Other (sedated) Skin: Normal Color, Warm/Dry Lymphatic: No Adenopathy Assessment/Plan Assessment/Plan Assessment/Plan Alchohol withdrawal with perceptual disturbance Alcohol dependence Urethral trauma secondary to Iglesias catheter being pulled Urinary retention Electrolyte abnormalities Ventilator associated pneumonia Carbapenem resistant Pseudomonas infection HTN GERD Gout CKD Continue to monitor I&Os Intubated and sedated CIWA protocol Suprapubic catheter for drainage of bladder. IV fluids Vitamin replacement Monitor and replace electrolytes as needed Culture with Pseudomonas Continue Cefepime Urology consulted, recommended a cystoscopy at a later date due to trauma and swelling Supervisory-Addendum Brief Verification & Attestation Participated in pt care: history, MDM, physical Personally performed: exam, history, MDM, supervision of care Care discussed with: Medical Student Procedures: n/a Results interpretation: Verified all documentation Verification and Attestation of Medical Student E/M Service A medical student performed and documented this service in my presence. I reviewed and verified all information documented by the medical student and made modifications to such information, when appropriate. I personally performed the physical exam and medical decision making. Jere Smith, Mar 11, 2021,18:25 [facility] Mar 11, 2021 07:37 JERE SMITH DO Mar 12, 2021 08:25
--- NOTE | 2021-03-11 07:39 | Physical Therapy Progress Note ---
Therapy Progress Note Patient remains sedated and intubated. PT will continue to follow patient status. BALAJI DICKINSON PT Mar 11, 2021 07:39
[2021-03-11] MEDS: PANTOPRAZOLE 40 MG (PROTONIX) VIAL IV SCH ×2 (08:00→20:38)
[2021-03-11] MEDS: THIAMINE INJECTION 100 MG in NS (IVPB) 50 ML IV SCH (08:00)
[2021-03-11] MEDS: SODIUM BICARBONATE 650 MG TABLET (NON-FORMULARY) PO SCH ×3 (08:00→20:38)
[2021-03-11] MEDS: polyethylene glycoL POWDER 17 GM (MIRALAX) PACK PO SCH ×2 (08:01→20:38)
[2021-03-11] MEDS: SENNA W/DOCUSATE (SENOKOT S) TABLET PO SCH ×2 (08:01→20:38)
[2021-03-11] MEDS: FOLIC ACID 1 MG TAB PO SCH (08:01)
[2021-03-11] MEDS: LACRI-LUBE OPTHALMIC OINT 3.5 GM TUBE OU SCH ×2 (08:02→20:38)
[2021-03-11] MEDS: LORATADINE (CLARITIN) 10 MG TAB PO SCH (08:02)
[2021-03-11] MEDS: amLODIPine 5 MG (NORVASC) TAB PO SCH (09:01)
--- NOTE | 2021-03-11 11:01 | Progress Note - Urology ---
Progress Note-Urology Progress Notes/Assess & Plan Progress/Assessment & Plan POSSIBLE EXTUBATION TODAY. ONCE BETTER, NEEDS CYSTOSCOPY Final Diagnosis URETHRAL TRAUMA, HEMATURIA, AND CA BLADDER HISTORY ASMITA HUYNH MD Mar 11, 2021 11:01
[2021-03-11] MEDS: morphine INJ 4 MG/ML 1 ML (VIAL/SYRINGE) IVP PRN ×2 (13:15→20:36)
--- NOTE | 2021-03-11 13:31 | Tele-ICU Progress Note ---
Subjective Date Seen by a Provider: Mar 11, 2021 Time Seen by a Provider: 10:33 Sepsis Event Evaluation Height, Weight, BMI Height: 5'8.00" Weight: 189lbs. oz. 85.311383wg; 28.53 BMI Method: Focused Exam Lactate Level 03/09/21 13:20: Lactic Acid Level 0.98 Exam Exam Patient acknowledged, consented, and participated in this virtual visit which was conducted using real time audio/video Vital Signs Date Time Temp Pulse Resp B/P (MAP) Pulse Ox O2 Delivery O2 Flow Rate FiO2 03/11/21 12:00 115 25 192/53 (99) 95 Mechanical Ventilator 21.00 03/11/21 11:20 37.2 03/11/21 11:00 112 172/49 (90) 95 Mechanical Ventilator 21.00 03/11/21 10:38 112 21 98 21 03/11/21 10:06 111 28 96 21 03/11/21 10:00 112 29 173/49 (90) 96 Mechanical Ventilator 21.00 03/11/21 09:00 105 28 200/51 (100) 92 Mechanical Ventilator 21.00 03/11/21 08:00 92 26 173/41 (85) 92 Mechanical Ventilator 21.00 03/11/21 07:30 37.1 03/11/21 07:00 90 03/11/21 07:00 88 18 178/40 (86) 95 Mechanical Ventilator 21.00 03/11/21 06:26 85 20 93 21 03/11/21 06:00 78 18 136/38 (70) 95 Mechanical Ventilator 21.00 03/11/21 05:00 79 23 133/35 (67) 95 Mechanical Ventilator 21.00 03/11/21 04:17 37.1 03/11/21 04:00 91 22 183/44 (90) 95 Mechanical Ventilator 21.00 03/11/21 04:00 96 Mechanical Ventilator 21 03/11/21 03:00 87 28 132/37 (68) 95 Mechanical Ventilator 21.00 03/11/21 02:46 98 18 96 21 03/11/21 02:00 93 35 179/58 (98) 95 Mechanical Ventilator 21.00 03/11/21 01:00 95 25 178/46 (90) 95 Mechanical Ventilator 21.00 03/11/21 00:58 95 03/11/21 00:00 96 Mechanical Ventilator 21 03/11/21 00:00 96 21 175/45 (88) 95 Mechanical Ventilator 21.00 03/10/21 23:20 37.3 03/10/21 23:00 96 28 181/46 (91) 95 Mechanical Ventilator 21.00 03/10/21 22:51 98 18 96 21 03/10/21 22:00 93 28 171/43 (85) 95 Mechanical Ventilator 21.00 03/10/21 21:00 93 35 186/45 (92) 95 Mechanical Ventilator 21.00 03/10/21 20:01 37.2 03/10/21 20:00 95 28 194/45 (94) 94 Mechanical Ventilator 21.00 03/10/21 20:00 96 Mechanical Ventilator 21 03/10/21 19:08 90 160/40 03/10/21 19:00 93 25 168/43 (84) 96 Mechanical Ventilator 21.00 03/10/21 19:00 91 03/10/21 18:45 90 16 96 21 03/10/21 18:00 90 32 203/51 (101) 96 Mechanical Ventilator 21.00 03/10/21 17:00 87 20 138/39 (72) 95 Mechanical Ventilator 21.00 03/10/21 16:08 95 Mechanical Ventilator 21 03/10/21 16:07 37.1 03/10/21 16:00 93 17 204/48 (99) 96 Mechanical Ventilator 21.00 03/10/21 15:21 93 199/48 03/10/21 15:00 89 17 165/42 (83) 96 Mechanical Ventilator 21.00 03/10/21 14:41 87 17 96 21 03/10/21 14:00 89 16 195/45 (95) 96 Mechanical Ventilator 21.00 I & O 03/11/21 07:00 Intake Total 2710 ml Output Total 1610 ml Balance 1100 ml Height & Weight Height: 5'8.00" Weight: 189lbs. oz. 85.932169my; 28.53 BMI Method: General Appearance: No Apparent Distress, WD/WN, Other (Intubated and sedated) HEENT: PERRL/EOMI, Normal ENT Inspection, Other (ng/et) Neck: Normal Inspection (no gross deformities), Supple Respiratory: Lungs Clear (Mechanical breath sounds), Other (intubated and mechanically ventilated) Cardiovascular: Regular Rate, Rhythm, No Murmur Capillary Refill: Less Than 3 Seconds Peripheral Pulses: 2+ Radial Pulses (R), 2+ Radial Pulses (L) Gastrointestinal: non tender, soft, other (suprapubic catheter present) Extremity: Normal Inspection, No Pedal Edema Neurologic/Psychiatric: Other (sedated) Skin: Normal Color, Warm/Dry Lymphatic: No Adenopathy Results Lab Laboratory Tests 03/10/21 03:36 03/11/21 03:43 Assessment/Plan Assessment/Plan (Tele-ICU Physician , Progress Note ) Available chart/ vitals / labs / Images reviewed Video assessment done using teleICU camera, rest of exam as per RN Discussed with RN , EXAM PER RN Events overnight : Afebrile FiO2 - 35% I/O = even Drips: Pressors: , hemodynamically stable Sedation gtt: propofol ( RASS -1 ) VENT SETTINGS and ABG reviewed candidate for SBT today REVIEWED Cardiovascular Stability / Sedation Score / FI02/PEEP / ABG / CXR Consultants: Hospital course: 03/02 - intubated for AMS - extubared -03/09 - reintubated A/P ARF - intubated for acute hypercarbic resp fauilure 03/09 - Failed SBT with incr RR and small TV - as per RN - too weal to follow commands , but blinks appropriatly - will check phos , ? any other reasons for musc weakness Mental status change, -acute renal failure, and hyperbilirubinemia and elevated ammonia of undete rmined etiology on admission CKI - - stable Heavy ETOH abuse - vitamins HTN - as per cards + blood in mouth by RN 03/03 - lip - monitor URETHRAL TRAUMA, HEMATURIA, - urology tarsha , FAREED BLADDER HISTORY- cystoscopu latter Lines : (Central Line Necessity Reviewed) Iglesias: OG: Nutrition: start TF today Analgesia: Anxiety/ delirium ciwa VTE Prophylaxis: glenn 30 Stress Ulcer Prophylaxis: tf Glycemic Control: Plans in collaboration with bedside consultants and IM MDs. Discussed with RN to reach out if any questions or concerns A total of 34 minutes of critical care time was devoted to this patient today, required to treat and/or prevent further deterioration of critical care condition ( as above) . CORI HERMOSILLO MD Mar 11, 2021 13:31
[2021-03-11] MEDS: LACTULOSE SYRUP 10GM/15ML (ENULOSE) 30ML UDC PO SCH ×2 (14:35→20:38)
--- NOTE | 2021-03-11 15:22 | Diagnostic Imaging Report ---
INDICATION: Endotracheal tube placement. TIME OF EXAM: 3:10 p.m. COMPARISON: Correlation is made with prior chest from 03/09/2021. FINDINGS: The ET tube has tip above the emerald. Tip is at the level of the clavicular heads. Heart size is normal. The lungs appear to be fairly clear. No effusion or pneumothorax is seen. IMPRESSION: Endotracheal tube location, as described. Dictated by: Dictated on workstation # [id number]
[2021-03-11] MEDS: hydrALAZINE (APESOLINE) 20 MG/ML VIAL IV PRN (17:56)
--- NOTE | 2021-03-11 18:30 | Progress Note - Hospitalist ---
Subjective HPI/CC On Admission Date Seen by Provider: Mar 11, 2021 Time Seen by Provider: 09:20 CC: Altered mental status with alcohol withdrawal HPI: This is a 76yoWM who has a hx of alcoholism who presented to the [facility] ER found to have altered mental status and findings consistent with alcohol withdrawal. His creatinine was 3.1 consistent with dehydration so he was admitted for IV fluids and alcohol withdrawal treatment and today his creatinine is much better at 2.49. Elevated BP requiring aggressive BP medications. He does not have his hearing aids so it is very difficult to communicate. His is at the bedside and speaks broken Thai since she is apparently [place]. I tried to update her with everything that she needs to know and she needs him to stay here as long as possible because she has to work. Subjective/Events-last exam He is intubated. His sedation is being weaned and he is tracking. He is unable to follow commands at this time. He has family at the bedside. Focused Exam Lactate Level 03/09/21 13:20: Lactic Acid Level 0.98 Objective Exam Vital Signs Vital Signs Date Time Temp Pulse Resp B/P (MAP) Pulse Ox O2 Delivery O2 Flow Rate FiO2 03/11/21 18:08 101 21 94 21 03/11/21 17:35 176/60 03/11/21 16:00 Mechanical Ventilator 03/11/21 15:51 37.6 03/11/21 15:00 21.00 Capillary Refill : Less Than 3 Seconds General Appearance: No Apparent Distress, WD/WN, Other (intubated) Respiratory: Lungs Clear, No Respiratory Distress, Other (intubated and mechanically ventilated) Cardiovascular: Regular Rate, Rhythm, No Edema, No Murmur Gastrointestinal: Normal Bowel Sounds, Soft Extremity: Normal Inspection, No Pedal Edema Neurologic/Psychiatric: Alert, Other (unable to follow commands) Skin: Normal Color, Warm/Dry Results/Procedures Lab Laboratory Tests 03/11/21 03:43 Patient resulted labs reviewed. Imaging: Reviewed Imaging Report Assessment/Plan Assessment and Plan Assess & Plan/Chief Complaint Urethral trauma Iglesias complication Gross hematuria Acute blood loss anemia Urinary retention Suprapubic catheter Surgery following Suprapubic catheter in place Urology following Planning for cystoscopy after extubated Acute respiratory failure with hypoxia Mucous plugging Endotracheally intubated Reintubated 03/10 TeleICU consulted Ventilator management per eICU Minimal ventilator support required Alchohol withdrawal with perceptual disturbance Alcohol dependence Electrolyte abnormalities CIWA protocol IV fluids Vitamin replacement Ativan as needed Monitor and replace electrolytes as needed Ventilator associated pneumonia Carbapenem resistant Pseudomonas infection Culture with Pseudomonas Continue Cefepime HTN GERD Gout CKD DVT prophylaxis: Lovenox Critical Care Critically Ill Patient Diagnosis/Problems Diagnosis/Problems (1) Alcohol withdrawal syndrome with perceptual disturbance Status: Acute (2) Alcohol dependence Status: Acute Qualifiers: Substance use status: in withdrawal Complication of substance-induced condition: with perceptual disturbance Qualified Codes: F10.232 - Alcohol dependence with withdrawal with perceptual disturbance (3) Electrolyte abnormality Status: Acute (4) Endotracheally intubated Status: Acute (5) Hypokalemia Status: Acute (6) CKD (chronic kidney disease) Status: Chronic Qualifiers: Chronic kidney disease stage: stage 3 (moderate) Chronic kidney disease stage 3 subtype: stage 3b (GFR 30-44) Qualified Codes: N18.32 - Chronic kidney disease, stage 3b (7) HTN (hypertension) Status: Chronic (8) GERD (gastroesophageal reflux disease) Status: Chronic (9) Gout Status: Chronic (10) VAP (ventilator-associated pneumonia) Status: Acute (11) Infection due to carbapenem resistant Pseudomonas aeruginosa Status: Acute (12) Dislodged Iglesias catheter Status: Acute Qualifiers: Encounter type: initial encounter Qualified Codes: T83.021A - Displacement of indwelling urethral catheter, initial encounter (13) Urinary retention Status: Acute (14) Suprapubic catheter Status: Acute (15) Traumatic injury of urethra Status: Acute (16) Gross hematuria Status: Acute GORDON MARIE MD Mar 11, 2021 18:30
[2021-03-11] MEDS: ENOXAPARIN 30 MG/0.3 ML (LOVENOX) SYR SC SCH (20:38)
[2021-03-12] VITALS (27 sets, daily range): BP systolic 126–182; BP diastolic 39–74
[2021-03-12] MEDS: RT-ALBUTEROL SULF 2.5 MG/3 ML PRE-MIX VIAL INH SCH ×6 (02:20→21:56)
[2021-03-12] MEDS: PROPOFOL DRIP (ICU) 100 ML IV SCH ×2 (03:18→08:18)
[2021-03-12] MEDS: NS IV 1000 ML 1,000 ML IV SCH ×2 (04:11→13:27)
[2021-03-12 04:27] LABS: ABG BASE EXCESS -8.4 MMOL/L (-2.5-2.5); ABG OXYGEN SATURATION 97 % (94-100); ABG PCO2 31 MMHG (35-45); ABG PO2 88 MMHG (79-93); ABG TCO2 17.3 MMOL/L (21.0-31.0); BASOPHILS # (AUTO) 0.1 10^3/uL (0.0-0.1); BASOPHILS % (AUTO) 1 % (0-10); MEAN PLATELET VOLUME 11.3 fL (9.0-12.2)
[2021-03-12 04:29] LABS: ABG PH 7.34 (7.37-7.43); ALLENS TEST ART LINE; EOSINOPHILS # (AUTO) 0.4 10^3/uL (0.0-0.3); EOSINOPHILS % (AUTO) 6 % (0-10); HEMATOCRIT 22 % (40-54); HEMOGLOBIN 7.5 g/dL (13.3-17.7); INSPIRED O2 21%; LYMPHOCYTES % (AUTO) 18 % (12-44); MEAN CORPUSCULAR HEMOGLOBIN 36 pg (25-34); MEAN CORPUSCULAR HGB CONC 34 g/dL (32-36); MEAN CORPUSCULAR VOLUME 108 fL (80-99); MONOCYTES # (AUTO) 0.5 10^3/uL (0.0-1.0); MONOCYTES % (AUTO) 9 % (0-12); NEUTROPHILS # (AUTO) 3.8 10^3/uL (1.8-7.8); NEUTROPHILS % (AUTO) 66 % (42-75); PATIENT TEMP 36.9; PLATELET COUNT 126 10^3/uL (130-400); VENTILATOR YES; WHITE BLOOD COUNT 5.7 10^3/uL (4.3-11.0)
[2021-03-12 04:38] LABS: ALBUMIN 2.4 GM/DL (3.2-4.5)
[2021-03-12 04:39] LABS: POTASSIUM 3.9 MMOL/L (3.6-5.0)
[2021-03-12 04:40] LABS: CALCIUM 8.2 MG/DL (8.5-10.1)
[2021-03-12 04:41] LABS: TOTAL PROTEIN 6.2 GM/DL (6.4-8.2)
[2021-03-12 04:43] LABS: BILIRUBIN,TOTAL 0.7 MG/DL (0.1-1.0)
[2021-03-12 04:45] LABS: CREATININE SERUM 1.97 MG/DL (0.60-1.30)
[2021-03-12] MEDS: doxAzosin 4 MG (CARDURA) TAB PO SCH ×2 (05:59→14:03)
[2021-03-12] MEDS: POTASSIUM CL 10MEQ/50ML IVPB 50 ML IV SCH (05:59)
[2021-03-12] MEDS: MAGNESIUM 1 GM/100 ML IVPB 100 ML IV SCH (05:59)
[2021-03-12] MEDS: KCL 20 MEQ TAB (K-DUR) PO SCH (05:59)
[2021-03-12] MEDS: MULTIVIT W/MINERALS TAB (THERAGRAN M) PO SCH (05:59)
[2021-03-12] MEDS: CEFEPIME INJECTION 1,000 MG in NS (IVPB) 50 ML IV SCH ×2 (06:00→14:03)
--- NOTE | 2021-03-12 06:51 | Occ Therapy Progress Note ---
Therapy Progress Note Pt currently intubated. OT to monitor pt and will initiate treatment when pt is medically stable and able to actively participate in skilled therapy. JACKIE LEWIS Mar 12, 2021 06:51
--- NOTE | 2021-03-12 07:21 | Progress Note - Surgery ---
[facility] [place] 03/12/21 0721: Subjective Date Seen by a Provider: Mar 12, 2021 Time Seen by a Provider: 07:12 Subjective/Events-last exam Patient intubated and sedated. ET appearing to be in appropriate position Suprapubic catheter contiues to have improvement in urine color Hgb at 7.5 this morning. Yesterday was 8.1 Focused Exam Lactate Level 03/09/21 13:20: Lactic Acid Level 0.98 Objective Exam Vital Signs Date Time Temp Pulse Resp B/P (MAP) Pulse Ox O2 Delivery O2 Flow Rate FiO2 03/12/21 06:00 67 24 126/39 (68) 94 Mechanical Ventilator 21.00 03/12/21 05:00 70 32 182/49 (93) 95 Mechanical Ventilator 21.00 03/12/21 04:10 36.9 03/12/21 04:00 96 Mechanical Ventilator 21 03/12/21 04:00 72 136/42 (73) 95 Mechanical Ventilator 21.00 03/12/21 03:00 73 131/40 (70) 95 Mechanical Ventilator 21.00 03/12/21 02:20 73 16 95 21 03/12/21 02:00 72 31 134/43 (73) 95 Mechanical Ventilator 21.00 03/12/21 01:00 76 03/12/21 01:00 76 12 137/44 (75) 95 Mechanical Ventilator 21.00 03/12/21 00:00 96 Mechanical Ventilator 21 03/12/21 00:00 80 15 161/59 (93) 95 Mechanical Ventilator 21.00 03/11/21 23:00 81 15 126/37 (66) 94 Mechanical Ventilator 21.00 03/11/21 22:47 36.6 03/11/21 22:07 101 21 94 21 03/11/21 22:00 81 17 126/36 (66) 92 Mechanical Ventilator 21.00 03/11/21 21:00 104 24 144/67 (92) 93 Mechanical Ventilator 21.00 03/11/21 20:00 96 Mechanical Ventilator 21 03/11/21 20:00 115 13 190/60 (103) 94 Mechanical Ventilator 21.00 03/11/21 20:00 38.0 03/11/21 19:00 105 03/11/21 19:00 105 32 148/50 (82) 95 Mechanical Ventilator 21.00 03/11/21 18:08 101 21 94 21 03/11/21 18:00 101 19 174/57 (96) 94 Mechanical Ventilator 21.00 03/11/21 17:35 94 176/60 03/11/21 17:00 86 18 153/51 (85) 95 Mechanical Ventilator 21.00 03/11/21 16:00 97 Mechanical Ventilator 21 03/11/21 16:00 90 20 167/52 (90) 95 Mechanical Ventilator 21.00 03/11/21 15:51 37.6 03/11/21 15:00 92 19 163/49 (87) 94 Mechanical Ventilator 21.00 03/11/21 14:37 88 18 94 21 03/11/21 14:00 101 28 182/54 (96) 94 Mechanical Ventilator 21.00 03/11/21 13:00 110 30 194/54 (100) 96 Mechanical Ventilator 21.00 03/11/21 13:00 112 03/11/21 12:00 115 25 192/53 (99) 95 Mechanical Ventilator 21.00 03/11/21 12:00 96 Mechanical Ventilator 21 03/11/21 11:20 37.2 03/11/21 11:00 112 172/49 (90) 95 Mechanical Ventilator 21.00 03/11/21 10:38 112 21 98 21 03/11/21 10:06 111 28 96 21 03/11/21 10:00 112 29 173/49 (90) 96 Mechanical Ventilator 21.00 03/11/21 09:00 105 28 200/51 (100) 92 Mechanical Ventilator 21.00 03/11/21 08:30 96 Mechanical Ventilator 21 03/11/21 08:00 92 26 173/41 (85) 92 Mechanical Ventilator 21.00 03/11/21 07:30 37.1 I & O 03/12/21 07:00 Intake Total 605 ml Output Total 1675 ml Balance -1070 ml Capillary Refill : Less Than 3 Seconds General Appearance: No Apparent Distress, WD/WN, Other (intubated) HEENT: PERRL/EOMI, Normal ENT Inspection, Other (ng/et) Neck: Normal Inspection (no gross deformities), Supple Respiratory: Lungs Clear, No Respiratory Distress, Other (intubated and mechanically ventilated) Cardiovascular: Regular Rate, Rhythm, No Edema, No Murmur Peripheral Pulses: 2+ Radial Pulses (R), 2+ Radial Pulses (L) Gastrointestinal: non tender, soft, other (suprapubic catheter present) Extremity: Normal Inspection, No Pedal Edema Neurologic/Psychiatric: Alert, Other (unable to follow commands) Skin: Normal Color, Warm/Dry Lymphatic: No Adenopathy Results Lab Laboratory Tests 03/11/21 11:22: Glucometer 91 03/11/21 17:25: Glucometer 74 03/11/21 22:25: Glucometer 76 03/12/21 04:18: White Blood Count 5.7, Red Blood Count 2.07L, Hemoglobin 7.5L, Hematocrit 22L, Mean Corpuscular Volume 108H, Mean Corpuscular Hemoglobin 36H, Mean Corpuscular Hemoglobin Concent 34, Red Cell Distribution Width 12.7, Platelet Count 126L, Mean Platelet Volume 11.3, Immature Granulocyte % (Auto) 1, Neutrophils (%) (Auto) 66, Lymphocytes (%) (Auto) 18, Monocytes (%) (Auto) 9, Eosinophils (%) (Auto) 6, Basophils (%) (Auto) 1, Neutrophils # (Auto) 3.8, Lymphocytes # (Auto) 1.0, Monocytes # (Auto) 0.5, Eosinophils # (Auto) 0.4H, Basophils # (Auto) 0.1, Immature Granulocyte # (Auto) 0.0, Percent Immature Platelet Fraction 4.3, Blood Gas Puncture Site LEFT RADIAL, Blood Gas Patient Temperature 36.9, Arterial Blood pH 7.34*L, Arterial Blood Partial Pressure CO2 31L, Arterial Blood Partial Pressure O2 88, Arterial Blood HCO3 16*L, Arterial Blood Total CO2 17.3L, Arterial Blood Oxygen Saturation 97, Arterial Blood Base Excess -8.4L, Natalio Test ART LINE, Blood Gas Ventilator Setting YES, Blood Gas Inspired Oxygen 21%, Sodium Level 145, Potassium Level 3.9, Chloride Level 121H, Carbon Dioxide Level 15L, Anion Gap 9, Blood Urea Nitrogen 26H, Creatinine 1.97H, Estimat Glomerular Filtration Rate 33, BUN/Creatinine Ratio 13, Glucose Level 78, Calcium Level 8.2L, Corrected Calcium 9.5, Magnesium Level 2.0, Total Bilirubin 0.7, Aspartate Amino Transf (AST/SGOT) 29, Alanine Aminotransferase (ALT/SGPT) 13, Alkaline Phosphatase 66, Total Protein 6.2L, Albumin 2.4L Microbiology 03/09/21 Gram Stain - Final, Resulted 03/09/21 Sputum Culture - Preliminary, Resulted Usual upper respiratory jeannine 03/02/21 Urine Culture - Final, Complete NO GROWTH Assessment/Plan Assessment/Plan Assessment/Plan Alchohol withdrawal with perceptual disturbance Alcohol dependence Urethral trauma secondary to Iglesias catheter being pulled Urinary retention Electrolyte abnormalities Ventilator associated pneumonia Carbapenem resistant Pseudomonas infection HTN GERD Gout CKD Continue to monitor hgb Continue to monitor I&Os Intubated, decreasing sedation CIWA protocol Suprapubic catheter for drainage of bladder. IV fluids Vitamin replacement Monitor and replace electrolytes as needed Culture with Pseudomonas Continue Cefepime Urology consulted, recommended a cystoscopy at a later date due to trauma and swelling ARGENIS SMITH DO 03/12/21 0827: Subjective Subjective/Events-last exam Remains intubated and sedated. Urine yellow in color from suprapubic. No family at bedside. Objective Exam General Appearance: No Apparent Distress, Other (intubated) HEENT: PERRL/EOMI, Normal ENT Inspection, Other (ng/et) Neck: Normal Inspection (no gross deformities), Supple Respiratory: No Accessory Muscle Use, No Respiratory Distress, Other (intubated and mechanically ventilated) Cardiovascular: Regular Rate, Rhythm, No JVD Gastrointestinal: non tender, soft, other (suprapubic catheter present) Extremity: Normal Inspection Neurologic/Psychiatric: Other (sedated) Skin: Normal Color, Warm/Dry Lymphatic: No Adenopathy Assessment/Plan Assessment/Plan Assessment/Plan Alchohol withdrawal with perceptual disturbance Alcohol dependence Urethral trauma secondary to Iglesias catheter being pulled Urinary retention Electrolyte abnormalities Ventilator associated pneumonia Carbapenem resistant Pseudomonas infection HTN GERD Gout CKD Continue to monitor hgb Continue to monitor I&Os Intubated, decreasing sedation CIWA protocol Suprapubic catheter for drainage of bladder. IV fluids Vitamin replacement Monitor and replace electrolytes as needed Culture with Pseudomonas Continue Cefepime Urology consulted, recommended a cystoscopy at a later date due to trauma and swelling Will sign off, call if needed. Supervisory-Addendum Brief Verification & Attestation Participated in pt care: history, MDM, physical Personally performed: exam, history, MDM, supervision of care Care discussed with: Medical Student Procedures: n/a Results interpretation: Verified all documentation Verification and Attestation of Medical Student E/M Service A medical student performed and documented this service in my presence. I reviewed and verified all information documented by the medical student and made modifications to such information, when appropriate. I personally performed the physical exam and medical decision making. Argenis Smith, Mar 12, 2021,08:27 [facility] Mar 12, 2021 07:21 ARGENIS SMITH DO Mar 12, 2021 08:27
[2021-03-12] MEDS: PANTOPRAZOLE 40 MG (PROTONIX) VIAL IV SCH ×2 (08:11→21:07)
[2021-03-12] MEDS: polyethylene glycoL POWDER 17 GM (MIRALAX) PACK PO SCH ×2 (08:16→21:08)
[2021-03-12] MEDS: LORATADINE (CLARITIN) 10 MG TAB PO SCH (08:16)
[2021-03-12] MEDS: LACTULOSE SYRUP 10GM/15ML (ENULOSE) 30ML UDC PO SCH ×2 (08:16→21:07)
[2021-03-12] MEDS: LACRI-LUBE OPTHALMIC OINT 3.5 GM TUBE OU SCH ×2 (08:16→21:08)
[2021-03-12] MEDS: FOLIC ACID 1 MG TAB PO SCH (08:16)
[2021-03-12] MEDS: SENNA W/DOCUSATE (SENOKOT S) TABLET PO SCH ×2 (08:17→21:08)
[2021-03-12] MEDS: SODIUM BICARBONATE 650 MG TABLET (NON-FORMULARY) PO SCH ×3 (08:17→21:07)
[2021-03-12] MEDS: amLODIPine 5 MG (NORVASC) TAB PO SCH (08:17)
--- NOTE | 2021-03-12 08:26 | Physical Therapy Progress Note ---
Therapy Progress Note Patient remains sedated and intubated. PT will continue to follow patient status. ABDIAZIZ WOOD PT Mar 12, 2021 08:26
[2021-03-12] MEDS ORDERED: DexMEDEtomidine 250 ML DRIP 250 ML IV ONE (09:55)
[2021-03-12] MEDS: DexMEDEtomidine 250 ML DRIP 250 ML IV SCH (10:01)
[2021-03-12] MEDS: THIAMINE INJECTION 100 MG in NS (IVPB) 50 ML IV SCH (10:13)
[2021-03-12] MEDS: HALOPERIDOL 5 MG/ML (HALDOL) VIAL IM PRN (10:51)
--- NOTE | 2021-03-12 11:20 | Tele-ICU Progress Note ---
Subjective Date Seen by a Provider: Mar 12, 2021 Time Seen by a Provider: 11:20 Sepsis Event Evaluation Height, Weight, BMI Height: 5'8.00" Weight: 189lbs. oz. 85.428478rb; 28.53 BMI Method: Focused Exam Lactate Level 03/09/21 13:20: Lactic Acid Level 0.98 Exam Exam Patient acknowledged, consented, and participated in this virtual visit which was conducted using real time audio/video Vital Signs Date Time Temp Pulse Resp B/P (MAP) Pulse Ox O2 Delivery O2 Flow Rate FiO2 03/12/21 11:01 83 17 94 21 03/12/21 10:01 90 163/45 03/12/21 08:18 70 143/42 03/12/21 07:56 36.7 03/12/21 07:21 81 27 94 21 03/12/21 07:00 80 03/12/21 07:00 Mechanical Ventilator 21.00 03/12/21 06:00 67 24 126/39 (68) 94 Mechanical Ventilator 21.00 03/12/21 05:00 70 32 182/49 (93) 95 Mechanical Ventilator 21.00 03/12/21 04:10 36.9 03/12/21 04:00 96 Mechanical Ventilator 21 03/12/21 04:00 72 136/42 (73) 95 Mechanical Ventilator 21.00 03/12/21 03:00 73 131/40 (70) 95 Mechanical Ventilator 21.00 03/12/21 02:20 73 16 95 21 03/12/21 02:00 72 31 134/43 (73) 95 Mechanical Ventilator 21.00 03/12/21 01:00 76 03/12/21 01:00 76 12 137/44 (75) 95 Mechanical Ventilator 21.00 03/12/21 00:00 96 Mechanical Ventilator 21 03/12/21 00:00 80 15 161/59 (93) 95 Mechanical Ventilator 21.00 03/11/21 23:00 81 15 126/37 (66) 94 Mechanical Ventilator 21.00 03/11/21 22:47 36.6 03/11/21 22:07 101 21 94 21 03/11/21 22:00 81 17 126/36 (66) 92 Mechanical Ventilator 21.00 03/11/21 21:00 104 24 144/67 (92) 93 Mechanical Ventilator 21.00 03/11/21 20:00 96 Mechanical Ventilator 21 03/11/21 20:00 115 13 190/60 (103) 94 Mechanical Ventilator 21.00 03/11/21 20:00 38.0 03/11/21 19:00 105 03/11/21 19:00 105 32 148/50 (82) 95 Mechanical Ventilator 21.00 03/11/21 18:08 101 21 94 21 03/11/21 18:00 101 19 174/57 (96) 94 Mechanical Ventilator 21.00 03/11/21 17:35 94 176/60 03/11/21 17:00 86 18 153/51 (85) 95 Mechanical Ventilator 21.00 03/11/21 16:00 97 Mechanical Ventilator 21 03/11/21 16:00 90 20 167/52 (90) 95 Mechanical Ventilator 21.00 03/11/21 15:51 37.6 03/11/21 15:00 92 19 163/49 (87) 94 Mechanical Ventilator 21.00 03/11/21 14:37 88 18 94 21 03/11/21 14:00 101 28 182/54 (96) 94 Mechanical Ventilator 21.00 03/11/21 13:00 110 30 194/54 (100) 96 Mechanical Ventilator 21.00 03/11/21 13:00 112 03/11/21 12:00 115 25 192/53 (99) 95 Mechanical Ventilator 21.00 03/11/21 12:00 96 Mechanical Ventilator 21 I & O 03/12/21 07:00 Intake Total 605 ml Output Total 1675 ml Balance -1070 ml Height & Weight Height: 5'8.00" Weight: 189lbs. oz. 85.510138dq; 28.53 BMI Method: General Appearance: No Apparent Distress, Other (intubated) HEENT: PERRL/EOMI, Normal ENT Inspection, Other (ng/et) Neck: Normal Inspection (no gross deformities), Supple Respiratory: No Accessory Muscle Use, No Respiratory Distress, Other (intubated and mechanically ventilated) Cardiovascular: Regular Rate, Rhythm, No JVD Capillary Refill: Less Than 3 Seconds Peripheral Pulses: 2+ Radial Pulses (R), 2+ Radial Pulses (L) Gastrointestinal: non tender, soft, other (suprapubic catheter present) Extremity: Normal Inspection Neurologic/Psychiatric: Other (sedated) Skin: Normal Color, Warm/Dry Lymphatic: No Adenopathy Results Lab Laboratory Tests 03/11/21 03:43 03/12/21 04:18 Assessment/Plan Assessment/Plan (Tele-ICU Physician , Progress Note ) Available chart/ vitals / labs / Images reviewed Video assessment done using teleICU camera, rest of exam as per RN Discussed with RN , EXAM PER RN Events overnight : Afebrile FiO2 - 35% I/O = even Drips: Pressors: , hemodynamically stable Sedation gtt: propofol ( RASS -1 ) VENT SETTINGS and ABG reviewed candidate for SBT today REVIEWED Cardiovascular Stability / Sedation Score / FI02/PEEP / ABG / CXR Consultants: Hospital course: 03/02 - intubated for AMS - extubated -03/09 - reintubated A/P ARF - intubated for acute hypercarbic resp fauilure 03/09 - Failed SBT with incr RR and small TV 03/11 03/12 - agitated , not follow commands moves all 4 - decrease propofol , staring precedex , add haldol IM x1 Mental status change, -acute renal failure, and hyperbilirubinemia and elevated ammonia of undetermined etiology on admission Anemia - slow rend down of HB - no active bleeding - folow Met acidosis - not clear on etiology ( no clear signs of ULYSSES with propofol - check lactate PNA- sputum wi9th PSA from 03/04 - on cefepime EDWARD? - most likely CKI - - stable Heavy ETOH abuse - vitamins HTN - as per cards + blood in mouth by RN 03/03 - lip - monitor URETHRAL TRAUMA, HEMATURIA, - urology follow , CA BLADDER HISTORY- cystoscopy latter Lines : (Central Line Necessity Reviewed) Iglesias: OG: Nutrition: start TF today Analgesia: Anxiety/ delirium ciwa VTE Prophylaxis: glenn 30 Stress Ulcer Prophylaxis: tf Glycemic Control: Plans in collaboration with bedside consultants and IM MDs. Discussed with RN to reach out if any questions or concerns A total of 34 minutes of critical care time was devoted to this patient today, required to treat and/or prevent further deterioration of critical care condition ( as above) . CORI HERMOSILLO MD Mar 12, 2021 11:20
[2021-03-12] MEDS: NOREPINEPHRINE 8 MG/250 ML 250 ML IV SCH (11:58)
[2021-03-12] MEDS ORDERED: HALOPERIDOL 5 MG/ML (HALDOL) VIAL IM ONE (12:00)
[2021-03-12] MEDS ORDERED: DEXTROSE 50% 50 ML (IMS) SYR ONE (17:47)
--- NOTE | 2021-03-12 19:47 | Progress Note - Hospitalist ---
Subjective HPI/CC On Admission Date Seen by Provider: Mar 12, 2021 Time Seen by Provider: 09:50 CC: Altered mental status with alcohol withdrawal HPI: This is a 76yoWM who has a hx of alcoholism who presented to the [facility] ER found to have altered mental status and findings consistent with alcohol withdrawal. His creatinine was 3.1 consistent with dehydration so he was admitted for IV fluids and alcohol withdrawal treatment and today his creatinine is much better at 2.49. Elevated BP requiring aggressive BP medications. He does not have his hearing aids so it is very difficult to communicate. His is at the bedside and speaks broken Tajik since she is apparently Faroese. I tried to update her with everything that she needs to know and she needs him to stay here as long as possible because she has to work. Subjective/Events-last exam He is awake but not following commands. His is at the bedside. Focused Exam Lactate Level 03/12/21 11:35: Lactic Acid Level 0.42L Objective Exam Vital Signs Vital Signs Date Time Temp Pulse Resp B/P (MAP) Pulse Ox O2 Delivery O2 Flow Rate FiO2 03/12/21 18:46 64 15 95 21 03/12/21 18:00 156/48 (84) Mechanical Ventilator 21.00 03/12/21 16:07 37.0 Capillary Refill : Less Than 3 Seconds General Appearance: No Apparent Distress, Chronically ill, Obese, Other (intubated) Respiratory: Lungs Clear, Normal Breath Sounds, No Respiratory Distress Cardiovascular: Regular Rate, Rhythm, No Edema, No Murmur Gastrointestinal: Normal Bowel Sounds, Soft Neurologic/Psychiatric: Alert, Other (uncooperative, not following commands) Skin: Normal Color, Warm/Dry Results/Procedures Lab Laboratory Tests 03/12/21 04:18 Patient resulted labs reviewed. Imaging: Reviewed Imaging Report Assessment/Plan Assessment and Plan Assess & Plan/Chief Complaint Urethral trauma Iglesias complication Gross hematuria Acute blood loss anemia Urinary retention Suprapubic catheter Surgery following Suprapubic catheter in place Urology following Planning for cystoscopy after extubated Acute respiratory failure with hypoxia Mucous plugging Endotracheally intubated Reintubated 03/10 TeleICU consulted Ventilator management per eICU Minimal ventilator support required Unable to extubate at this time due to inability to follow commands Alchohol withdrawal with perceptual disturbance Alcohol dependence Electrolyte abnormalities [facility] protocol IV fluids Vitamin replacement Monitor and replace electrolytes as needed Schedule Ativan Ventilator associated pneumonia Carbapenem resistant Pseudomonas infection Culture with Pseudomonas Continue Cefepime HTN GERD Gout CKD DVT prophylaxis: Lovenox Critical Care Critically Ill Patient Diagnosis/Problems Diagnosis/Problems (1) Alcohol withdrawal syndrome with perceptual disturbance Status: Acute (2) Alcohol dependence Status: Acute Qualifiers: Substance use status: in withdrawal Complication of substance-induced condition: with perceptual disturbance Qualified Codes: F10.232 - Alcohol dependence with withdrawal with perceptual disturbance (3) Electrolyte abnormality Status: Acute (4) Endotracheally intubated Status: Acute (5) Hypokalemia Status: Acute (6) CKD (chronic kidney disease) Status: Chronic Qualifiers: Chronic kidney disease stage: stage 3 (moderate) Chronic kidney disease stage 3 subtype: stage 3b (GFR 30-44) Qualified Codes: N18.32 - Chronic kidney disease, stage 3b (7) HTN (hypertension) Status: Chronic (8) GERD (gastroesophageal reflux disease) Status: Chronic (9) Gout Status: Chronic (10) VAP (ventilator-associated pneumonia) Status: Acute (11) Infection due to carbapenem resistant Pseudomonas aeruginosa Status: Acute (12) Dislodged Iglesias catheter Status: Acute Qualifiers: Encounter type: initial encounter Qualified Codes: T83.021A - Displacement of indwelling urethral catheter, initial encounter (13) Urinary retention Status: Acute (14) Suprapubic catheter Status: Acute (15) Traumatic injury of urethra Status: Acute (16) Gross hematuria Status: Acute GORDON MARIE MD Mar 12, 2021 19:47
[2021-03-12] MEDS: ENOXAPARIN 30 MG/0.3 ML (LOVENOX) SYR SC SCH (21:07)
[2021-03-13] VITALS (29 sets, daily range): BP systolic 97–187; BP diastolic 44–89
[2021-03-13] MEDS: LORazepam INJ 2 MG/ML (ATIVAN) VIAL IVP SCH ×8 (00:01→22:47)
[2021-03-13] MEDS: NS IV 1000 ML 1,000 ML IV SCH ×3 (00:01→19:56)
[2021-03-13] MEDS: doxAzosin 4 MG (CARDURA) TAB PO SCH ×4 (00:01→22:46)
[2021-03-13] MEDS: CEFEPIME INJECTION 1,000 MG in NS (IVPB) 50 ML IV SCH ×4 (00:02→22:47)
[2021-03-13] MEDS: NOREPINEPHRINE 8 MG/250 ML 250 ML IV SCH ×2 (00:02→18:27)
[2021-03-13] MEDS: PROPOFOL DRIP (ICU) 100 ML IV SCH (02:43)
[2021-03-13] MEDS: RT-ALBUTEROL SULF 2.5 MG/3 ML PRE-MIX VIAL INH SCH ×6 (02:57→21:25)
[2021-03-13 04:47] LABS: BASOPHILS % (AUTO) 1 % (0-10); EOSINOPHILS # (AUTO) 0.4 10^3/uL (0.0-0.3); EOSINOPHILS % (AUTO) 7 % (0-10); HEMATOCRIT 24 % (40-54); HEMOGLOBIN 8.2 g/dL (13.3-17.7); LYMPHOCYTES # (AUTO) 0.9 10^3/uL (1.0-4.0); LYMPHOCYTES % (AUTO) 17 % (12-44); MEAN CORPUSCULAR HEMOGLOBIN 36 pg (25-34); MEAN CORPUSCULAR HGB CONC 34 g/dL (32-36); MEAN CORPUSCULAR VOLUME 108 fL (80-99); MONOCYTES # (AUTO) 0.4 10^3/uL (0.0-1.0); MONOCYTES % (AUTO) 8 % (0-12); NEUTROPHILS # (AUTO) 3.5 10^3/uL (1.8-7.8); NEUTROPHILS % (AUTO) 67 % (42-75); PLATELET COUNT 134 10^3/uL (130-400); WHITE BLOOD COUNT 5.2 10^3/uL (4.3-11.0)
[2021-03-13 04:54] LABS: ALBUMIN 2.4 GM/DL (3.2-4.5); POTASSIUM 4.1 MMOL/L (3.6-5.0)
[2021-03-13 04:56] LABS: CALCIUM 8.4 MG/DL (8.5-10.1)
[2021-03-13 04:57] LABS: TOTAL PROTEIN 6.6 GM/DL (6.4-8.2)
[2021-03-13 04:59] LABS: BILIRUBIN,TOTAL 0.6 MG/DL (0.1-1.0)
[2021-03-13 05:01] LABS: CREATININE SERUM 1.9 MG/DL (0.60-1.30)
[2021-03-13 05:03] LABS: MAGNESIUM 1.8 MG/DL (1.6-2.4)
[2021-03-13] MEDS: KCL 20 MEQ TAB (K-DUR) PO SCH (05:27)
[2021-03-13] MEDS: MAGNESIUM 1 GM/100 ML IVPB 100 ML IV SCH (05:27)
[2021-03-13] MEDS: POTASSIUM CL 10MEQ/50ML IVPB 50 ML IV SCH (05:27)
[2021-03-13] MEDS: THIAMINE 100 MG (VITAMIN B-1) TAB PO SCH (06:03)
[2021-03-13] MEDS: MULTIVIT W/MINERALS TAB (THERAGRAN M) PO SCH (06:04)
--- NOTE | 2021-03-13 06:52 | Occ Therapy Progress Note ---
Therapy Progress Note Pt currently intubated. OT to monitor pt's status and will initiate treatment when pt is medically stable to actively participate skilled therapy. JACKIE LEWIS Mar 13, 2021 06:52
--- NOTE | 2021-03-13 07:32 | Physical Therapy Progress Note ---
Therapy Progress Note Pt currently intubated. PT to monitor pt's status and will initiate treatment when pt is medically stable to actively participate skilled therapy. BALAJI DICKINSON PT Mar 13, 2021 07:32
[2021-03-13] MEDS: LORATADINE (CLARITIN) 10 MG TAB PO SCH (08:51)
[2021-03-13] MEDS: amLODIPine 5 MG (NORVASC) TAB PO SCH (08:51)
[2021-03-13] MEDS: LACRI-LUBE OPTHALMIC OINT 3.5 GM TUBE OU SCH ×2 (08:51→19:57)
[2021-03-13] MEDS: polyethylene glycoL POWDER 17 GM (MIRALAX) PACK PO SCH ×2 (08:51→22:08)
[2021-03-13] MEDS: PANTOPRAZOLE 40 MG (PROTONIX) VIAL IV SCH ×2 (08:51→19:57)
[2021-03-13] MEDS: LACTULOSE SYRUP 10GM/15ML (ENULOSE) 30ML UDC PO SCH ×2 (08:51→19:56)
[2021-03-13] MEDS: SODIUM BICARBONATE 650 MG TABLET (NON-FORMULARY) PO SCH ×3 (08:51→19:57)
[2021-03-13] MEDS: FOLIC ACID 1 MG TAB PO SCH (08:51)
[2021-03-13] MEDS: SENNA W/DOCUSATE (SENOKOT S) TABLET PO SCH ×2 (08:52→22:08)
[2021-03-13] MEDS ORDERED: FUROSEMIDE 40 MG/4 ML INJ (LASIX) IVP ONE (09:00)
[2021-03-13] MEDS: hydrALAZINE (APESOLINE) 20 MG/ML VIAL IV PRN ×2 (09:17→18:03)
--- NOTE | 2021-03-13 11:04 | Tele-ICU Progress Note ---
Subjective Date Seen by a Provider: Mar 13, 2021 Time Seen by a Provider: 11:03 Sepsis Event Evaluation Height, Weight, BMI Height: 5'8.00" Weight: 189lbs. oz. 85.213798uh; 28.53 BMI Method: Focused Exam Lactate Level 03/12/21 11:35: Lactic Acid Level 0.42L Exam Exam Patient acknowledged, consented, and participated in this virtual visit which was conducted using real time audio/video Vital Signs Date Time Temp Pulse Resp B/P (MAP) Pulse Ox O2 Delivery O2 Flow Rate FiO2 03/13/21 10:00 98 37 146/45 (78) 96 Mechanical Ventilator 21.00 03/13/21 09:00 84 26 187/55 (99) 95 Mechanical Ventilator 21.00 03/13/21 08:00 74 14 179/55 (96) 96 Mechanical Ventilator 21.00 03/13/21 07:57 74 17 96 21 03/13/21 07:40 36.2 03/13/21 07:00 70 14 167/52 (90) 96 Mechanical Ventilator 21.00 03/13/21 07:00 68 03/13/21 06:00 57 16 160/50 (86) 96 Mechanical Ventilator 21.00 03/13/21 05:00 60 15 160/51 (87) 96 Mechanical Ventilator 21.00 03/13/21 04:00 62 17 161/88 (112) 95 Mechanical Ventilator 21.00 03/13/21 04:00 95 Mechanical Ventilator 21 03/13/21 03:00 62 13 162/51 (88) 96 Mechanical Ventilator 21.00 03/13/21 02:57 63 16 96 21 03/13/21 02:43 61 161/51 03/13/21 02:00 60 14 156/49 (84) 95 Mechanical Ventilator 21.00 03/13/21 01:00 60 19 157/49 (85) 95 Mechanical Ventilator 21.00 03/13/21 01:00 60 03/13/21 00:00 61 14 156/48 (84) 95 Mechanical Ventilator 21.00 03/12/21 23:33 91 Mechanical Ventilator 21 03/12/21 23:00 68 14 157/48 (84) 95 Mechanical Ventilator 21.00 03/12/21 22:00 61 17 158/49 (85) 95 Mechanical Ventilator 21.00 03/12/21 21:56 64 15 95 21 12/29/21 20:00 65 15 162/50 (87) 95 Mechanical Ventilator 21.00 03/12/21 20:00 91 Mechanical Ventilator 21 03/12/21 19:48 37.0 03/12/21 19:00 65 19 144/74 (97) 95 Mechanical Ventilator 21.00 03/12/21 19:00 64 03/12/21 18:46 64 15 95 21 03/12/21 18:00 62 25 156/48 (84) 95 Mechanical Ventilator 21.00 03/12/21 17:00 64 24 150/49 (82) 95 Mechanical Ventilator 21.00 03/12/21 16:07 37.0 03/12/21 16:00 91 Mechanical Ventilator 21 03/12/21 16:00 68 30 142/45 (77) 93 Mechanical Ventilator 21.00 03/12/21 15:00 86 153/48 (83) 94 Mechanical Ventilator 21.00 03/12/21 14:46 91 18 97 21 03/12/21 14:00 89 153/45 (81) 95 Mechanical Ventilator 21.00 03/12/21 13:00 74 03/12/21 13:00 85 13 166/52 (90) 96 Mechanical Ventilator 21.00 03/12/21 12:00 91 Mechanical Ventilator 21 03/12/21 12:00 73 28 138/41 (73) 95 Mechanical Ventilator 21.00 03/12/21 12:00 37.0 I & O 03/13/21 07:00 Intake Total 545 ml Output Total 1975 ml Balance -1430 ml Height & Weight Height: 5'8.00" Weight: 189lbs. oz. 85.574480wu; 28.53 BMI Method: General Appearance: No Apparent Distress, Chronically ill, Obese, Other (intubated) HEENT: PERRL/EOMI, Normal ENT Inspection, Other (ng/et) Neck: Normal Inspection (no gross deformities), Supple Respiratory: Lungs Clear, Normal Breath Sounds, No Respiratory Distress Cardiovascular: Regular Rate, Rhythm, No Edema, No Murmur Capillary Refill: Less Than 3 Seconds Peripheral Pulses: 2+ Radial Pulses (R), 2+ Radial Pulses (L) Gastrointestinal: non tender, soft, other (suprapubic catheter present) Extremity: Normal Inspection Neurologic/Psychiatric: Alert, Other (uncooperative, not following commands) Skin: Normal Color, Warm/Dry Lymphatic: No Adenopathy Results Lab Laboratory Tests 03/12/21 04:18 03/13/21 04:30 Assessment/Plan Assessment/Plan (Tele-ICU Physician , Progress Note ) Available chart/ vitals / labs / Images reviewed Video assessment done using teleICU camera, rest of exam as per RN Discussed with RN , EXAM PER RN Events overnight : Afebrile FiO2 - 35% I/O = even Drips: Pressors: , hemodynamically stable Sedation gtt: propofol ( RASS -1 ) VENT SETTINGS and ABG reviewed candidate for SBT today REVIEWED Cardiovascular Stability / Sedation Score / FI02/PEEP / ABG / CXR Consultants: Hospital course: 03/02 - intubated for AMS - extubated -03/09 - reintubated A/P ARF - intubated for acute hypercarbic resp fauilure 03/09 - Failed SBT with incr RR and small TV 03/11 03/12 - agitated , not follow commands moves all 4 - decrease propofol , star ing precedex , add haldol IM x1 03/13 - back on propofol - cj with precedex ( biut BP ok ) and too sedated with haldol WILL TRY TO FIND sedation regiment for safe SBT Mental status change, -acute renal failure, and hyperbilirubinemia and elevated ammonia of undetermined etiology on admission Anemia - slow rend down of HB - no active bleeding - folow Met acidosis - not clear on etiology ( no clear signs of ULYSSES with propofol - lactate WNL PNA- sputum wi9th PSA from 03/04 - on cefepime , repeated cx form ETT sputum pending EDWARD? - most likely CKI - - stable Heavy ETOH abuse - vitamins, benzo prn HTN - as per cards + blood in mouth by RN 03/03 - lip - monitor URETHRAL TRAUMA, HEMATURIA, - urology follow , CA BLADDER HISTORY- cystoscopy latter Lines : (Central Line Necessity Reviewed) Iglesias: OG: Nutrition: start TF today Analgesia: Anxiety/ delirium ciwa VTE Prophylaxis: glenn 30 Stress Ulcer Prophylaxis: tf Glycemic Control: Plans in collaboration with bedside consultants and IM MDs. Discussed with RN to reach out if any questions or concerns A total of 34 minutes of critical care time was devoted to this patient today, required to treat and/or prevent further deterioration of critical care condition ( as above) . SHULZHENKO,CORI V MD Mar 13, 2021 11:03
[2021-03-13] MEDS: morphine INJ 4 MG/ML 1 ML (VIAL/SYRINGE) IVP PRN ×2 (11:36→17:56)
[2021-03-13] MEDS: ACETAMINOPHEN 500 MG TAB (TYLENOL) PO PRN (11:39)
--- NOTE | 2021-03-13 13:14 | Progress Note - Urology ---
Progress Note-Urology Progress Notes/Assess & Plan Progress/Assessment & Plan FAILED EXTUBATION. URINE RAÚL AND CLEAR. SAME PLAN GIRON Final Diagnosis GROSS HEMATURIA ASMITA HUYNH MD Mar 13, 2021 13:14
--- NOTE | 2021-03-13 16:32 | Progress Note - Hospitalist ---
Subjective HPI/CC On Admission Date Seen by Provider: Mar 13, 2021 Time Seen by Provider: 08:40 CC: Altered mental status with alcohol withdrawal HPI: This is a 76yoWM who has a hx of alcoholism who presented to the [facility] ER found to have altered mental status and findings consistent with alcohol withdrawal. His creatinine was 3.1 consistent with dehydration so he was admitted for IV fluids and alcohol withdrawal treatment and today his creatinine is much better at 2.49. Elevated BP requiring aggressive BP medications. He does not have his hearing aids so it is very difficult to communicate. His is at the bedside and speaks broken French since she is apparently [place]. I tried to update her with everything that she needs to know and she needs him to stay here as long as possible because she has to work. Subjective/Events-last exam He remains intubated and sedated. His is at the bedside and all questions were answered. Focused Exam Lactate Level 03/12/21 11:35: Lactic Acid Level 0.42L Objective Exam Vital Signs Vital Signs Date Time Temp Pulse Resp B/P (MAP) Pulse Ox O2 Delivery O2 Flow Rate FiO2 03/13/21 15:00 96 16 155/64 (94) 99 Mechanical Ventilator 21.00 03/13/21 14:55 21 03/13/21 07:40 36.2 Capillary Refill : Less Than 3 Seconds General Appearance: No Apparent Distress, Obese HEENT: PERRL/EOMI, Pharynx Normal Neck: Normal Inspection, Supple Respiratory: Lungs Clear, Normal Breath Sounds, No Respiratory Distress, Other (intubated and mechanically ventilated) Cardiovascular: Regular Rate, Rhythm, No Murmur Gastrointestinal: Normal Bowel Sounds, Soft Extremity: Normal Inspection, Swelling Neurologic/Psychiatric: Alert, Other (unable to follow commands, moving extremities spontaneously) Skin: Normal Color, Warm/Dry Results/Procedures Lab Laboratory Tests 03/13/21 04:30 Patient resulted labs reviewed. Imaging: Reviewed Imaging Report Assessment/Plan Assessment and Plan Assess & Plan/Chief Complaint Urethral trauma Iglesias complication Gross hematuria Acute blood loss anemia Urinary retention Suprapubic catheter Surgery following Suprapubic catheter in place Urology following Planning for cystoscopy after extubated Acute respiratory failure with hypoxia Mucous plugging Endotracheally intubated Reintubated 03/10 TeleICU consulted Ventilator management per eICU Minimal ventilator support required Continue to attempt ventilator weaning Alchohol withdrawal with perceptual disturbance Alcohol dependence Electrolyte abnormalities CIWA protocol IV fluids Vitamin replacement Monitor and replace electrolytes as needed Continue Ativan Ventilator associated pneumonia Carbapenem resistant Pseudomonas infection Culture with Pseudomonas Continue Cefepime HTN GERD Gout CKD DVT prophylaxis: Lovenox Critical Care Critically Ill Patient Diagnosis/Problems Diagnosis/Problems (1) Alcohol withdrawal syndrome with perceptual disturbance Status: Acute (2) Alcohol dependence Status: Acute Qualifiers: Substance use status: in withdrawal Complication of substance-induced condition: with perceptual disturbance Qualified Codes: F10.232 - Alcohol dependence with withdrawal with perceptual disturbance (3) Electrolyte abnormality Status: Acute (4) Endotracheally intubated Status: Acute (5) Hypokalemia Status: Acute (6) CKD (chronic kidney disease) Status: Chronic Qualifiers: Chronic kidney disease stage: stage 3 (moderate) Chronic kidney disease stage 3 subtype: stage 3b (GFR 30-44) Qualified Codes: N18.32 - Chronic kidney disease, stage 3b (7) HTN (hypertension) Status: Chronic (8) GERD (gastroesophageal reflux disease) Status: Chronic (9) Gout Status: Chronic (10) VAP (ventilator-associated pneumonia) Status: Acute (11) Infection due to carbapenem resistant Pseudomonas aeruginosa Status: Acute (12) Dislodged Iglesias catheter Status: Acute Qualifiers: Encounter type: initial encounter Qualified Codes: T83.021A - Displacement of indwelling urethral catheter, initial encounter (13) Urinary retention Status: Acute (14) Suprapubic catheter Status: Acute (15) Traumatic injury of urethra Status: Acute (16) Gross hematuria Status: Acute GORDON MARIE MD Mar 13, 2021 16:32
[2021-03-13] MEDS: DexMEDEtomidine 250 ML DRIP 250 ML IV SCH (18:04)
[2021-03-13] MEDS ORDERED: ACETAMINOPHEN 325 MG TABLET PO PRN (18:15)
[2021-03-13] MEDS: ENOXAPARIN 40 MG/0.4 ML (LOVENOX) SYR SC SCH (19:57)
[2021-03-14] VITALS (26 sets, daily range): BP systolic 114–181; BP diastolic 45–63
[2021-03-14] MEDS: PROPOFOL DRIP (ICU) 100 ML IV SCH ×3 (02:47→20:44)
[2021-03-14] MEDS: RT-ALBUTEROL SULF 2.5 MG/3 ML PRE-MIX VIAL INH SCH ×6 (02:55→22:17)
[2021-03-14] MEDS: LORazepam INJ 2 MG/ML (ATIVAN) VIAL IVP SCH ×6 (03:35→23:11)
[2021-03-14 04:52] LABS: BASOPHILS # (AUTO) 0.1 10^3/uL (0.0-0.1); BASOPHILS % (AUTO) 1 % (0-10); EOSINOPHILS # (AUTO) 0.4 10^3/uL (0.0-0.3); EOSINOPHILS % (AUTO) 5 % (0-10); HEMATOCRIT 24 % (40-54); HEMOGLOBIN 8.2 g/dL (13.3-17.7); LYMPHOCYTES # (AUTO) 0.6 10^3/uL (1.0-4.0); LYMPHOCYTES % (AUTO) 10 % (12-44); MEAN CORPUSCULAR HEMOGLOBIN 36 pg (25-34); MEAN CORPUSCULAR HGB CONC 34 g/dL (32-36); MEAN CORPUSCULAR VOLUME 107 fL (80-99); MEAN PLATELET VOLUME 10.8 fL (9.0-12.2); MONOCYTES # (AUTO) 0.5 10^3/uL (0.0-1.0); MONOCYTES % (AUTO) 7 % (0-12); NEUTROPHILS # (AUTO) 5.1 10^3/uL (1.8-7.8); NEUTROPHILS % (AUTO) 77 % (42-75); PLATELET COUNT 134 10^3/uL (130-400); WHITE BLOOD COUNT 6.7 10^3/uL (4.3-11.0)
[2021-03-14 05:02] LABS: ABG BASE EXCESS -10.1 MMOL/L (-2.5-2.5); ABG OXYGEN SATURATION 97 % (94-100); ABG PCO2 26 MMHG (35-45); ABG PH 7.36 (7.37-7.43); ABG PO2 83 MMHG (79-93); ABG TCO2 15.1 MMOL/L (21.0-31.0); ALLENS TEST ARTLINE; INSPIRED O2 21%; PATIENT TEMP 37.4; POTASSIUM 3.8 MMOL/L (3.6-5.0); VENTILATOR YES
[2021-03-14 05:03] LABS: CALCIUM 8.2 MG/DL (8.5-10.1)
[2021-03-14 05:07] LABS: CREATININE SERUM 1.97 MG/DL (0.60-1.30); PHOSPHORUS 3.7 MG/DL (2.3-4.7)
[2021-03-14 05:10] LABS: MAGNESIUM 1.6 MG/DL (1.6-2.4)
[2021-03-14] MEDS: POTASSIUM CL 10MEQ/50ML IVPB 50 ML IV SCH (05:26)
[2021-03-14] MEDS: KCL 20 MEQ TAB (K-DUR) PO SCH (05:26)
[2021-03-14] MEDS: MAGNESIUM 1 GM/100 ML IVPB 100 ML IV SCH (05:26)
[2021-03-14] MEDS: doxAzosin 4 MG (CARDURA) TAB PO SCH ×3 (05:44→20:45)
[2021-03-14] MEDS: MULTIVIT W/MINERALS TAB (THERAGRAN M) PO SCH (05:44)
[2021-03-14] MEDS: NS IV 1000 ML 1,000 ML IV SCH ×2 (05:44→15:27)
[2021-03-14] MEDS: THIAMINE 100 MG (VITAMIN B-1) TAB PO SCH (05:44)
[2021-03-14] MEDS: CEFEPIME INJECTION 1,000 MG in NS (IVPB) 50 ML IV SCH ×3 (05:44→20:45)
--- NOTE | 2021-03-14 06:45 | Occ Therapy Progress Note ---
Therapy Progress Note Pt currently intubated. OT to monitor pt's status and will initiate treatment when pt is medically stable and able to actively participate in skilled therapy. JACKIE LEWIS Mar 14, 2021 06:45
--- NOTE | 2021-03-14 07:10 | Physical Therapy Progress Note ---
Therapy Progress Note Patient remains sedated and intubated. PT will continue to monitor patient status. BALAJI DICKINSON PT Mar 14, 2021 07:10
[2021-03-14] MEDS: FOLIC ACID 1 MG TAB PO SCH (07:49)
[2021-03-14] MEDS: LORATADINE (CLARITIN) 10 MG TAB PO SCH (07:49)
[2021-03-14] MEDS: SODIUM BICARBONATE 650 MG TABLET (NON-FORMULARY) PO SCH ×3 (07:49→20:45)
[2021-03-14] MEDS: PANTOPRAZOLE 40 MG (PROTONIX) VIAL IV SCH ×2 (07:49→20:44)
[2021-03-14] MEDS: polyethylene glycoL POWDER 17 GM (MIRALAX) PACK PO SCH ×2 (07:50→20:44)
[2021-03-14] MEDS: LACRI-LUBE OPTHALMIC OINT 3.5 GM TUBE OU SCH ×2 (07:50→20:44)
[2021-03-14] MEDS: amLODIPine 5 MG (NORVASC) TAB PO SCH (07:50)
[2021-03-14] MEDS: NOREPINEPHRINE 8 MG/250 ML 250 ML IV SCH ×2 (07:51→23:54)
[2021-03-14] MEDS: SENNA W/DOCUSATE (SENOKOT S) TABLET PO SCH ×2 (07:51→20:44)
--- NOTE | 2021-03-14 12:10 | Tele-ICU Progress Note ---
Subjective Date Seen by a Provider: Mar 14, 2021 Time Seen by a Provider: 12:04 Subjective/Events-last exam patient having diarrhoea due to lactulose which probably causing metabolic acidosis. on vent. not ready for sbt's Sepsis Event Evaluation Height, Weight, BMI Height: 5'8.00" Weight: 189lbs. oz. 85.659583pf; 28.53 BMI Method: Focused Exam Lactate Level 03/12/21 11:35: Lactic Acid Level 0.42L Exam Exam Patient acknowledged, consented, and participated in this virtual visit which was conducted using real time audio/video Vital Signs Date Time Temp Pulse Resp B/P (MAP) Pulse Ox O2 Delivery O2 Flow Rate FiO2 03/14/21 11:45 37.5 03/14/21 11:00 93 16 164/55 (91) 94 Mechanical Ventilator 21.00 03/14/21 10:00 82 22 164/51 (88) 96 Mechanical Ventilator 21.00 03/14/21 09:00 71 17 151/47 (81) 96 Mechanical Ventilator 21.00 03/14/21 08:00 84 22 176/55 (95) 96 Mechanical Ventilator 21.00 03/14/21 08:00 37.1 03/14/21 07:16 76 20 97 21 03/14/21 07:00 64 17 158/51 (86) 95 Mechanical Ventilator 21.00 03/14/21 07:00 64 03/14/21 06:00 80 20 172/57 (95) 96 Mechanical Ventilator 21.00 03/14/21 05:00 67 18 164/50 (88) 96 Mechanical Ventilator 21.00 03/14/21 04:00 69 16 155/48 (83) 95 Mechanical Ventilator 21.00 03/14/21 04:00 94 Mechanical Ventilator 21 03/14/21 03:00 79 20 164/57 (92) 98 Mechanical Ventilator 21.00 03/14/21 02:56 76 20 97 21 03/14/21 02:00 70 13 156/50 (85) 93 Mechanical Ventilator 21.00 03/14/21 01:00 68 03/14/21 01:00 68 15 150/48 (82) 96 Mechanical Ventilator 21.00 03/14/21 00:00 80 19 160/52 (88) 96 Mechanical Ventilator 21.00 03/14/21 00:00 94 Mechanical Ventilator 21 03/13/21 23:00 83 18 161/50 (87) 95 Mechanical Ventilator 21.00 03/13/21 22:00 75 16 141/44 (76) 94 Mechanical Ventilator 21.00 03/13/21 21:25 75 17 93 21 03/13/21 21:00 70 16 140/46 (77) 94 Mechanical Ventilator 21.00 03/13/21 20:00 76 14 147/48 (81) 93 Mechanical Ventilator 21.00 03/13/21 20:00 94 Mechanical Ventilator 21 03/13/21 19:54 37.7 03/13/21 19:00 82 19 145/48 (80) 94 Mechanical Ventilator 21.00 03/13/21 19:00 82 03/13/21 18:20 77 19 95 21 03/13/21 18:04 87 176/66 03/13/21 18:00 90 23 180/89 (119) 89 Mechanical Ventilator 21.00 03/13/21 17:00 87 17 160/60 (93) 95 Mechanical Ventilator 21.00 03/13/21 16:00 94 Mechanical Ventilator 21 03/13/21 16:00 68 23 137/46 (76) 90 Mechanical Ventilator 21.00 03/13/21 15:00 96 16 155/64 (94) 99 Mechanical Ventilator 21.00 03/13/21 14:55 95 22 94 21 03/13/21 14:00 86 21 181/69 (106) 98 Mechanical Ventilator 21.00 03/13/21 13:00 81 03/13/21 13:00 88 10 154/51 (85) 95 Mechanical Ventilator 21.00 I & O 03/14/21 06:59 Intake Total 960 ml Output Total 3650 ml Balance -2690 ml Height & Weight Height: 5'8.00" Weight: 189lbs. oz. 85.583553gt; 28.53 BMI Method: General Appearance: No Apparent Distress, Obese HEENT: PERRL/EOMI, Pharynx Normal Neck: Normal Inspection, Supple Respiratory: Lungs Clear, Normal Breath Sounds, No Respiratory Distress, Other (intubated and mechanically ventilated) Cardiovascular: Regular Rate, Rhythm, No Murmur Capillary Refill: Less Than 3 Seconds Peripheral Pulses: 2+ Radial Pulses (R), 2+ Radial Pulses (L) Gastrointestinal: non tender, soft, other (suprapubic catheter present) Extremity: Normal Inspection, Swelling Neurologic/Psychiatric: Alert, Other (unable to follow commands, moving ex tremities spontaneously) Skin: Normal Color, Warm/Dry Lymphatic: No Adenopathy Results Lab Laboratory Tests 03/13/21 04:30 03/14/21 04:35 Assessment/Plan Assessment/Plan (Tele-ICU Physician , Progress Note ) Available chart/ vitals / labs / Images reviewed Video assessment done using teleICU camera, rest of exam as per RN Discussed with RN , EXAM PER RN Events overnight : Afebrile FiO2 - 35% I/O = even Drips: Has metabolic acidosis probably due to diarrhoea Pressors: , hemodynamically stable Sedation gtt: propofol ( RASS -1 ) VENT SETTINGS and ABG reviewed Not a candidate for SBT today REVIEWED Cardiovascular Stability / Sedation Score / FI02/PEEP / ABG / CXR Consultants: Hospital course: 03/02 - intubated for AMS - extubated -03/09 - reintubated A/P ARF - intubated for acute hypercarbic resp fauilure 03/09 - Failed SBT with incr RR and small TV 03/11 03/12 - agitated , not follow commands moves all 4 - decrease propofol , staring precedex , add haldol IM x1 03/13 - back on propofol - cj with precedex ( biut BP ok ) and too sedated with haldol WILL STOP LACTULOSE AND GIVE NAHCO3 50 MEQ. ONCE ACID BASE STATUS, AND DIARRHOEA IMROVES WILL TRY ON SBT Mental status change, -acute renal failure, and hyperbilirubinemia and elevated ammonia robably due to alcohol abuse. now has metabolic acidosis and diahrrhoe due to lactulose. will stop lactulose. Anemia - slow rend down of HB - no active bleeding - folow Met acidosis - not clear on etiology but probably due to diarrhoea ( no clear signs of ULYSSES with propofol - lactate WNL PNA- sputum wi9th PSA from 03/04 - on cefepime , repeated cx form ETT sputum pending EDWARD? - most likely CKI - - stable Heavy ETOH abuse - vitamins, benzo prn HTN - as per cards + blood in mouth by RN 03/03 - lip - monitor URETHRAL TRAUMA, HEMATURIA, - urology follow , CA BLADDER HISTORY- cystoscopy latter Lines : (Central Line Necessity Reviewed) Iglesias: OG: Nutrition: start TF today Analgesia: Anxiety/ delirium ciwa VTE Prophylaxis: glenn 30 Stress Ulcer Prophylaxis: tf Glycemic Control: Plans in collaboration with bedside consultants and IM MDs. Discussed with RN to reach out if any questions or concerns A total of 25 minutes of critical care time was devoted to this patient today, required to treat and/or prevent further deterioration of critical care condition ( as above) . Critical Care: Ventilator Management Time spent with patient (mins): 25 TRENA BOURGEOIS MD Mar 14, 2021 12:10
[2021-03-14] MEDS ORDERED: SODIUM BICARB 8.4% 50 MEQ/50 ML (ABBOTT) SYR IV ONE ×2 (12:45→15:30)
[2021-03-14] MEDS: morphine INJ 4 MG/ML 1 ML (VIAL/SYRINGE) IVP PRN ×2 (15:27→22:53)
--- NOTE | 2021-03-14 16:43 | Progress Note - Hospitalist ---
Subjective HPI/CC On Admission Date Seen by Provider: Mar 14, 2021 Time Seen by Provider: 10:00 CC: Altered mental status with alcohol withdrawal HPI: This is a 76yoWM who has a hx of alcoholism who presented to the [facility] ER found to have altered mental status and findings consistent with alcohol withdrawal. His creatinine was 3.1 consistent with dehydration so he was admitted for IV fluids and alcohol withdrawal treatment and today his creatinine is much better at 2.49. Elevated BP requiring aggressive BP medications. He does not have his hearing aids so it is very difficult to communicate. His is at the bedside and speaks broken Maltese since she is apparently [place]. I tried to update her with everything that she needs to know and she needs him to stay here as long as possible because she has to work. Subjective/Events-last exam He remains intubated and sedated. His is at the bedside. Focused Exam Lactate Level 03/12/21 11:35: Lactic Acid Level 0.42L Objective Exam Vital Signs Vital Signs Date Time Temp Pulse Resp B/P (MAP) Pulse Ox O2 Delivery O2 Flow Rate FiO2 03/14/21 16:00 91 22 172/49 (90) 92 Mechanical Ventilator 21.00 03/14/21 12:00 21 03/14/21 11:45 37.5 Capillary Refill : Less Than 3 Seconds General Appearance: No Apparent Distress, Obese, Other (intubated and sedated) Respiratory: Lungs Clear, No Respiratory Distress, Other (intubated and mechanically ventilated) Cardiovascular: Regular Rate, Rhythm, No Murmur Gastrointestinal: Normal Bowel Sounds, Soft Extremity: Normal Inspection, Non Tender, Pedal Edema, Swelling Neurologic/Psychiatric: Alert, Disoriented Skin: Normal Color, Warm/Dry Results/Procedures Lab Laboratory Tests 03/14/21 04:35 Patient resulted labs reviewed. Imaging: Reviewed Imaging Report Assessment/Plan Assessment and Plan Assess & Plan/Chief Complaint Urethral trauma Iglesias complication Gross hematuria Acute blood loss anemia Urinary retention Suprapubic catheter Surgery following Suprapubic catheter in place Urology following Planning for cystoscopy after extubated Acute respiratory failure with hypoxia Mucous plugging Endotracheally intubated Reintubated 03/10 TeleICU consulted Ventilator management per eICU Minimal ventilator support required Continue to attempt ventilator weaning Stop fluids Repeat Lasix Alchohol withdrawal with perceptual disturbance Alcohol dependence Electrolyte abnormalities [facility] protocol Vitamin replacement Monitor and replace electrolytes as needed Continue Ativan Ventilator associated pneumonia Carbapenem resistant Pseudomonas infection Culture with Pseudomonas Continue Cefepime HTN GERD Gout CKD DVT prophylaxis: Lovenox Critical Care Ventilator Management Diagnosis/Problems Diagnosis/Problems (1) Alcohol withdrawal syndrome with perceptual disturbance Status: Acute (2) Alcohol dependence Status: Acute Qualifiers: Substance use status: in withdrawal Complication of substance-induced condition: with perceptual disturbance Qualified Codes: F10.232 - Alcohol dependence with withdrawal with perceptual disturbance (3) Electrolyte abnormality Status: Acute (4) Endotracheally intubated Status: Acute (5) Hypokalemia Status: Acute (6) CKD (chronic kidney disease) Status: Chronic Qualifiers: Chronic kidney disease stage: stage 3 (moderate) Chronic kidney disease stage 3 subtype: stage 3b (GFR 30-44) Qualified Codes: N18.32 - Chronic kidney disease, stage 3b (7) HTN (hypertension) Status: Chronic (8) GERD (gastroesophageal reflux disease) Status: Chronic (9) Gout Status: Chronic (10) VAP (ventilator-associated pneumonia) Status: Acute (11) Infection due to carbapenem resistant Pseudomonas aeruginosa Status: Acute (12) Dislodged Iglesias catheter Status: Acute Qualifiers: Encounter type: initial encounter Qualified Codes: T83.021A - Displacement of indwelling urethral catheter, initial encounter (13) Urinary retention Status: Acute (14) Suprapubic catheter Status: Acute (15) Traumatic injury of urethra Status: Acute (16) Gross hematuria Status: Acute GORDON MARIE MD Mar 14, 2021 16:43
[2021-03-14] MEDS ORDERED: FUROSEMIDE 40 MG/4 ML INJ (LASIX) IVP ONE (17:00)
[2021-03-14] MEDS: ENOXAPARIN 40 MG/0.4 ML (LOVENOX) SYR SC SCH (20:44)
[2021-03-14] MEDS: DexMEDEtomidine 250 ML DRIP 250 ML IV SCH (22:52)
[2021-03-14] MEDS: hydrALAZINE (APESOLINE) 20 MG/ML VIAL IV PRN (23:08)
[2021-03-15] VITALS (31 sets, daily range): BP systolic 131–165; BP diastolic 44–64
[2021-03-15] MEDS: RT-ALBUTEROL SULF 2.5 MG/3 ML PRE-MIX VIAL INH SCH ×6 (02:05→21:13)
[2021-03-15 03:48] LABS: ABG BASE EXCESS -6.2 MMOL/L (-2.5-2.5); ABG OXYGEN SATURATION 97 % (94-100); ABG PCO2 32 MMHG (35-45); ABG PH 7.37 (7.37-7.43); ABG PO2 86 MMHG (79-93)
[2021-03-15 03:50] LABS: ALLENS TEST ARTLINE; BASOPHILS % (AUTO) 1 % (0-10); EOSINOPHILS # (AUTO) 0.4 10^3/uL (0.0-0.3); EOSINOPHILS % (AUTO) 6 % (0-10); HEMATOCRIT 22 % (40-54); HEMOGLOBIN 7.5 g/dL (13.3-17.7); INSPIRED O2 21%; LYMPHOCYTES # (AUTO) 1.2 10^3/uL (1.0-4.0); LYMPHOCYTES % (AUTO) 18 % (12-44); MEAN CORPUSCULAR HEMOGLOBIN 36 pg (25-34); MEAN CORPUSCULAR HGB CONC 34 g/dL (32-36); MEAN CORPUSCULAR VOLUME 106 fL (80-99); MEAN PLATELET VOLUME 10.7 fL (9.0-12.2); MONOCYTES # (AUTO) 0.5 10^3/uL (0.0-1.0); MONOCYTES % (AUTO) 8 % (0-12); NEUTROPHILS # (AUTO) 4.3 10^3/uL (1.8-7.8); NEUTROPHILS % (AUTO) 67 % (42-75); PATIENT TEMP 37; PLATELET COUNT 145 10^3/uL (130-400); VENTILATOR YES; WHITE BLOOD COUNT 6.4 10^3/uL (4.3-11.0)
[2021-03-15 03:58] LABS: POTASSIUM 3.5 MMOL/L (3.6-5.0)
[2021-03-15 04:00] LABS: CALCIUM 8.4 MG/DL (8.5-10.1)
[2021-03-15 04:04] LABS: CREATININE SERUM 1.95 MG/DL (0.60-1.30); PHOSPHORUS 3.6 MG/DL (2.3-4.7)
[2021-03-15 04:06] LABS: MAGNESIUM 1.5 MG/DL (1.6-2.4)
[2021-03-15] MEDS: POTASSIUM CL 10MEQ/50ML IVPB 50 ML IV SCH ×3 (04:19→05:30)
[2021-03-15] MEDS: MAGNESIUM 1 GM/100 ML IVPB 100 ML IV SCH ×3 (04:19→05:30)
[2021-03-15] MEDS: KCL 20 MEQ TAB (K-DUR) PO SCH (04:19)
[2021-03-15] MEDS: LORazepam INJ 2 MG/ML (ATIVAN) VIAL IVP SCH ×3 (04:32→15:25)
[2021-03-15] MEDS: CEFEPIME INJECTION 1,000 MG in NS (IVPB) 50 ML IV SCH ×3 (06:09→20:44)
[2021-03-15] MEDS: doxAzosin 4 MG (CARDURA) TAB PO SCH ×3 (06:09→20:44)
[2021-03-15] MEDS: MULTIVIT W/MINERALS TAB (THERAGRAN M) PO SCH (06:10)
[2021-03-15] MEDS: THIAMINE 100 MG (VITAMIN B-1) TAB PO SCH (06:10)
[2021-03-15] MEDS: PROPOFOL DRIP (ICU) 100 ML IV SCH ×2 (07:27→15:38)
--- NOTE | 2021-03-15 07:52 | Physical Therapy Progress Note ---
Therapy Progress Note Patient remains sedated and intubated. PT will continue to monitor patient status. ANGELA SHABAZZ PT Mar 15, 2021 07:52
[2021-03-15] MEDS: PANTOPRAZOLE 40 MG (PROTONIX) VIAL IV SCH ×2 (08:37→20:44)
[2021-03-15] MEDS: amLODIPine 5 MG (NORVASC) TAB PO SCH (08:37)
[2021-03-15] MEDS: SODIUM BICARBONATE 650 MG TABLET (NON-FORMULARY) PO SCH ×3 (08:37→20:44)
[2021-03-15] MEDS: LORATADINE (CLARITIN) 10 MG TAB PO SCH (08:37)
[2021-03-15] MEDS: FOLIC ACID 1 MG TAB PO SCH (08:37)
[2021-03-15] MEDS ORDERED: FUROSEMIDE 40 MG/4 ML INJ (LASIX) IVP ONE (09:00)
--- NOTE | 2021-03-15 12:20 | Tele-ICU Progress Note ---
Subjective Date Seen by a Provider: Mar 15, 2021 Time Seen by a Provider: 12:20 Subjective/Events-last exam Patient's RN states that his diarrhea improved. Hemodynamically stable. Video visit made and discussed with the RN as well as the patient's . Will consider SBT today. Sepsis Event Evaluation Height, Weight, BMI Height: 5'8.00" Weight: 189lbs. oz. 85.477885pe; 28.53 BMI Method: Exam Exam Patient acknowledged, consented, and participated in this virtual visit which was conducted using real time audio/video Vital Signs Date Time Temp Pulse Resp B/P (MAP) Pulse Ox O2 Delivery O2 Flow Rate FiO2 03/15/21 11:29 92 25 95 21 03/15/21 11:00 89 24 145/50 (81) 95 Mechanical Ventilator 21.00 03/15/21 10:00 65 16 153/52 (85) 94 Mechanical Ventilator 21.00 03/15/21 09:00 68 19 150/48 (82) 94 Mechanical Ventilator 21.00 03/15/21 08:00 36.7 03/15/21 08:00 71 18 161/50 (87) 93 Mechanical Ventilator 21.00 03/15/21 07:09 58 17 94 21 03/15/21 07:00 58 16 135/47 (76) 94 Mechanical Ventilator 21.00 03/15/21 07:00 61 03/15/21 06:00 62 18 131/44 (73) 94 Mechanical Ventilator 21.00 03/15/21 05:00 66 17 152/51 (84) 94 Mechanical Ventilator 21.00 03/15/21 04:00 95 Mechanical Ventilator 21 03/15/21 04:00 70 17 160/52 (88) 94 Mechanical Ventilator 21.00 03/15/21 03:00 75 18 160/50 (86) 93 Mechanical Ventilator 21.00 03/15/21 03:00 37.2 Mechanical Ventilator 03/15/21 02:06 64 17 94 21 03/15/21 02:00 65 23 152/49 (83) 94 Mechanical Ventilator 21.00 03/15/21 01:00 67 03/15/21 01:00 67 14 146/48 (80) 94 Mechanical Ventilator 21.00 03/15/21 00:00 69 12 153/52 (85) 94 Mechanical Ventilator 21.00 03/14/21 23:54 64 127/50 03/14/21 23:50 93 Mechanical Ventilator 21 03/14/21 23:49 Mechanical Ventilator 21.00 03/14/21 23:00 71 12 151/51 (84) 94 Mechanical Ventilator 21.00 03/14/21 22:55 37.4 03/14/21 22:52 64 127/50 03/14/21 22:17 64 17 94 21 03/14/21 22:00 68 17 153/53 (86) 95 Mechanical Ventilator 21.00 03/14/21 21:00 73 26 161/59 (93) 95 Mechanical Ventilator 21.00 03/14/21 20:00 78 15 159/48 (85) 94 Mechanical Ventilator 21.00 03/14/21 20:00 94 Mechanical Ventilator 21 03/14/21 19:00 70 03/14/21 19:00 Mechanical Ventilator 21.00 03/14/21 19:00 69 16 151/45 (80) 93 Mechanical Ventilator 21.00 03/14/21 18:27 70 17 92 21 03/14/21 18:00 69 16 154/46 (82) 92 Mechanical Ventilator 21.00 03/14/21 17:00 79 25 167/52 (90) 98 Mechanical Ventilator 21.00 03/14/21 16:00 91 22 172/49 (90) 92 Mechanical Ventilator 21.00 03/14/21 16:00 95 Mechanical Ventilator 21 03/14/21 15:00 89 37 181/54 (96) 96 Mechanical Ventilator 21.00 03/14/21 14:00 91 14 172/50 (90) 96 Mechanical Ventilator 21.00 03/14/21 13:00 82 21 164/50 (88) 95 Mechanical Ventilator 21.00 03/14/21 13:00 69 21 156/47 (83) 94 Mechanical Ventilator 21.00 03/14/21 12:33 85 I & O 03/15/21 07:00 Intake Total 2040 ml Output Total 3725 ml Balance -1685 ml Height & Weight Height: 5'8.00" Weight: 189lbs. oz. 85.103700je; 28.53 BMI Method: General Appearance: No Apparent Distress, Obese, Other (intubated and sedated) HEENT: PERRL/EOMI, Pharynx Normal Neck: Normal Inspection, Supple Respiratory: Lungs Clear, No Respiratory Distress, Other (intubated and mechanically ventilated) Cardiovascular: Regular Rate, Rhythm, No Murmur Capillary Refill: Less Than 3 Seconds Peripheral Pulses: 2+ Radial Pulses (R), 2+ Radial Pulses (L) Gastrointestinal: non tender, soft, other (suprapubic catheter present) Extremity: Normal Inspection, Non Tender, Pedal Edema, Swelling Neurologic/Psychiatric: Alert, Disoriented Skin: Normal Color, Warm/Dry Lymphatic: No Adenopathy Results Lab Laboratory Tests 03/14/21 04:35 03/15/21 03:30 Assessment/Plan Assessment/Plan (Tele-ICU Physician , Progress Note ) Available chart/ vitals / labs / Images reviewed Video assessment done using teleICU camera, rest of exam as per RN Discussed with RN , EXAM PER RN Events overnight : Afebrile FiO2 - 35% I/O = even Drips: Has metabolic acidosis probably due to diarrhoea Pressors: , hemodynamically stable Sedation gtt: propofol ( RASS -1 ) VENT SETTINGS and ABG reviewed Not a candidate for SBT today REVIEWED Cardiovascular Stability / Sedation Score / FI02/PEEP / ABG / CXR Consultants: Hospital course: 03/02 - intubated for AMS - extubated -03/09 - reintubated A/P ARF - intubated for acute hypercarbic resp fauilure 03/09 - Failed SBT with incr RR and small TV 03/11 03/12 - agitated , not follow commands moves all 4 - decrease propofol , staring precedex , add haldol IM x1 03/13 - back on propofol - cj with precedex ( biut BP ok ) and too sedated with haldol 03/14 WILL STOP LACTULOSE AND GIVE NAHCO3 50 MEQ. ONCE ACID BASE STATUS, AND DIARRHOEA IMROVES WILL TRY ON SBT 03/15/21. DIARRHOEA IMPROVED. CONSIDER SBT TODAY Mental status change, -acute renal failure, and hyperbilirubinemia and elevated ammonia robably due to alcohol abuse. now has metabolic acidosis and diahrrhoe due to lactulose. will stop lactulose. 03/15/21. DIARRHOEA RESOLVED Anemia - slow rend down of HB - no active bleeding - folow Met acidosis - not clear on etiology but probably due to diarrhoea. IMPROVED WITH STOPPING LACTULOSE ( no clear signs of ULYSSES with propofol - lactate WNL Critical Care: Ventilator Management TRENA BOURGEOIS MD Mar 15, 2021 12:20
[2021-03-15] MEDS ORDERED: SODIUM BICARB 8.4% 50 MEQ/50 ML (ABBOTT) SYR IV ONE (13:15)
--- NOTE | 2021-03-15 15:12 | Progress Note - Hospitalist ---
Subjective HPI/CC On Admission Date Seen by Provider: Mar 15, 2021 Time Seen by Provider: 10:40 CC: Altered mental status with alcohol withdrawal HPI: This is a 76yoWM who has a hx of alcoholism who presented to the [facility] ER found to have altered mental status and findings consistent with alcohol withdrawal. His creatinine was 3.1 consistent with dehydration so he was admitted for IV fluids and alcohol withdrawal treatment and today his creatinine is much better at 2.49. Elevated BP requiring aggressive BP medications. He does not have his hearing aids so it is very difficult to communicate. His is at the bedside and speaks broken Scottish since she is apparently [place]. I tried to update her with everything that she needs to know and she needs him to stay here as long as possible because she has to work. Subjective/Events-last exam He remains intubated and sedated. His is at the bedside and updated. Objective Exam Vital Signs Vital Signs Date Time Temp Pulse Resp B/P (MAP) Pulse Ox O2 Delivery O2 Flow Rate FiO2 03/15/21 14:00 69 18 158/53 (88) 94 Mechanical Ventilator 21.00 03/15/21 12:21 36.8 03/15/21 11:29 21 Capillary Refill : Less Than 3 Seconds General Appearance: No Apparent Distress, Obese, Other (intubated and mechanically ventilated) Respiratory: Lungs Clear, No Respiratory Distress, Other (intubated and mechanically ventialted) Cardiovascular: Regular Rate, Rhythm, No Murmur Gastrointestinal: Normal Bowel Sounds, Soft Extremity: Normal Inspection, Non Tender, Pedal Edema, Swelling Skin: Normal Color, Warm/Dry Results/Procedures Lab Laboratory Tests 03/15/21 03:30 Patient resulted labs reviewed. Imaging: Reviewed Imaging Report Assessment/Plan Assessment and Plan Assess & Plan/Chief Complaint Urethral trauma Iglesias complication Gross hematuria Acute blood loss anemia Urinary retention Suprapubic catheter Surgery following Suprapubic catheter in place Urology following Planning for cystoscopy after extubated Acute respiratory failure with hypoxia Mucous plugging Endotracheally intubated Reintubated 03/10 TeleICU consulted Ventilator management per eICU Minimal ventilator support required Continue to attempt ventilator weaning May require prolonged course, consider LTAC placement Continue Lasix Alchohol withdrawal with perceptual disturbance Alcohol dependence Electrolyte abnormalities CIWA protocol Vitamin replacement Monitor and replace electrolytes as needed Continue Ativan Ventilator associated pneumonia Carbapenem resistant Pseudomonas infection Culture with Pseudomonas Continue Cefepime HTN GERD Gout CKD DVT prophylaxis: Lovenox Critical Care Ventilator Management Diagnosis/Problems Diagnosis/Problems (1) Alcohol withdrawal syndrome with perceptual disturbance Status: Acute (2) Alcohol dependence Status: Acute Qualifiers: Substance use status: in withdrawal Complication of substance-induced condition: with perceptual disturbance Qualified Codes: F10.232 - Alcohol dependence with withdrawal with perceptual disturbance (3) Electrolyte abnormality Status: Acute (4) Endotracheally intubated Status: Acute (5) Hypokalemia Status: Acute (6) CKD (chronic kidney disease) Status: Chronic Qualifiers: Chronic kidney disease stage: stage 3 (moderate) Chronic kidney disease stage 3 subtype: stage 3b (GFR 30-44) Qualified Codes: N18.32 - Chronic kidney disease, stage 3b (7) HTN (hypertension) Status: Chronic (8) GERD (gastroesophageal reflux disease) Status: Chronic (9) Gout Status: Chronic (10) VAP (ventilator-associated pneumonia) Status: Acute (11) Infection due to carbapenem resistant Pseudomonas aeruginosa Status: Acute (12) Dislodged Iglesias catheter Status: Acute Qualifiers: Encounter type: initial encounter Qualified Codes: T83.021A - Displacement of indwelling urethral catheter, initial encounter (13) Urinary retention Status: Acute (14) Suprapubic catheter Status: Acute (15) Traumatic injury of urethra Status: Acute (16) Gross hematuria Status: Acute GORDON MARIE MD Mar 15, 2021 15:12
[2021-03-15] MEDS: LACRI-LUBE OPTHALMIC OINT 3.5 GM TUBE OU SCH ×2 (15:24→20:44)
[2021-03-15] MEDS: polyethylene glycoL POWDER 17 GM (MIRALAX) PACK PO SCH ×2 (15:24→20:44)
[2021-03-15] MEDS: SENNA W/DOCUSATE (SENOKOT S) TABLET PO SCH ×2 (15:25→20:45)
[2021-03-15] MEDS ORDERED: SODIUM BICARB 8.4% 50 MEQ/50 ML (ABBOTT) SYR ONE (15:28)
[2021-03-15] MEDS: NOREPINEPHRINE 8 MG/250 ML 250 ML IV SCH (15:37)
[2021-03-15] MEDS: FUROSEMIDE 40 MG/4 ML INJ (LASIX) IVP SCH (17:28)
[2021-03-15] MEDS: ENOXAPARIN 40 MG/0.4 ML (LOVENOX) SYR SC SCH (20:44)
[2021-03-16] VITALS (27 sets, daily range): BP systolic 116–185; BP diastolic 48–66
[2021-03-16] MEDS: morphine INJ 4 MG/ML 1 ML (VIAL/SYRINGE) IVP PRN ×2 (00:21→16:42)
[2021-03-16] MEDS: hydrALAZINE (APESOLINE) 20 MG/ML VIAL IV PRN ×3 (00:22→14:47)
[2021-03-16] MEDS: PROPOFOL DRIP (ICU) 100 ML IV SCH ×3 (01:43→20:37)
[2021-03-16] MEDS: RT-ALBUTEROL SULF 2.5 MG/3 ML PRE-MIX VIAL INH SCH ×5 (02:17→21:29)
[2021-03-16] MEDS ORDERED: NS IV 500 ML 500 ML ONE (03:16)
[2021-03-16] MEDS: DexMEDEtomidine 250 ML DRIP 250 ML IV SCH (03:28)
[2021-03-16 03:41] LABS: BASOPHILS % (AUTO) 1 % (0-10); EOSINOPHILS # (AUTO) 0.3 10^3/uL (0.0-0.3); EOSINOPHILS % (AUTO) 5 % (0-10); HEMATOCRIT 25 % (40-54); HEMOGLOBIN 8.4 g/dL (13.3-17.7); LYMPHOCYTES # (AUTO) 0.9 10^3/uL (1.0-4.0); LYMPHOCYTES % (AUTO) 14 % (12-44); MEAN CORPUSCULAR HEMOGLOBIN 36 pg (25-34); MEAN CORPUSCULAR HGB CONC 34 g/dL (32-36); MEAN CORPUSCULAR VOLUME 105 fL (80-99); MEAN PLATELET VOLUME 10.8 fL (9.0-12.2); MONOCYTES # (AUTO) 0.5 10^3/uL (0.0-1.0); MONOCYTES % (AUTO) 7 % (0-12); NEUTROPHILS # (AUTO) 4.7 10^3/uL (1.8-7.8); NEUTROPHILS % (AUTO) 73 % (42-75); PLATELET COUNT 134 10^3/uL (130-400); WHITE BLOOD COUNT 6.4 10^3/uL (4.3-11.0)
[2021-03-16 03:42] LABS: ABG BASE EXCESS -2.7 MMOL/L (-2.5-2.5); ABG OXYGEN SATURATION 97 % (94-100); ABG PCO2 34 MMHG (35-45); ABG PH 7.42 (7.37-7.43); ABG PO2 88 MMHG (79-93); ABG TCO2 22.2 MMOL/L (21.0-31.0); ALLENS TEST ARTLINE
[2021-03-16 03:43] LABS: INSPIRED O2 21%; PATIENT TEMP 37; VENTILATOR YES
[2021-03-16 03:53] LABS: POTASSIUM 3.7 MMOL/L (3.6-5.0)
[2021-03-16 03:54] LABS: CALCIUM 8.6 MG/DL (8.5-10.1)
[2021-03-16 03:58] LABS: CREATININE SERUM 1.89 MG/DL (0.60-1.30)
[2021-03-16 04:01] LABS: MAGNESIUM 1.8 MG/DL (1.6-2.4)
[2021-03-16] MEDS: MAGNESIUM 1 GM/100 ML IVPB 100 ML IV SCH (04:20)
[2021-03-16] MEDS: POTASSIUM CL 10MEQ/50ML IVPB 50 ML IV SCH (04:20)
[2021-03-16] MEDS: KCL 20 MEQ TAB (K-DUR) PO SCH (04:20)
[2021-03-16] MEDS: MULTIVIT W/MINERALS TAB (THERAGRAN M) PO SCH (06:21)
[2021-03-16] MEDS: CEFEPIME INJECTION 1,000 MG in NS (IVPB) 50 ML IV SCH (06:21)
[2021-03-16] MEDS: THIAMINE 100 MG (VITAMIN B-1) TAB PO SCH (06:21)
[2021-03-16] MEDS: doxAzosin 4 MG (CARDURA) TAB PO SCH ×3 (06:21→22:28)
[2021-03-16] MEDS: FUROSEMIDE 40 MG/4 ML INJ (LASIX) IVP SCH ×2 (06:21→16:42)
--- NOTE | 2021-03-16 06:36 | Diagnostic Imaging Report ---
INDICATION: Respiratory distress Frontal chest obtained at 3:16 a.m. and compared with 03/11/2021. ET tube tip overlies mid trachea. The heart is normal in size. Lungs are grossly clear although portions of the right lower quadrant of the film. There is no pneumothorax. IMPRESSION: Limited study. ET tube is unchanged. There is no definite infiltrate, portions of the right lung are cut off the film. Dictated by: Dictated on workstation # [id number]
--- NOTE | 2021-03-16 07:41 | Diagnostic Imaging Report ---
INDICATION: Respiratory failure, mechanical ventilation. TECHNIQUE: Single view chest 7:20 AM. CORRELATION STUDY: 03/16/2021 FINDINGS: Endotracheal tube appears generally stable in position. Heart size and mediastinum unchanged. Suspect trace right pleural effusion. No definitive consolidating infiltrate. IMPRESSION: 1. Stable endotracheal tube. Likely small right pleural effusion. Dictated by: Dictated on workstation # [id number]
[2021-03-16] MEDS: NOREPINEPHRINE 8 MG/250 ML 250 ML IV SCH ×2 (08:35→22:28)
[2021-03-16] MEDS: polyethylene glycoL POWDER 17 GM (MIRALAX) PACK PO SCH ×2 (08:36→20:37)
[2021-03-16] MEDS: SENNA W/DOCUSATE (SENOKOT S) TABLET PO SCH ×2 (08:36→20:37)
[2021-03-16] MEDS: FOLIC ACID 1 MG TAB PO SCH (08:36)
[2021-03-16] MEDS: LORATADINE (CLARITIN) 10 MG TAB PO SCH (08:36)
[2021-03-16] MEDS: SODIUM BICARBONATE 650 MG TABLET (NON-FORMULARY) PO SCH ×3 (08:36→20:37)
[2021-03-16] MEDS: LACRI-LUBE OPTHALMIC OINT 3.5 GM TUBE OU SCH ×2 (08:36→20:46)
[2021-03-16] MEDS: PANTOPRAZOLE 40 MG (PROTONIX) VIAL IV SCH ×2 (08:36→20:46)
[2021-03-16] MEDS: amLODIPine 5 MG (NORVASC) TAB PO SCH (08:36)
[2021-03-16 10:27] LABS: ABG BASE EXCESS -2.4 MMOL/L (-2.5-2.5); ABG OXYGEN SATURATION 98 % (94-100); ABG PCO2 31 MMHG (35-45); ABG PH 7.45 (7.37-7.43); ABG PO2 86 MMHG (79-93); ABG TCO2 21.9 MMOL/L (21.0-31.0)
[2021-03-16 10:29] LABS: ALLENS TEST ARTLINE; INSPIRED O2 21%; PATIENT TEMP 37; VENTILATOR YES
--- NOTE | 2021-03-16 10:29 | Progress Note - Urology ---
Progress Note-Urology Progress Notes/Assess & Plan Progress/Assessment & Plan LOOKING BETTER. COHERENT. ONCE EXTUBATED WE WILL PLAN CYSTOSCOPY Final Diagnosis GROSS HEMATURIA AND URETHRAL TRAUMA ASMITA HUYNH MD Mar 16, 2021 10:29
--- NOTE | 2021-03-16 10:32 | Tele-ICU Progress Note ---
Subjective Date Seen by a Provider: Mar 16, 2021 Time Seen by a Provider: 08:00 Subjective/Events-last exam This virtual visit was conducted using real time audio/video. Thank you for asking us to see this patient for respiratory insufficiency due to inability to protect airway during EtOH withdrawal. Recent events: Ativan held. PE: Appears comfortable. VSS. O2 sat 95% on 21%/+5. HEENT: No obvious masses, adenopathy or JVD. Chest: clear to auscultation. CV: RRR S1 S2 No murmur or added sounds. Abd: Non-tender. Bowel sounds Y. : Unremarkable. Iglesias Y. TICKET MANAGER/psychiatric: sedated on vent. Grossly intact. No obvious focal findings. Extremities: No edema. Capillary refill < 3 seconds. Skin: unremarkable. Results: Elevated BUN 29, Creat 1.89. Decreased Hb 8.4. B.42/34/88. CXR: No infilts. Available chart/ vitals / labs / images reviewed. Video assessment done using teleICU camera, rest of exam as per RN. A/P: Respiratory insufficiency: Ativan held, SBT in progress. Critical Care: critically ill patient. Cont. Alb., Prec PRN, Levo., Norvasc, abx, Lily., PPI. Consider holding Norvasc as on Levo. Discussed with DAMIEN Taylor. Asked RN to reach out to eICU if any questions or concerns later. Time spent with patient/coordination of care with other health professionals (mins):15 Sepsis Event Evaluation Height, Weight, BMI Height: 5'8.00" Weight: 189lbs. oz. 85.993104qb; 28.53 BMI Method: Exam Exam Patient acknowledged, consented, and participated in this virtual visit which was conducted using real time audio/video Vital Signs Date Time Temp Pulse Resp B/P (MAP) Pulse Ox O2 Delivery O2 Flow Rate FiO2 03/16/21 10:00 96 24 176/56 (96) 96 Mechanical Ventilator 21.00 03/16/21 09:00 83 20 160/51 (87) 95 Mechanical Ventilator 21.00 03/16/21 08:00 Mechanical Ventilator 21 03/16/21 08:00 36.8 03/16/21 08:00 69 13 160/52 (88) 94 Mechanical Ventilator 21.00 03/16/21 07:09 66 18 92 21 03/16/21 07:00 71 03/16/21 07:00 64 16 152/50 (84) 91 Mechanical Ventilator 21.00 03/16/21 06:00 64 16 166/57 (93) 95 Mechanical Ventilator 21.00 03/16/21 05:23 76 20 91 03/16/21 05:00 67 14 167/58 (94) 96 Mechanical Ventilator 21.00 03/16/21 04:08 94 Mechanical Ventilator 21 03/16/21 04:00 73 14 158/53 (88) 96 Mechanical Ventilator 21.00 03/16/21 03:38 37.0 Mechanical Ventilator 21.00 03/16/21 03:28 69 151/50 03/16/21 03:00 75 15 153/49 (83) 92 Mechanical Ventilator 21.00 03/16/21 02:17 69 18 92 21 03/16/21 02:00 71 20 152/52 (85) 94 Mechanical Ventilator 21.00 03/16/21 01:43 70 164/49 03/16/21 01:00 70 03/16/21 01:00 70 13 158/52 (87) 95 Mechanical Ventilator 21.00 03/16/21 00:26 92 Mechanical Ventilator 21 03/16/21 00:00 71 15 167/55 (92) 96 Mechanical Ventilator 21.00 03/15/21 23:00 37.0 Mechanical Ventilator 21.00 03/15/21 23:00 79 17 160/52 (88) 95 Mechanical Ventilator 21.00 03/15/21 22:00 74 16 163/47 (85) 94 Mechanical Ventilator 21.00 03/15/21 21:13 70 18 96 21 03/15/21 21:00 73 17 155/47 (83) 95 Mechanical Ventilator 21.00 03/15/21 20:10 93 Mechanical Ventilator 21 03/15/21 20:00 69 20 158/50 (86) 94 Mechanical Ventilator 21.00 03/15/21 19:00 71 16 148/46 (80) 95 Mechanical Ventilator 21.00 03/15/21 19:00 36.9 Mechanical Ventilator 21.00 03/15/21 19:00 80 03/15/21 18:14 66 16 93 21 03/15/21 18:00 67 16 164/51 (88) 95 Mechanical Ventilator 21.00 03/15/21 17:00 82 15 165/53 (90) 95 Mechanical Ventilator 21.00 03/15/21 16:02 36.9 74 95 21 03/15/21 16:00 75 17 156/49 (84) 95 Mechanical Ventilator 21.00 03/15/21 15:45 74 18 95 21 03/15/21 15:24 36.9 03/15/21 15:23 95 Mechanical Ventilator 21 03/15/21 15:00 82 21 165/56 (92) 94 Mechanical Ventilator 21.00 03/15/21 14:00 69 18 158/53 (88) 94 Mechanical Ventilator 21.00 03/15/21 13:00 71 16 154/51 (85) 92 Mechanical Ventilator 21.00 03/15/21 13:00 73 03/15/21 12:21 36.8 03/15/21 12:00 95 Mechanical Ventilator 21 03/15/21 12:00 92 22 151/49 (83) 95 Mechanical Ventilator 21.00 03/15/21 11:29 92 25 95 21 03/15/21 11:00 89 24 145/50 (81) 95 Mechanical Ventilator 21.00 I & O 03/16/21 07:00 Intake Total 1990 ml Output Total 2325 ml Balance -335 ml Height & Weight Height: 5'8.00" Weight: 189lbs. oz. 85.593327xz; 28.53 BMI Method: General Appearance: No Apparent Distress, Obese, Other (intubated and mechanically ventilated) HEENT: PERRL/EOMI, Pharynx Normal Neck: Normal Inspection, Supple Respiratory: Lungs Clear, No Respiratory Distress, Other (intubated and mechanically ventialted) Cardiovascular: Regular Rate, Rhythm, No Murmur Capillary Refill: Less Than 3 Seconds Peripheral Pulses: 2+ Radial Pulses (R), 2+ Radial Pulses (L) Gastrointestinal: non tender, soft, other (suprapubic catheter present) Extremity: Normal Inspection, Non Tender, Pedal Edema, Swelling Neurologic/Psychiatric: Alert, Disoriented Skin: Normal Color, Warm/Dry Lymphatic: No Adenopathy Results Lab Laboratory Tests 03/15/21 03:30 03/16/21 03:30 Assessment/Plan Assessment/Plan See free text Critical Care: Ventilator Management SHERIN FERRARI MD Mar 16, 2021 10:32
[2021-03-16 10:55] LABS: ABG BASE EXCESS -2.1 MMOL/L (-2.5-2.5); ABG OXYGEN SATURATION 98 % (94-100); ABG PCO2 29 MMHG (35-45); ABG PH 7.47 (7.37-7.43); ABG PO2 83 MMHG (79-93); ABG TCO2 21.9 MMOL/L (21.0-31.0)
[2021-03-16 10:56] LABS: ALLENS TEST ARTLINE; INSPIRED O2 21%; PATIENT TEMP 37; VENTILATOR YES
[2021-03-16] MEDS: LABETALOL HCL 20 MG/4 ML VIAL IV PRN ×3 (13:03→23:41)
[2021-03-16] MEDS: ENOXAPARIN 40 MG/0.4 ML (LOVENOX) SYR SC SCH (20:46)
--- NOTE | 2021-03-16 21:13 | Progress Note - Hospitalist ---
Subjective HPI/CC On Admission Date Seen by Provider: Mar 16, 2021 Time Seen by Provider: 10:00 CC: Altered mental status with alcohol withdrawal HPI: This is a 76yoWM who has a hx of alcoholism who presented to the [facility] ER found to have altered mental status and findings consistent with alcohol withdrawal. His creatinine was 3.1 consistent with dehydration so he was admitted for IV fluids and alcohol withdrawal treatment and today his creatinine is much better at 2.49. Elevated BP requiring aggressive BP medications. He does not have his hearing aids so it is very difficult to communicate. His is at the bedside and speaks broken Citizen Of [place] since she is apparently [place]. I tried to update her with everything that she needs to know and she needs him to stay here as long as possible because she has to work. Subjective/Events-last exam He remains intubated. His sedation is off and he is following commands. His is at the bedside and was updated. Objective Exam Vital Signs Vital Signs Date Time Temp Pulse Resp B/P (MAP) Pulse Ox O2 Delivery O2 Flow Rate FiO2 03/16/21 20:00 97 Vapotherm 20.00 24 03/16/21 20:00 37.9 03/16/21 18:00 99 12 159/53 (88) Capillary Refill : Less Than 3 Seconds General Appearance: No Apparent Distress, Chronically ill, Obese Respiratory: Lungs Clear, Normal Breath Sounds, No Respiratory Distress, Other (intubated and mechanically ventilated) Cardiovascular: Regular Rate, Rhythm, No Murmur Gastrointestinal: Normal Bowel Sounds, Soft Extremity: Normal Inspection, Swelling Neurologic/Psychiatric: Alert, No Motor/Sensory Deficits Skin: Normal Color, Warm/Dry Results/Procedures Lab Laboratory Tests 03/16/21 03:30 Patient resulted labs reviewed. Imaging: Reviewed Imaging Report Assessment/Plan Assessment and Plan Assess & Plan/Chief Complaint Urethral trauma Iglesias complication Gross hematuria Acute blood loss anemia Urinary retention Suprapubic catheter Surgery following Suprapubic catheter in place Urology following Planning for cystoscopy after extubated Acute respiratory failure with hypoxia Mucous plugging Endotracheally intubated Reintubated 03/10 TeleICU consulted Ventilator management per eICU Minimal ventilator support required Continue to attempt ventilator weaning Continue Lasix Alcohol dependence Electrolyte abnormalities Vitamin replacement Monitor and replace electrolytes as needed HTN GERD Gout CKD DVT prophylaxis: Lovenox Alchohol withdrawal with perceptual disturbance, resolved Ventilator associated pneumonia, resolved Carbapenem resistant Pseudomonas infection, resolved Critical Care Critically Ill Patient Diagnosis/Problems Diagnosis/Problems (1) Alcohol withdrawal syndrome with perceptual disturbance Status: Acute (2) Alcohol dependence Status: Acute Qualifiers: Substance use status: in withdrawal Complication of substance-induced condition: with perceptual disturbance Qualified Codes: F10.232 - Alcohol dependence with withdrawal with perceptual disturbance (3) Electrolyte abnormality Status: Acute (4) Endotracheally intubated Status: Acute (5) Hypokalemia Status: Acute (6) CKD (chronic kidney disease) Status: Chronic Qualifiers: Chronic kidney disease stage: stage 3 (moderate) Chronic kidney disease stage 3 subtype: stage 3b (GFR 30-44) Qualified Codes: N18.32 - Chronic kidney disease, stage 3b (7) HTN (hypertension) Status: Chronic (8) GERD (gastroesophageal reflux disease) Status: Chronic (9) Gout Status: Chronic (10) VAP (ventilator-associated pneumonia) Status: Acute (11) Infection due to carbapenem resistant Pseudomonas aeruginosa Status: Acute (12) Dislodged Iglesias catheter Status: Acute Qualifiers: Encounter type: initial encounter Qualified Codes: T83.021A - Displacement of indwelling urethral catheter, initial encounter (13) Urinary retention Status: Acute (14) Suprapubic catheter Status: Acute (15) Traumatic injury of urethra Status: Acute (16) Gross hematuria Status: Acute GORDON MARIE MD Mar 16, 2021 21:13
[2021-03-16] MEDS ORDERED: ACETAMINOPHEN 120 MG SUPP (TYLENOL) PR ONE (23:15)
--- NOTE | 2021-03-16 23:20 | Tele-ICU Progress Note ---
Progress Note Tele ICU Brief note eICU Called by bedside nurse because pt has temp 38.7. He was extubated today and completed course of Maxipime also today. He is having some difficulty with swallowing. Was informed that he had blood cultures done earlier today. I will send a urine culture, add on procalcitonin and CRP to AM labs, give Tylenol suppository x1 and order AM swallow eval at bedside. Focused Exam Lactate Level 03/16/21 21:30: Lactic Acid Level 0.54 Height, Weight, BMI Height: 5'8.00" Weight: 189lbs. oz. 85.974037ok; 28.53 BMI Method: Lactic Acid Level Laboratory Tests Test 03/16/21 21:30 Lactic Acid Level 0.54 MMOL/L (0.50-2.00) KASIA BELL DO Mar 16, 2021 23:20
[2021-03-16] MEDS ORDERED: ACETAMINOPHEN 650 MG SUPP (TYLENOL) ONE (23:36)
[2021-03-16] MEDS ORDERED: ACETAMINOPHEN 650 MG SUPP (TYLENOL) PR ONE (23:45)
[2021-03-17] VITALS (25 sets, daily range): BP systolic 132–191; BP diastolic 42–86
[2021-03-17] MEDS: RT-ALBUTEROL SULF 2.5 MG/3 ML PRE-MIX VIAL INH SCH ×4 (02:42→21:40)
[2021-03-17 03:07] LABS: BASOPHILS % (AUTO) 1 % (0-10); EOSINOPHILS # (AUTO) 0.1 10^3/uL (0.0-0.3); EOSINOPHILS % (AUTO) 1 % (0-10); HEMATOCRIT 24 % (40-54); LYMPHOCYTES # (AUTO) 0.6 10^3/uL (1.0-4.0); LYMPHOCYTES % (AUTO) 11 % (12-44); MEAN CORPUSCULAR HEMOGLOBIN 36 pg (25-34); MEAN CORPUSCULAR HGB CONC 34 g/dL (32-36); MEAN CORPUSCULAR VOLUME 106 fL (80-99); MONOCYTES # (AUTO) 0.5 10^3/uL (0.0-1.0); MONOCYTES % (AUTO) 8 % (0-12); NEUTROPHILS # (AUTO) 4.4 10^3/uL (1.8-7.8); NEUTROPHILS % (AUTO) 79 % (42-75); PLATELET COUNT 136 10^3/uL (130-400); WHITE BLOOD COUNT 5.6 10^3/uL (4.3-11.0)
[2021-03-17 03:24] LABS: POTASSIUM 3.9 MMOL/L (3.6-5.0)
[2021-03-17 03:25] LABS: CALCIUM 8.9 MG/DL (8.5-10.1)
[2021-03-17] MEDS: POTASSIUM CL 10MEQ/50ML IVPB 50 ML IV SCH (03:26)
[2021-03-17 03:29] LABS: CREATININE SERUM 2.35 MG/DL (0.60-1.30)
[2021-03-17 03:30] LABS: PHOSPHORUS 3.6 MG/DL (2.3-4.7)
[2021-03-17 03:31] LABS: MAGNESIUM 1.8 MG/DL (1.6-2.4)
[2021-03-17] MEDS: MAGNESIUM 1 GM/100 ML IVPB 100 ML IV SCH (03:45)
[2021-03-17] MEDS: KCL 20 MEQ TAB (K-DUR) PO SCH (03:45)
[2021-03-17] MEDS: LABETALOL HCL 20 MG/4 ML VIAL IV PRN ×3 (04:49→21:56)
[2021-03-17] MEDS: doxAzosin 4 MG (CARDURA) TAB PO SCH ×3 (05:02→21:25)
[2021-03-17] MEDS: MULTIVIT W/MINERALS TAB (THERAGRAN M) PO SCH (06:03)
[2021-03-17] MEDS: THIAMINE 100 MG (VITAMIN B-1) TAB PO SCH (06:03)
[2021-03-17] MEDS: hydrALAZINE (APESOLINE) 20 MG/ML VIAL IV PRN ×3 (06:08→20:23)
[2021-03-17] MEDS: FUROSEMIDE 40 MG/4 ML INJ (LASIX) IVP SCH (06:08)
--- NOTE | 2021-03-17 06:23 | Diagnostic Imaging Report ---
EXAMINATION: Chest 1 view HISTORY: Respiratory failure COMPARISON: 03/16/2021 FINDINGS: The lungs are clear without edema or pneumonia. No pleural effusion or pneumothorax. Heart size is normal. IMPRESSION: 1. Clear lungs. Dictated by: Dictated on workstation # [id number]
[2021-03-17] MEDS: PANTOPRAZOLE 40 MG (PROTONIX) VIAL IV SCH ×2 (09:23→20:22)
[2021-03-17] MEDS: LACRI-LUBE OPTHALMIC OINT 3.5 GM TUBE OU SCH ×2 (09:39→20:17)
[2021-03-17] MEDS: FOLIC ACID 1 MG TAB PO SCH (09:55)
[2021-03-17] MEDS: polyethylene glycoL POWDER 17 GM (MIRALAX) PACK PO SCH ×2 (09:55→20:17)
[2021-03-17] MEDS: amLODIPine 5 MG (NORVASC) TAB PO SCH (09:55)
[2021-03-17] MEDS: LORATADINE (CLARITIN) 10 MG TAB PO SCH (09:55)
[2021-03-17] MEDS: SENNA W/DOCUSATE (SENOKOT S) TABLET PO SCH ×2 (09:56→20:17)
[2021-03-17] MEDS: SODIUM BICARBONATE 650 MG TABLET (NON-FORMULARY) PO SCH ×3 (09:56→20:17)
--- NOTE | 2021-03-17 10:19 | Tele-ICU Progress Note ---
Subjective Date Seen by a Provider: Mar 17, 2021 Time Seen by a Provider: 10:19 Subjective/Events-last exam Patient extubated yesterday. Currently he is more alert and did not require any further Ativan. He is currently on 3 L nasal cannula. Hemodynamically stable. Apparently he is not able to handling oral secretions. He had a low-grade fever and repeat blood cultures were ordered. Mental status increase it. I have discussed with the patient via video visit. Sepsis Event Evaluation Height, Weight, BMI Height: 5'8.00" Weight: 189lbs. oz. 85.613545xx; 28.53 BMI Method: Focused Exam Lactate Level 03/16/21 21:30: Lactic Acid Level 0.54 Exam Exam Patient acknowledged, consented, and participated in this virtual visit which was conducted using real time audio/video Vital Signs Date Time Temp Pulse Resp B/P (MAP) Pulse Ox O2 Delivery O2 Flow Rate FiO2 03/17/21 09:53 High Flow N/C 3.00 03/17/21 09:35 96 Vapotherm 20.00 24 03/17/21 08:00 37.2 03/17/21 07:45 97 Vapotherm 20.00 24 03/17/21 07:35 98 Vapotherm 20.00 24 03/17/21 06:00 91 15 188/56 (100) 98 Vapotherm 20.00 24.00 03/17/21 05:00 51 12 171/49 (89) 99 Vapotherm 20.00 24.00 03/17/21 04:00 96 12 150/42 (78) 98 Vapotherm 20.00 24.00 03/17/21 03:50 37.3 03/17/21 03:45 97 Vapotherm 20.00 24 03/17/21 03:05 96 12 155/45 (81) 98 Vapotherm 20.00 24.00 03/17/21 02:43 98 Vapotherm 20.00 24 03/17/21 02:00 97 12 137/45 (75) 98 Vapotherm 20.00 24.00 03/17/21 01:00 100 03/17/21 01:00 100 12 147/49 (81) 97 Vapotherm 20.00 24.00 03/17/21 00:36 37.7 03/17/21 00:00 97 Vapotherm 20.00 24 03/17/21 00:00 94 12 132/44 (73) 98 Vapotherm 20.00 24.00 03/16/21 23:43 38.7 03/16/21 23:00 116 12 168/48 (88) 98 Vapotherm 20.00 24.00 03/16/21 22:00 115 12 165/53 (90) 98 Vapotherm 20.00 24.00 03/16/21 21:29 100 Vapotherm 20.00 24 03/16/21 21:00 112 12 165/50 (88) 100 Vapotherm 20.00 24.00 03/16/21 20:00 112 12 169/55 (93) 99 Vapotherm 20.00 24.00 03/16/21 20:00 97 Vapotherm 20.00 24 03/16/21 20:00 37.9 03/16/21 19:00 107 22 156/55 (88) 99 Vapotherm 20.00 24.00 03/16/21 19:00 107 03/16/21 18:00 99 12 159/53 (88) 100 Vapotherm 20.00 24.00 03/16/21 17:00 93 17 142/51 (81) 98 Vapotherm 20.00 24.00 03/16/21 16:00 114 18 172/50 (90) 97 Vapotherm 20.00 24.00 03/16/21 15:25 37.2 110 98 24 03/16/21 15:00 111 13 164/51 (88) 100 Vapotherm 20.00 24.00 03/16/21 15:00 99 Vapotherm 20.00 24 03/16/21 14:56 Vapotherm 20.00 24.00 03/16/21 14:52 99 Vapotherm 20.00 24 03/16/21 14:00 104 13 173/55 (94) 100 Vapotherm 30.00 45.00 03/16/21 13:00 129 12 185/54 (97) 100 Vapotherm 30.00 45.00 03/16/21 12:59 120 03/16/21 12:00 37.2 03/16/21 12:00 120 10 116/66 (83) 100 Vapotherm 30.00 45.00 03/16/21 12:00 98 Vapotherm 30.00 45 03/16/21 11:00 112 28 171/50 (90) 96 Mechanical Ventilator 21.00 I & O 03/17/21 06:59 Intake Total 365 ml Output Total 1400 ml Balance -1035 ml Height & Weight Height: 5'8.00" Weight: 189lbs. oz. 85.540308nu; 28.53 BMI Method: General Appearance: No Apparent Distress, Chronically ill, Obese HEENT: PERRL/EOMI, Pharynx Normal Neck: Normal Inspection, Supple Respiratory: Lungs Clear, Normal Breath Sounds, No Respiratory Distress, Other (intubated and mechanically ventilated) Cardiovascular: Regular Rate, Rhythm, No Murmur Capillary Refill: Less Than 3 Seconds Peripheral Pulses: 2+ Radial Pulses (R), 2+ Radial Pulses (L) Gastrointestinal: non tender, soft, other (suprapubic catheter present) Extremity: Normal Inspection, Swelling Neurologic/Psychiatric: Alert, No Motor/Sensory Deficits Skin: Normal Color, Warm/Dry Lymphatic: No Adenopathy Other comments PE PER RN Results Lab Laboratory Tests 03/16/21 03:30 03/17/21 03:00 Radiology NAME: [facility] REC#: [id number] PT STATUS: ADM IN : 1945 PHYSICIAN: GORDON MARIE MD ADMIT DATE: 02/25/21/ICU Signed Date of Exam:03/17/21 CHEST 1 VIEW, AP/PA ONLY EXAMINATION: Chest 1 view HISTORY: Respiratory failure COMPARISON: 03/16/2021 FINDINGS: The lungs are clear without edema or pneumonia. No pleural effusion or pneumothorax. Heart size is normal. IMPRESSION: 1. Clear lungs. Dictated by: Dictated on workstation # [id number] Dict: 03/17/21 0613 Trans: 03/17/21 0927 CONCHA [id number] Interpreted by: ABDIAZIZ ECHEVERRIA MD Electronically signed by: ABDIAZIZ ECHEVERRIA MD 03/17/21 0927 Assessment/Plan Assessment/Plan 1. Acute hypercarbic and hypoxic respiratory failure improved. 2. Altered mental status slowly improving. 3. Failed swallow evaluation. 4. Deconditioning. Recommendations 1. Continue oxygenation with the nasal cannula 2. Speech therapy to continue to follow along for swallowing evaluation 3. Chest physical therapy 4. DVT prophylaxis and ulcer prophylaxis. 5. Discussed with the patient's via video visit and also discussed with the SOFTBALL WINDER. Critical Care: Critically Ill Patient Time spent with patient (mins): 25 TRENA BOURGEOIS MD Mar 17, 2021 10:19
--- NOTE | 2021-03-17 10:45 | Physical Therapy Evaluation ---
PT Evaluation-General Medical Diagnosis Admission Date Feb 25, 2021 at 18:26 Medical Diagnosis: AMS due to ETOH withdraw Onset Date: Feb 25, 2021 Therapy Diagnosis Therapy Diagnosis: debility/weakness Height/Weight Height (Feet): 5 Height (Inches): 8.00 Weight (Pounds): 189 Precautions Precautions/Isolations: Fall Prevention, Standard Precautions Referral Physician: Frantz Reason for Referral: Evaluation/Treatment Medical History Pertinent Medical History: Alcoholism, HTN, Renal Insufficiency Current History Patient had transferred to ICU and was intubated and sedated for several days. Recently extubated and on Vapotherm Reviewed History: Yes Social History Home: Single Level Current Living Status: Spouse Entry Into Home: Stairs With Railing PT Steps Into Home: 6 Prior Prior Level of Function SCALE: Activities may be completed with or without assistive devices. 4-Wdlctgonry-pdnrgcr completes the activity by him/herself with no assistance from a helper. 5-Set-up or Clean-up Assistance-helper sets up or cleans up; patient completes activity. [place] assists only prior to or following the activity. 4-Supervision or Touching Assistance-helper provides verbal cues and/or touching/steadying and/or contact guard assistance as patient completes activity. Assistance may be provided throughout the activity or intermittently. 3-Partial/Moderate Assistance-helper does LESS THAN HALF the effort. [place] lifts, holds or supports trunk or limbs, but provides less than half the effort. 2-Substantial/Maximal Assistance-helper does MORE THAN HALF the effort. [place] lifts or holds trunk or limbs and provides more than half the effort. 3-Uixyueefk-rftnek does ALL the effort. Patient does none of the effort to complete the activity. Or, the assistance of 2 or more helpers is required for the patient to complete the activity. If activity was not attempted, code reason: 7-Patient Refused. 9-Not Applicable-not attempted and the patient did not perform the activity before the current illness, exacerbation or injury. 10-Not Attempted due to Environmental Limitations-(lack of equipment, weather restraints, etc.). 88-Not Attempted due to Medical Conditions or Safety Concerns. Bed Mobility: 6 Transfers (B,C,W/C): 6 Gait: 6 Indoor Mobility (Ambulation): Independent Stairs: Independent Prior Devices Use: None PT Evaluation-Current Subjective Patient currently non verbal Objective Attachments: Oxygen (vapotherm), Suprapubic Catheter, IV ROM/Strength ROM Lower Extremities right LE mild knee flexion contracture 10 degrees/left LE WFL Strength Lower Extremities 2+/5 grossly bilateral LE Integumentary/Posture Bowel Incontinence: Yes Bladder Incontinence: Iglesias Cath Neuromuscular (Tone, Coordination, Reflexes) diminished coordination with all mobility Sensory Vision: Functional Hearing: Impaired Sensation Right Lower Extremit: Impaired Sensation Left Lower Extremity: Impaired Transfers Roll Left to Right (QC): 1 Sit to Lying (QC): 1 Lying to Sitting/Side of Bed(Q: 1 Sit to Stand (QC): 88 Chair/Sfb-si-Wjqek Xfer(QC): 88 Toilet Transfer (QC): 88 Gait Does the Patient Walk?: No and Walking Goal IS indicated Walk 10 feet (QC): 88 Walk 50 ft with 2 Turns(QC): 88 Walk 150 ft (QC): 88 Balance Sitting Static: Poor Sitting Dynamic: Poor Assessment/Needs 76 y.o. male, will benefit from skilled PT to address functional strength and mobility to improve current LOF. Rehab Potential: Guarded PT Short Term Goals Short Term Goals Time Frame: Mar 29, 2021 Roll Left & Right: 2 Sit to lyin Lying to sitting on side of be: 2 Sit to stand: 2 Chair/oxp-kt-elxmd transfer: 2 Walk 10 feet: 2 PT Senior Care Goals Senior Care Goals PT Senior Care Goals Time Frame: Apr 12, 2021 Roll Left & Right (QC): 3 Sit to Lying (QC): 3 Lying-Sitting on Side/Bed(QC): 3 Sit to Stand (QC): 3 Chair/Eok-hp-Uutdy Xfer(QC): 3 Toilet Transfer (QC): 3 Does the Patient Walk: Yes Walk 10 feet (QC): 3 Walk 50ft with 2 Turns (QC): 3 Walk 150 ft (QC): 3 1 Step (curb) (QC): 3 4 Steps (QC): 3 12 Steps (QC): 3 PT Plan Problem List Problem List: Activity Tolerance, Functional Strength, Safety, Balance, Gait, Transfer, Bed Mobility Treatment/Plan Treatment Plan: Continue Plan of Care Treatment Plan: Bed Mobility, Education, Functional Activity Anthony, Functional Strength, Group Therapy, Gait, Safety, Therapeutic Exercise, Transfers Treatment Duration: Apr 12, 2021 Frequency: 6 times per week Estimated Hrs Per Day: .5 hour per day Time/GCodes Time In: 740 Time Out: 759 Total Billed Treatment Time: 19 Total Billed Treatment [address] [facility] 19 min BALAJI DICKINSON PT Mar 17, 2021 10:45
[2021-03-17] MEDS: ACETAMINOPHEN 650 MG SUPP (TYLENOL) PR PRN (12:07)
--- NOTE | 2021-03-17 12:08 | Occupational Therapy Eval ---
OT Evaluation-General/PLF Medical Diagnosis Admission Date Feb 25, 2021 at 18:26 Medical Diagnosis: AMS due to ETOH withdrawal Onset Date: Feb 25, 2021 Therapy Diagnosis Therapy Diagnosis: Impaired adls, iadls, balance, cognition, safety Height/Weight Height (Feet): 5 Height (Inches): 8.00 Weight (Pounds): 189 Precautions Precautions/Isolations: Fall Prevention, Standard Precautions Safety Interventions: Reorient-Attempt Referral Physician: Frantz Referral Reason: Evaluation/Treatment Medical History Pertinent Medical History: Alcoholism, HTN, Renal Insufficiency Current History Pt presents to ER with AMS secondary to ETOH withdrawal. He was transferred to ICU where he was intubated for several days. He was recently extubated and currently on vapotherm. Reviewed History: Yes Social History Home: Single Level Current Living Status: Spouse Entry Into Home: Stairs With Railing Steps Into Home: 6 reports pt was indep with adls and iadls. He was not using any AD prior to admission and he stood to shower. She does verbalize that he lives a sedentary lifestyle and lied on the couch for majority of the day. ADL-Prior Level of Function SCALE: Activities may be completed with or without assistive devices. 3-Gnkpuanbnd-hooahyy completes the activity by him/herself with no assistance from a helper. 5-Set-up or Clean-up Assistance-helper sets up or cleans up; patient completes activity. [place] assists only prior to or following the activity. 4-Supervision or Touching Assistance-helper provides verbal cues and/or touching/steadying and/or contact guard assistance as patient completes activity. Assistance may be provided throughout the activity or intermittently. 3-Partial/Moderate Assistance-helper does LESS THAN HALF the effort. [place] lifts, holds or supports trunk or limbs, but provides less than half the effort. 2-Substantial/Maximal Assistance-helper does MORE THAN HALF the effort. [place] lifts or holds trunk or limbs and provides more than half the effort. 9-Pmlfzdpwd-wgzhem does ALL the effort. Patient does none of the effort to complete the activity. Or, the assistance of 2 or more helpers is required for the patient to complete the activity. If activity was not attempted, code reason: 7-Patient Refused. 9-Not Applicable-not attempted and the patient did not perform the activity before the current illness, exacerbation or injury. 10-Not Attempted due to Environmental Limitations-(lack of equipment, weather restraints, etc.). 88-Not Attempted due to Medical Conditions or Safety Concerns. Self Care: Independent Functional Cognition: Needed Some Help OT Current Status Subjective Pt only responds to questions regarding pain. "guess what, no pain with that." Pt is very [place] and also confused. Appearance Left supine in bed, all needs within reach, in room. Mental Status/Objective Patient Orientation: Person, Confused Attachments: Iglesias Catheter, IV, Oxygen, Telemetry Current Hearing Aids: Yes Hand Dominance: Right Upper Extremity ROM Unable to follow commands. Shoulder PROM ~120 degrees bilaterally Upper Extremity Strength Poor industrial refrigeration mechanic strength, All other joints not tested secondary to poor comprehension. ADL-Treatment Shower/Bathe Self (QC): 1 Upper Body Dressing (QC): 1 Lower Body Dressing (QC): 1 On/Off Footwear (QC): 1 Toileting Hygiene (QC): 1 Pt unable to follow simple 1 step commands. Requires verbal, visual, and tactile cues. Max a to roll L, mod a to roll R. Unable to comprehend sitting at edge of bed. At this time, pt dependent for all adls due to impaired cognition, strength, endurance, and sequencing. Education OT Patient Education: Correct positioning, Purpose of tx/functional activities, Safety issues, Transfer techniques Teaching Recipient: Patient, Family Teaching Methods: Demonstration Response to Teaching: Unable to Return Demonstration, Reinforcement Needed OT Television And Radio Repairer Goals Television And Radio Repairer Goals Time Frame: Mar 14, 2021 Eating (QC): 4 Oral Hygiene (QC): 4 Toileting Hygiene (QC): 3 Shower/Bathe Self (QC): 4 Upper Body Dressing (QC): 4 Lower Body Dressing (QC): 4 On/Off Footwear (QC): 4 Additional Goals: 1-Demonstrate ADL Tasks, 2-Verbalize Understanding, 3- ImproveStrength/Anthony 1=Demonstrate adherence to instructed precautions during ADL tasks. 2=Patient will verbalize/demonstrate understanding of assistive devices/modifications for ADL. 3=Patient will improve strength/tolerance for activity to enable patient to perform ADL's. OT Education/Plan Problem List/Assessment Assessment: Decreased Activ Tolerance, Decreased Safety Aware, Decreased UE Strength, Dependent Transfers, Impaired Bed Mobility, Impaired Cognition, Impaired Funct Balance, Impaired I ADL's, Impaired Self-Care Skills, Restricted Funct UE ROM Pt would benefit from OT services in order to increase safety and independence with ADLs and functional mobility in order to maximize LOF for return home with spouse. Discharge Recommendations Plan/Recommendations: Continue POC Therapy Discharge Recommendati: Post Acute OT Treatment Plan/Plan of Care Treatment,Training & Education: Yes Patient would benefit from OT for education, treatment and training to promote independence in ADL's, mobility, safety and/or upper extremity function for ADL's. Plan of Care: ADL Retraining, Functional Mobility, UE Funct Exercise/Act Treatment Duration: Mar 14, 2021 Frequency: 3 times per week (3-5 times per week.) Estimated Hrs Per Day: .25 hour per day Rehab Potential: Guarded Time/GCodes Start Time: 11:32 Stop Time: 11:42 Total Time Billed (hr/min): 10 Billed Treatment Time 1 visit Karin Todd OT Mar 17, 2021 12:08
--- NOTE | 2021-03-17 12:14 | Progress Note - Urology ---
Progress Note-Urology Progress Notes/Assess & Plan Progress/Assessment & Plan CYSTOSCOPY TOMORROW BEDSIDE, LOCAL. FULLY EXPLAINED TO PATIENT AND Final Diagnosis GROSS HEMATURIA AND URETHRAL TRAUMA ASMITA HUYNH MD Mar 17, 2021 12:14
--- NOTE | 2021-03-17 13:22 | ST Dysphagia Evaluation ---
Speech Evaluation-General Medical Diagnosis AMS due to ETOH Withdrawal Onset Date: Feb 25, 2021 Therapy Diagnosis Therapy Diagnosis: Severe Oropharyngeal Dysphagia Precautions Precautions: Fall, Aspiration Precautions/Isolations: Standard Precautions Referral Referring Physician: Dr. Landry Reason for Referral: Evaluation/Treatment Medical History Pertinent Medical History: Alcoholism, HTN, Renal Insufficiency Current History The patient is a 76 year-old male, who presented to [facility] on 02/25/2021 secondary to altered mental status. The patient's past medical history is significant for alcohol dependence. Upon arrival to the emergency department, the patient was found to have elevated ammonia levels and acute kidney injury. The patient was intubated on 03/02/2021 and extubated on 03/05/2021. The patient was re-intubated on 03/09/2021 and extubated on . CXR: 03/17/2021: Clear lungs. Reviewed History: Yes Social History Current Living Status: Spouse Speech PLF/Current-Dysphagia Prior Level of Function Per chart review, the patient appeared to be independent with ADL's prior to admission. Subjective Following extubation, speech language pathology was consulted for completion of a clinical bedside swallowing evaluation, as the patient appeared to have difficulty coordination his pharyngeal swallow response. Prior to entrance into the room, the clinician discussed the patient with the treating RN. Per RN, the patient currently requires deep pharyngeal use of the [place] to clear his own secretions and is following verbal commands intermittently. The patient is currently NPO. Cognitive Status Patient Orientation: Unable to Assess The patient does not respond to orientation questions asked by the clinician (regardless of volume or repetition). Oral Motor Skills Dentition: Natural Ability to Follow Directions: Poor Oral Expression Ability: Severe Impairment Observation: Excessive Secretions Oral, Excessive Excretion Hypopharynx, Oral Cavity Suction, Hypopharynx Suction Voice Voice Phonatory-Based Quality: Breathy, Weak Voice Loudness: Severely Soft/Quiet Face Facial Symmetry: Symmetrical Oral-Facial Assessment Oral-Facial Dentition: Normal Labial Seal Description: Weak, Poor Coordination Smile: Reduced ROM, Poor Coordination Lingual Protrusion: Normal Lingual ROM: Abnormal Lingual Strength: Abnormal Volitional Dry Swallow: No Voluntary Cough: No Can Clear Throat Volitionally: No Productive Cough: No Productive Throat Clear: No Dysphagia Evaluation Consistencies Presented: Thin Liquid, Pureed Oral Phase: Unable to Form Bolus, Reduced Oral Transit Pharyngeal Phase: Decreased A/P Bolus Transit, Multiple Swallow Attempts, Clears Throat, Reduced Laryngeal Elevation Funct. Velo/Pharyngeal Symptom: Cough After Swallow, Wet Voice Dietary Recommendations: NPO Liquid Recommendations: NPO Recommendations: - The patient should remain NPO. - Frequent and excellent oral care to reduce the transfer of oral bacteria to the lungs should aspiration of secretions occur. - Speech pathology will re-assess the patient's oropharyngeal swallowing function daily, as appropriate. Dysphagia Evaluation Summary Following extubation, speech language pathology was consulted for completion of a clinical bedside swallowing evaluation, as the patient appeared to have difficulty coordination his pharyngeal swallow response. Prior to entrance into the room, the clinician discussed the patient with the treating RN. Per RN, the patient currently requires deep pharyngeal use of the [place] to clear his own secretions and is following verbal commands intermittently. The patient is currently NPO. The patient is receiving Vapotherm at a rate of 20LPM and 24% O2. The patient's SpO2% is at 97% with respirations at 9 bpm prior to initiation of PO intake. The patient is positioned upright and his is at bedside. The rationale and process of the bedside evaluation was discussed and shared with the patient and the patient's . The patient is clearing his throat at baseline and displays wet-sounding, audible respirations. The patient followed limited verbal instructions throughout the oral mechanism exam regardless of direct modeling. The patient displays weak labial and lingual range of motion and strength. Lingual protrusion is at midline. Upper and lower dentition are present. Vapotherm: While receiving Vapotherm, the patient was provided one ice chip, three teaspoons of water, and four teaspoons of applesauce. The patient consistently displays s/s of suspected aspiration with each consistency tested, demonstrating a weak throat clear and cough following each swallow. 8L Nasal Cannula: As Vapotherm can cause additional pressure to the pharyngeal region, the patient was assessed with the absence of Vapoterm and the presence of the nasal cannula, only (the patient was placed on the nasal cannula by respiratory therapy and monitored closely by the respiratory therapist). The patient was provided one ice chip, two teaspoons of water, and two teaspoons of applesauce. The patient consistently displays s/s of suspected aspiration with each consistency tested, demonstrating a weak throat clear and cough following each swallow. The patient appeared extremely fatigued following limited PO attempts. The patient's respirations increased from 9 bpm to 32 bpm during PO trials. Additionally, the patient's vocalizations increased in wetness. The patient's overall fatigue, poor level of alertness, current cognitive status (decreased), and s/s of suspected aspiration with PO consistencies provided demonstrate the patient is inappropriate for current PO intake of any kind. Speech Short Term Goals Short Term Goals Short Term Goals 1. The patient will participate in PO trials of the least restrictive con sistency without s/s of suspected aspiration with 90% accuracy. Time Frame-STG: One Week Speech Soil Technologist Goals Soil Technologist Goals 1. The patient will tolerate the least restrictive diet without s/s of suspected aspiration with 90% accuracy. Time Frame: Two Weeks Speech-Plan Treatment Plan Speech Therapy Treatment Plan: Continue Plan of Care Treatment Duration: Apr 14, 2021 Frequency: 3 times per week (Three to four times per week.) Estimated Hrs Per Day: .25 hour per day Rehab Potential: Guarded Barriers to Learning: Fatigue, Cognition Pt/Family Agrees to Plan: Yes Safety Risks/Education Teaching Recipient: Patient, Family Teaching Methods: Discussion Response to Teaching: Reinforcement Needed Education Topics Provided: Plan of Care, Results of Clinical Bedside Swallowing Evaluation Time Speech Therapy Time In: 09:45 Speech Therapy Time Out: 10:15 Total Billed Time: 30 Billed Treatment Time 1, OMEGA CANALES [facility] Mar 17, 2021 13:22
[2021-03-17] MEDS: NOREPINEPHRINE 8 MG/250 ML 250 ML IV SCH (15:04)
--- NOTE | 2021-03-17 18:03 | Progress Note - Hospitalist ---
Subjective HPI/CC On Admission Date Seen by Provider: Mar 17, 2021 Time Seen by Provider: 09:25 CC: Altered mental status with alcohol withdrawal HPI: This is a 76yoWM who has a hx of alcoholism who presented to the [facility] ER found to have altered mental status and findings consistent with alcohol withdrawal. His creatinine was 3.1 consistent with dehydration so he was admitted for IV fluids and alcohol withdrawal treatment and today his creatinine is much better at 2.49. Elevated BP requiring aggressive BP medications. He does not have his hearing aids so it is very difficult to communicate. His is at the bedside and speaks broken [place] since she is apparently [place]. I tried to update her with everything that she needs to know and she needs him to stay here as long as possible because she has to work. Subjective/Events-last exam Patient extubated yesterday. Remains slightly lethargic, weak. He denies pain. He is not short of breath. Focused Exam Lactate Level 03/16/21 21:30: Lactic Acid Level 0.54 Objective Exam Vital Signs Vital Signs Date Time Temp Pulse Resp B/P (MAP) Pulse Ox O2 Delivery O2 Flow Rate FiO2 03/17/21 16:05 96 Room Air 03/17/21 16:00 36.9 03/17/21 15:02 1.00 03/17/21 15:00 94 10 161/61 (94) 03/17/21 09:35 24 Capillary Refill : Less Than 3 Seconds General Appearance: No Apparent Distress, Chronically ill, Obese Respiratory: No Respiratory Distress, Crackles Cardiovascular: Regular Rate, Rhythm, No Murmur Gastrointestinal: Normal Bowel Sounds, Soft Extremity: Normal Inspection, Non Tender, Pedal Edema Neurologic/Psychiatric: Alert, Oriented x3, Motor Weakness Skin: Normal Color, Warm/Dry Results/Procedures Lab Laboratory Tests 03/17/21 03:00 Patient resulted labs reviewed. Imaging: Reviewed Imaging Report Assessment/Plan Assessment and Plan Assess & Plan/Chief Complaint Urethral trauma Iglesias complication Gross hematuria Acute blood loss anemia Urinary retention Suprapubic catheter Surgery following Suprapubic catheter in place Urology following Planning for cystoscopy tomorrow Acute respiratory failure with hypoxia Extubated 1/2 TeleICU following Continue Lasix Alcohol dependence Electrolyte abnormalities Vitamin replacement Monitor and replace electrolytes as needed Critical illness myopathy Debility PT/OT HTN GERD Gout CKD DVT prophylaxis: Lovenox Alchohol withdrawal with perceptual disturbance, resolved Ventilator associated pneumonia, resolved Carbapenem resistant Pseudomonas infection, resolved Mucous plugging, resolved Endotracheally intubated, resolved Critical Care Critically Ill Patient Diagnosis/Problems Diagnosis/Problems (1) Alcohol withdrawal syndrome with perceptual disturbance Status: Acute (2) Alcohol dependence Status: Acute Qualifiers: Substance use status: in withdrawal Complication of substance-induced condition: with perceptual disturbance Qualified Codes: F10.232 - Alcohol dependence with withdrawal with perceptual disturbance (3) Electrolyte abnormality Status: Acute (4) Endotracheally intubated Status: Acute (5) Hypokalemia Status: Acute (6) CKD (chronic kidney disease) Status: Chronic Qualifiers: Chronic kidney disease stage: stage 3 (moderate) Chronic kidney disease stage 3 subtype: stage 3b (GFR 30-44) Qualified Codes: N18.32 - Chronic kidney disease, stage 3b (7) HTN (hypertension) Status: Chronic (8) GERD (gastroesophageal reflux disease) Status: Chronic (9) Gout Status: Chronic (10) VAP (ventilator-associated pneumonia) Status: Acute (11) Infection due to carbapenem resistant Pseudomonas aeruginosa Status: Acute (12) Dislodged Iglesias catheter Status: Acute Qualifiers: Encounter type: initial encounter Qualified Codes: T83.021A - Displacement of indwelling urethral catheter, initial encounter (13) Urinary retention Status: Acute (14) Suprapubic catheter Status: Acute (15) Traumatic injury of urethra Status: Acute (16) Gross hematuria Status: Acute GORDON MARIE MD Mar 17, 2021 18:03
[2021-03-17] MEDS: ENOXAPARIN 30 MG/0.3 ML (LOVENOX) SYR SC SCH (20:17)
[2021-03-18] VITALS (25 sets, daily range): BP systolic 133–172; BP diastolic 48–87
[2021-03-18] MEDS: ACETAMINOPHEN 650 MG SUPP (TYLENOL) PR PRN ×2 (01:56→08:37)
[2021-03-18] MEDS: LABETALOL HCL 20 MG/4 ML VIAL IV PRN ×3 (02:05→22:25)
[2021-03-18] MEDS: RT-ALBUTEROL SULF 2.5 MG/3 ML PRE-MIX VIAL INH SCH ×4 (03:00→21:58)
[2021-03-18 05:14] LABS: BASOPHILS % (AUTO) 1 % (0-10); HEMATOCRIT 25 % (40-54)
[2021-03-18 05:16] LABS: EOSINOPHILS # (AUTO) 0.1 10^3/uL (0.0-0.3); EOSINOPHILS % (AUTO) 2 % (0-10); HEMOGLOBIN 8.1 g/dL (13.3-17.7); LYMPHOCYTES # (AUTO) 0.9 10^3/uL (1.0-4.0); LYMPHOCYTES % (AUTO) 15 % (12-44); MEAN CORPUSCULAR HEMOGLOBIN 36 pg (25-34); MEAN CORPUSCULAR HGB CONC 33 g/dL (32-36); MEAN CORPUSCULAR VOLUME 109 fL (80-99); MEAN PLATELET VOLUME 11.6 fL (9.0-12.2); MONOCYTES # (AUTO) 0.7 10^3/uL (0.0-1.0); MONOCYTES % (AUTO) 12 % (0-12); NEUTROPHILS # (AUTO) 4.2 10^3/uL (1.8-7.8); NEUTROPHILS % (AUTO) 71 % (42-75); PLATELET COUNT 136 10^3/uL (130-400); WHITE BLOOD COUNT 5.9 10^3/uL (4.3-11.0)
[2021-03-18 05:32] LABS: POTASSIUM 3.5 MMOL/L (3.6-5.0)
[2021-03-18 05:33] LABS: CALCIUM 9.3 MG/DL (8.5-10.1)
[2021-03-18 05:37] LABS: CREATININE SERUM 2.42 MG/DL (0.60-1.30); PHOSPHORUS 3.7 MG/DL (2.3-4.7)
[2021-03-18 05:40] LABS: MAGNESIUM 1.8 MG/DL (1.6-2.4)
[2021-03-18] MEDS: KCL 20 MEQ TAB (K-DUR) PO SCH (05:41)
[2021-03-18] MEDS: doxAzosin 4 MG (CARDURA) TAB PO SCH ×3 (05:41→21:15)
[2021-03-18] MEDS: POTASSIUM CL 10MEQ/50ML IVPB 50 ML IV SCH (05:41)
[2021-03-18] MEDS: NOREPINEPHRINE 8 MG/250 ML 250 ML IV SCH ×2 (05:41→21:30)
[2021-03-18] MEDS: MAGNESIUM 1 GM/100 ML IVPB 100 ML IV SCH (05:41)
[2021-03-18] MEDS: THIAMINE 100 MG (VITAMIN B-1) TAB PO SCH (05:42)
[2021-03-18] MEDS: MULTIVIT W/MINERALS TAB (THERAGRAN M) PO SCH (05:42)
[2021-03-18] MEDS ORDERED: LIDOCAINE UROJET 2% GEL 10 ML PKG ONE (08:04)
[2021-03-18] MEDS: FUROSEMIDE 40 MG/4 ML INJ (LASIX) IVP SCH (08:30)
[2021-03-18] MEDS: PANTOPRAZOLE 40 MG (PROTONIX) VIAL IV SCH ×2 (08:30→21:14)
[2021-03-18] MEDS: LACRI-LUBE OPTHALMIC OINT 3.5 GM TUBE OU SCH ×2 (08:30→21:30)
--- NOTE | 2021-03-18 08:53 | Tele-ICU Progress Note ---
Subjective Date Seen by a Provider: Mar 18, 2021 Time Seen by a Provider: 08:53 Subjective/Events-last exam Patient today resting comfortably however he has been having low-grade fever. Hemodynamically stable. Patient underwent cystoscopy and apparently had a false passage for which urologist put a coud catheter. Even though his chest x-ray is negative likely he may have a urinary tract infection. Otherwise overall he is improving. Review of Systems ROS PER RN Sepsis Event Evaluation Height, Weight, BMI Height: 5'8.00" Weight: 189lbs. oz. 85.454705dd; 28.53 BMI Method: Focused Exam Lactate Level 03/16/21 21:30: Lactic Acid Level 0.54 Exam Exam Patient acknowledged, consented, and participated in this virtual visit which was conducted using real time audio/video Vital Signs Date Time Temp Pulse Resp B/P (MAP) Pulse Ox O2 Delivery O2 Flow Rate FiO2 03/18/21 07:50 97 Room Air 03/18/21 07:24 97 Room Air 03/18/21 07:20 37.2 03/18/21 06:00 78 16 155/65 (95) 95 Room Air 03/18/21 05:00 84 18 168/67 (126) 97 Room Air 03/18/21 04:00 88 35 166/74 (111) 96 Room Air 03/18/21 03:50 99 Room Air 03/18/21 03:49 37.6 03/18/21 03:01 96 Room Air 03/18/21 03:00 87 23 153/70 (107) 96 Room Air 03/18/21 02:00 93 37 167/83 (129) 97 Room Air 03/18/21 01:56 37.6 03/18/21 01:00 89 25 168/65 (117) 96 Room Air 03/18/21 01:00 89 03/18/21 00:00 99 Room Air 03/18/21 00:00 37.8 03/18/21 00:00 86 31 162/65 (112) 95 Room Air 03/17/21 23:00 84 12 160/64 (110) 96 Room Air 03/17/21 22:00 82 155/65 (107) 97 Room Air 03/17/21 21:40 97 Room Air 03/17/21 21:00 92 11 164/66 (110) 97 Room Air 03/17/21 20:00 88 10 162/66 (122) 97 Room Air 03/17/21 19:45 36.4 03/17/21 19:40 99 Room Air 03/17/21 19:36 37.6 90 19 169/86 (113) 95 Room Air 03/17/21 19:00 84 20 176/66 (110) Room Air 03/17/21 19:00 83 03/17/21 18:00 99 18 185/63 (103) 98 Room Air 03/17/21 17:00 90 10 175/62 (99) 96 Room Air 03/17/21 16:05 96 Room Air 03/17/21 16:00 36.9 03/17/21 16:00 92 14 158/50 (86) 96 Room Air 03/17/21 15:51 Room Air 03/17/21 15:02 97 Nasal Cannula 1.00 03/17/21 15:00 94 10 161/61 (94) 98 High Flow N/C 1.00 03/17/21 14:00 High Flow N/C 1.00 03/17/21 14:00 92 8 166/67 (100) 99 High Flow N/C 1.00 03/17/21 13:00 92 03/17/21 13:00 92 8 176/64 (101) 99 High Flow N/C 3.00 03/17/21 12:49 37.4 03/17/21 12:07 37.9 03/17/21 12:00 95 13 171/58 (95) 99 High Flow N/C 3.00 03/17/21 11:29 98 High Flow N/C 3.00 03/17/21 11:20 37.9 03/17/21 11:00 93 16 154/62 (92) 98 High Flow N/C 3.00 03/17/21 10:00 96 15 164/60 (94) 98 High Flow N/C 3.00 03/17/21 09:53 High Flow N/C 3.00 03/17/21 09:35 96 Vapotherm 20.00 24 03/17/21 09:00 93 9 156/60 (92) 97 Vapotherm 20.00 24.00 I & O 03/18/21 06:59 Intake Total 0 ml Output Total 750 ml Balance -750 ml Height & Weight Height: 5'8.00" Weight: 189lbs. oz. 85.687382ww; 28.53 BMI Method: General Appearance: No Apparent Distress, Chronically ill, Obese HEENT: PERRL/EOMI, Pharynx Normal Neck: Normal Inspection, Supple Respiratory: No Respiratory Distress, Crackles Cardiovascular: Regular Rate, Rhythm, No Murmur Capillary Refill: Less Than 3 Seconds Peripheral Pulses: 2+ Radial Pulses (R), 2+ Radial Pulses (L) Gastrointestinal: non tender, soft, other (suprapubic catheter present) Extremity: Normal Inspection, Non Tender, Pedal Edema Neurologic/Psychiatric: Alert, Oriented x3, Motor Weakness Skin: Normal Color, Warm/Dry Lymphatic: No Adenopathy Other comments PE PER RN Results Lab Laboratory Tests 03/17/21 03:00 03/18/21 04:40 Assessment/Plan Assessment/Plan 1. Acute hypercarbic and hypoxic respiratory failure improved. 2. Altered mental status slowly improving. 3. Failed swallow evaluation. 4. Deconditioning. 5. False passage i urethra with possible infection causing fever Recommendations 1. Continue oxygenation with the nasal cannula 2. Speech therapy to continue to follow along for swallowing evaluation 3. will get urine c/s and start iv cefepime 4. DVT prophylaxis and ulcer prophylaxis. 5. Discussed with the patient's via video visit and also discussed with the TOP STITCHER. Critical Care: Critically Ill Patient Critical Care: Critically Ill Patient Time spent with patient (mins): 25 TRENA BOURGEOIS MD Mar 18, 2021 08:53
--- NOTE | 2021-03-18 08:53 | Progress Note-Post Operative ---
Post-Operative Progess Note Surgeon (s)/Ict Quality Assurance Engineer (s) Surgeon ASMITA HUYNH MD Ict Quality Assurance Engineer: NONE Pre-Operative Diagnosis gross hematuria and urethral trauma Post-Operative Diagnosis SAME Procedure & Operative Findings Date of Procedure 03/18/21 Procedure Performed/Findings CYSTOSCOPY Anesthesia Type LOCAL Estimated Blood Loss Estimated blood loss (mL): NONE Specimens/Packing Specimens Removed NONE Packing: NONE ASMITA HUYNH MD Mar 18, 2021 08:53
--- NOTE | 2021-03-18 08:53 | Progress Note-Pre Operative ---
Pre-Operative Progress Note H&P Reviewed The H&P was reviewed, patient examined and no changes noted. Date Seen by Provider: Mar 18, 2021 Time Seen by Provider: 08:52 Date H&P Reviewed: Mar 02, 2021 Time H&P Reviewed: 08:52 Pre-Operative Diagnosis: gross hematuria and urethral trauma ASMITA HUYNH MD Mar 18, 2021 08:53
--- NOTE | 2021-03-18 10:13 | Occupational Ther Daily Note ---
OT Current Status-Daily Note Subjective Pt alert though confused, lying in bed. PT in room. Pt and agree to therapy. Mental Status/Objective Patient Orientation: Person, Confused Attachments: Iglesias Catheter, IV, Suprapubic Catheter, Telemetry ADL-Treatment Therapy Code Descriptions/Definitions Functional [place] Measure: 0=Not Assessed/NA 4=Minimal Assistance 1=Total Assistance 5=Supervision or Setup 2=Maximal Assistance 6=Modified [place] 3=Moderate Assistance 7=Complete IndependenceSCALE: Activities may be completed with or without assistive devices. 3-Yneqpprdxe-qvldsrk completes the activity by him/herself with no assistance from a helper. 5-Set-up or Clean-up Assistance-helper sets up or cleans up; patient completes activity. [place] assists only prior to or following the activity. 4-Supervision or Touching Assistance-helper provides verbal cues and/or touching/steadying and/or contact guard assistance as patient completes activity. Assistance may be provided throughout the activity or intermittently. 3-Partial/Moderate Assistance-helper does LESS THAN HALF the effort. Reed lifts, holds or supports trunk or limbs, but provides less than half the effort. 2-Substantial/Maximal Assistance-helper does MORE THAN HALF the effort. Reed lifts or holds trunk or limbs and provides more than half the effort. 7-Vgoyxptku-zltczb does ALL the effort. Patient does none of the effort to complete the activity. Or, the assistance of 2 or more helpers is required for the patient to complete the activity. If activity was not attempted, code reason: 7-Patient Refused. 9-Not Applicable-not attempted and the patient did not perform the activity before the current illness, exacerbation or injury. 10-Not Attempted due to Environmental Limitations-(lack of equipment, weather restraints, etc.). 88-Not Attempted due to Medical Conditions or Safety Concerns. Other Treatment Mod A and max verbal cues for supine to EOB. Dependent with toileting hygiene and footwear. Max verbal cues and mod A x1 for SPT to recliner. After session, pt sitting in recliner with call light/phone in reach. present in room. All needs met. Nrsg notified of positioning. OT Template Clerk Goals Template Clerk Goals Time Frame: Mar 14, 2021 Eating (QC): 4 Oral Hygiene (QC): 4 Toileting Hygiene (QC): 3 Shower/Bathe Self (QC): 4 Upper Body Dressing (QC): 4 Lower Body Dressing (QC): 4 On/Off Footwear (QC): 4 Additional Goals: 1-Demonstrate ADL Tasks, 2-Verbalize Understanding, 3- ImproveStrength/Anthony 1=Demonstrate adherence to instructed precautions during ADL tasks. 2=Patient will verbalize/demonstrate understanding of assistive devices/modifications for ADL. 3=Patient will improve strength/tolerance for activity to enable patient to perform ADL's. OT Education/Plan Problem List/Assessment Assessment: Decreased Activ Tolerance, Decreased Safety Aware, Impaired Cognition, Impaired Self-Care Skills Pt would benefit from OT services in order to increase safety and independence with ADLs and functional mobility in order to maximize LOF for return home with spouse. Discharge Recommendations Plan/Recommendations: Continue POC Treatment Plan/Plan of Care Patient would benefit from OT for education, treatment and training to promote independence in ADL's, mobility, safety and/or upper extremity function for ADL's. Plan of Care: ADL Retraining, Functional Mobility, UE Funct Exercise/Act Treatment Duration: Mar 14, 2021 Frequency: 3 times per week (3-5 times per week.) Estimated Hrs Per Day: .25 hour per day Rehab Potential: Guarded Time/GCodes Start Time: 09:50 Stop Time: 10:03 Total Time Billed (hr/min): 13 Billed Treatment Time 1 visit-FA 1 (13 min) JACKIE LEWIS Mar 18, 2021 10:13
--- NOTE | 2021-03-18 10:34 | Physical Therapy Daily Note ---
PT Daily Note-Current Subjective Patient more alert and talkative on this date. Spouse present. Mental Status Patient Orientation: Person Attachments: Suprapubic Catheter, Iglesias Catheter Transfers SCALE: Activities may be completed with or without assistive devices. 4-Yknhtrnbcd-kucjalk completes the activity by him/herself with no assistance from a helper. 5-Set-up or Clean-up Assistance-helper sets up or cleans up; patient completes activity. [place] assists only prior to or following the activity. 4-Supervision or Touching Assistance-helper provides verbal cues and/or touching/steadying and/or contact guard assistance as patient completes activity. Assistance may be provided throughout the activity or intermittently. 3-Partial/Moderate Assistance-helper does LESS THAN HALF the effort. [place] lifts, holds or supports trunk or limbs, but provides less than half the effort. 2-Substantial/Maximal Assistance-helper does MORE THAN HALF the effort. [place] lifts or holds trunk or limbs and provides more than half the effort. 1-Tdezlmmso-advmqv does ALL the effort. Patient does none of the effort to complete the activity. Or, the assistance of 2 or more helpers is required for the patient to complete the activity. If activity was not attempted, code reason: 7-Patient Refused. 9-Not Applicable-not attempted and the patient did not perform the activity before the current illness, exacerbation or injury. 10-Not Attempted due to Environmental Limitations-(lack of equipment, weather restraints, etc.). 88-Not Attempted due to Medical Conditions or Safety Concerns. Lying to Sitting/Side of Bed(Q: 2 Sit to Stand (QC): 2 Chair/Mqc-fj-Yenai Xfer(QC): 2 Gait Training Does the Patient Walk?: No and Walking Goal IS indicated Distance: 4 small steps Gait Assistive Device: None shuffle gait sequence Assessment Patient up in recliner with needs met. Increase activity as tolerated by patient. Patient remains confused but improving. PT Short Term Goals Short Term Goals Time Frame: Mar 29, 2021 Roll Left & Right: 2 Sit to lyin Lying to sitting on side of be: 2 Sit to stand: 2 Chair/chl-fk-vtkjv transfer: 2 Walk 10 feet: 2 PT Intermediate Goals Intermediate Goals PT Intermediate Goals Time Frame: Apr 12, 2021 Roll Left & Right (QC): 3 Sit to Lying (QC): 3 Lying-Sitting on Side/Bed(QC): 3 Sit to Stand (QC): 3 Chair/Fvr-ze-Xpvpj Xfer(QC): 3 Toilet Transfer (QC): 3 Does the Patient Walk: Yes Walk 10 feet (QC): 3 Walk 50ft with 2 Turns (QC): 3 Walk 150 ft (QC): 3 1 Step (curb) (QC): 3 4 Steps (QC): 3 12 Steps (QC): 3 PT Plan Treatment/Plan Treatment Plan: Continue Plan of Care Treatment Plan: Bed Mobility, Education, Functional Activity Anthony, Functional Strength, Group Therapy, Gait, Safety, Therapeutic Exercise, Transfers Treatment Duration: Apr 12, 2021 Frequency: 6 times per week Estimated Hrs Per Day: .5 hour per day Patient and/or Family Agrees t: Yes Time/GCodes Time In: 950 Time Out: 1005 Total Billed Treatment Time: 15 Total Billed Treatment 1 visit FA 15 min BALAJI DICKINSON PT Mar 18, 2021 10:34
[2021-03-18] MEDS: LORATADINE (CLARITIN) 10 MG TAB PO SCH (11:05)
[2021-03-18] MEDS: SODIUM BICARBONATE 650 MG TABLET (NON-FORMULARY) PO SCH ×3 (11:05→21:15)
[2021-03-18] MEDS: FOLIC ACID 1 MG TAB PO SCH (11:05)
[2021-03-18] MEDS: amLODIPine 5 MG (NORVASC) TAB PO SCH (11:05)
[2021-03-18] MEDS: SENNA W/DOCUSATE (SENOKOT S) TABLET PO SCH ×2 (11:05→21:14)
[2021-03-18] MEDS: polyethylene glycoL POWDER 17 GM (MIRALAX) PACK PO SCH ×2 (11:06→21:15)
--- NOTE | 2021-03-18 12:56 | Speech Therapy Daily Note ---
Speech Daily Progress Note Subjective Date Seen by Provider: Mar 18, 2021 Time Seen by Provider: 10:00 The patient was recently transferred upright in a bedside recliner by physical therapy. The patient's remains at bedside and participates in the discussion and care of the patient. The patient displays increased alertness on this date however remains significantly confused, demonstrating tangential speech frequently. Objective At baseline, the patient is on room air with SpO2% at 98% and respirations at 20 bpm. The patient's vocal intensity is weak however clear. The patient is provided seven teaspoons of water (thin liquid), five teaspoons of nectar-thick liquid, five single straw drinks of nectar-thick liquid, five large consecutive straw drinks of nectar-thick liquid, and four ounces of puree. The patient demonstrated a delayed, rigorous cough following 3/7 teaspoons of thin liquid (43%). The patient does not demonstrate s/s of suspected aspiration with five teaspoons of nectar-thick liquid, five single straw drinks of nectar-thick liquid, five large consecutive straw drinks of nectar-thick liquid, and four ounces of puree. The patient's vocal quality remains clear following each swallow. The patient does display an intermittent facial grimace upon the swallow however continues to deny discomfort or odynophagia. Mild oral holding and delayed posterior transfer of bolus material in the oral cavity were displayed with puree consistencies. The oral holding behavior could be a result of the patient's increased confusion at this time. Due to the oral holding and increased oral transit time demonstrated with puree consistencies, solid PO items were not attempted for patient safety. The patient's SpO2% and respirations remained stable at 97 to 98% and 22 bpm (respectively) throughout the treatment session. Recommendations: - Dysphagia One (puree) consistency diet with NECTAR-THICK liquids, as tolerated. - Fully upright and alert for PO intake. - Full PO supervision and feeding by staff due to impulsivity and weakness. - Single, small bites and sips only. - Crush medication and place in puree for administration. - Monitor for s/s of suspected aspiration with PO intake. If demonstrated, contact speech language pathology. - Speech pathology to monitor the patient's oropharyngeal swallowing function and diet tolerance four to fives times weekly. The results and recommendations were provided to the patient, the patient's , and the RN. All verbalized comprehension and denied questions for the clinician at this time. Assessment Assessment Current Status: Fair Progress Treatment Plan Continue Plan of Care Speech Short Term Goals Short Term Goals Short Term Goals 1. The patient will participate in PO trials of the least restrictive consistency without s/s of suspected aspiration with 90% accuracy. Time Frame-STG: One Week Speech Group Home Goals Group Home Goals 1. The patient will tolerate the least restrictive diet without s/s of suspected aspiration with 90% accuracy. Time Frame: Two Weeks Speech-Plan Treatment Plan Speech Therapy Treatment Plan: Continue Plan of Care Treatment Duration: Apr 14, 2021 Frequency: 3 times per week (Three to four times per week.) Estimated Hrs Per Day: .25 hour per day Rehab Potential: Guarded Pt/Family Agrees to Plan: Yes Safety Risks/Education Teaching Recipient: Patient Teaching Methods: Discussion Response to Teaching: Verbalize Understanding Education Topics Provided: Results of the treatment session, Diet consistency recommendations (placed on in-room white board), Safe swallowing strategies, S/s of suspected aspiration with PO intake. Time Speech Therapy Time In: 10:00 Speech Therapy Time Out: 10:30 Total Billed Time: 30 Billed Treatment Time 1, ASHLEIGH Arechiga Mar 18, 2021 12:56
[2021-03-18] MEDS: CEFEPIME INJECTION 1,000 MG in NS (IVPB) 50 ML IV SCH ×2 (13:58→23:14)
--- NOTE | 2021-03-18 17:32 | OPERATIVE REPORT ---
DATE OF SERVICE: 03/18/2021 PREOPERATIVE DIAGNOSES: Gross hematuria and urethral trauma. POSTOPERATIVE DIAGNOSES: Gross hematuria and urethral trauma. OPERATION PERFORMED: Cystoscopy. SURGEON: Edmar Huynh MD. ANESTHESIA: Local. COMPLICATIONS: None. DESCRIPTION OF PROCEDURE: With the patient supine in his bed, the genitalia were prepped and draped in the usual sterile fashion. Urethra was infiltrated with lidocaine jelly. Penile clamp was applied. This was then removed and a flexible cystoscope was introduced under vision. Anterior urethra was normal. Just distal to the sphincter, there was a false passage mostly right and posterior. I directed the flexible cystoscope through the normal channel and visualized the prostate that was small and not much obstruction. Bladder was entered. I could see the balloon from the suprapubic tube. Otherwise, no abnormality, no clots, no foreign body, no bleeding, and no tumor. The cystoscopy was confirmed in an antegrade fashion and the cystoscope was removed. I inserted an 18-Uzbek coude catheter, directed the tip towards the right side to avoid the false passage and successfully and easily inserted a Iglesias catheter all the way to the bladder, inflated the balloon to 10 mL with no problem draining clear monie urine. We secured the catheter very well with tapes and Jacob wrap around the thigh to prevent accidental or intentional pulling of the catheter. The patient tolerated the procedure and anesthesia well, remained in his bed in a stable condition. PLAN: We will leave the urethral catheter for a day or two, take it out, give him a trial of voiding with clamping the suprapubic tube and checking the residual fluid and once he voids okay with no problem, we will take the tube out. The plan was fully explained to the patient and his . CC: Dr. Manda Jensen - requested, unable to deliver. Job ID: [id number] DocumentID: [id number] Dictated Date: 03/18/2021 12:55:47 Sprinkler Fitter Date: 03/18/2021 17:30:11 Dictated By: EDMAR HUYNH MD
[2021-03-18] MEDS: ENOXAPARIN 30 MG/0.3 ML (LOVENOX) SYR SC SCH (21:15)
--- NOTE | 2021-03-18 21:47 | Progress Note - Hospitalist ---
Subjective HPI/CC On Admission Date Seen by Provider: Mar 18, 2021 Time Seen by Provider: 09:25 CC: Altered mental status with alcohol withdrawal HPI: This is a 76yoWM who has a hx of alcoholism who presented to the [facility] ER found to have altered mental status and findings consistent with alcohol withdrawal. His creatinine was 3.1 consistent with dehydration so he was admitted for IV fluids and alcohol withdrawal treatment and today his creatinine is much better at 2.49. Elevated BP requiring aggressive BP medications. He does not have his hearing aids so it is very difficult to communicate. His is at the bedside and speaks broken Tongan since she is apparently Amharic. I tried to update her with everything that she needs to know and she needs him to stay here as long as possible because she has to work. Subjective/Events-last exam He is confused. He just finished with his cystoscopy. He denies pain. His is at the bedside and was updated. Focused Exam Lactate Level 03/16/21 21:30: Lactic Acid Level 0.54 Objective Exam Vital Signs Vital Signs Date Time Temp Pulse Resp B/P (MAP) Pulse Ox O2 Delivery O2 Flow Rate FiO2 03/18/21 20:45 Room Air 03/18/21 20:00 36.7 03/18/21 19:41 89 20 151/62 (91) 100 03/17/21 15:02 1.00 03/17/21 09:35 24 Capillary Refill : Less Than 3 Seconds General Appearance: No Apparent Distress, Obese Respiratory: Lungs Clear, No Respiratory Distress Cardiovascular: Regular Rate, Rhythm, No Murmur Gastrointestinal: Normal Bowel Sounds, Soft Extremity: Normal Inspection, No Pedal Edema Neurologic/Psychiatric: Alert, Disoriented Skin: Normal Color, Warm/Dry Results/Procedures Lab Laboratory Tests 03/18/21 04:40 Patient resulted labs reviewed. Imaging: Reviewed Imaging Report Assessment/Plan Assessment and Plan Assess & Plan/Chief Complaint Urethral trauma Balbuena complication Gross hematuria Acute blood loss anemia Urinary retention Suprapubic catheter Surgery following Suprapubic catheter in place Urology following Cystoscopy this morning, balbuena placed Acute respiratory failure with hypoxia Now on room air Extubated 1/2 TeleICU following Stop Lasix Alcohol dependence Electrolyte abnormalities Vitamin replacement Monitor and replace electrolytes as needed Critical illness myopathy Debility PT/OT HTN GERD Gout CKD DVT prophylaxis: Lovenox Alchohol withdrawal with perceptual disturbance, resolved Ventilator associated pneumonia, resolved Carbapenem resistant Pseudomonas infection, resolved Mucous plugging, resolved Endotracheally intubated, resolved Critical Care Critically Ill Patient Diagnosis/Problems Diagnosis/Problems (1) Alcohol withdrawal syndrome with perceptual disturbance Status: Acute (2) Alcohol dependence Status: Acute Qualifiers: Substance use status: in withdrawal Complication of substance-induced condition: with perceptual disturbance Qualified Codes: F10.232 - Alcohol dependence with withdrawal with perceptual disturbance (3) Electrolyte abnormality Status: Acute (4) Endotracheally intubated Status: Acute (5) Hypokalemia Status: Acute (6) CKD (chronic kidney disease) Status: Chronic Qualifiers: Chronic kidney disease stage: stage 3 (moderate) Chronic kidney disease stage 3 subtype: stage 3b (GFR 30-44) Qualified Codes: N18.32 - Chronic kidney disease, stage 3b (7) HTN (hypertension) Status: Chronic (8) GERD (gastroesophageal reflux disease) Status: Chronic (9) Gout Status: Chronic (10) VAP (ventilator-associated pneumonia) Status: Acute (11) Infection due to carbapenem resistant Pseudomonas aeruginosa Status: Acute (12) Dislodged Balbuena catheter Status: Acute Qualifiers: Encounter type: initial encounter Qualified Codes: T83.021A - Displacement of indwelling urethral catheter, initial encounter (13) Urinary retention Status: Acute (14) Suprapubic catheter Status: Acute (15) Traumatic injury of urethra Status: Acute (16) Gross hematuria Status: Acute GORDON MARIE MD Mar 18, 2021 21:47
[2021-03-19] VITALS (17 sets, daily range): BP systolic 141–171; BP diastolic 48–83
[2021-03-19] MEDS: RT-ALBUTEROL SULF 2.5 MG/3 ML PRE-MIX VIAL INH SCH ×3 (02:34→21:21)
[2021-03-19 04:43] LABS: BASOPHILS % (AUTO) 1 % (0-10); EOSINOPHILS # (AUTO) 0.2 10^3/uL (0.0-0.3); EOSINOPHILS % (AUTO) 3 % (0-10); HEMATOCRIT 26 % (40-54); HEMOGLOBIN 8.6 g/dL (13.3-17.7); LYMPHOCYTES # (AUTO) 1.2 10^3/uL (1.0-4.0); LYMPHOCYTES % (AUTO) 18 % (12-44); MEAN CORPUSCULAR HEMOGLOBIN 36 pg (25-34); MEAN CORPUSCULAR HGB CONC 33 g/dL (32-36); MEAN CORPUSCULAR VOLUME 108 fL (80-99); MEAN PLATELET VOLUME 12.2 fL (9.0-12.2); MONOCYTES # (AUTO) 0.6 10^3/uL (0.0-1.0); MONOCYTES % (AUTO) 9 % (0-12); NEUTROPHILS # (AUTO) 4.8 10^3/uL (1.8-7.8); NEUTROPHILS % (AUTO) 70 % (42-75); PLATELET COUNT 146 10^3/uL (130-400); WHITE BLOOD COUNT 6.9 10^3/uL (4.3-11.0)
[2021-03-19 05:26] LABS: POTASSIUM 3.2 MMOL/L (3.6-5.0)
[2021-03-19 05:28] LABS: CALCIUM 9.3 MG/DL (8.5-10.1)
[2021-03-19 05:32] LABS: CREATININE SERUM 2.35 MG/DL (0.60-1.30); PHOSPHORUS 2.9 MG/DL (2.3-4.7)
[2021-03-19 05:35] LABS: MAGNESIUM 1.7 MG/DL (1.6-2.4)
[2021-03-19] MEDS: MAGNESIUM 1 GM/100 ML IVPB 100 ML IV SCH (05:38)
[2021-03-19] MEDS: POTASSIUM CL 10MEQ/50ML IVPB 50 ML IV SCH (05:38)
[2021-03-19] MEDS: KCL 20 MEQ TAB (K-DUR) PO SCH (05:38)
[2021-03-19] MEDS: doxAzosin 4 MG (CARDURA) TAB PO SCH ×3 (06:05→20:11)
[2021-03-19] MEDS: THIAMINE 100 MG (VITAMIN B-1) TAB PO SCH (06:05)
[2021-03-19] MEDS: MULTIVIT W/MINERALS TAB (THERAGRAN M) PO SCH (06:05)
[2021-03-19] MEDS: FOLIC ACID 1 MG TAB PO SCH (08:04)
[2021-03-19] MEDS: SENNA W/DOCUSATE (SENOKOT S) TABLET PO SCH ×2 (08:04→20:11)
[2021-03-19] MEDS: PANTOPRAZOLE 40 MG (PROTONIX) VIAL IV SCH ×2 (08:04→20:11)
[2021-03-19] MEDS: SODIUM BICARBONATE 650 MG TABLET (NON-FORMULARY) PO SCH ×3 (08:04→20:11)
[2021-03-19] MEDS: polyethylene glycoL POWDER 17 GM (MIRALAX) PACK PO SCH ×2 (08:04→20:46)
[2021-03-19] MEDS: LORATADINE (CLARITIN) 10 MG TAB PO SCH (08:04)
[2021-03-19] MEDS: FUROSEMIDE 40 MG/4 ML INJ (LASIX) IVP SCH ×2 (08:04→09:31)
[2021-03-19] MEDS: amLODIPine 5 MG (NORVASC) TAB PO SCH (08:04)
[2021-03-19] MEDS: LACRI-LUBE OPTHALMIC OINT 3.5 GM TUBE OU SCH (08:05)
[2021-03-19] MEDS ORDERED: KCL 20 MEQ TAB (K-DUR) PO NR (09:12)
--- NOTE | 2021-03-19 10:02 | Physical Therapy Daily Note ---
PT Daily Note-Current Subjective Patient in recliner pre tx, agrees to PT, has no complaints of pain. Appearance Patient in recliner post tx with nurse call, phone, tray, in room. Mental Status Patient Orientation: Person, Confused Attachments: Suprapubic Catheter, Iglesias Catheter Transfers SCALE: Activities may be completed with or without assistive devices. 5-Zfnousebig-jcacpsv completes the activity by him/herself with no assistance from a helper. 5-Set-up or Clean-up Assistance-helper sets up or cleans up; patient completes activity. [place] assists only prior to or following the activity. 4-Supervision or Touching Assistance-helper provides verbal cues and/or touching/steadying and/or contact guard assistance as patient completes activity. Assistance may be provided throughout the activity or intermittently. 3-Partial/Moderate Assistance-helper does LESS THAN HALF the effort. [place] lifts, holds or supports trunk or limbs, but provides less than half the effort. 2-Substantial/Maximal Assistance-helper does MORE THAN HALF the effort. [place] lifts or holds trunk or limbs and provides more than half the effort. 3-Hergjscpp-wowmdm does ALL the effort. Patient does none of the effort to complete the activity. Or, the assistance of 2 or more helpers is required for the patient to complete the activity. If activity was not attempted, code reason: 7-Patient Refused. 9-Not Applicable-not attempted and the patient did not perform the activity before the current illness, exacerbation or injury. 10-Not Attempted due to Environmental Limitations-(lack of equipment, weather restraints, etc.). 88-Not Attempted due to Medical Conditions or Safety Concerns. Sit to Stand (QC): 4 Chair/Tbs-fu-Ljqbq Xfer(QC): 4 Gait Training Distance: 20' Walk 10 feet (QC): 4 Gait Assistive Device: FWW CGA, needs some assist to help guide walker Treatments transfers, ambulation Assessment Current Status: Fair Progress improved endurance but patient is confused and needs cues to stay on task, cues for positioning and safety. PT Short Term Goals Short Term Goals Time Frame: Mar 29, 2021 Roll Left & Right: 2 Sit to lyin Lying to sitting on side of be: 2 Sit to stand: 2 Chair/hpy-cm-xelqt transfer: 2 Walk 10 feet: 2 PT Roll Over Press Operator Goals Alf Goals PT Roll Over Press Operator Goals Time Frame: Apr 12, 2021 Roll Left & Right (QC): 3 Sit to Lying (QC): 3 Lying-Sitting on Side/Bed(QC): 3 Sit to Stand (QC): 3 Chair/Ttt-wp-Gvkiq Xfer(QC): 3 Toilet Transfer (QC): 3 Does the Patient Walk: Yes Walk 10 feet (QC): 3 Walk 50ft with 2 Turns (QC): 3 Walk 150 ft (QC): 3 1 Step (curb) (QC): 3 4 Steps (QC): 3 12 Steps (QC): 3 PT Plan Problem List Problem List: Activity Tolerance, Functional Strength, Safety, Balance, Gait, Transfer, Bed Mobility, ROM Treatment/Plan Treatment Plan: Continue Plan of Care Treatment Plan: Bed Mobility, Education, Functional Activity Anthony, Functional Strength, Group Therapy, Gait, Safety, Therapeutic Exercise, Transfers Treatment Duration: Apr 12, 2021 Frequency: 6 times per week Estimated Hrs Per Day: .5 hour per day Patient and/or Family Agrees t: Yes Safety Risks/Education Patient Education: Gait Training, Transfer Techniques, Correct Positioning, Safety Issues Teaching Recipient: Patient Teaching Methods: Demonstration, Discussion Response to Teaching: Reinforcement Needed Time/GCodes Time In: 919 Time Out: 934 Total Billed Treatment Time: 15 Total Billed Treatment 1 visit FA ANGELA SANTANA PT Mar 19, 2021 10:02
--- NOTE | 2021-03-19 10:22 | Occupational Ther Daily Note ---
OT Current Status-Daily Note Subjective Pt alert, sitting in recliner. present in room. Pt confused and unable to assess pain level. Mental Status/Objective Patient Orientation: Person, Confused ADL-Treatment Therapy Code Descriptions/Definitions Functional [place] Measure: 0=Not Assessed/NA 4=Minimal Assistance 1=Total Assistance 5=Supervision or Setup 2=Maximal Assistance 6=Modified [place] 3=Moderate Assistance 7=Complete IndependenceSCALE: Activities may be completed with or without assistive devices. 5-Nyqjsxofvf-skdqsom completes the activity by him/herself with no assistance from a helper. 5-Set-up or Clean-up Assistance-helper sets up or cleans up; patient completes activity. [place] assists only prior to or following the activity. 4-Supervision or Touching Assistance-helper provides verbal cues and/or t ouching/steadying and/or contact guard assistance as patient completes activity. Assistance may be provided throughout the activity or intermittently. 3-Partial/Moderate Assistance-helper does LESS THAN HALF the effort. [place] lifts, holds or supports trunk or limbs, but provides less than half the effort. 2-Substantial/Maximal Assistance-helper does MORE THAN HALF the effort. [place] lifts or holds trunk or limbs and provides more than half the effort. 0-Aqzabwmxe-lqupvi does ALL the effort. Patient does none of the effort to complete the activity. Or, the assistance of 2 or more helpers is required for the patient to complete the activity. If activity was not attempted, code reason: 7-Patient Refused. 9-Not Applicable-not attempted and the patient did not perform the activity before the current illness, exacerbation or injury. 10-Not Attempted due to Environmental Limitations-(lack of equipment, weather restraints, etc.). 88-Not Attempted due to Medical Conditions or Safety Concerns. Lower Body Dressing (QC): 1 On/Off Footwear: 1 Other Treatment Sitting to standing max A. Min assist x2 to ambulated for safety, hand placement and to manipulate FWW . Dependent with footwear and lower body dressing. After session, pt sitting in recliner with call light/phone. and sitter present. All needs met in room. OT [employer] Driver Goals [employer] Driver Goals Time Frame: Mar 14, 2021 Eating (QC): 4 Oral Hygiene (QC): 4 Toileting Hygiene (QC): 3 Shower/Bathe Self (QC): 4 Upper Body Dressing (QC): 4 Lower Body Dressing (QC): 4 On/Off Footwear (QC): 4 Additional Goals: 1-Demonstrate ADL Tasks, 2-Verbalize Understanding, 3- ImproveStrength/Anthony 1=Demonstrate adherence to instructed precautions during ADL tasks. 2=Patient will verbalize/demonstrate understanding of assistive devices/modifications for ADL. 3=Patient will improve strength/tolerance for activity to enable patient to perform ADL's. OT Education/Plan Problem List/Assessment Assessment: Decreased Safety Aware, Impaired Self-Care Skills Pt would benefit from OT services in order to increase safety and independence with ADLs and functional mobility in order to maximize LOF for return home with spouse. Discharge Recommendations Plan/Recommendations: Continue POC Treatment Plan/Plan of Care Patient would benefit from OT for education, treatment and training to promote independence in ADL's, mobility, safety and/or upper extremity function for ADL's. Plan of Care: ADL Retraining, Functional Mobility, UE Funct Exercise/Act Treatment Duration: Mar 14, 2021 Frequency: 3 times per week (3-5 times per week.) Estimated Hrs Per Day: .25 hour per day Rehab Potential: Guarded Time/GCodes Start Time: 09:20 Stop Time: 09:35 Total Time Billed (hr/min): 15 Billed Treatment Time 1 visit-FA 1 (15 min) JACKIE LEWIS Mar 19, 2021 10:22
--- NOTE | 2021-03-19 10:25 | Speech Therapy Daily Note ---
Speech Daily Progress Note Subjective Date Seen by Provider: Mar 19, 2021 Time Seen by Provider: 09:35 The patient was seated upright in a chair, awake and alert, upon the clinician's entrance to his room. The patient's remains at bedside. The patient greeted the clinician appropriately and was agreeable to participation in the dysphagia treatment session. Objective The patient remains on room air with SpO2% at 97% and respirations at 22 bpm prior to PO intake. To note, the patient's saturations and respirations remained stable throughout the dysphagia treatment session. The patient is provided five teaspoons of nectar-thick liquid and six large, consecutive straw drinks of nectar-thick liquid. Additionally, the patient consumes five teaspoons of applesauce and one (pencil eraser size) bite of a saltine cracker. Overt s/s of suspected aspiration were not demonstrated with the nectar-thick liquids, puree, or solid consistencies. The patient displays prolonged mastication with the saltine cracker, poor bolus formation, and overall high distractibility. The patient's high distractibility (talking while attempting to masticate) places him at an increased risk of aspiration with solid consistencies. The results and impressions were discussed with the treating RN, who agrees with the clinician's findings. Per RN, the patient is doing well on his current diet consistency recommendations. To note, the patient remains significantly confused. Recommendations: - Continue current plan of care. Assessment Assessment Current Status: Fair Progress Treatment Plan Continue Plan of Care Speech Short Term Goals Short Term Goals Short Term Goals 1. The patient will participate in PO trials of the least restrictive consistency without s/s of suspected aspiration with 90% accuracy. Time Frame-STG: One Week Speech Nurse Emergency Goals Nurse Emergency Goals 1. The patient will tolerate the least restrictive diet without s/s of suspected aspiration with 90% accuracy. Time Frame: Two Weeks Speech-Plan Treatment Plan Speech Therapy Treatment Plan: Continue Plan of Care Treatment Duration: Apr 14, 2021 Frequency: 3 times per week (Three to four times per week.) Estimated Hrs Per Day: .25 hour per day Rehab Potential: Guarded Pt/Family Agrees to Plan: Yes Safety Risks/Education Teaching Recipient: Patient, Family Teaching Methods: Discussion Response to Teaching: Verbalize Understanding Education Topics Provided: Swallowing results and recommendations, Plan of care Time Speech Therapy Time In: 09:35 Speech Therapy Time Out: 09:55 Total Billed Time: 20 Billed Treatment Time 1, ASHLEIGH Arechiga Mar 19, 2021 10:25
--- NOTE | 2021-03-19 10:41 | Progress Note - Urology ---
Progress Note-Urology Progress Notes/Assess & Plan Progress/Assessment & Plan CONTINUES IMPROVING. UP IN CHAIR. COHERENT. TOV TOMORROW Final Diagnosis GROSS HEMATURIA AND URETHRAL TRAUMA ASMITA HUYNH MD Mar 19, 2021 10:41
--- NOTE | 2021-03-19 12:44 | Tele-ICU Progress Note ---
Subjective Date Seen by a Provider: Mar 19, 2021 Time Seen by a Provider: 12:44 Sepsis Event Evaluation Height, Weight, BMI Height: 5'8.00" Weight: 189lbs. oz. 85.123134ug; 28.53 BMI Method: Focused Exam Lactate Level 03/16/21 21:30: Lactic Acid Level 0.54 Exam Exam Patient acknowledged, consented, and participated in this virtual visit which was conducted using real time audio/video Vital Signs Date Time Temp Pulse Resp B/P (MAP) Pulse Ox O2 Delivery O2 Flow Rate FiO2 03/19/21 12:01 36.8 03/19/21 11:00 90 22 148/69 (95) 97 Room Air 03/19/21 10:02 97 Room Air 03/19/21 10:00 86 18 148/65 (92) 97 Room Air 03/19/21 09:00 90 18 161/71 (101) 98 Room Air 03/19/21 08:00 87 17 160/74 (102) 94 Room Air 03/19/21 07:53 Room Air 03/19/21 07:43 36.9 03/19/21 07:00 91 03/19/21 07:00 89 11 170/83 (112) 97 Room Air 03/19/21 06:00 82 24 171/71 (104) 98 Room Air 03/19/21 05:00 76 20 141/48 (79) 96 Room Air 03/19/21 04:26 36.8 03/19/21 04:08 Room Air 03/19/21 04:00 80 25 157/60 (92) 98 Room Air 03/19/21 03:00 81 20 167/73 (104) 99 Room Air 03/19/21 02:34 100 Room Air 03/19/21 02:00 83 20 165/69 (136) 99 Room Air 03/19/21 01:00 82 24 164/67 (93) 98 Room Air 03/19/21 01:00 82 03/19/21 00:00 80 19 155/59 (117) 98 Room Air 03/19/21 00:00 37.0 03/18/21 23:20 Room Air 03/18/21 23:00 76 23 159/65 (108) 97 Room Air 03/18/21 22:00 83 23 172/64 (107) 100 Room Air 03/18/21 21:58 98 Room Air 03/18/21 21:00 88 25 169/65 (100) 97 Room Air 03/18/21 20:45 Room Air 03/18/21 20:00 89 26 147/61 (93) 98 Room Air 03/18/21 20:00 36.7 03/18/21 19:41 89 20 151/62 (91) 100 Room Air 03/18/21 19:00 86 03/18/21 19:00 86 21 151/62 (113) 100 Room Air 03/18/21 18:00 87 8 146/61 (89) 100 Room Air 03/18/21 17:00 79 20 149/52 (84) 97 Room Air 03/18/21 16:00 85 27 148/48 (81) 98 Room Air 03/18/21 16:00 98 Room Air 03/18/21 16:00 36.8 03/18/21 15:20 Room Air 03/18/21 15:00 80 22 143/60 (108) 90 Room Air 03/18/21 14:00 84 26 133/87 (102) 97 Room Air 03/18/21 13:00 81 03/18/21 13:00 80 16 153/60 (109) 97 Room Air I & O 03/19/21 07:00 Intake Total 775 ml Output Total 2400 ml Balance -1625 ml Height & Weight Height: 5'8.00" Weight: 189lbs. oz. 85.777306oc; 28.53 BMI Method: General Appearance: No Apparent Distress, Obese HEENT: PERRL/EOMI, Pharynx Normal Neck: Normal Inspection, Supple Respiratory: Lungs Clear, No Respiratory Distress Cardiovascular: Regular Rate, Rhythm, No Murmur Capillary Refill: Less Than 3 Seconds Peripheral Pulses: 2+ Radial Pulses (R), 2+ Radial Pulses (L) Gastrointestinal: non tender, soft, other (suprapubic catheter present) Extremity: Normal Inspection, No Pedal Edema Neurologic/Psychiatric: Alert, Disoriented Skin: Normal Color, Warm/Dry Lymphatic: No Adenopathy Results Lab Laboratory Tests 03/18/21 04:40 03/19/21 03:57 03/19/21 05:00 Assessment/Plan Assessment/Plan (Tele-ICU Physician , Progress Note ) Available chart/ vitals / labs / Images reviewed Video assessment done using teleICU camera, rest of exam as per RN Discussed with RN , EXAM PER RN Events overnight : Afebrile FiO2 - ra I/O = neg 1.5l Drips: Pressors: , hemodynamically stable Sedation gtt: propofol ( RASS -1 ) VENT SETTINGS and ABG reviewed candidate for SBT today REVIEWED Cardiovascular Stability / Sedation Score / FI02/PEEP / ABG / CXR Consultants: Hospital course: 03/02 - intubated for AMS - extubated -03/09 - reintubated A/P ARF - intubated for acute hypercarbic resp fauilure 03/09 - extubated , on RA Mental status change, -acute renal failure, and hyperbilirubinemia and elevated ammonia of undetermined etiology on admission - as per bedside MD Anemia - slow rend down of HB - no active bleeding - folow Met acidosis - not clear on etiology ( no clear signs of ULYSSES with propofol - lactate WNL FEVRE 03/18 - urine c/s and started iv cefepime h/o PNA- sputum wi9th PSA from 03/04 EDWARD? - most likely CKI - - stable Heavy ETOH abuse - vitamins, benzo prn HTN - as per cards URETHRAL TRAUMA, HEMATURIA, - urology follow , CA BLADDER HISTORY- cystoscopy Lines : (Central Line Necessity Reviewed) Iglesias: + OG: Nutrition: start TF today Analgesia: Anxiety/ delirium ciwa VTE Prophylaxis: glenn 30 Stress Ulcer Prophylaxis: tf Glycemic Control: Plans in collaboration with bedside consultants and IM MDs. Discussed with RN to reach out if any questions or concerns A total of 34 minutes of critical care time was devoted to this patient today, required to treat and/or prevent further deterioration of critical care co ndition ( as above) . CORI HERMOSILLO MD Mar 19, 2021 12:44
[2021-03-19] MEDS: CEFEPIME INJECTION 1,000 MG in NS (IVPB) 50 ML IV SCH (12:51)
[2021-03-19] MEDS: NOREPINEPHRINE 8 MG/250 ML 250 ML IV SCH (14:05)
--- NOTE | 2021-03-19 17:11 | Progress Note - Hospitalist ---
Subjective HPI/CC On Admission Date Seen by Provider: Mar 19, 2021 Time Seen by Provider: 09:10 CC: Altered mental status with alcohol withdrawal HPI: This is a 76yoWM who has a hx of alcoholism who presented to the [facility] ER found to have altered mental status and findings consistent with alcohol withdrawal. His creatinine was 3.1 consistent with dehydration so he was admitted for IV fluids and alcohol withdrawal treatment and today his creatinine is much better at 2.49. Elevated BP requiring aggressive BP medications. He does not have his hearing aids so it is very difficult to communicate. His is at the bedside and speaks broken Thai since she is apparently [place]. I tried to update her with everything that she needs to know and she needs him to stay here as long as possible because she has to work. Subjective/Events-last exam He is sitting in his bedside chair. He is alert and talkative. He is confused. Focused Exam Lactate Level 03/16/21 21:30: Lactic Acid Level 0.54 Objective Exam Vital Signs Vital Signs Date Time Temp Pulse Resp B/P (MAP) Pulse Ox O2 Delivery O2 Flow Rate FiO2 03/19/21 16:00 36.0 95 22 156/68 (97) 95 Room Air 03/19/21 13:32 21 03/17/21 15:02 1.00 Capillary Refill : Less Than 3 Seconds General Appearance: No Apparent Distress, Chronically ill Respiratory: Lungs Clear, Normal Breath Sounds, No Respiratory Distress Cardiovascular: Regular Rate, Rhythm, No Murmur Gastrointestinal: Normal Bowel Sounds, Soft Extremity: Normal Inspection, Non Tender, No Pedal Edema Neurologic/Psychiatric: Alert, Disoriented, Motor Weakness Skin: Normal Color, Warm/Dry Results/Procedures Lab Laboratory Tests 03/19/21 03:57 03/19/21 05:00 Patient resulted labs reviewed. Imaging: Reviewed Imaging Report Assessment/Plan Assessment and Plan Assess & Plan/Chief Complaint Critical illness myopathy Debility Dysphagia PT/OT/ST Urethral trauma Balbuena complication Gross hematuria Acute blood loss anemia Urinary retention Suprapubic catheter Surgery following Suprapubic catheter and balbuena in place Urology following, planning for outpatient follow up Alcohol dependence Electrolyte abnormalities Vitamin replacement Monitor and replace electrolytes as needed HTN GERD Gout CKD DVT prophylaxis: Lovenox Alchohol withdrawal with perceptual disturbance, resolved Ventilator associated pneumonia, resolved Carbapenem resistant Pseudomonas infection, resolved Mucous plugging, resolved Endotracheally intubated, resolved Acute respiratory failure with hypoxia, resolved Diagnosis/Problems Diagnosis/Problems (1) Alcohol withdrawal syndrome with perceptual disturbance Status: Acute (2) Alcohol dependence Status: Acute Qualifiers: Substance use status: in withdrawal Complication of substance-induced condition: with perceptual disturbance Qualified Codes: F10.232 - Alcohol dependence with withdrawal with perceptual disturbance (3) Electrolyte abnormality Status: Acute (4) Endotracheally intubated Status: Acute (5) Hypokalemia Status: Acute (6) CKD (chronic kidney disease) Status: Chronic Qualifiers: Chronic kidney disease stage: stage 3 (moderate) Chronic kidney disease stage 3 subtype: stage 3b (GFR 30-44) Qualified Codes: N18.32 - Chronic kidney disease, stage 3b (7) HTN (hypertension) Status: Chronic (8) GERD (gastroesophageal reflux disease) Status: Chronic (9) Gout Status: Chronic (10) VAP (ventilator-associated pneumonia) Status: Acute (11) Infection due to carbapenem resistant Pseudomonas aeruginosa Status: Acute (12) Dislodged [place] catheter Status: Acute Qualifiers: Encounter type: initial encounter Qualified Codes: T83.021A - Displacement of indwelling urethral catheter, initial encounter (13) Urinary retention Status: Acute (14) Suprapubic catheter Status: Acute (15) Traumatic injury of urethra Status: Acute (16) Gross hematuria Status: Acute GORDON MARIE MD Mar 19, 2021 17:11
[2021-03-19] MEDS: D5 1/2 NS W/KCL 20 MEQ/L 1,000 ML IV SCH (18:33)
[2021-03-19] MEDS: ENOXAPARIN 30 MG/0.3 ML (LOVENOX) SYR SC SCH (20:11)
[2021-03-19] MEDS: MELATONIN 3 MG TABLET PO PRN (23:20)
[2021-03-20] MEDS: HALOPERIDOL 5 MG/ML (HALDOL) VIAL IM PRN (00:07)
[2021-03-20] MEDS: CEFEPIME INJECTION 1,000 MG in NS (IVPB) 50 ML IV SCH (00:08)
[2021-03-20] MEDS: D5 1/2 NS W/KCL 20 MEQ/L 1,000 ML IV SCH (03:15)
[2021-03-20 04:56] VITALS: BP 180/82
[2021-03-20] MEDS: doxAzosin 4 MG (CARDURA) TAB PO SCH (06:32)
[2021-03-20] MEDS: MULTIVIT W/MINERALS TAB (THERAGRAN M) PO SCH ×2 (06:32→10:15)
[2021-03-20] MEDS: THIAMINE 100 MG (VITAMIN B-1) TAB PO SCH ×2 (06:32→10:16)
[2021-03-20 07:03] LABS: BASOPHILS # (AUTO) 0.1 10^3/uL (0.0-0.1); BASOPHILS % (AUTO) 1 % (0-10); EOSINOPHILS # (AUTO) 0.2 10^3/uL (0.0-0.3); EOSINOPHILS % (AUTO) 4 % (0-10); HEMATOCRIT 27 % (40-54); HEMOGLOBIN 8.9 g/dL (13.3-17.7); LYMPHOCYTES # (AUTO) 1.2 10^3/uL (1.0-4.0); LYMPHOCYTES % (AUTO) 24 % (12-44); MEAN CORPUSCULAR HEMOGLOBIN 36 pg (25-34); MEAN CORPUSCULAR HGB CONC 34 g/dL (32-36); MEAN CORPUSCULAR VOLUME 107 fL (80-99); MEAN PLATELET VOLUME 11.7 fL (9.0-12.2); MONOCYTES # (AUTO) 0.5 10^3/uL (0.0-1.0); MONOCYTES % (AUTO) 10 % (0-12); NEUTROPHILS # (AUTO) 3.1 10^3/uL (1.8-7.8); NEUTROPHILS % (AUTO) 60 % (42-75); PLATELET COUNT 160 10^3/uL (130-400); WHITE BLOOD COUNT 5.1 10^3/uL (4.3-11.0)
[2021-03-20] MEDS: RT-ALBUTEROL SULF 2.5 MG/3 ML PRE-MIX VIAL INH SCH (07:07)
[2021-03-20 07:46] VITALS: BP 177/81
[2021-03-20 09:58] LABS: CALCIUM 9.1 MG/DL (8.5-10.1); CREATININE SERUM 2.2 MG/DL (0.60-1.30); POTASSIUM 3.6 MMOL/L (3.6-5.0)
[2021-03-20] MEDS: PANTOPRAZOLE 40 MG (PROTONIX) VIAL IV SCH (10:15)
[2021-03-20] MEDS: SENNA W/DOCUSATE (SENOKOT S) TABLET PO SCH (10:15)
[2021-03-20] MEDS: FOLIC ACID 1 MG TAB PO SCH (10:16)
[2021-03-20] MEDS: LORATADINE (CLARITIN) 10 MG TAB PO SCH (10:16)
[2021-03-20] MEDS: amLODIPine 5 MG (NORVASC) TAB PO SCH (10:16)
[2021-03-20] MEDS: SODIUM BICARBONATE 650 MG TABLET (NON-FORMULARY) PO SCH (10:16)
[2021-03-20] MEDS: polyethylene glycoL POWDER 17 GM (MIRALAX) PACK PO SCH (10:16)
--- NOTE | 2021-03-20 10:32 | Occupational Ther Daily Note ---
OT Current Status-Daily Note Subjective Pt to possibly discharge today. Pt is confused. and sitter present in room. Mental Status/Objective Patient Orientation: Person, Confused Attachments: Iglesias Catheter, IV ADL-Treatment Pt dependent for bathing. Pt continuously talked throughout bed bath and would only wash face, required pc to roll and assist to stay on side to allow buttocks to be cleansed. Max vc and NOATAK to initiate oral care then pt able to complete minimally before starting to talk again. After session, pt lying in bed. Sitter, nrsg and present in room. Therapy Code Descriptions/Definitions Functional [place] Measure: 0=Not Assessed/NA 4=Minimal Assistance 1=Total Assistance 5=Supervision or Setup 2=Maximal Assistance 6=Modified [place] 3=Moderate Assistance 7=Complete IndependenceSCALE: Activities may be completed with or without assistive devices. 7-Qsnxgsznqd-icargsg completes the activity by him/herself with no assistance from a helper. 5-Set-up or Clean-up Assistance-helper sets up or cleans up; patient completes activity. [place] assists only prior to or following the activity. 4-Supervision or Touching Assistance-helper provides verbal cues and/or touching/steadying and/or contact guard assistance as patient completes activity. Assistance may be provided throughout the activity or intermittently. 3-Partial/Moderate Assistance-helper does LESS THAN HALF the effort. [place] lifts, holds or supports trunk or limbs, but provides less than half the effort. 2-Substantial/Maximal Assistance-helper does MORE THAN HALF the effort. [place] lifts or holds trunk or limbs and provides more than half the effort. 1-Orlaxysel-ewrajm does ALL the effort. Patient does none of the effort to complete the activity. Or, the assistance of 2 or more helpers is required for the patient to complete the activity. If activity was not attempted, code reason: 7-Patient Refused. 9-Not Applicable-not attempted and the patient did not perform the activity before the current illness, exacerbation or injury. 10-Not Attempted due to Environmental Limitations-(lack of equipment, weather restraints, etc.). 88-Not Attempted due to Medical Conditions or Safety Concerns. OT Reeling Operator Goals Reeling Operator Goals Time Frame: Mar 14, 2021 Eating (QC): 4 Oral Hygiene (QC): 4 Toileting Hygiene (QC): 3 Shower/Bathe Self (QC): 4 Upper Body Dressing (QC): 4 Lower Body Dressing (QC): 4 On/Off Footwear (QC): 4 Additional Goals: 1-Demonstrate ADL Tasks, 2-Verbalize Understanding, 3- ImproveStrength/Anthony 1=Demonstrate adherence to instructed precautions during ADL tasks. 2=Patient will verbalize/demonstrate understanding of assistive devices/modifications for ADL. 3=Patient will improve strength/tolerance for activity to enable patient to perform ADL's. OT Education/Plan Problem List/Assessment Assessment: Decreased Activ Tolerance, Decreased Safety Aware, Impaired Cognition, Impaired Self-Care Skills Pt would benefit from OT services in order to increase safety and independence with ADLs and functional mobility in order to maximize LOF for return home with spouse. Discharge Recommendations Plan/Recommendations: Continue POC Treatment Plan/Plan of Care Patient would benefit from OT for education, treatment and training to promote independence in ADL's, mobility, safety and/or upper extremity function for ADL's. Plan of Care: ADL Retraining, Functional Mobility, UE Funct Exercise/Act Treatment Duration: Mar 14, 2021 Frequency: 3 times per week (3-5 times per week.) Estimated Hrs Per Day: .25 hour per day Rehab Potential: Guarded Time/GCodes Start Time: 10:10 Stop Time: 10:24 Total Time Billed (hr/min): 14 Billed Treatment Time 1 visit-ADL 1 (14 min) JACKIE LEWIS Mar 20, 2021 10:32
[2021-03-20] MEDS ORDERED: NF-SODBICA PO (11:38)
[2021-03-20] MEDS ORDERED: AMLO-250 PO (11:38)
[2021-03-20] MEDS ORDERED: FOLI1TAB33 PO (11:38)
[2021-03-20] MEDS ORDERED: ASPI-1238 PO (11:38)
[2021-03-20] MEDS ORDERED: PANT40TA52 PO (11:38)
[2021-03-20] MEDS ORDERED: FURO20TA4 PO (11:38)
[2021-03-20] MEDS ORDERED: DOXA4TAB2 PO (11:38)
[2021-03-20] MEDS ORDERED: MULT-1137 PO (11:38)
[2021-03-20] MEDS ORDERED: ALLO100T PO (11:38)
[2021-03-20] MEDS ORDERED: THIA100T80 PO (11:38)
[2021-03-20] MEDS ORDERED: TRAM50TA3 PO (11:38)
[2021-03-20] MEDS ORDERED: CETI10TA17 PO (11:38)
[2021-03-20 11:39] VITALS: BP 163/72
--- NOTE | 2021-03-20 11:51 | Discharge Summary ---
Discharge Summary Reconcile Patient Problems Problems Reviewed?: Yes Hospital Course Hospital Course Date of Admission: Feb 25, 2021 at 18:26 Admission Diagnosis : Alcohol withdrawal Family Physician/Provider: Latanya Rothman MD Date of Discharge: 03/20/21 Discharge Diagnosis: Alcohol withdrawal with delirium, pneumonia, urinary retention, delirium, dysphagia Hospital Course: Pavel Marin is a 76 year old male with alcohol dependence who was admitted with alcohol withdrawal. He had delirium and required endotracheal intubation. He improved and was able to be taken off the ventilator. His course was complic ated by ventilator associated pneumonia due to Pseudomonas and he received a course of Cefepime. He had issues with delirium. He pulled his balbuena out and had gross hematuria. He required reintubation due to respiratory distress. He had urinary retention and required suprapubic catheter placement. He required mechanical ventilation for several days as he had trouble waking up and fo llowing commands off sedation, but he was eventually extubated successfully. Urology then performed a cystoscopy and he was found to have urethral trauma with a "false passage". A balbuena catheter was placed. He was discharged with balbuena and suprapubic catheters in place. He should follow up in Dr. Young's clinic in a couple weeks to remove the balbuena and if he is able to urinate, the suprapubic will subsequently be removed. He was debilitated and was discharged to [facility] for ongoing therapy needs. Labs and Pending Lab Test: Laboratory Tests 03/20/21 06:16: White Blood Count 5.1, Red Blood Count 2.48L, Hemoglobin 8.9L, Hematocrit 27L, Mean Corpuscular Volume 107H, Mean Corpuscular Hemoglobin 36H, Mean Corpuscular Hemoglobin Concent 34, Red Cell Distribution Width 11.9, Platelet Count 160, Mean Platelet Volume 11.7, Immature Granulocyte % (Auto) 0, Neutrophils (%) (Auto) 60, Lymphocytes (%) (Auto) 24, Monocytes (%) (Auto) 10, Eosinophils (%) (Auto) 4, Basophils (%) (Auto) 1, Neutrophils # (Auto) 3.1, Lymphocytes # (Auto) 1.2, Monocytes # (Auto) 0.5, Eosinophils # (Auto) 0.2, Basophils # (Auto) 0.1, Immature Granulocyte # (Auto) 0.0, Sodium Level 148H, Potassium Level 3.6, Chloride Level 114H, Carbon Dioxide Level 23, Anion Gap 11, Blood Urea Nitrogen 40H, Creatinine 2.20H, Estimat Glomerular Filtration Rate 29, BUN/Creatinine Ratio 18, Glucose Level 97, Calcium Level 9.1 Microbiology 03/16/21 Urine Culture - Final, Complete YEAST 03/16/21 Blood Culture - Preliminary, Resulted No growth 03/14/21 Gram Stain - Final, Complete 03/14/21 Sputum Culture - Final, Complete YEAST Usual upper respiratory jeannine Home Meds Active Amlodipine Besylate 5 Mg Tablet 10 Mg PO DAILY 30 Days Sodium Bicarbonate 650 Mg Tablet 650 Mg PO TID 30 Days Doxazosin Mesylate 4 Mg Tablet 4 Mg PO BID 30 Days Pantoprazole Sodium 40 Mg Tablet.dr 40 Mg PO DAILY 30 Days Tab-A-Radha Multivit with Iron (Multivitamin/Iron/Folic Acid) 1 Each Tablet 1 Ea PO DAILY@0700 30 Days Vitamin B-1 (Thiamine HCl) 100 Mg Tablet 100 Mg PO DAILY@0700 30 Days Folic Acid 1 Mg Tablet 1 Mg PO DAILY 30 Days Aspirin EC (Aspirin) 81 Mg Tablet.dr 81 Mg PO DAILY 30 Days Cetirizine HCl 10 Mg Tablet 10 Mg PO DAILY 30 Days Tramadol HCl 50 Mg Tablet 50 Mg PO BID PRN 30 Days Furosemide 20 Mg Tablet 20 Mg PO DAILY 30 Days Allopurinol 100 Mg Tablet 100 Mg PO DAILY 30 Days Reported Neurontin (Gabapentin) 300 Mg Capsule 600 Mg PO DAILY TAKES 2 (300MG) CAPS Vitamin C (Ascorbic Acid) 1,000 Mg Tablet 1,000 Mg PO DAILY Saw [place] (Saw [place] Fruit) 450 Mg Capsule 450 Mg PO DAILY B Complex (Vitamin B Complex) 1 Each Tablet 1 Each PO DAILY Vitamin E (Vitamin E Mixed) 1,000 Unit Capsule 1,000 Unit PO DAILY Benadryl Allergy (Diphenhydramine HCl) 25 Mg Tablet 25 Mg PO DAILY Acid Furnace Process Plant Operator (CIMETIDINE) (Cimetidine) 200 Mg Tablet 200 Mg PO DAILY [place]-3 Krill Oil Softgel (Krill Oil/[place]-3/Dha/Epa) 1 Each Capsule 1 Each PO DAILY Atenolol 100 Mg Tablet 100 Mg PO DAILY Instructions to Patient/Family Assessment/Instructions Take medications as prescribed. Follow up with Dr. Young as scheduled. Return with worsening shortness of breath, blood in your urine, or if you feel like you are getting worse. Follow Up Appt.: next senior care rounds, Dr. Young in two weeks Skilled NF Admit to: [facility] Certification (SNF) I certify that SNF services are required to be given on an inpatient basis b ecause of the above named patient's need for senior living care on a continuing basis for the conditions(s) for which he/she was receiving inpatient hospital services prior to his/her transfer to the SNF. Long Term Facility Order: Nursing Services, Credit Risk Modeler-Evaluate & Treat, Physical Therapy-Evaluate & Treat, Speech Language-Evaluate & Treat Oxygen Delivery Method: Room Air Discharge Diet: Other Diet (Pureed diet with nectar thick liquids) Daily Activity as Tolerated: Yes Resuscitation Status: Full Code Manda Marie Mar 20, 2021 11:41 Discharge Physical Exam General: Alert, Cooperative, No Acute Distress HEENT: Atraumatic, EOMI, Mucous Memb Moist/[place] Lungs: Clear to Auscultation, Normal Air Movement Heart: Regular Rate, Normal S1, Normal S2, No Murmurs Abdomen: Normal Bowel Sounds, Soft, No Tenderness Extremities: No Edema, No Tenderness/Swelling Skin: No Rashes, No Significant Lesion Neuro: Normal Speech, Other (motor weakness) Psych/Mental Status: Mood NL, Other (oriented to person, city, month, and year) MANDA MARIE MD Mar 20, 2021 11:51
== END 2021-03-20 12:45 | DRG 896 ==
LOC: EDUNIT# 16:54 → ER 16:55 → 4TH 18:26 → ICU 03-02 06:00 → 4TH 03-06 11:30 → ICU 03-09 12:47 → 4TH 03-19 16:00
PROVIDERS: ADMIT Internal Medicine; ATTEND Internal Medicine
PROC: 0TJB8ZZ Inspection of Bladder, Via Natural or Artificial Opening Endoscopic (ICD-10-PCS; principal; 2021-02-25)
PROC: 5A1945Z Respiratory Ventilation, 24-96 Consecutive Hours (ICD-10-PCS; 2021-02-25)
PROC: 5A09357 Assistance with Respiratory Ventilation, Less than 24 Consecutive Hours, Continuous Positive Airway Pressure (ICD-10-PCS; 2021-02-25)
PROC: 5A1955Z Respiratory Ventilation, Greater than 96 Consecutive Hours (ICD-10-PCS; 2021-03-02)
PROC: 0BH17EZ Insertion of Endotracheal Airway into Trachea, Via Natural or Artificial Opening (ICD-10-PCS; 2021-03-02)
DX: F10.231 Alcohol dependence with withdrawal delirium (principal); J96.01 Acute respiratory failure with hypoxia; N17.9 Acute kidney failure, unspecified; N18.4 Chronic kidney disease, stage 4 (severe); J95.851 Ventilator associated pneumonia; G72.81 Critical illness myopathy; D62 Acute posthemorrhagic anemia; E87.2 Acidosis; S37.30XA Unspecified injury of urethra, initial encounter; Y90.0 Blood alcohol level of less than 20 mg/100 ml; E86.0 Dehydration; H91.93 Unspecified hearing loss, bilateral; E78.00 Pure hypercholesterolemia, unspecified; Z20.822 Contact with and (suspected) exposure to COVID-19; Z87.891 Personal history of nicotine dependence; Z88.2 Allergy status to sulfonamides; H91.90 Unspecified hearing loss, unspecified ear; D75.89 Other specified diseases of blood and blood-forming organs; I12.9 Hypertensive chronic kidney disease with stage 1 through stage 4 chronic kidney disease, or unspecified chronic kidney disease; C67.9 Malignant neoplasm of bladder, unspecified; M10.9 Gout, unspecified; K21.9 Gastro-esophageal reflux disease without esophagitis; R33.9 Retention of urine, unspecified; R41.0 Disorientation, unspecified; R13.10 Dysphagia, unspecified; R31.0 Gross hematuria; B96.5 Pseudomonas (aeruginosa) (mallei) (pseudomallei) as the cause of diseases classified elsewhere; R53.81 Other malaise; T17.990A Other foreign object in respiratory tract, part unspecified in causing asphyxiation, initial encounter; T83.021A Displacement of indwelling urethral catheter, initial encounter; G89.29 Other chronic pain; M79.606 Pain in leg, unspecified; D69.6 Thrombocytopenia, unspecified; G47.30 Sleep apnea, unspecified
CPT/HCPCS: 36415; 36600; 70450; 71045; 74176; 80048; 80053; 80076; 80306; 80320; 81000; 82140; 82150; 82550; 82607; 82746; 82805; 82947; 83605; 83690; 83735; 84100; 84145; 84443; 84478; 85007; 85025; 85027; 85610; 86141; 86780; 86850; 86900; 86901; 87040; 87070; 87077; 87088; 87186; 87205; 87636; 93005; 93306; 94002; 94003; 94640; 94660; 94664; 94760; 94799; 96360

== ENCOUNTER 2021-03-24 21:36 | Emergency (ER) | payer MEDICARE, OTHER ==
[~2021-03-24] VITALS: Ht 173 cm; Wt 84.0 kg
[~2021-03-24 21:36] MED LIST changes: +ALLO100T PO; +AMLO-250 PO; +ASCO100024 PO; +ASPI-1238 PO; +ATEN100T PO; +CETI10TA17 PO; +CIME200T14 PO; +DIPH25TA65 PO; +DOXA4TAB2 PO; +FOLI1TAB33 PO; +FURO20TA4 PO; +GABA300C PO; +KRIL1CAP4 PO; +MULT-1137 PO; +NF-SODBICA PO; +PANT40TA52 PO; +SAW450CA7 PO; +THIA100T80 PO; +TRAM50TA3 PO; +VITA-189 PO; +VITA100033 PO
--- NOTE | 2021-03-24 21:54 | ED Trauma-Multisystem ---
General Chief Complaint: Trauma-Non Activation Stated Complaint: FALL Source of Information: EMS Exam Limitations: No Limitations (ZAFAR ALAN) History of Present Illness Date Seen by Provider: Mar 24, 2021 Time Seen by Provider: 21:51 Initial Comments Patient is a 76-year-old male who presents ED from [facility] for a fall. Patient with a history of dementia. Patient slipped hitting his face. No loss of conscious or blood thinners. This was witnessed. It was recommended come to the ED for further evaluation. No evidence of trauma to the face, head. Patient is at his current baseline. There is no other current complaints. He denies chest pain, abdominal pain, hip pain, vomiting, diarrhea. Patient does appear confused. Patient is cooperative. (ZAFAR ALAN) Allergies and Home Medications Allergies Coded Allergies: Sulfa (Sulfonamide Antibiotics) (Verified Allergy, Mild, 07/22/09) Patient Home Medication List Home Medication List Reviewed: Yes (ZAFAR ALAN) Allopurinol (Allopurinol) 100 Mg Tablet, 100 MG PO DAILY Prescribed by: GORDON MARIE on 03/20/21 1138 Amlodipine Besylate (Amlodipine Besylate) 5 Mg Tablet, 10 MG PO DAILY Prescribed by: GORDON MARIE on 03/20/21 1138 Aspirin (Aspirin EC) 81 Mg Tablet., 81 MG PO DAILY Prescribed by: GORDON MARIE on 03/20/21 113 Cetirizine HCl (Cetirizine HCl) 10 Mg Tablet, 10 MG PO DAILY Prescribed by: GORDON MARIE on 03/20/21 1138 Doxazosin Mesylate (Doxazosin Mesylate) 4 Mg Tablet, 4 MG PO BID Prescribed by: GORDON MARIE on 03/20/21 1138 Folic Acid (Folic Acid) 1 Mg Tablet, 1 MG PO DAILY Prescribed by: GORDON MARIE on 03/20/21 1138 Furosemide (Furosemide) 20 Mg Tablet, 20 MG PO DAILY Prescribed by: GORDON MARIE on 03/20/21 1138 Multivitamin/Iron/Folic Acid (Tab-A-Radha Multivit with Iron) 1 Each Tablet, 1 EA PO DAILY@0700 Prescribed by: GORDON MARIE on 03/20/21 1138 Pantoprazole Sodium (Pantoprazole Sodium) 40 Mg Tablet., 40 MG PO DAILY Prescribed by: GORDON MARIE on 03/20/21 1138 Sodium Bicarbonate (Sodium Bicarbonate) 650 Mg Tablet, 650 MG PO TID Prescribed by: GORDON MARIE on 03/20/21 1138 Thiamine HCl (Vitamin B-1) 100 Mg Tablet, 100 MG PO DAILY@0700 Prescribed by: GORDON MARIE on 03/20/21 1138 Tramadol HCl (Tramadol HCl) 50 Mg Tablet, 50 MG PO BID PRN for PAIN-SEVERE (8- 10) Prescribed by: GORDON MARIE on 03/20/21 1139 Discontinued Medications Ascorbic Acid (Vitamin C) 1,000 Mg Tablet, 1,000 MG PO DAILY, (Reported) Entered as Reported by: TIM VALLADARES on 02/26/21939 Atenolol (Atenolol) 100 Mg Tablet, 100 MG PO DAILY, (Reported) Entered as Reported by: TIM VALLADARES on 02/26/21939 Cimetidine (Acid Drying Frame Operator (CIMETIDINE)) 200 Mg Tablet, 200 MG PO DAILY, (Reported) Entered as Reported by: TIM VALLADARES on 02/26/21939 Diphenhydramine HCl (Benadryl Allergy) 25 Mg Tablet, 25 MG PO DAILY, (Reported) Entered as Reported by: TIM VALLADARES on 02/26/21939 Gabapentin (Neurontin) 300 Mg Capsule, 600 MG PO DAILY, (Reported) Entered as Reported by: TIM VALLADARES on 02/26/21939 Krill Oil/[place]-3/Dha/Epa ([place]-3 Krill Oil Softgel) 1 Each Capsule, 1 EACH PO DAILY, (Reported) Entered as Reported by: TIM VALLADARES on 02/26/21939 Saw [place] Fruit (Saw [place]) 450 Mg Capsule, 450 MG PO DAILY, (Reported) Entered as Reported by: TIM VALLADARES on 02/26/21939 Vitamin B Complex (B Complex) 1 Each Tablet, 1 EACH PO DAILY, (Reported) Entered as Reported by: TIM VALLADARES on 02/26/21939 Vitamin E Mixed (Vitamin E) 1,000 Unit Capsule, 1,000 UNIT PO DAILY, (Reported) Entered as Reported by: TIM VALLADARES on 02/26/21939 Review of Systems Review of Systems Constitutional: No chills, No diaphoresis, No dizziness, No fever, No malaise Eyes: Denies Blurred Vision, Denies Drainage Ears: Denies Dizziness, Denies Pain Mouth: No Bloody Discharge, No Purulent Discharge, No Pain, No Swelling Respiratory: No cough, No short of breath Cardiovascular: Denies Chest Pain, Denies Edema Gastrointestinal: No abdominal pain, No diarrhea, No dysphagia, No nausea, No vomiting Genitourinary: No decreased output Musculoskeletal: No back pain, No gout, No joint pain, No muscle pain, No muscle stiffness Skin: No change in color, No change in hair/nails (ZAFAR ALAN) All Other Systems Reviewed Negative Unless Noted: Yes (ZAFAR ALAN) Past Ewpatxs-Ghwhhb-Dhkjkd Hx Past Medical History High Cholesterol, Hypertension Reproductive Disorders: No (ZAFAR ALAN) Family Medical History No Pertinent Family Hx (ZAFAR ALAN) Physical Exam Vital Signs Vital Signs - First Documented 03/24/21 21:36 Temp 36.7 Pulse 90 Resp 18 B/P (MAP) 124/64 (84) Pulse Ox 99 O2 Delivery Room Air (CLAYTON HARPER MD) Height, Weight, BMI Height: 5'8.00" Weight: 189lbs. oz. 85.321879vw; 28.53 BMI Method: General Appearance: No Apparent Distress, WD/WN Head: No Evidence of Injury Eyes: Bilateral Eye Normal Inspection, Bilateral Eye PERRL, Bilateral Eye EOMI Ears, Nose, Throat: Hearing Grossly Normal, No Evidence of ENT Injury, No Dental Injury Neck: Full Range of Motion, Normal Inspection, Non Tender, Supple Cardiovascular: Regular Rate, Rhythm, No Edema, No Gallop, No JVD, No Murmur, Normal Peripheral Pulses Respiratory: Chest Non Tender, Lungs Clear, Normal Breath Sounds, No Accessory Muscle Use, No Respiratory Distress Gastrointestinal: Normal Bowel Sounds, No Organomegaly Extremity: Normal Capillary Refill, Normal Inspection, Normal Range of Motion, Non Tender Skin: Normal Color, Warm/Dry (ZAFAR ALAN) Janice Coma Score Best Eye Response (Janice): (4) Open Spontaneously Best Verbal Response (Janice): (4) Confused Conversation Best Motor Response (Janice): (6) Obeys Commands [place] Total: 14 (ZAFAR ALAN) Procedures/Interventions Date of ETT Placement: Mar 09, 2021 Time of ETT Placement: 1246 (ZAFAR ALAN) Progress/Results/Core Measures Results/Orders My Orders Orders - CLAYTON HARPER MD Ct Head/Face/Cervical Wo (03/24/21 21:48) (CLAYTON HARPER MD) Vital Signs/I&O 03/24/21 03/24/21 03/24/21 21:36 21:44 23:01 Temp 36.7 36.7 Pulse 90 90 92 Resp 18 16 18 B/P (MAP) 124/64 (84) 124/64 (84) 128/62 Pulse Ox 99 99 99 O2 Delivery Room Air Room Air Room Air (CLAYTON HARPER MD) Departure Communication (Admissions) Patient with a mechanical witnessed fall. Fell and hit his face While getting off his bed. Patient cannot walk. Patient with dementia. Patient at his current baseline. CT maxillofacial, head, cervical spine negative for acute abnormality. Patient is clear for discharge at this time. He has no other complaints. Patient will be transferred back to the [facility]. (ZAFAR ALAN) Impression Primary Impression: Facial injury Disposition: 01 HOME, SELF-CARE Condition: Stable Departure-Patient Inst. Decision time for Depature: 22:36 (ZAFAR ALAN) Referrals: DOREEN MERA MD (PCP/Family) Primary Care Physician Patient Instructions: Minor Head Injury (DC) ATTENDING PHYSICIAN NOTE: I was physically present as attending physician in the emergency department during the care of this patient, but I was not directly involved in the decision making or delivery of care for this patient. (CLAYTON HARPER MD) ZAFAR ALAN Mar 24, 2021 21:53 CLAYTON HARPER MD Mar 25, 2021 07:31
--- NOTE | 2021-03-24 22:28 | Diagnostic Imaging Report ---
PROCEDURE: CT head, face, and cervical spine without contrast. TECHNIQUE: Multiple contiguous axial images were obtained through the head, neck, and facial bones without the use of intravenous contrast. Sagittal and coronal reformations through the cervical spine and facial bones were also performed. Auto Exposure Controls were utilized during the CT exam to meet ALARA standards for radiation dose reduction. INDICATION: Fall. Head and neck injury. Facial pain. COMPARISON: None. CT HEAD: The ventricles are normal in size, shape and position. There is no midline shift or mass effect. There is no hemorrhage or evidence of acute ischemia. The bony calvarium is normal. Mastoids are clear. IMPRESSION: 1. No acute intracranial abnormalities. CT CERVICAL SPINE: Alignment is normal. There is no subluxation or fracture. Minimal degenerative changes are present. Soft tissues are intact. IMPRESSION: 1. No traumatic malalignment or fracture. CT FACE: There is chronic complete opacification of the left maxillary sinus. No facial fracture is seen. Nasal septum is midline. The mandible, zygomatic arches and pterygoid plates are intact. IMPRESSION: 1. Left maxillary sinus disease. 2. No facial fracture identified. Dictated by: Dictated on workstation # [id number]
[2021-03-24 23:01] VITALS: BP 128/62
== END 2021-03-24 23:01 | disposition home or self-care (01) ==
LOC: EDUNIT# 21:36 → ER 21:40
DX: S09.93XA Unspecified injury of face, initial encounter (principal); I10 Essential (primary) hypertension; F03.90 Unspecified dementia, unspecified severity, without behavioral disturbance, psychotic disturbance, mood disturbance, and anxiety; R40.2410 Glasgow coma scale score 13-15, unspecified time; Z79.82 Long term (current) use of aspirin; W22.8XXA Striking against or struck by other objects, initial encounter
CPT/HCPCS: 70450; 70486; 72125

== ENCOUNTER 2021-03-27 13:13 | Emergency (ER) | payer MEDICARE, OTHER ==
[~2021-03-27] VITALS: Ht 172.7 cm; Wt 68.0 kg
[2021-03-27] MEDS ORDERED: LACTATED RINGERS 1,000 ML IV ONE (13:30)
--- NOTE | 2021-03-27 13:32 | ED General ---
General Stated Complaint: AMS Source of Information: Patient, EMS Exam Limitations: No Limitations History of Present Illness Date Seen by Provider: Mar 27, 2021 Time Seen by Provider: 13:18 Initial Comments Patient is a 76-year-old male sent from [facility] for report of decline in general health over the last week. Patient recently had a prolonged hospital stay at this facility from February 27 to March 20, altered mental status alcohol detox, secondary to this he developed respiratory distress and was intubated twice during that hospitalization. He was noted to have chronic kidney disease. Had a creatinine of 3 at his admission on 02/27. He was also noted to have an elevated ammonia level. These were corrected over the course of his hospitalization and it looks like per review of the medical record the patient was alert and able to carry on a conversation on transfer from this hospital to [facility]. Patient reportedly had a fall on March 24 at the skilled nursing striking his face. He was seen and evaluated in the emergency department, had a CAT scan of the head and cervical spine both of which were unremarkable. He was then transported back to [facility]. Over the course of the last week apparently the patient has been getting more confused and generally not acting "normal". When patient arrives to the emergency department his vital signs are stable. He has no complaints. He is able to answer "yes and no" it seems appropriately however has some difficulty following commands and will repeat statements that I say. He seems a little agitated. He is attempting to climb over the bed rails. No cough is noted. He is not febrile. His blood pressure is normal. No outward signs of trauma Review of systems difficult in this patient with altered mental status. Timing/Duration: 1 Week Severity: Moderate Associated Systoms: Weakness Allergies and Home Medications Allergies Coded Allergies: Sulfa (Sulfonamide Antibiotics) (Verified Allergy, Mild, 07/22/09) Patient Home Medication List Home Medication List Reviewed: Yes Allopurinol (Allopurinol) 100 Mg Tablet, 100 MG PO DAILY Prescribed by: GORDON MARIE on 03/20/21 1138 Amlodipine Besylate (Amlodipine Besylate) 5 Mg Tablet, 10 MG PO DAILY Prescribed by: GORDON MARIE on 03/20/21 1138 Aspirin (Aspirin EC) 81 Mg Tablet.dr, 81 MG PO DAILY Prescribed by: GORDON MARIE on 03/20/21 1138 Cetirizine HCl (Cetirizine HCl) 10 Mg Tablet, 10 MG PO DAILY Prescribed by: GORDON MARIE on 03/20/21 113 Doxazosin Mesylate (Doxazosin Mesylate) 4 Mg Tablet, 4 MG PO BID Prescribed by: GORDON MARIE on 03/20/21 113 Folic Acid (Folic Acid) 1 Mg Tablet, 1 MG PO DAILY Prescribed by: GORDON MARIE on 03/20/21 113 Furosemide (Furosemide) 20 Mg Tablet, 20 MG PO DAILY Prescribed by: GORDON MARIE on 03/20/21 1138 Multivitamin/Iron/Folic Acid (Tab-A-Radha Multivit with Iron) 1 Each Tablet, 1 EA PO DAILY@0700 Prescribed by: GORDON MARIE on 03/20/21 1138 Pantoprazole Sodium (Pantoprazole Sodium) 40 Mg Tablet.dr, 40 MG PO DAILY Prescribed by: GORDON MARIE on 03/20/21 113 Sodium Bicarbonate (Sodium Bicarbonate) 650 Mg Tablet, 650 MG PO TID Prescribed by: GORDON MARIE on 03/20/21 113 Thiamine HCl (Vitamin B-1) 100 Mg Tablet, 100 MG PO DAILY@0700 Prescribed by: GORDON MARIE on 03/20/21 113 Tramadol HCl (Tramadol HCl) 50 Mg Tablet, 50 MG PO BID PRN for PAIN-SEVERE (8- 10) Prescribed by: GORDON MARIE on 03/20/21 1139 Discontinued Medications Ascorbic Acid (Vitamin C) 1,000 Mg Tablet, 1,000 MG PO DAILY, (Reported) Entered as Reported by: TIM VALLADARES on 02/26/21939 Atenolol (Atenolol) 100 Mg Tablet, 100 MG PO DAILY, (Reported) Entered as Reported by: TIM VALLADARES on 02/26/21939 Cimetidine (Acid Lubrication Servicer (CIMETIDINE)) 200 Mg Tablet, 200 MG PO DAILY, (Reported) Entered as Reported by: TIM VALLADARES on 02/26/21939 Diphenhydramine HCl (Benadryl Allergy) 25 Mg Tablet, 25 MG PO DAILY, (Reported) Entered as Reported by: TIM VALLADARES on 02/26/21939 Gabapentin (Neurontin) 300 Mg Capsule, 600 MG PO DAILY, (Reported) Entered as Reported by: TIM VALLADARES on 02/26/21939 Krill Oil/[place]-3/Dha/Epa ([place]-3 Krill Oil Softgel) 1 Each Capsule, 1 EACH PO DAILY, (Reported) Entered as Reported by: TIM VALLADARES on 02/26/21939 Saw [place] Fruit (Saw [place]) 450 Mg Capsule, 450 MG PO DAILY, (Reported) Entered as Reported by: TIM VALLADARES on 02/26/21939 Vitamin B Complex (B Complex) 1 Each Tablet, 1 EACH PO DAILY, (Reported) Entered as Reported by: TIM VALLADARES on 02/26/21939 Vitamin E Mixed (Vitamin E) 1,000 Unit Capsule, 1,000 UNIT PO DAILY, (Reported) Entered as Reported by: TIM VALLADARES on 02/26/21939 Review of Systems Review of Systems Constitutional: see HPI Review of systems unobtainable secondary to altered mental status All Other Systems Reviewed Negative Unless Noted: Yes Past Brgjbrs-Yquohp-Talprw Hx Immunizations Up To Date First/Initial COVID19 Vaccinat: UNK Past Medical History Surgery/Hospitalization HX: STAGE 3 CKD, HTN, GERD High Cholesterol, Hypertension Reproductive Disorders: No Family Medical History No Pertinent Family Hx Physical Exam Vital Signs Vital Signs - First Documented 03/27/21 13:20 Temp 36.3 Pulse 95 Resp 18 B/P (MAP) 164/72 (102) O2 Delivery Room Air Capillary Refill : Height, Weight, BMI Height: 5'8.00" Weight: 189lbs. oz. 85.275230al; 28.00 BMI Method: General Appearance: No Apparent Distress, Other (siightly agitated) Eyes: Bilateral Eye Normal Inspection, Bilateral Eye PERRL, Bilateral Eye EOMI HEENT: PERRL/EOMI, Pharynx Normal, Moist Mucous Membranes, Other (TM's obscured by cerumen bilaterally.) Neck: Full Range of Motion, Non Tender Respiratory: Chest Non Tender, Lungs Clear, Normal Breath Sounds, No Accessory Muscle Use, No Respiratory Distress Cardiovascular: Regular Rate, Rhythm (95 Bpm), Normal Peripheral Pulses Gastrointestinal: Non Tender, Soft, Other (non distended) Back: Normal Inspection, No Vertebral Tenderness Extremity: Normal Capillary Refill, Normal Inspection, Normal Range of Motion, Non Tender, No Calf Tenderness Neurologic/Psychiatric: Alert, Normal Mood/Affect, Disoriented (disoriented to location, date, season. Knows his name and birthday), Other (pleasant and affable) Skin: Normal Color, Warm/Dry, Other (no rashes, bruising/petechiae; meredith rash in the groin bilaterally) Procedures/Interventions Date of ETT Placement: Mar 09, 2021 Time of ETT Placement: 1246 Progress/Results/Core Measures Suspected Sepsis SIRS Temperature: Pulse: Respiratory Rate: Laboratory Tests 03/27/21 13:42: White Blood Count 6.5 Blood Pressure / Mean: Laboratory Tests 03/27/21 13:42: Platelet Count 176 03/27/21 13:57: Creatinine 4.31H, Total Bilirubin 1.8H Results/Orders Lab Results Laboratory Tests Test 03/27/21 13:42 03/27/21 13:57 03/27/21 15:09 03/27/21 17:24 Range/Units White Blood Count 6.5 4.3-11.0 10^3/uL Red Blood Count 2.67 L 4.30-5.52 10^6/uL Hemoglobin 9.9 L 13.3-17.7 g/dL Hematocrit 29 L 40-54 % Mean Corpuscular Volume 108 H 80-99 fL Mean Corpuscular Hemoglobin 37 H 25-34 pg Mean Corpuscular Hemoglobin Concent 34 32-36 g/dL Red Cell Distribution Width 12.1 10.0-14.5 % Platelet Count 176 130-400 10^3/uL Mean Platelet Volume 11.0 9.0-12.2 fL Immature Granulocyte % (Auto) 0 % Neutrophils (%) (Auto) 59 42-75 % Lymphocytes (%) (Auto) 25 12-44 % Monocytes (%) (Auto) 8 0-12 % Eosinophils (%) (Auto) 7 0-10 % Basophils (%) (Auto) 1 0-10 % Neutrophils # (Auto) 3.8 1.8-7.8 10^3/uL Lymphocytes # (Auto) 1.6 1.0-4.0 10^3/uL Monocytes # (Auto) 0.5 0.0-1.0 10^3/uL Eosinophils # (Auto) 0.4 H 0.0-0.3 10^3/uL Basophils # (Auto) 0.1 0.0-0.1 10^3/uL Immature Granulocyte # (Auto) 0.0 0.0-0.1 10^3/uL Sodium Level 152 H 135-145 MMOL/L Potassium Level 4.2 3.6-5.0 MMOL/L Chloride Level 115 H 98-107 MMOL/L Carbon Dioxide Level 23 21-32 MMOL/L Anion Gap 14 5-14 MMOL/L Blood Urea Nitrogen 50 H 7-18 MG/DL Creatinine 4.31 H 0.60-1.30 MG/DL Estimat Glomerular Filtration Rate 13 BUN/Creatinine Ratio 12 Glucose Level 99 70-105 MG/DL Calcium Level 9.7 8.5-10.1 MG/DL Corrected Calcium 10.3 H 8.5-10.1 MG/DL Total Bilirubin 1.8 H 0.1-1.0 MG/DL Aspartate Amino Transf (AST/SGOT) 26 5-34 U/L Alanine Aminotransferase (ALT/SGPT) 23 0-55 U/L Alkaline Phosphatase 82 40-136 U/L Ammonia 54 H 11-32 UMOL/L Total Protein 8.3 H 6.4-8.2 GM/DL Albumin 3.2 3.2-4.5 GM/DL Urine Color YELLOW Urine Clarity CLOUDY Urine pH 6.0 5-9 Urine Specific [place] 1.010 L 1.016-1.022 Urine Protein TRACE H NEGATIVE Urine Glucose (UA) NEGATIVE NEGATIVE Urine Ketones NEGATIVE NEGATIVE Urine Nitrite POSITIVE H NEGATIVE Urine Bilirubin NEGATIVE NEGATIVE Urine Urobilinogen NORMAL < = 1.0 MG/DL Urine Leukocyte Esterase 2+ H NEGATIVE Urine RBC (Auto) 2+ H NEGATIVE Urine RBC 2-5 H /HPF Urine WBC >100 H /HPF Urine Squamous Epithelial Cells 2-5 /HPF Urine Crystals NONE /LPF Urine Bacteria MODERATE H /HPF Urine Casts NONE /LPF Urine Mucus NEGATIVE /LPF Urine Yeast MODERATE H /HPF Urine Culture Indicated YES My Orders Orders - CHRIS CHANCE MD Ammonia (03/27/21 13:30) Lactulose Oral Solution (Enulose Oral So (03/27/21 15:30) Blood Culture (03/27/21 16:16) Ceftriaxone 1 Gm Pre-Mix (Rocephin 1 Gm (03/27/21 16:30) Covid 19 Inhouse Test (03/27/21 17:14) Influenza A And B By Pcr (03/27/21 17:14) Isolation Central Supply Req (03/27/21 17:14) Blood Culture (03/27/21 16:34) Medications Given in ED Current Medications Medications Dose Ordered Sig/Nolan Route Start Time Stop Time Status Last Admin Dose Admin Ceftriaxone Sodium/Dextrose 50 ml @ 100 mls/hr ONCE ONCE IV 03/27/21 16:30 03/27/21 16:59 DC 03/27/21 16:28 100 MLS/HR Lactated Ringer's 1,000 ml @ 0 mls/hr Q0M ONCE IV 03/27/21 13:30 03/27/21 13:31 DC 03/27/21 13:55 999 MLS/HR Lactulose 20 gm ONCE ONCE PO 03/27/21 15:30 03/27/21 15:31 DC 03/27/21 15:39 20 GM Vital Signs/I&O 03/27/21 13:20 Temp 36.3 Pulse 95 Resp 18 B/P (MAP) 164/72 (102) O2 Delivery Room Air Capillary Refill : Progress Note #1: Time: 15:17 Progress Note Case discussed with Hospitalist, Dr Landry; agrees with need for admission but she states due to his Acute renal failure, he would best be served at a facility that has Nephrology services which we do not have, Call made to [facility] - they are at capacity; [facility] may have availability - awaiting call back. Progress Note #2: Time: 16:17 Progress Note Case discussed with DORA Oreilly at this time. She accepts to [facility] on behalf of Dr. Cody. Patient will be given 1 g of Rocephin for nitrite positive urine sample. Blood culture will be obtained prior to antibiotics. Departure Impression Primary Impression: Acute on chronic renal failure Qualified Codes: N17.9 - Acute kidney failure, unspecified; N18.9 - Chronic kidney disease, unspecified Additional Impressions: Hepatic encephalopathy Altered mental status Qualified Codes: R41.0 - Disorientation, unspecified Urinary tract infection associated with cystostomy catheter Qualified Codes: T83.510A - Infection and inflammatory reaction due to cystostomy catheter, initial encounter; N39.0 - Urinary tract infection, site not specified Disposition: 02 XFER SHT-TRM HOSP Condition: Stable Transfer Transfer Reason: Exceeds level of care Time Spoke to Accepting Phy: 16:17 Transfer Progress Notes discussed with DORA Oreilly who accepts on behalf of Dr Cody Transfer Facility: [facility] Method of Transfer: EMS Departure-Patient Inst. Referrals: NO,LOCAL PHYSICIAN (PCP/Family) Primary Care Physician CHRIS CHANCE MD Mar 27, 2021 13:32
[2021-03-27 13:49] LABS: BASOPHILS # (AUTO) 0.1 10^3/uL (0.0-0.1); BASOPHILS % (AUTO) 1 % (0-10); EOSINOPHILS # (AUTO) 0.4 10^3/uL (0.0-0.3); EOSINOPHILS % (AUTO) 7 % (0-10); HEMATOCRIT 29 % (40-54); HEMOGLOBIN 9.9 g/dL (13.3-17.7); LYMPHOCYTES # (AUTO) 1.6 10^3/uL (1.0-4.0); LYMPHOCYTES % (AUTO) 25 % (12-44); MEAN CORPUSCULAR HEMOGLOBIN 37 pg (25-34); MEAN CORPUSCULAR HGB CONC 34 g/dL (32-36); MEAN CORPUSCULAR VOLUME 108 fL (80-99); MONOCYTES # (AUTO) 0.5 10^3/uL (0.0-1.0); MONOCYTES % (AUTO) 8 % (0-12); NEUTROPHILS # (AUTO) 3.8 10^3/uL (1.8-7.8); NEUTROPHILS % (AUTO) 59 % (42-75); PLATELET COUNT 176 10^3/uL (130-400); WHITE BLOOD COUNT 6.5 10^3/uL (4.3-11.0)
[2021-03-27 14:25] LABS: ALBUMIN 3.2 GM/DL (3.2-4.5); BILIRUBIN,TOTAL 1.8 MG/DL (0.1-1.0); CALCIUM 9.7 MG/DL (8.5-10.1); CREATININE SERUM 4.31 MG/DL (0.60-1.30); POTASSIUM 4.2 MMOL/L (3.6-5.0); TOTAL PROTEIN 8.3 GM/DL (6.4-8.2)
[2021-03-27 15:30] LABS: BILIRUBIN,URINE NEGATIVE (NEGATIVE); CLARITY,URINE CLOUDY; COLOR,URINE YELLOW; GLUCOSE, URINE (UA) NEGATIVE (NEGATIVE); KETONES,URINE NEGATIVE (NEGATIVE); LEUKOCYTE ESTERASE ,URINE 2+ (NEGATIVE); NITRITE,URINE POSITIVE (NEGATIVE); PROTEIN,URINE TRACE (NEGATIVE)
[2021-03-27] MEDS ORDERED: LACTULOSE SYRUP 10GM/15ML (ENULOSE) 30ML UDC PO ONE (15:30)
[2021-03-27 15:33] LABS: BACTERIA,URINE MODERATE /HPF; WBC,URINE >100 /HPF; YEAST,URINE MODERATE /HPF
[2021-03-27] MEDS ORDERED: cefTRIAXone 1 GM PRE-MIX 50 ML IV ONE (16:30)
[2021-03-27 21:05] VITALS: BP 133/99
== END 2021-03-27 21:06 | disposition short-term general hospital (02) ==
LOC: EDUNIT# 13:13 → ER 13:14
DX: N17.9 Acute kidney failure, unspecified (principal); I12.9 Hypertensive chronic kidney disease with stage 1 through stage 4 chronic kidney disease, or unspecified chronic kidney disease; N18.30 Chronic kidney disease, stage 3 unspecified; K72.90 Hepatic failure, unspecified without coma; R41.82 Altered mental status, unspecified; T83.510A Infection and inflammatory reaction due to cystostomy catheter, initial encounter; N39.0 Urinary tract infection, site not specified; K21.9 Gastro-esophageal reflux disease without esophagitis; Z20.822 Contact with and (suspected) exposure to COVID-19; Z79.82 Long term (current) use of aspirin; Z79.899 Other long term (current) drug therapy
CPT/HCPCS: 36415; 80053; 81000; 82140; 85025; 87040; 87077; 87088; 87186; 87636